=== PATIENT | male | born 1935 | race Caucasian/White ===

== ENCOUNTER → 2018-02-01 09:36 | Outpatient (CLI) | payer MEDICARE, OTHER, SELFPAY ==
--- NOTE | 2018-02-01 09:41 | AAVD_ITS ---
Reason For Study: AAA Repair Aorta Measurements Aorta Doppler Measurements Proximal aorta measures1.8 x 1.8cm. in cross- Peak systolic flow velocities within the proximal sectional axis. aorta measure 119 cm/sec. Proximal aorta measures1.8cm. in longitudinal Endograft velocites measure 236 cm/sec axis. proximally, 198 cm/sec medially, and 157 cm/sec Mid/Distal residual sac measures 4.5 x 4.7 cm. distally. Left Iliac Artery Left iliac artery measures 1.5 cm. in the longitudinal axis. Left iliac artery measures 1.3 x 1.5 cm. in the cross-sectional axis. Peak systolic velocity in the left iliac artery measures 46 cm/sec. Right Iliac Artery Right iliac artery measures 1.5 cm. in the longitudinal axis. Right iliac artery measures 1.5 x 1.7 cm. in the cross-sectional axis. Peak systolic velocity in the right iliac artery measures 55 cm/sec. Procedure Aorta IVC Iliac vasculature or bypass grafts [id number]. Exam performed in department. Interpretation Summary 1. Patent endograft with no stenosis. 2. Residual sac 4.5 x 4.7cm. Ordering Physician: Pablo Lau Referring Physician: Steve Corley Performed By: Brooklynn Contreras, THUAN, RVT
--- NOTE | 2018-02-01 11:34 | LEAS ---
Arterial Study - Arterial Study Arterial Study: Core record number: [id number] Date of scan 02/01/[address] Lau History: Patient with follow-up PAD and previous endograft repair. Interpretation: Right lower extremity normal pulsatile flow noted from the thigh down to the calf ankle out through the digits duplex shows triphasic flow at the ankle with an CARINA 1.1 for the posterior tibial 1.1 through the dorsalis pedis. With the digit brachial index 0.63. Next Left lower extremity also shows normal pulsatile flow from the thigh down to the calf ankle out through the digits duplex shows triphasic flow noted at the ankl with an CARINA 1.11 the posterior tibial and 1.03 the dorsalis pedis. Digital brachial index 0.77. Impression: 1. Bilateral lower extremities with no evidence of significant arterial occlusive disease at rest with an CARINA 1.14 in the right and 1.11 on the left.
== END ==
PROVIDERS: Family Provider Family Medicine; PCP Family Medicine; Visit Provider Surgery Vascular Surgery
DX: I73.9 Peripheral vascular disease, unspecified (principal); I71.4 Abdominal aortic aneurysm, without rupture
CPT/HCPCS: 93923; 93978

== ENCOUNTER → 2018-04-27 09:19 | Outpatient (CLI) | payer MEDICARE, OTHER, SELFPAY | PROVIDERS: Family Provider Family Medicine; PCP Family Medicine; Visit Provider Internal Medicine Interventional Cardiology | DX: I25.10 Atherosclerotic heart disease of native coronary artery without angina pectoris (principal); I71.4 Abdominal aortic aneurysm, without rupture; I35.8 Other nonrheumatic aortic valve disorders; E78.5 Hyperlipidemia, unspecified; R09.89 Other specified symptoms and signs involving the circulatory and respiratory systems | CPT/HCPCS: 93880 ==

== ENCOUNTER → 2019-02-05 | Outpatient (CLI) | payer MEDICARE, OTHER, SELFPAY ==
--- NOTE | 2019-02-05 08:37 | ART_ITS ---
Reason For Study: AAA Procedure A bilateral lower extremity continuous wave Doppler with analog waveform analysis and ankle brachial indexes. Left Segmental Pressures Left brachial= 157mmHg. Left posterior tibial artery = 161mmHg. Left dorsalis pedis artery = 158mmHg. The left dorsalis pedis waveforms are biphasic. The left posterior tibial artery waveforms are triphasic. Right Segmental Pressures Right brachial= 150mmHg. Right posterior tibial artery = 165mmHg. Right dorsalis pedis artery = 159mmHg. The right dorsalis pedis waveforms are triphasic. The right posterior tibial artery waveforms are triphasic. Indices The right ankle brachial index by the dorsalis pedis is 1.01. The right ankle brachial index by the posterior tibial artery is 1.05. The left ankle brachial index by the dorsalis pedis is 1.01. The left ankle brachial index by the posterior tibial artery is 1.03. Interpretation Summary 1. Bilateral no significant occlussive disease at rest with CARINA 1.05/1.03. Ordering Physician: Pablo Lau Referring Physician: Steve Corley Performed By: Jo Burroughs RVT
--- NOTE | 2019-02-05 08:38 | AAVD_ITS ---
Reason For Study: AAA Aorta Measurements Aorta Doppler Measurements Proximal aorta measures1.93 x 1.94cm. in cross- Peak systolic flow velocities within the proximal sectional axis. aorta measure 94.3 cm/sec. Proximal aorta measures1.94cm. in longitudinal Mid endograft velocites measure 214.1 cm/sec and axis. 183 cm/sec. Mid/Distal residual sac measures 4.18 x 4.68 cm. Distal endograft velocities measure 136.3 cm/sec and 138.9 cm/sec. Left Iliac Artery Left iliac artery measures 1.26 x 1.27 cm. in the cross-sectional axis. Left iliac artery measures 1.33 cm. in the longitudinal axis. Peak systolic velocity in the left iliac artery measures 58.5 cm/sec. Right Iliac Artery Right iliac artery measures 1.39 x 1.41 cm. in the cross-sectional axis. Right iliac artery measures 1.37 cm. in the longitudinal axis. Peak systolic velocity in the right iliac artery measures 138.9 cm/sec. Procedure Aorta IVC Iliac vasculature or bypass grafts [id number]. Exam performed in department. Interpretation Summary 1. Patent endograft and no obvious endoleak. Residual sac 4.68cm. Ordering Physician: Pablo Lau Referring Physician: Steve Corley Performed By: Jo Burroughs RVT
== END | disposition home or self-care (01) ==
LOC: CVS 08:32
PROVIDERS: Family Provider Family Medicine; PCP Family Medicine; Referring Provider Surgery Vascular Surgery; Visit Provider Surgery Vascular Surgery
DX: I70.213 Atherosclerosis of native arteries of extremities with intermittent claudication, bilateral legs (principal); I71.4 Abdominal aortic aneurysm, without rupture; I25.10 Atherosclerotic heart disease of native coronary artery without angina pectoris; I25.2 Old myocardial infarction; Z91.041 Radiographic dye allergy status
CPT/HCPCS: 93922; 93978

== ENCOUNTER → 2020-06-09 07:51 | Outpatient (CLI) | payer MEDICARE, OTHER, SELFPAY ==
--- NOTE | 2020-06-09 07:54 | AAVD_ITS ---
Reason For Study: AAA w/ endograft Aorta Measurements Aorta Doppler Measurements Proximal aorta measures1.94 x 1.90cm. in cross- Peak systolic flow velocities within the proximal sectional axis. aorta measure 112.5 cm/sec. Proximal aorta measures1.96cm. in longitudinal Mid Limb 1, 219.3 cm/sec. axis. Mid Limb 2, 133.7 cm/sec. Mid residual sac, 4.34 x 4.63 x 4.24 cm. Distal Limb 1, 144 cm/sec. Mid Limb 1, 0.79 x 0.79 x 0.77 cm. Distal Limb 2, 120.7 cm/sec. Mid Limb 2, 0.76 x 0.78 x 0.69 cm. Distal residual sac, 3.68 x 4.09 x 4.1 cm. Distal Limb 1, 1.21 x 1.21 x 1.24 cm. Distal Limb 2, 1.23 x 1.21 x 1.22 cm. Left Iliac Artery Left iliac artery measures 1.26 x 1.26 cm. in the cross-sectional axis. Left iliac artery measures 1.25 cm. in the longitudinal axis. Peak systolic velocity in the left iliac artery measures 46.8 cm/sec. Right Iliac Artery Right iliac artery measures 1.18 x 1.15 cm. in the cross-sectional axis. Right iliac artery measures 1.19 cm. in the longitudinal axis. Peak systolic velocity in the right iliac artery measures 106.7 cm/sec. Procedure Aorta IVC Iliac vasculature or bypass grafts [id number]. Exam performed in department. Interpretation Summary Patent EVAR and no endoleakk and sac 4.3 x 4.6cm. Ordering Physician: Pablo Lau Referring Physician: Tio Corley Performed By: Jo Burroughs RVT
--- NOTE | 2020-06-09 07:54 | ART_ITS ---
Reason For Study: AAA w/ endograft Procedure A bilateral lower extremity continuous wave Doppler with analog waveform analysis and ankle brachial indexes. Left Segmental Pressures Left brachial= 133mmHg. Left posterior tibial artery = 157mmHg. Left dorsalis pedis artery = 146mmHg. The left dorsalis pedis waveforms are biphasic. The left posterior tibial artery waveforms are triphasic. Right Segmental Pressures Right brachial= 139mmHg. Right posterior tibial artery = 161mmHg. Right dorsalis pedis artery = 152mmHg. The right dorsalis pedis waveforms are biphasic. The right posterior tibial artery waveforms are triphasic. Indices The right ankle brachial index by the dorsalis pedis is 1.09. The right ankle brachial index by the posterior tibial artery is 1.16. The left ankle brachial index by the dorsalis pedis is 1.05. The left ankle brachial index by the posterior tibial artery is 1.13. Interpretation Summary Bilateral triphasic flow and CARINA 1.16 and 1.13. Ordering Physician: Pablo Lau Referring Physician: Tio Corley Performed By: Jo Burroughs RVT and Student
== END ==
PROVIDERS: PCP Family Medicine; Referring Provider Surgery Vascular Surgery; Visit Provider Surgery Vascular Surgery
DX: I71.4 Abdominal aortic aneurysm, without rupture (principal); I73.9 Peripheral vascular disease, unspecified; Z95.828 Presence of other vascular implants and grafts
CPT/HCPCS: 93922; 93978

== ENCOUNTER → 2021-07-09 08:49 | Outpatient (CLI) | payer MEDICARE, OTHER, SELFPAY ==
--- NOTE | 2021-07-09 08:57 | ART_ITS ---
Reason For Study: PVD Procedure A bilateral lower extremity continuous wave Doppler with analog waveform analysis and ankle brachial indexes. Left Segmental Pressures Left brachial= 144mmHg. Left posterior tibial artery = 141mmHg. Left dorsalis pedis artery = 147mmHg. Left digit = 125 mmHg. The left dorsalis pedis waveforms are biphasic. The left posterior tibial artery waveforms are triphasic. Right Segmental Pressures Right brachial= 147mmHg. Right posterior tibial artery = 161mmHg. Right dorsalis pedis artery = 154mmHg. Right digit = 97 mmHg. The right dorsalis pedis waveforms are triphasic. The right posterior tibial artery waveforms are triphasic. Indices The right ankle brachial index by the dorsalis pedis is 1.05. The right ankle brachial index by the posterior tibial artery is 1.1. The right digital-brachial index is .66. The left ankle brachial index by the posterior tibial artery is .96. The left ankle brachial index by the dorsalis pedis is 1.0. The left digital-brachial index is .85. VL/Ankle Brachial Index Interpretation Summary Bilateral triphasic flow and CARINA 1.1 and 1.0. Normal DBI at 0.66 and 0.85. Ordering Physician: Pablo Lau Performed By: Alonso Stallworth RVT
--- NOTE | 2021-07-09 08:57 | AAVD_ITS ---
Reason For Study: AAA Aorta Measurements Aorta Doppler Measurements Proximal aorta measures1.76 x 1.66cm. in cross- Peak systolic flow velocities within the proximal sectional axis. aorta measure 104.1 cm/sec. Proximal aorta measures1.76cm. in longitudinal Mid limb 1 168.7 cm/s. axis. Mid limb 2 133.2 cm/s. Mid sac short 4.65 x 4.65 cm. Dist limb 1 139.6 cm/s. Mid sac long 4.54cm Dist limb 2 97.6 cm/s. Distal sac short 3.81 x 3.81 cm. Distal sac long 3.23 cm. Mid limb 1 1.28 x 1.18 x 1.16 cm. Mid limb 2 1.21 x 1.11 x 1.04 cm. Distal limb 1 1.04 x .99 x 1.01 cm. Distal limb 2 1.01 x 1.11 x 1.11 cm. Left Iliac Artery Left iliac artery measures 1.13 x 1.1 cm. in the cross-sectional axis. Left iliac artery measures 1.16 cm. in the longitudinal axis. Peak systolic velocity in the left iliac artery measures 55.6 cm/sec. Right Iliac Artery Right iliac artery measures 1.26 x 1.4 cm. in the cross-sectional axis. Right iliac artery measures 1.32 cm. in the longitudinal axis. Peak systolic velocity in the right iliac artery measures 104.1 cm/sec. Procedure Aorta IVC Iliac vasculature or bypass grafts [id number]. The exam was diagnostic. Exam performed in department. VL/Abd Aortic/IVC Duplex scan Interpretation Summary No endoleak seen. Residual sac 4.65cm. Ordering Physician: Pablo Lau Performed By: Alonso Stallworth, RVT
== END ==
PROVIDERS: PCP Family Medicine; Referring Provider Surgery Vascular Surgery; Visit Provider Surgery Vascular Surgery
DX: I73.9 Peripheral vascular disease, unspecified (principal); I71.4 Abdominal aortic aneurysm, without rupture; Z95.828 Presence of other vascular implants and grafts
CPT/HCPCS: 93922; 93978

== ENCOUNTER → 2022-11-15 | Outpatient (CLI) | payer MEDICARE, OTHER, SELFPAY ==
--- NOTE | 2022-11-15 08:42 | AAVD_ITS ---
Reason For Study: AAA w/repair Aorta Measurements Aorta Doppler Measurements Proximal aorta measures1.98 x 1.96cm. in cross- Peak systolic flow velocities within the proximal sectional axis. aorta measure 106.7 cm/sec. Proximal aorta measures1.913cm. in longitudinal Mid limb 1, 193.7 cm/s. axis. Mid limb 2, 90.5 cm/s. Mid sac short, 4.90 x 4.87 cm. Dist limb 1, 121.5 cm/s. Mid sac long, 4.85 cm Dist limb 2, 144.8 cm/s. Distal sac short, 3.63 x 3.72 cm. Distal sac long, 3.8 cm. Mid limb 1, 0.94 x 0.92 x 0.95 cm. Mid limb 2, 0.90 x 0.90 x 0.90 cm. Distal limb 1, 1.21 x 1.18 x 1.22 cm. Distal limb 2, 1.10 x 1.06 x 1.25 cm. Left Iliac Artery Left iliac artery measures 1.32 x 1.30 cm. in the cross-sectional axis. Left iliac artery measures 1.31 cm. in the longitudinal axis. Peak systolic velocity in the left iliac artery measures 67.1 cm/sec. Right Iliac Artery Right iliac artery measures 1.27 x 1.30 cm. in the cross-sectional axis. Right iliac artery measures 1.36 cm. in the longitudinal axis. Peak systolic velocity in the right iliac artery measures 103.4 cm/sec. VL/Abd Aortic/IVC Duplex scan Interpretation Summary No endoleak and sac 4.9cm. Ordering Physician: Pablo Lau Referring Physician: Katerin Lazo Performed By: Jo Burroughs RVT
--- NOTE | 2022-11-15 08:43 | ART_ITS ---
Reason For Study: PVD Procedure A bilateral lower extremity continuous wave Doppler with analog waveform analysis and ankle brachial indexes. Left Segmental Pressures Left brachial= 141mmHg. Left posterior tibial artery = 156mmHg. Left dorsalis pedis artery = 98mmHg. The left dorsalis pedis waveforms are biphasic. The left posterior tibial artery waveforms are triphasic. Right Segmental Pressures Right brachial= 135mmHg. Right posterior tibial artery = 156mmHg. Right dorsalis pedis artery = 142mmHg. The right dorsalis pedis waveforms are triphasic. The right posterior tibial artery waveforms are triphasic. Indices The right ankle brachial index by the dorsalis pedis is 1.01. The right ankle brachial index by the posterior tibial artery is 1.11. The left ankle brachial index by the dorsalis pedis is 0.70. The left ankle brachial index by the posterior tibial artery is 1.11. VL/Ankle Brachial Index Interpretation Summary Bialteral triphasic with no significant stenosis and CARINA 1.11 and 1.11. Ordering Physician: Pablo Lau Referring Physician: Katerin Lazo Performed By: Jo Burroughs RVT
== END | disposition home or self-care (01) ==
LOC: CVS 08:35
PROVIDERS: PCP Family Medicine; Referring Provider Surgery Vascular Surgery; Visit Provider Surgery Vascular Surgery
DX: Z95.828 Presence of other vascular implants and grafts (principal); I73.9 Peripheral vascular disease, unspecified
CPT/HCPCS: 93922; 93978

== ENCOUNTER → 2024-01-20 | Outpatient (CLI) | payer MEDICARE, OTHER, SELFPAY ==
--- NOTE | 2024-01-20 08:43 | AAVD_ITS ---
Reason For Study: PVD, AAA w/repair Aorta Measurements Aorta Doppler Measurements Proximal aorta measures2.12 x 2.02cm. in cross- Peak systolic flow velocities within the proximal sectional axis. aorta measure 88.6 cm/sec. Proximal aorta measures1.98cm. in longitudinal Mid limb 1, 178.6 cm/s. axis. Mid limb 2, 134.5 cm/s. Mid sac short, 4.80 x 4.55 cm. Dist limb 1, 106 cm/s. Mid sac long, 4.60 cm Dist limb 2, 137.1 cm/s. Distal sac short, 3.90 x 3.89 cm. Distal sac long, 3.86 cm. Mid limb 1, 0.73 x 0.70 x 0.76 cm. Mid limb 2, 0.88 x 0.85 x 0.80 cm. Distal limb 1, 1.19 x 1.24 x 1.16 cm. Distal limb 2, 1.25 x 1.28 x 1.22 cm. Left Iliac Artery Left iliac artery measures 1.53 x 1.53 cm. in the cross-sectional axis. Left iliac artery measures 1.38 cm. in the longitudinal axis. Peak systolic velocity in the left iliac artery measures 58.3 cm/sec. Right Iliac Artery Right iliac artery measures 1.38 x 1.44 cm. in the cross-sectional axis. Right iliac artery measures 1.38 cm. in the longitudinal axis. Peak systolic velocity in the right iliac artery measures 118.9 cm/sec. Procedure Aorta IVC Iliac vasculature or bypass grafts [id number]. Exam performed in department. VL/Abd Aortic/IVC Duplex scan Interpretation Summary No endoleak and patent EVAR. Sac 3.9cm. Ordering Physician: MD Pablo Lau Referring Physician: Katerin Lazo Performed By: Jo Burroughs RVT
--- NOTE | 2024-01-20 08:43 | ART_ITS ---
Reason For Study: PVD, AAA w/ repair Procedure A bilateral lower extremity continuous wave Doppler with analog waveform analysis and ankle brachial indexes. Left Segmental Pressures Left brachial= 128mmHg. Left posterior tibial artery = 130mmHg. Left dorsalis pedis artery = 103mmHg. The left dorsalis pedis waveforms are triphasic. The left posterior tibial artery waveforms are triphasic. Right Segmental Pressures Right brachial= 128mmHg. Right posterior tibial artery = 142mmHg. Right dorsalis pedis artery = 104mmHg. The right dorsalis pedis waveforms are biphasic. The right posterior tibial artery waveforms are triphasic. Indices The right ankle brachial index by the dorsalis pedis is 0.81. The right ankle brachial index by the posterior tibial artery is 1.11. The left ankle brachial index by the dorsalis pedis is 0.80. The left ankle brachial index by the posterior tibial artery is 1.02. VL/Ankle Brachial Index Interpretation Summary Bilateral leg normal at rest 1.11 and 1.02. Ordering Physician: Pablo Lau Referring Physician: Katerin Lazo Performed By: Jo Burroughs RVT
== END | disposition home or self-care (01) ==
LOC: CVS 08:39
PROVIDERS: PCP Family Medicine; Referring Provider Surgery Vascular Surgery; Visit Provider Surgery Vascular Surgery
DX: I73.9 Peripheral vascular disease, unspecified (principal); I71.43 Infrarenal abdominal aortic aneurysm, without rupture; Z95.828 Presence of other vascular implants and grafts
CPT/HCPCS: 93922; 93978

== ENCOUNTER → 2025-07-30 | Outpatient (CLI) | payer MEDICARE, OTHER, SELFPAY ==
--- OUTSIDE RECORDS SUMMARY | 2025-07-30 07:38 | XMS RPT_ITS | CCD ---
Author Organization [facility] Care Team Providers Care Test Deck Supervisor Name Role Phone JOSE AGUILAR, Renuka GARCIA Primary Care Physician RHETT AGUILAR, DR JAIMES Primary Care Physician Edwardo DELANEY MD Unavailable [phone] PHYSICAL THERAPY, CONSULT Unavailable Red aguilar BERLIN Unavailable Unavailable DAYSI, EYE Unavailable VASCULAR SURGEON, GENERAL Unavailable REGINA Ordonez MD Unavailable Claudia Valente RN Unavailable Unavailable ANYI AGUILAR, ROMEL Llamas Unavailable GELY AVILA RN Unavailable Unavailable Aliyah Diaz Unavailable Unavailable Renuka GARCIA MD Unavailable LANE GRANT Unavailable Unavailable Erinn Hunt Unavailable Unavailable [place] Unavailable Unavailable Tara Tomas Unavailable Unavailable Bridgett Landaverde Unavailable Unavailable SAIMA AGUILAR, PEPITO Gutierrez Unavailable Stanton RN, Freida Unavailable UnavailJOSIAH Arenas Unavailable Unavailable Beth CONSTANTINO, Kinjal Unavailable Unavailable Unavailable Unavailable Brigid Lau Referring Unavailable Brigid Lau Attending Unavailable Fiona Delaney Primary Care Unavailable BROOKE GARCIA Attending Unavailable RHETT AGUILAR, DR JAIMES Primary Care Unavailable DANIEL MATA MD Attending Unavailable RHETT AGUILAR, DR JAIMES Primary Care Unavailable SHERI CAZARES-LANE DELUCA Attending Unavail able RHETT AGUILAR, DR JAMIES Primary Care Unavailable DANIEL MATA MD Attending Unavailable RHETT AGUILAR, DR JAIMES Primary Care Unavailable RHETT AGUILAR, DR JAIMES Attending Unavailable RHETT AGUILAR, DR JAIMES Primary Care Unavailable DANIEL MATA MD Attending Unavailable RHETT AGUILAR, DR JAIMES Primary Care Unavailable ZUHAIR AGUILAR, DR AGUILAR Attending Red DELANEY MD, DR JAIMES Primary Care Unavailable Edwardo DELANEY Primary Care Unavailable Edwardo DELANEY Consulting Unavailable Edwardo DELANEY Attending Unavailable Edwardo DELANEY Admitting Unavailable PROVIDER, UNKNOWN Consulting Unavailable PROVIDER, UNKNOWN Consulting Unavailable PROVIDER, UNKNOWN Consulting Unavailable RHETT AGUILAR, DR JAIMES Primary Care Unavailable ESPERANZA AGUILAR, DANIEL Grayson Attending Unavailable BEBETO CONSTANTINO, LOVE Unavailable Unavaila ble Allergies Allergy Classification Reported Allergen(s) Allergy Type Date of Onset Reaction(s) Facility (20 sources) Aspirin; Translations: [aspirin] Drug Allergy 4 Difficulty breathing at rest [facility] (20 sources) clopidogrel; Translations: [clopidogrel] Drug Allergy 3 difficulty breathing, Rash [facility] Comment on above: per ambulatory order s signed by Dr. Mata. [facility] 08/19/14 (15 sources) Contrast media; Translations: [contrast media (iodine-based)] Drug allergy hives/ shortness of breath [facility] (15 sources) Niacin; Translations: [niacin] Drug Allergy flushing/itchi [facility] Comment on above: per ambulatory order s signed by Dr. Mata. [facility] 08/19/14 (15 sources) Pravastatin; Translations: [pravastatin] Drug Allergy muscle aches [facility] Comment on above: per ambulatory order s signed by Dr. Mata. [facility] 08/19/14 (15 sources) Sulfonamides (Antibiotic); Translations: [sulfa drugs] Drug allergy rash [facility] (20 sources) Sulfacetamide Drug Allergy Rash [facility], [facility].; [facility] - [facility], [facility]. (10 sources) statins (Renamed from Lipitor *ANTIHYPERLIPIDEM ICS*) [facility].; [facility] [employer] (1 source) [facility] [employer] [facility] [employer] (1 source) [facility] [employer] [facility] [employer] (1 source) Aspirin Drug Allergy [facility] (1 source) clopidogrel Drug Allergy [facility] (1 source) Contrast media; Translations: [RED DYE] Propensity to adverse reactions (disorder) [facility] (1 source) Sulfonamides (Antibiotic) Drug allergy (disorder) [facility] (1 source) CONTRAST MEDIA, IODINE RELATED Drug allergy (disorder) [facility] (1 source) [facility] [employer] [facility] [employer] (1 source) [facility] [employer] [facility] [employer] (1 source) [facility] [employer] [facility] [employer] (1 source) [facility] [employer] [facility] [employer] (1 source) [facility] [employer] [facility] [employer] (1 source) [facility] [employer] [facility] [employer] (1 source) [facility] [employer] [facility] [employer] (1 source) [facility] [employer] [facility] [employer] (1 source) [facility] [employer] [facility] [employer] (1 source) [facility] [employer] [facility] [employer] (1 source) [facility] [employer] [facility] [employer] (1 source) [facility] [employer] [facility] [employer] (1 source) [facility] [employer] [facility] [employer] (1 source) [facility] [employer] [facility] [employer] (1 source) [facility] [employer] [facility] [employer] (1 source) [facility] [employer] [facility] [employer] (1 source) [facility] [employer] [facility] [employer] (1 source) [facility] [employer] [facility] [employer] (1 source) [facility] [employer] [facility] [employer] (1 source) [facility] [employer] [facility] [employer] (1 source) [facility] [employer] [facility] [employer] (1 source) [facility] [employer] [facility] [employer] (1 source) [facility] [employer] [facility] [employer] (1 source) [facility] [employer] [facility] [employer] (1 source) [facility] [employer] [facility] [employer] Medications Current Medications Medication Drug Class(es) Dates Sig (Normalized) Sig (Original) acetaminophen 325 mg oral capsule (15 sources) Start: 01-29-2016 Tylenol 325 mg oral capsule Dose : 650 mg = 2 cap(s), Oral, q4h, PRN for pain, 0 Refill(s) Start Date: 01/29/16 Status: Ordered Repeat number: 1 ascorbic acid 500 mg oral tablet (20 sources) Vitamin C Start: 01-29-2016 Vitamin C 500 mg oral tablet Dose : 500 mg = 1 tab(s), Oral, qDay, # 30 tab(s), 0 Refill(s) Start Date: 01/29/16 Status: Ordered Comment on above: OTC carvedilol 3.125 mg oral tab let (20 sources) alpha-Adrenergic Kamaljit, beta-Adrenergic Kamaljit Start: 12-18-2024 Start: 11-10-2022 Start: 11-10-2022 carvedilol 3.1 25 mg oral tablet Dose : 3.125 mg = 1 tab(s), Oral, qDay, 0 Refill(s) Start Date: 11/10/22 Status: Ordered Start: 01-29-2016 carvedilol 3.1 25 mg oral tablet Dose : 3.125 mg = 1 tab(s), Oral, qHS, 0 Refill(s) Start Date: 01/29/16 Status: Ordered Start: 01-29-2016 carvedilol 3.1 25 mg oral tablet Dose : 3.125 mg = 1 tab(s), Oral, BID, # 180 tab(s), 0 Refill(s) Start Date: 01/29/16 Status: Ordered Comment on above: Wants a 90 day suppl y Centrum Silver Men's oral tablet (7 sources) Start: 01-29-2016 take 1 tablet by mouth once daily Centrum Silver Men's oral tablet Dose = 1 tab(s), Oral, qDay, 0 Refill(s) Start Date: 01/29/16 Status: Ordered Centrum Silver oral tablet (8 sources) Start: 09-08-2022 take 1 tablet by mouth once daily Centrum Silver oral tablet Dose = 1 tab(s), Oral, qDay, 0 Refill(s) Start Date: 09/08/22 Status: Ordered Repeat number: 1 Start: 09-08-2022 take 1 tablet by betzy th once daily Centrum Silver oral tablet Dose = 1 tab(s), Oral, qDay, 0 Refill(s) Start Date: 09/08/22 Status: Ordered cholecalciferol 0.125 mg ora l tablet (20 sources) Vitamin D take 1 tablet by mouth once herminio y Vitamin D3 125 mcg (5,000 unit) oral tablet ; 1 daily (125 mcg (5,000 uni) Comments: OTC Vitamin D ; herminio y Status: Inactive Comment on above: OTC colchicine 0.6 mg oral table t (20 sources) Start: 03-12-2024 Start: 10-14-2022 colchicine 0.6 mg oral tablet Dose : 0.6 mg = 1 tab(s), Oral, q1h, PRN as needed for gout pain, take as directed, # 10 tab(s), 0 Refill(s) Start Date: 10/14/22 Status: Ordered Quantity: 10.0 Unit: tab(s) Repeat number: 1 take 1 tablet by betzy th twice daily COLCHICINE, 0.6MG (Oral Tablet) ; 1 two times daily (0.6 MG) Status: Inactive Comment on above: repeat 1 pill 1 hour later Daily Multiple Vitamin (20 sources) Daily Multiple Vitamin oral tablet (10 sources) take 1 tablet by mouth once daily Daily Multiple Vitamin oral tablet ; 1 (one) daily Comments: OTC - Centrum Silver Comment on above: OTC - Centrum Silver diphenhydrAMINE hydrochloride 25 mg oral capsule (2 sources) Histamine-1 Receptor Antagonist Start: 2 Benadryl 25 mg oral capsule Dose : 50 mg = 2 cap(s), Oral, Once, PRN for allergy symptoms, 0 Refill(s) Start Date: 08/02/22 Status: Ordered enalapril maleate 10 mg oral tablet (20 sources) Angiotensin Converting Enzyme Inhibitor Start: 4 Start: 07-26-2023 take 1 tablet by betzy th at bedtime enalapril maleate 10 mg tablet ; 1 (one) Tablet at bedtime for 90 days Quantity: 90 {Tablet} Refills: 3 Ordered: 26-Jul-2023 MD Edwardo DELANEY Start: 26-Jul-2023 Comments: This prescription supersedes all prior prescriptions for this medication.Would like 90 day supply. Start: 07-26-2023 Start: 01-29-2016 enalapril 5 mg oral tablet Dose : 5 mg = 1 tab(s), Oral, qHS, 0 Refill(s) Start Date: 01/29/16 Status: Ordered Repeat number: 1 Comment on above: This prescription [place] pers[place] all prior prescriptions for this medication.Would like 90 day supply. meclizine hydrochloride 25 mg oral tablet (20 sources) Antiemetic Start: 01-10-20 Comment on above: Medication taken as needed. prasugrel 10 mg oral tablet (20 sources) P2Y12 Platelet Inhibitor Start: 09-23-19 Effient 10 mg oral tablet Dose : 10 mg = 1 tab(s), Oral, Daily, # 90 tab(s), 3 Refill(s), Pharmacy: [facility], 165.1, cm, 09/14/23 13:00:00 EST, Height, kg, 09/14/23 13:00:00 EST, Dosing Weight Start Date: 10/25/23 Status: Ordered Quantity: 90.0 Unit: tab(s) Repeat number: 4 Comment on above: Cardio predniSONE 50 mg oral tablet (2 sources) Start: 08-02-20 take 1 mg by mouth once predniSONE 50 mg oral tablet mg = tab(s), Oral, Once, 0 Refill(s) Start Date: 08/02/22 Status: Ordered rosuvastatin calcium 5 mg oral tablet (1 source) HMG-CoA Reductase Inhibitor Start: 09-28-19 Crestor 5 mg oral tablet Dose : 5 mg = 1 tab(s), Oral, Daily, # 30 tab(s), 0 Refill(s), Pharmacy: [facility], 167.6, cm, 09/28/21 11:25:00 EST, Height, kg, 09/28/21 11:25:00 EST, Dosing Weight Start Date: 09/28/21 Status: Ordered Vitamin B Complex oral tablet (7 sources) Start: 01-29-20 take 1 tablet by mouth once daily Vitamin B Complex oral tablet Dose = 1 tab(s), Oral, Daily, # 90 tab(s), 0 Refill(s) Start Date: 01/29/16 Status: Ordered vitamin b12 1 mg oral tablet (20 sources) Vitamin B12 Comment on above: OTC Vitamin B12 1000 mcg oral tablet (8 sources) Start: 09-08-19 Vitamin B12 1000 mcg oral tablet Dose : 1,000 mcg = 1 tab(s), Oral, qDay Start Date: 09/08/22 Status: Ordered Repeat number: 1 Start: 09-08-2022 Vitamin B12 10 00 mcg oral tablet Dose : 1,000 mcg = 1 tab(s), Oral, qDay Start Date: 09/08/22 Status: Ordered Vitamin C 500 mg oral tablet (14 sources) Start: 01-29-2016 Vitamin C 500 mg oral tablet Dose : 500 mg = 1 tab(s), Oral, qDay, 0 Refill(s) Start Date: 01/29/16 Status: Ordered Repeat number: 1 Start: 01-29-2016 Vitamin C 500 mg oral tablet Dose : 500 mg = 1 tab(s), Oral, qDay, 0 Refill(s) Start Date: 01/29/16 Status: Ordered Start: 01-29-2016 Vitamin C 500 mg oral tablet Dose : 500 mg = 1 tab(s), Oral, qDay, # 30 tab(s), 0 Refill(s) Start Date: 01/29/16 Status: Ordered Vitamin D3 5000 intl units o ral capsule (15 sources) Start: 01-29-2016 Vitamin D3 500 0 intl units oral capsule Dose : 5,000 unit(s) = 1 cap(s), Oral, qDay, 0 Refill(s) Start Date: 01/29/16 Status: Ordered Repeat number: 1 Start: 01-29-2016 Vitamin D3 500 0 intl units oral capsule Dose : 5,000 unit(s) = 1 cap(s), Oral, qDay, 0 Refill(s) Start Date: 01/29/16 Status: Ordered Completed/Discontinued Medications Medication Drug Class(es) Dates Sig (Normalized) Sig (Original) acyclovir 400 mg oral tablet (20 sources) Herpesvirus Nucleoside Analog DNA Polymerase Inhibitor, Herpes Simplex Virus Nucleoside Analog DNA Polymerase Inhibitor, Herpes Zoster Virus Nucleoside Analog DNA Polymerase Inhibitor Start: 09-11-2015 End: 02-28-2016 albuterol 0.83 mg/ml inhalation solution (20 sources) beta2-Adrenergic Agonist Start: 07-24-2010 End: 06-01-2011 Start: 07-24-2010 End: 06-01-2011 ALBUTEROL SULFATE, (2.5 MG/3 ML)0.083% (Inhalation Nebulization Solution) ; 1 (one) Ampule(s) every four hours, as needed for 0 days Quantity: 30 {ampule(s)} Refills: 0 Ordered: 01-Jun-2011 DOUGIE Campos Start: 24-Jul-2010 End: 01-Jun-2011 Status: Inactive Comments: Medication taken as needed. Ventolin HFA 108 (90 Base) MCG/ACT Inhalation Aerosol Solution ; 1 two times daily (108 (90 Base) MCG/ACT) Comment on above: Medication taken as needed. atorvastatin 40 mg oral tabl et (20 sources) HMG-CoA Reductase Inhibitor take 1 tablet by mouth at bedtim e Atorvastatin Calcium 40 MG Oral Tablet ; 1 at bedtime (40 MG) Status: Inactive Comments: Dr. Mata Comment on above: Dr. Mata azithromycin 250 mg oral tab let (20 sources) Macrolide Antimicrobial Start: 07-17-2020 End: 07-22-2020 Start: 08-16-2014 End: 04-08-2015 Comment on above: take two tablets day one and then one tablet daily for 4 days Centrum (20 sources) CENTRUM (Oral Tablet) (10 sources) CENTRUM (Oral Tablet) Status: Inactive clopidogrel 75 mg oral tablet (20 sources) P2Y12 Platelet Inhibitor cyclobenzaprine hydrochloride 5 mg oral tablet (20 sources) Muscle Relaxant Start: 03-26-2014 End: 08-16-2014 Start: 03-26-2014 End: 08-16-2014 CYCLOBENZAPRINE HCL, 5MG (Or al Tablet) ; 1 (one) Tablet before bed for 10 days Quantity: 15 {Tablet} Refills: 1 Ordered: 16-Aug-2014 DOUGIE Eid Start: 26-Mar-2014 End: 16-Aug-2014 Status: Inactive fluticasone propionate 0.05 mg/actuat metered dose nasal spray (20 sources) Corticosteroid Start: 03-13-2018 End: 10-25-2022 Start: 03-13-2018 End: 10-25-2022 fluticasone propionate 50 mc g/actuation intranasal spray, suspension ; 1 (one) each nostril squirt squirt two times daily for 0 days Quantity: 1 {Bottle} Refills: 5 Ordered: 25-Oct-2022 DOUGIE Valente Start: 13-Mar-2018 End: 25-Oct-2022 Status: Inactive 60 actuat fluticasone propionate 0.25 mg/actuat / salmeterol 0.05 mg/actuat dry powder inhaler (20 sources) Corticosteroid, beta2-Adrenergic Agonist Start: 12-14-2011 End: 03-26-2014 Start: 12-14-2011 End: 03-26-2014 ADVAIR DISKUS, 250-50MCG/DOS E (Inhalation Aerosol Powder Breath Activated) ; 1 inhalation Aero Pow Br Act two times daily for 0 days Quantity: 1 {Discus} Refills: 12 Ordered: 26-Mar-2014 Start: 14-Dec-2011 End: 26-Mar-2014 Status: Inactive homatropine methylbromide 0. 3 mg/ml / HYDROcodone bitartrate 1 mg/ml oral solution (20 sources) Opioid Agonist, Cholinergic Muscarinic Agonist Start: 09-20-2011 End: 01-25-2012 Start: 09-20-2011 End: 01-25-2012 HYDROCODONE-HOMATROPINE, 5-1 .5MG/5ML (Oral Syrup) ; 1 Teaspoon(s) every six hours, as needed for 0 days Quantity: 4 {ounce(s)} Refills: 2 Ordered: 25-Jan-2012 DOUGIE Campos Start: 20-Sep-2011 End: 25-Jan-2012 Status: Inactive Comments: Medication taken as needed. rx [facility] [place]. Comment on above: Medication taken as needed. rx to [facility] [place]. indomethacin 25 mg oral caps ule (20 sources) Nonsteroidal Anti-inflammatory Drug Start: 04-25-2012 End: 08-16-2014 Comment on above: to take as soon as h ave symptoms of gout and take until symptoms gone for 48 hours then taper over 2-3 days. levoFLOXacin 500 mg oral tab let (20 sources) Quinolone Antimicrobial Start: 12-14-2011 End: 12-21-2011 metoprolol tartrate 25 mg or al tablet (20 sources) beta-Adrenergic Kamaljit Start: 08-03-2011 End: 07-26-2014 LOPRESSOR, 50MG (Oral Tablet) ; (50 MG) Status: Inactive Comments: 1 am and 1/2 as needed Comment on above: 1 am and 1/2 as need ed Cardio nebulizer and compressor (20 sources) Start: 07-24-2010 End: 06-01-2011 NEBULIZER COMPRESSOR (Kit) (10 sources) Start: 07-24-2010 End: 06-01-2011 NEBULIZER COMPRESSOR (Kit) ; Kit for 0 days Quantity: 1 Kit Refills: 0 Ordered: 01-Jun-2011 DOUGIE Campos Start: 24-Jul-2010 End: 01-Jun-2011 Status: Inactive Nebulizer/Adult Mask (20 sources) Start: 07-24-2010 End: 06-01-2011 NEBULIZER/ADULT MASK (Kit) (10 sources) Start: 07-24-2010 End: 06-01-2011 NEBULIZER/ADULT MASK (Kit) ; Kit for 0 days Quantity: 1 Kit Refills: 0 Ordered: 01-Jun-2011 DOUGIE Campos Start: 24-Jul-2010 End: 01-Jun-2011 Status: Inactive NEBULIZER/TUBING/MOUTHPIEC E (Kit) (10 sources) Start: 07-24-2010 End: 06-01-2011 NEBULIZER/TUBING/MOUTH PIECE (Kit) ; Kit for 0 days Quantity: 1 Kit Refills: 0 Ordered: 01-Jun-2011 DOUGIE Campos Start: 24-Jul-2010 End: 01-Jun-2011 Status: Inactive nitroglycerin 0.4 mg sublingual tablet (20 sources) Nitrate Vasodilator NITROGLYCERIN, 0 .4MG (Sublingual Tablet Sublingual) ; prn (0.4 MG) Status: Inactive Potassium (20 sources) Potassium ; herminio y Status: Inactive Comments: Takes occasionally Comment on above: Takes occasionally Reusable Nebulizer Kit (20 sources) Start: 07-24-2010 End: 06-01-2011 sildenafil 20 mg oral tablet (20 sources) Phosphodiesterase 5 Inhibitor Start: 10-25-2022 End: 04-11-2024 Start: 03-22-2016 End: 12-23-2017 Start: 03-22-2016 End: 12-23-2017 Viagra 100 MG Oral Tablet ; 1/2 Tablet as needed for 0 days Quantity: 16 {Tablet} Refills: 3 Ordered: 23-Dec-2017 DOUGIE Eid Start: 22-Mar-2016 End: 23-Dec-2017 Status: Inactive Comments: Medication taken as needed. fax to [facility] Comment on above: Medication taken as needed. Medication taken as needed. fax to [facility] ticagrelor 90 mg oral tablet (20 sources) zolpidem tartrate 5 mg oral tablet (20 sources) gamma-Aminobutyric Acid-ergic Agonist Start: 07-26-2014 End: 08-16-2014 Start: 07-26-2014 End: 08-16-2014 AMBIEN, 5MG (Oral Tablet) ; 1-2 Tablet at bedtime, as needed for 30 days Quantity: 30 {Tablet} Refills: 2 Ordered: 16-Aug-2014 DOUGIE Eid Start: 26-Jul-2014 End: 16-Aug-2014 Status: Inactive Comments: Medication taken as needed. Comment on above: Medication taken as needed. Problems Active Problems Problem Classification Problem Date Documented Da te Episodic/Chronic Abdominal hernia (20 sources) Right inguinal hernia ; Translations: [Unilateral inguinal hernia, without obstruction or gangrene, not specified as recurrent] 08-20-2016 Episodic Abdominal pain (20 sources) Abdominal pain; Translations: [Unspecified abdominal pain] 04-11-2015 Episodic Acute myocardial infarction (20 sources) Acute ST segment elevation myocardial infarction; Translations: [ST elevation (STEMI) myocardial infarction of unspecified site] 07-26-2014 Chronic Administrative/social admission (20 sources) Advance directive discussed with patient; Translations: [Other specified counseling] Onset: 3 10-25-2022 Episodic Comment on above: 10/25/2022 Discussed Advance Directives with pt. Pt. has a Living Will and HCPOA. Aortic; peripheral; and visceral artery aneurysms (7 sources) Abdominal aortic aneurysm without rupture 01-23-2020 Chronic Comment on above: s/p repair February 2016 Asthma (20 sources) Asthma; Translations: [Unspecified asthma, uncomplicated] 04-17-2013 Chronic Blindness and vision defects (20 sources) Diplopia; Translations: [Diplopia] Onset: 3 07-01-2023 Episodic Comment on above: vertical; treating w ith prisms Dr. Catalan Cardiac dysrhythmias (15 sources) Premature beats 01-23-2020 Chronic Comment on above: Premature ventricula r contractions, benign in nature. Cardiac dysrhythmias (20 sources) Bradycardia; Translations: [Bradycardia, unspecified] 08-03-2019 Episodic Cataract (20 sources) Cataract; Translations: [Bilateral cataracts] 01-29-2016 Chronic Cataract (10 sources) Cataract 06-30-2018 Chronic kidney disease (20 sources) Chronic kidney disease stage 3B ; Translations: [Chronic kidney disease, Stage III (moderate)] 04-19-2023 Chronic Comment on above: GFR=44 (12/25). Chronic obstructive pulmonary disease and bronchiectasis (20 sources) Chronic obstructive lung disease; Translations: [Chronic obstructive pulmonary disease, unspecified] 01-01-2022 Chronic Chronic obstructive pulmonary disease and bronchiectasis (10 sources) Chronic obstructive pulmonary disease and bronchiectasis 01-01-2022 Conditions associated with dizziness or vertigo (20 sources) Dizziness and giddiness; Translations: [Dizziness and giddiness] Episodic Comment on above: new complaint Conditions associated with dizziness or vertigo (10 sources) Conditions associated with dizziness or vertigo 01-09-2021 Conduction disorders (20 sources) Complete atrioventricular block; Translations: [Atrioventricular block, complete] Onset: 3 Chronic Comment on above: Pacer 2023 Coronary atherosclerosis and other heart disease (20 sources) Coronary atherosclerosis; Translations: [Atherosclerotic heart disease of [place] coronary artery without angina pectoris] 01-23-2020 Chronic Comment on above: 08/21/2014: PCI with Xience Xpedition MEGHANN x2 mid LAD 07/09/2014: in the proximal ramus int ermedius using a 2.75 x 12mm Resolute Integrity RX stent12/19/2003---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 A 2.5 x 12mm Taxus Stent Drug Eluting. DNR. Coronary atherosclerosis and other heart disease (1 source) Patient post angioplasty; Translations: [Coronary angioplasty status] Episodic Coronary atherosclerosis and other heart disease (20 sources) Coronary atherosclerosis and other heart disease 01-09-2021 Deficiency and other anemia (20 sources) Anemia; Translations: [Anemia, unspecified] 04-25-2020 Episodic Diabetes mellitus without complication (20 sources) Increased glucose level; Translations: [Other abnormal glucose] 08-11-2023 Episodic Diseases of mouth; excluding dental (20 sources) Disorder of salivary gland; Translations: [Other diseases of salivary glands] 2023 Episodic Comment on above: Evaluated Dr. Herbert milligan 06/2023--observe; Bx not an option b/c not palpable Disorders of lipid metabolism (20 sources) Hyperlipidemia; Translations: [Hyperlipidemia, unspecified] Chronic Comment on above: good as of 06/30/18. Diverticulosis and diverticulitis (8 sources) Diverticulosis of colon 09-08-2022 Chronic Essential hypertension (20 sources) Hypertensive disorder; Translations: [Essential hypertension] 07-09-2014 Chronic Gout and other crystal arthropathies (20 sources) Chronic gout without tophus; Translations: [Chronic gout, unspecified, without tophus (tophi)] 12-14-2022 Chronic Heart valve disorders (20 sources) Aortic valve stenosis; Translations: [Aortic stenosis, non-rheumatic ] 01-24-2020 Chronic Heart valve disorders (15 sources) Irregular heart beat 08-21-2014 Episodic Immunizations and screening for infectious disease (20 sources) Encounter for immunization; Translations: [Other specified vaccinations against streptococcus pneumoniae [pneumococcus]] 08-20-2016 Episodic Malaise and fatigue (20 sources) Fatigue; Translations: [Other fatigue] 05-24-2017 Episodic Miscellaneous mental health disorders (20 sources) Transient disorder of initiating or maintaining sleep 08-16-2014 Episodic Osteoarthritis (15 sources) Arthritis 01-29-2016 Chronic Other aftercare (20 sources) Patient encounter status; Translations: [Encounter for therapeutic drug level monitoring] 08-09-2023 Episodic Other aftercare (20 sources) Post-discharge follow-up; Translations: [Encounter for follow-up examination after completed treatment for conditions other than malignant neoplasm] 10-25-2022 Episodic Other circulatory disease (15 sources) Easy bruising 01-29-2016 Episodic Other circulatory disease (8 sources) Difficult venous access 09-08-2022 Episodic Other circulatory disease (20 sources) Elevated blood pressure reading without diagnosis of hypertension 04-25-2012 Episodic Other connective tissue disease (20 sources) Disorder of Achilles tendon; Translations: [Other specified disorders of synovium and tendon, other site] 05-24-2017 Episodic Other ear and sense organ disorders (15 sources) Hearing loss 01-29-2016 Chronic Comment on above: 2 Other endocrine disorders (20 sources) Hypotestosteronism; Translations: [Endocrine disorder, unspecified] 08-01-2018 Episodic Comment on above: nml 08/20/16. 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, right eye] 04-19-2023 Episodic Other gastrointestinal disorders (20 sources) Chronic constipation; Translations: [Other constipation] 12-21-2022 Episodic Other hematologic conditions (20 sources) Hyperproteinemia; Translations: [Abnormality of plasma protein, unspecified] 03-24-2023 Episodic Other lower respiratory disease (20 sources) Nodule of lung; Translations: [Solitary pulmonary nodule] 09-30-2022 Episodic Other male genital disorders (20 sources) Male erectile dysfunction, unspecified; Translations: [Impotence of organic origin] 10-25-2022 Chronic Other nervous system disorders (20 sources) Abnormal gait; Translations: [Unsteadiness on feet] 01-09-2021 Episodic Other non-epithelial cancer of skin (7 sources) Malignant neoplasm of skin 08-21-2014 Episodic Other non-traumatic joint disorders (20 sources) Chronic pain of left upper limb; Translations: [Pain in left shoulder] 04-25-2020 Episodic Other nutritional; endocrine; and metabolic disorders (20 sources) Unintentional weight loss; Translations: [Abnormal weight loss] 04-11-2024 Episodic Other screening for suspected conditions (not mental disorders or infectious disease) (20 sources) Screening status; Translations: [Encounter for screening for cardiovascular disorders] 04-11-2015 Episodic Other upper respiratory disease (20 sources) Allergic rhinitis; Translations: [Allergic rhinitis, unspecified] 07-26-2023 Chronic Other upper respiratory disease (20 sources) Nasal congestion; Translations: [Nasal congestion] 08-01-2018 Episodic Other upper respiratory infections (20 sources) Acute upper respiratory infection; Translations: [Acute upper respiratory infection, unspecified] 08-16-2014 Episodic Peripheral and visceral atherosclerosis (1 source) Peripheral vascular disease, unspecified; Translations: [Peripheral vascular disease, unspecified] Onset: Chronic Pleurisy; pneumothorax; pulmonary collapse (20 sources) Pleurisy; Translations: [Pleurisy] 08-24-2011 Episodic Pneumonia (except that caused by tuberculosis or sexually transmitted disease) (20 sources) Community acquired pneumonia; Translations: [Pneumonia, unspecified organism] 07-17-2020 Episodic Residual codes; unclassified (20 sources) History of repair of aneurysm of abdominal aorta; Translations: [Other specified postprocedural states] 04-19-2023 Episodic Spondylosis; intervertebral disc disorders; other back problems (20 sources) Low back pain; Translations: [Lumbago] 03-16-2017 Episodic Unclassified (15 sources) Eye glasses, device (physical object) 08-21-2014 Unclassified (15 sources) Hearing aid, device (physical object) 01-29-2016 Comment on above: 2 Unclassified (10 sources) LAB DRAW - The labs drawn today include: BMP. The lab was drawn from the right antecubital vein. The lab was ordered by Dr. Delaney. 08-09-2023 Unclassified (10 sources) !Patient notification of lab results - Dr. Delaney (The MRA and MRI ordered by Dr. Brooke Garcia showed no clear explanation for your double vision. 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 At some point, it might be a consideration to have you see a neurosurgeon to advise you on the best management for this small aneurysm (usually they don't need attention unless they are 7 millimeters and yours is 3 millimeters). The MRI showed some age-related changes as the circulation in the small blood vessels diminishes over time. There was also a question of some mild sinus involvement and a 9 millimeter nodule noted in the left parotid gland (which lies over the cheek). The radiologist recommended that we consider an ultrasound of this area. However, I think a consultation with an ENT doctor might be the best next step to follow up these incidental findings. Since we don't have a clearcut explanation for your double vision, I would suggest that we have you see one of the ophthalmologists at the [facility]. They may advise you to see a neuro-warpman but I will leave that to their discretion.). You should call our office if you have any questions. 06-23-2023 Unclassified (10 sources) Follow up Tests results - Note for Follow up to discuss laboratory test results": Pt had MRI of his head done about 2 weeks ago at [place]. His eye doctor ordered the test. He would like to discuss the results. He is still off balance and has vision changes. 06-14-2023 Unclassified (1 source) Visual disturbance - Note for "Visual disturbance": Pt was seen a few weeks ago for vision changes. He had double vision. Testing was done. Vision is slowly getting better. 04-20-2023 Unclassified (1 source) [ADDITIONAL REASON] HYPERTENSION - There has been no associated chest pain or edema. 04-20-2023 Unclassified (10 sources) Coronary Artery Disease (CAD) - The last clinic visit was 2 month(s) ago. Note for "Coronary artery disease": going to 9 weeks of cardio rehab in [place]. [facility] 12-21-2022 Unclassified (10 sources) LAB DRAW - The labs drawn today include: other: uric acid. The lab was drawn from the left antecubital vein. The lab was ordered by Dr. Delaney. 12-14-2022 Unclassified (8 sources) Heart Block - This is a third degree heart block. Note for "Heart block": Was seen in [facility] ER 09/29/2022 and sent to [place]. Had Pacemaker put in 09/30/2022. 10-25-2022 Unclassified (10 sources) [ADDITIONAL REASON] Gout - The last clinic visit was 10 month(s) ago. Note for "Gout": Has rare gout flare ups and keeps Colcrys on hand to use when needed. 10-25-2022 Unclassified (8 sources) [ADDITIONAL REASON] Transition into care - The patient is transitioning into care from a hospital and a summary of care was reviewed. 10-25-2022 Unclassified (7 sources) Transition into care - The patient is transitioning into care from a hospital ([facility]) and a summary of care was reviewed. 01-01-2022 Unclassified (8 sources) [ADDITIONAL REASON] Gout - The last clinic visit was 6 month(s) ago. Note for "Gout": Gout symptoms come and go. Don't last long 01-09-2021 Unclassified (9 sources) HYPERTENSION - Note for "HYPERTENSION": No headaches, dizzy spells, swelling of ankles, chest pain or shortness of breath. No daily cough 04-25-2020 Unclassified (5 sources) Immunization - Immunizations discussed with patient/ parent: yes (had flu shot in [place]). 08-03-2019 Unclassified (8 sources) [ADDITIONAL REASON] Coronary Artery Disease (CAD) - The last clinic visit was 6 month(s) ago. Note for "Coronary artery disease": goes to [place] for the winter. 08-03-2019 Unclassified (10 sources) [ADDITIONAL REASON] HYPERTENSION - Note for "HYPERTENSION": c/o lightheadedness at times. 08-03-2019 Unclassified (8 sources) [ADDITIONAL REASON] HYPERTENSION - Note for "HYPERTENSION": c/o trouble with balance. 01-05-2019 Unclassified (7 sources) Gout - The last clinic visit was 6 month(s) ago. Note for "Gout": No flare-ups 06-30-2018 Unclassified (7 sources) [ADDITIONAL REASON] HYPERTENSION - Note for "HYPERTENSION": No headaches, dizzy spells, swelling of ankles, chest pain or shortness of breath. No cough 06-30-2018 Unclassified (10 sources) Routine Check - Patient is here to review the medical problem(s) of hypertension. Note for "Routine Check ": spent 3 mo in [place]. 12-23-2017 Unclassified (10 sources) LAB DRAW - The labs drawn today include: BMP and Lipid Panel. The lab was drawn from the left antecubital vein. The lab was ordered by Dr. Garcia. fax #: [phone]. Note for "LAB DRAW": also fax to Dr Mata 09-03-2017 Unclassified (4 sources) Coronary Artery Disease (CAD) - Symptoms do not include chest pain, chest pressure or shortness of breath. Note for "Coronary artery disease": Exercises at [employer] (treadmill) 2-3 times weekly. 05-24-2017 Unclassified (4 sources) [ADDITIONAL REASON] HYPERTENSION - There has been no associated chest pain or dyspnea. Note for "HYPERTENSION": Pt taking only 1/2 pill daily when remembers (unsure if enalapril or another medication for BP). Needs refill. 05-24-2017 Unclassified (10 sources) Unspecified Diagnosis 03-16-2017 Unclassified (10 sources) Leg pain - Note for "Leg pain": Rt leg, geovanny heel pain. Last 6 mo. Also lower back pain. 03-16-2017 Unclassified (10 sources) Post-Operative - Patient is 3 weeks postop procedure. Note for "Post-operative follow up": Had stints and aorta repair. 02-28-2016 Unclassified (10 sources) LAB DRAW - The labs drawn today include: Lipid Panel and PSA. The lab was drawn from the left antecubital vein. The lab was ordered by Dr. Dr. Garcia. 06-04-2011 Unclassified (9 sources) HYPERTENSION - There has been no associated chest pain or edema. 04-20-2023 Unclassified (9 sources) [ADDITIONAL REASON] Visual disturbance - Note for "Visual disturbance": Pt was seen a few weeks ago for vision changes. He had double vision. Testing was done. Vision is slowly getting better. 04-20-2023 Unclassified (2 sources) Transition into care - The patient is transitioning into care from a hospital and a summary of care was reviewed. 10-25-2022 Unclassified (2 sources) [ADDITIONAL REASON] Heart Block - This is a third degree heart block. Note for "Heart block": Was seen in [facility] ER 09/29/2022 and sent to [place]. Had Pacemaker put in 09/30/2022. 10-25-2022 Unclassified (2 sources) Gout - The last clinic visit was 6 month(s) ago. Note for "Gout": Gout symptoms come and go. Don't last long 01-09-2021 Unclassified (2 sources) Coronary Artery Disease (CAD) - The last clinic visit was 6 month(s) ago. Note for "Coronary artery disease": goes to [place] for the winter. 08-03-2019 Unclassified (5 sources) [ADDITIONAL REASON] Immunization - Immunizations discussed with patient/ parent: yes (had flu shot in [place]). 08-03-2019 Unclassified (6 sources) HYPERTENSION - There has been no associated chest pain or dyspnea. Note for "HYPERTENSION": Pt taking only 1/2 pill daily when remembers (unsure if enalapril or another medication for BP). Needs refill. 05-24-2017 Unclassified (6 sources) [ADDITIONAL REASON] Coronary Artery Disease (CAD) - Symptoms do not include chest pain, chest pressure or shortness of breath. Note for "Coronary artery disease": Exercises at [employer] (treadmill) 2-3 times weekly. 05-24-2017 Unclassified (3 sources) [ADDITIONAL REASON] Transition into care - The patient is transitioning into care from a hospital ([facility]) and a summary of care was reviewed. 01-01-2022 Unclassified (2 sources) HYPERTENSION - Note for "HYPERTENSION": c/o trouble with balance. 01-05-2019 Unclassified (3 sources) HYPERTENSION - Note for "HYPERTENSION": No headaches, dizzy spells, swelling of ankles, chest pain or shortness of breath. No cough 06-30-2018 Unclassified (3 sources) [ADDITIONAL REASON] Gout - The last clinic visit was 6 month(s) ago. Note for "Gout": No flare-ups 06-30-2018 Viral infection (20 sources) Herpes zoster without complication; Translations: [Zoster without complications] 09-11-2015 Episodic Past or Other Problems Problem Classification Problem Date Documented Date Episodic/Chronic Deficiency and other anemia (10 sources) Deficiency and other anemia 04-26-2020 Headache; including migraine (20 sources) Headache; including migraine 07-26-2023 Other aftercare (2 sources) Encounter for therapeutic drug level monitoring; Translations: [Encounter for therapeutic drug level monitoring] Onset: 08-09-2023 Episodic Unclassified (10 sources) HYPERTENSION - Note for "HYPERTENSION": Increased enalapril to 10 mg at last office visit. Pt denies lightheadedness/dizzi ness. 08-11-2023 Unclassified (10 sources) Visual disturbance - Note for "Visual disturbance": Pt offers hx of having difficulty focusing his eyes along with feeling sluggish and c/o "I sleep a lot". Onset 3 days ago. C/o double vision at times 03-23-2023 Unclassified (20 sources) Immunization - Immunizations discussed with patient/ parent: yes. Influenza immunization was given. An immunization information sheet was provided. 06-25-2021 Unclassified (11 sources) [ADDITIONAL REASON] HYPERTENSION - Note for "HYPERTENSION": No headaches, dizzy spells, swelling of ankles, chest pain or shortness of breath. No daily cough 01-09-2021 Unclassified (10 sources) Cough - The onset of the cough has been acute and has been occurring in a persistent pattern for 1 week. The cough is characterized as productive sputum. The symptoms have been associated with runny nose, while the symptoms have not been associated with fever. 07-17-2020 Unclassified (10 sources) [ADDITIONAL REASON] Gout - The last clinic visit was 9 month(s) ago. Note for "Gout": Occasional flare-ips. Keeps Colcrys on hand 04-25-2020 Unclassified (4 sources) [ADDITIONAL REASON] Injury - Note for "Injury": Tried to pull another Passenger's Suitcase from the escalator in November 2019 at [facility]. Suffered Fractures of Nose and Left Shoulder 04-25-2020 Unclassified (10 sources) !Patient notification of lab results - Dr. Garcia. Note for !Patient notification of lab results ": Daniel, all your labs looked excellent. Let us know if you have any questions. 08-04-2019 Unclassified (10 sources) Preoperative evaluation - Surgical procedures include: other (Cataract extraction w/ lens implant). Date of procedure: (08/10/2018) . [facility] "[facility] 08-01-2018 Unclassified (10 sources) !Patient notification of lab results - Jose. Note for !Patient notification of lab results ": Daniel, as expected, your kidney function, liver, cholesterol and sugar tests were normal. Keep doing what your doing! 07-01-2018 Unclassified (10 sources) !Patient notification of lab results - Garcia. Note for !Patient notification of lab results ": Daniel, your yearly check for kidney function and cholesterol look good. We will send copy to your metal mold dresser.Let us know if you have any questions. 09-06-2017 Unclassified (10 sources) Rash - The onset of the rash has been acute and has been occurring in a persistent pattern for days. The rash is characterized as red. The rash was first seen on the scalp and the face (left eye area). There has been associated itching and pain. Note for "Rash": pt had zostavax immunization 2007.. 09-11-2015 Unclassified (20 sources) Immunization - Influenza immunization was given. An immunization information sheet was provided. 07-04-2015 Unclassified (10 sources) !Patient notification of lab results 1 - Garcia. Note for !Patient notification of lab results 1": Daniel, as expected your kidney function test looks good. Keep doing what your doing! 04-09-2015 Unclassified (10 sources) cough - The onset of the cough has been acute. The symptoms have been associated with sore throat. Note for "cough": Scheduled for heart stent surgery at [place] 08-21-14. 08-16-2014 Unclassified (14 sources) HYPERTENSION - Note for "HYPERTENSION": No headaches, dizzy spells, or swelling of ankles 07-26-2014 Unclassified (10 sources) [ADDITIONAL REASON] Insomnia - Note for "Insomnia": Having trouble sleeping at night since home from [facility] 07-26-2014 Unclassified (10 sources) [ADDITIONAL REASON] Immunization - Influenza immunization was given. An immunization information sheet was provided. A Pneumovax was given. An immunization information sheet was provided. 07-26-2014 Unclassified (9 sources) [ADDITIONAL REASON] Gout - Note for "Gout": Having flare-ups of gout 07-26-2014 Unclassified (5 sources) [ADDITIONAL REASON] Transition into care - The patient is transitioning into care from a hospital ([place]) and a summary of care was reviewed . 07-26-2014 Unclassified (10 sources) !Patient notification of lab results 1 - Garcia. Note for !Patient notification of lab results 1": Daniel, your labs, including your kidney function, look fine. So you don't need to overdo the drinking, but just keep from getting dehydrated and I think you will do fine. 05-13-2014 Unclassified (10 sources) !Patient notification of lab results 1 - Jose. Note for !Patient notification of lab results 1": Daniel, nothing to worry about at this point, but for some reason your kidney function didn't look as good on our yearly routine check. Last year it looked fine. Just make sure you are well hydrated and we will recheck it when you come in next time. Sometimes just being a little dehydrated makes it look abnormal. 03-27-2014 Unclassified (3 sources) [ADDITIONAL REASON] Back Pain - Note for "Back pain": Lower back. Still using Cyclobenzaprine once or twice a week at bedtime. 03-26-2014 Unclassified (10 sources) !Patient notification of lab results 1 - Jose. Note for !Patient notification of lab results 1": Daniel, your labs look good. I will send them to your metal mold dresser. 04-18-2013 Unclassified (10 sources) Back Pain Lumbar, Acute - This condition occurred following a specific injury (fell). The injury involved the low back. This occurred day(s) ago. 04-17-2013 Unclassified (10 sources) !Patient notification of lab results 1 - Dr. Garcia. Note for !Patient notification of lab results 1": Daniel, your labs look good. Happy fishing! 08-23-2012 Unclassified (10 sources) HYPERTENSION - Note for "HYPERTENSION": no complaints. Had flu shot. Going to [place] Sep 2012. Fasting for lab. 08-22-2012 Unclassified (10 sources) !Patient notification of lab results 1 - Dr. Garcia. Note for !Patient notification of lab results 1": Daniel, all your labs look great. Enjoy your Spring! 01-26-2012 Unclassified (10 sources) cough - There has been no associated runny nose or sore throat. 12-14-2011 Unclassified (10 sources) cough - The cough has been occurring for 3 days. The cough is characterized as productive of purulent sputum. The symptoms are aggravated by supine posture (cannot sleep at night). The symptoms have been associated with chest pain (when takes deep breath). 08-24-2011 Unclassified (10 sources) Foot pain - The pain affects the right foot. Note for "Foot pain": pain in toe knuckles, has had gout flair ups in the past, worse at night 11-29-2011 Unclassified (10 sources) !Patient notification of lab results 1 - Dr. Garcia. Note for !Patient notification of lab results 1": Daniel, your cholesterol is higher than before. In someone with known heart disease, we generally push pretty hard to keep that cholesterol down (LDL under 70 or at least under 100). If you are willing to try a different type of medicine for your cholesterol, let me know. I would recommend that you do. 06-05-2011 Unclassified (10 sources) Routine Check - Note for "Routine Check ": . 06-01-2011 Unclassified (10 sources) Patient notification of lab results - Dr. Landaverde. The test(s) that you had done were/was CBC and CMP. The results of your testing were normal (bloodwork) for you and any medical condition(s) that you may have. For your age and medical condition your tests showed the following abnormalities: chest xray showed pneumonia . Please continue your current medication(s) and therapy, follow up as scheduled (tomorrow - 07-25-10) and know that probably we would want to xray your lungs again. 07-24-2010 Unclassified (10 sources) Cough - The onset of the cough has been acute and has been occurring for 1 week. The course has been constant. The cough is characterized as productive of blood-stained sputum. The cough occurs mainly at night. 07-24-2010 Unclassified (6 sources) Injury - Note for "Injury": Tried to pull another Passenger's Suitcase from [facility] escalator [facility] Suffered Fractures of Nose and Left Shoulder 04-25-2020 Unclassified (5 sources) Transition into care - The patient is transitioning into care from a hospital ([place]) and a summary of care was reviewed . 07-26-2014 Unclassified (6 sources) [ADDITIONAL REASON] HYPERTENSION - Note for "HYPERTENSION": No headaches, dizzy spells, or swelling of ankles 07-26-2014 Unclassified (7 sources) Back Pain - Note for "Back pain": Lower back. Still using Cyclobenzaprine once or twice a week at bedtime. 03-26-2014 Unclassified (1 source) Gout - Note for "Gout": Having flare-ups of gout 07-26-2014 Unclassified (3 sources) Cold Symptoms - Symptoms include runny nose, scratchy throat and productive cough (white phlegm infrequently), while symptoms do not include headache. Onset was gradual. Note for "Cold symptoms": Pt states attempted [facility] at [facility] 1-2 weeks ago - unable to complete d/t problems w/ esophagus. 04-11-2024 Unclassified (3 sources) [ADDITIONAL REASON] Weight loss - Note for "Weight loss": Pt concerned w/ weight loss and absent appetite for at least 1 month. 04-11-2024 Results Test Name Value Interpretation Reference Range Facility Laboratory - Chemistry and C hemistry - challengeon 03-29-2025 Cholesterol [Mass/Vol] 153 mg/dL Normal 100 - 199 mg/dL [facility]; [facility] Work Phone: Cholesterol in HDL [Mass/Vol] 31 mg/dL Abnormal [facility]; [facility] Work Phone: Cholesterol in LDL [Mass/Vol] 93 mg/dL Normal 0 - 99 mg/dL [facility]; [facility] [employer] [facility] Work Phone: Cholesterol in VLDL [Mass/Vol] 29 mg/dL Normal 5 - 40 mg/dL [facility]; [facility] [employer] [facility] Work Phone: Cholesterol.total/Cho lesterol in HDL [Mass ratio] 4.9 {ratio} Normal 0.0 - 5.0 {ratio} [facility]; [employer] [facility] [employer] [facility] Work Phone: Triglyceride [Mass/Vol] 165 mg/dL Abnormal 0 - 149 mg/dL [facility]; [employer] [facility] [employer] [facility] Work Phone: No Panel Informationon 04-25 [place] [facility] [employer] [facility]; [facility] Institute[facility]; [facility] Laboratory - Microbiology an d Antimicrobial susceptibilityon 04-11-2024 SARS-CoV-2 (COVID-19) RNA DAVID+probe Ql (Unsp spec) Positive Abnormal [facility] No Panel Informationon 04-11 [facility] Positive Abnormal [facility].; [facility] No Panel Informationon 03-12 [facility].; [facility] No Panel Informationon 02-13 [facility].; [facility] No Panel Informationon 01-26 [facility].; [facility] No Panel Informationon 01-23 [facility] Abd Aortic/IVC Duplex scanon 01-20-2024 Abd Aortic/IVC Duplex scan [facility] [address] [place] [address] Abd Aortic/IVC Duplex scan 01/20/24 0901 MR#: [id number] Acct: [id number] Name: DANIEL MASTERSON Rep #: [id number] : [id number] From: Brigid Lau MD Attending Dr: Dr. Brigid Lau MD Status: [facility] Ordering Dr: Brigid Lau MD Date: 01/20/24 Location: [facility] Sex: M C Admitted: Reason For Study: PVD, AAA w/repair Aorta Measurements Aorta Doppler Measurements Proximal aorta measures2.12 x 2.02cm. in cross- Peak systolic flow velocities within the proximal sectional axis. aorta measure 88.6 cm/sec. Proximal aorta measures1.98cm. in longitudinal Mid limb 1, 178.6 cm/s. axis. Mid limb 2, 134.5 cm/s. Mid sac short, 4.80 x 4.55 cm. Dist limb 1, 106 cm/s. Mid sac long, 4.60 cm Dist limb 2, 137.1 cm/s. Distal sac short, 3.90 x 3.89 cm. Distal sac long, 3.86 cm. Mid limb 1, 0.73 x 0.70 x 0.76 cm. Mid limb 2, 0.88 x 0.85 x 0.80 cm. Distal limb 1, 1.19 x 1.24 x 1.16 cm. Distal limb 2, 1.25 x 1.28 x 1.22 cm. Left Iliac Artery Left iliac artery measures 1.53 x 1.53 cm. in the cross-sectional axis. Left iliac artery measures 1.38 cm. in the longitudinal axis. Peak systolic velocity in the left iliac artery measures 58.3 cm/sec. Right Iliac Artery Right iliac artery measures 1.38 x 1.44 cm. in the cross-sectional axis. Right iliac artery measures 1.38 cm. in the longitudinal axis. Peak systolic velocity in the right iliac artery measures 118.9 cm/sec. Procedure Aorta IVC Iliac vasculature or bypass grafts 21270. Exam performed in department. VL/Abd Aortic/IVC Duplex scan Interpretation Summary No endoleak and patent EVAR. Sac 3.9cm. Ordering Physician: MD Brigid Lau Referring Physician: Fiona Delaney Performed By: Jo Burroughs RVT 01/24/24 1449 Date Brigid Lau MD CC: Dr. Brigid Lau MD; Dr. Fiona Delaney MD Date Dictated: 01/20/24 0901 Date Transcribed: 01/24/24 1449 Housekeeper Supervisor: Signed Normal [facility] Ankle Brachial Indexon 01-19 [facility] [address] [place] [id number] Ankle Brachial Index 01/20/24 0901 MR#: [id number] Acct: [id number] Name: DANIEL MASTERSON Rep #: [id number] : 1935 [id number] From: Brigid Lau MD Attending Dr: Dr. Brigid Lau MD Status: RE G CLI Ordering Dr: Brigid Lau MD Date: 01/20/24 Location: [facility] Sex: M C Admitted: Reason For Study: PVD, AAA w/ repair Procedure A bilateral lower extremity continuous wave Doppler with analog waveform analysis and ankle brachial indexes. Left Segmental Pressures Left brachial= 128mmHg. Left posterior tibial artery = 130mmHg. Left dorsalis pedis artery = 103mmHg. The left dorsalis pedis waveforms are triphasic. The left posterior tibial artery waveforms are triphasic. Right Segmental Pressures Right brachial= 128mmHg. Right posterior tibial artery = 142mmHg. Right dorsalis pedis artery = 104mmHg. The right dorsalis pedis waveforms are biphasic. The right posterior tibial artery waveforms are triphasic. Indices The right ankle brachial index by the dorsalis pedis is 0.81. The right ankle brachial index by the posterior tibial artery is 1.11. The left ankle brachial index by the dorsalis pedis is 0.80. The left ankle brachial index by the posterior tibial artery is 1.02. VL/Ankle Brachial Index Interpretation Summary Bilateral leg normal at rest 1.11 and 1.02. Ordering Physician: Brigid Lau Referring Physician: Fiona Delaney Performed By: Jo Burroughs RVT 01/24/24 1450 Date Brigid Lau MD CC: Dr. Brigid Lau MD; Dr. Fiona Delaney MD Date Dictated: 01/20/24 0901 Date Transcribed: 01/24/24 1450 Housekeeper Supervisor: Signed [facility] No Panel Informationon 12-19 [facility] [employer] [facility] [employer] [facility].; [facility] [employer] [facility]. No Panel Informationon 09-15 [facility].; [facility] [employer] [facility] .GFRon 08-09-2023 GFR >60 Normal [facility] ([place]) Comment on above: Result Comment: GFR Population mean for , Non- Americans Ages 20-29 = 116 mL/min/1.73 sq.m. Ages 30-39 = 107 mL/min/1.73 sq.m. Ages 40-49 = 99 mL/min/1.73 sq.m. Ages 50-59 = 93 mL/min/1.73 sq.m. Ages 60-69 = 85 mL/min/1.73 sq.m. Ages 70+ = 75 mL/min/1.73 sq.m. Chronic Kidney Disease: Less than 60 mL/min/1.73 square meters End Stage Renal Disease: Less than 15 mL/min/1.73 square meters Performed By: #### G , BMP #### [place] [address] GFR Non- 50 ml/min/1.73sqm Normal [facility] ([place]) Comment on above: Result Comment: GFR Population mean for , Non- Americans Ages 20-29 = 116 mL/min/1.73 sq.m. Ages 30-39 = 107 mL/min/1.73 sq.m. Ages 40-49 = 99 mL/min/1.73 sq.m. Ages 50-59 = 93 mL/min/1.73 sq.m. Ages 60-69 = 85 mL/min/1.73 sq.m. Ages 70+ = 75 mL/min/1.73 sq.m. Chronic Kidney Disease: Less than 60 mL/min/1.73 square meters End Stage Renal Disease: Less than 15 mL/min/1.73 square meters Performed By: #### G FR, BMP #### [address] [address] [facility] 08-09-2023 BUN/Creatinine Ratio 14.8 ratio Normal 10.0-22.0 [facility] ([place]) Comment on above: Performed By: #### G FR, BMP #### [address] [address] Calcium [Mass/Vol] 9.8 mg/dL Normal 8.7 - 10. 4 mg/dL [facility], [facility].; [facility] Comment on above: Performed By: #### Kameron FR, BMP #### [address] [address] Chloride [Moles/Vol] 106 mmol/L Normal 98 - 11 0 meq/L [facility], [facility].; [facility] Comment on above: Performed By: #### Kameron FR, BMP #### [address] [address] CO2 [Moles/Vol] 24 mmol/L Normal 22 - 32 meq/L [facility], [facility].; [facility] Comment on above: Performed By: #### G FR, BMP #### [address] [address] Creatinine [Mass/Vol] 1.35 mg/dL Normal 0.60 - 1.40 mg/dL [facility], [facility].; [facility] Comment on above: Performed By: #### G FR, BMP #### [address] [address] Electrolyte Balance 8.0 meq/L Normal 4.0 - 15 .0 meq/L [facility], [facility].; [facility] Comment on above: Performed By: #### G FR, BMP #### [address] [address] Glucose [Mass/Vol] 129 mg/dL Abnormal 82 - 115 mg/dL [facility].; [facility]. Comment on above: Performed By: #### G FR, BMP #### [address] [address] Potassium [Moles/Vol] 4.8 mmol/L Normal 3.5 - 5.0 meq/L [facility].; [facility]. Comment on above: Result Comment: Spec imen slightly hemolyzed. Performed By: #### G FR, BMP #### [address] [address] Sodium [Moles/Vol] 138 mmol/L Normal 136 - 145 meq/L [facility].; [facility]. Comment on above: Performed By: #### G FR, BMP #### [address] [address] Urea nitrogen [Mass/Vol] 20.0 mg/dL Normal 8.0 - 22.0 mg/dL [facility].; [facility]. Comment on above: Performed By: #### G FR, BMP #### [address] [address] Laboratory - Chemistry and C hemistry - challengeon 08-09-2023 GFR/1.73 sq M.predicted among blacks MDRD (S/P/Bld) [Vol rate/Area] mL/min/{1.73_m2} Normal [facility].; [facility]. Work Phone: GFR/1.73 sq M.predicted among non-blacks MDRD (S/P/Bld) [Vol rate/Area] 50 {ml/min/1.73sqm} Normal [facility].; [facility], [facility]. Work Phone: Urea nitrogen/Creatinine [Mass ratio] 14.8 {ratio} Normal 10.0 - 22.0 {ratio} [facility].; [facility]. MRI ORBIT W/ + W/O CONTRASTo n 06-07-2023 MRI ORBIT W/ + W/O CONTRAST ORIGINAL EXAMINATION: MR Brain and Orbits with contrast TECHNIQUE: Multiplanar multi-sequence MRI of the brain and orbits was performed without and with intravenous contrast per standard protocol COMPARISON: CT head 12/10/2019, MRA head 06/01/2023 HISTORY: ORDERING SYSTEM PROVIDED HISTORY: Reason for Exam: Fourth Nerve palsy FINDINGS: Orbits: Normal globe, extraocular muscles, optic nerve, and apparatus. No mass or hematoma. Post bilateral lens implant surgery. Cavernous sinuses: Normal. Extracranial soft tissues: Normal. Visualized skull base foramina: Normal. Brain parenchyma: No acute intracranial hemorrhage, midline shift, mass effect or acute/early subacute ischemic infarct. The strong-white matter junctions are preserved. Moderate generalized parenchymal volume loss is present. No space occupying intra-axial masses or extra-axial fluid collections are demonstrated. A few scattered FLAIR hyperintensities in the deep white matter and slight posterior pontine tegmentum likely reflects age appropriate leukoaraiosis. Ventricles: No hydrocephalus or ventricular effacement. The ventricles and sulci are proportionally prominent reflecting parenchymal volume loss. Paranasal sinuses: Atelectatic left maxillary sinus with mild opacification. Bilateral maxillary sinus retention cysts. Bilateral yasmine bullosa of the middle nasal turbinates. Rightward nasal septal deviation. Mastoids and middle ears: Small right and trace left mastoid effusions. Bones: Normal. Additional comments: 9 mm nodule within the left superficial parotid gland. IMPRESSION: 1. No findings to account for a 4th nerve palsy. 2. Moderate central parenchymal volume loss and mild chronic microvascular white matter ischemic disease. 3. Mild paranasal sinus disease at air-fluid levels. 4. 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 Consider ultrasound. Interpreted by: Brooke Turner MD Preliminary Report By: Brooke Turner MD Electronically signed By Brooke Turner MD Dictated Date: 06/07/2023 10:14:44 AM Prelim Date: 06/07/2023 10:33:38 AM Sign Date: 06/07/2023 10:33:38 AM Ordering Provider: BROOKE GARCIA [facility] ([place]) MRA HEAD W/O CONTRASTon 05-07 MRA HEAD W/O CONTRAST ORIGINAL EXAMINATION: MRA OF THE HEAD WITHOUT CONTRAST 06/01/2023 3:09 pm TECHNIQUE: MRA of the head was performed utilizing [id number] imaging with MIP images. No intravenous contrast was administered. COMPARISON: None HISTORY: ORDERING SYSTEM PROVIDED HISTORY: Reason for Exam: Fourth Nerve Palsy FINDINGS: There is preserved flow related signal in the larger intracranial arteries. No large vessel occlusion. There are bilateral posterior communicating arteries. The right P1 segment is hypoplastic. An anterior communicating artery is present. There is an outpouching in the region of the distal left YOSELIN measuring 3 mm which likely represents an aneurysm. This is incompletely included on the examination given distal location. IMPRESSION: 1. No large vessel occlusion. 2. 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 Interpreted by: Veronica Blackmon MD Preliminary Report By: Veronica Blackmon MD Electronically signed By Veronica Blackmon MD Dictated Date: 06/03/2023 4:24:10 PM Prelim Date: 06/03/2023 4:32:04 PM Sign Date: 06/03/2023 4:32:04 PM Ordering Provider: BROOKE [facility] ([place]) Laboratory - Chemistry and C hemistry - challengeon 03-25-2023 Albumin [Mass/Vol] 3.88 g/dL Normal 3.43 - 5. 41 g/dL [facility].; [facility]. Work Phone: Protein [Mass/Vol] 7.2 g/dL Normal 6.3 - 8.0 g/dL [facility].; [facility]. Work Phone: No Panel Informationon 03-25 Alpha 1 Globulin 0.31 g/dL Normal 0.18 - 0.43 g/dL [facility].; [facility] Work Phone: Alpha 2 Globulin 0.83 g/dL Normal 0.42 - 0.98 g/dL [facility].; [facility] Work Phone: Beta Globulin 0.97 g/dL Normal 0.61 - 1.17 g/dL [facility]; [facility] Work Phone: Gamma Globulin 1.22 g/dL Normal 0.53 - 1.51 g/dL [facility]; [facility] Work Phone: Interpretation No definitive M protein is identified on protein electrophoresis. Normal [facility]; [facility] Work Phone: M Protein Location See Below Normal [facility]; [facility] Work Phone: M-Protein Concentration 0.00 g/dL Normal [facility]; [facility] Work Phone: SPE Staff Review Reviewed by Dr. Carmen Aly MD Normal [facility]; [facility] Work Phone: 7.2 g/dL Normal 6.3 - 8.0 g/dL [facility]; [facility] Work Phone: 3.88 g/dL Normal 3.43 - 5.41 g/dL [facility]; [facility] Work Phone: 0.31 g/dL Normal 0.18 - 0.43 g/dL [facility]; [facility] Work Phone: 0.83 g/dL Normal 0.42 - 0.98 g/dL [facility]; [facility] Work Phone: 0.97 g/dL Normal 0.61 - 1.17 g/dL [facility].; [facility]. Work Phone: 1.22 g/dL Normal 0.53 - 1.51 g/dL [facility].; [facility], [facility]. Work Phone: No definitive M protein is identified on protein electrophoresis. Normal [facility].; [facility]. Work Phone: See Below Normal [facility].; [facility]. Work Phone: 0.00 g/dL Normal [facility].; [facility], [facility]. Work Phone: Reviewed by Dr. Carmen Aly MD [facility]; [facility] Work Phone: Laboratory - Chemistry and C hemistry - challengeon 03-23-2023 Albumin [Mass/Vol] 0.9 g/dL Normal 0.9 - 1.6 [facility]; [facility], [facility] Albumin [Mass/Vol] 3.7 g/dL Normal 3.4 - 5.0 g/dL [facility]; [facility]. ALT [Catalytic activity/Vol] 28 U/L Normal 16 - 63 U/L [facility].; [facility], [facility]. ALT No additional P-5'-P [Catalytic activity/Vol] 28 U/L Normal 16 - 63 U/L [facility]; [facility], [facility] Anion gap [Moles/Vol] 16 mmol/L Normal 10 - 2 0 mmol/L [facility].; [facility], [facility]. AST [Catalytic activity/Vol] 28 U/L Normal 15 - 37 U/L [facility]; [facility], [facility] Bilirubin [Mass/Vol] 0.6 mg/dL Normal 0.2 - 1 .0 mg/dL [facility]; [facility], [facility] Calcium [Mass/Vol] 9.0 mg/dL Normal 8.5 - 10. 1 mg/dL [facility].; [facility] Chloride [Moles/Vol] 102 mmol/L Normal 98 - 10 7 mmol/L [facility]; [facility], [facility] CO2 [Moles/Vol] 27.2 mmol/L Normal 21.0 - 32.0 mmol/L [facility]; [facility], [facility] Creatinine [Mass/Vol] 1.40 mg/dL Abnormal 0.70 - 1.30 mg/dL [facility]; [facility], [facility] GFR/1.73 sq M.predicted among blacks MDRD (S/P/Bld) [Vol rate/Area] 58 {ML/MINUTE} Abnormal 60 - 999 {ML/MINUTE} [facility].; [facility], [facility]. GFR/1.73 sq M.predicted MDRD (S/P/Bld) [Vol rate/Area] 48 {ML/MINUTE} Abnormal 60 - 999 {ML/MINUTE} [facility].; [facility], [facility] Globulin (S) [Mass/Vol] 4.2 g/dL Abnormal 1.5 - 3.8 g/dL [facility].; [facility], [facility]. Glucose [Mass/Vol] 78 mg/dL Normal 74 - 106 mg/dL [facility]; [facility], [facility]. Potassium [Moles/Vol] 4.7 mmol/L Normal 3.5 - 5.1 mmol/L [facility]; [facility], [facility] Protein [Mass/Vol] 7.9 g/dL Normal 6.4 - 8.2 g/dL [facility]; [facility], [facility] Sodium [Moles/Vol] 140 mmol/L Normal 136 - 145 mmol/L [facility]; [facility] Urea nitrogen [Mass/Vol] 19 mg/dL Abnormal 7 - 18 mg/dL [facility]; [facility], [facility] Urea nitrogen/Creatinine [Mass ratio] 14 {ratio} Normal 0 - 30 {ratio} [facility]; [facility] Laboratory - Hematology and Cell countson 03-23-2023 Basophils (Bld) [#/Vol] 0.10 {x10EE3/UL} Normal 0.00 - 0.10 {x10EE3/UL} [facility]; [facility], [facility] Basophils/100 WBC (Bld) 0.9 % Normal 0.0 - 2.0 % [facility]; [facility] Eosinophils (Bld) [#/Vol] 0.50 {x10EE3/UL} Normal 0.00 - 0.50 {x10EE3/UL} [facility]; [facility] Eosinophils/100 WBC (Bld) 5.2 % Normal 0.0 - 7.0 % [facility]; [facility] Erythrocyte distribution width (RBC) [Ratio] 14.6 % Normal 12.0 - 15.6 % [facility]; [facility], [facility] ESR (Bld) [Velocity] 4 mm/h Normal 0 - 20 mm/h Eas [facility]; [facility], [facility] Hematocrit (Bld) [Volume fraction] 52.4 % Abnormal 40.0 - 52.0 % [facility]; [facility], [facility] Hemoglobin (Bld) [Mass/Vol] 16.8 g/dL Normal 13.0 - 17.5 g/dL [facility]; [facility], [facility] Lymphocytes (Bld) [#/Vol] 3.70 {x10EE3/UL} Abnormal 0.80 - 2.80 {x10EE3/UL} [facility].; [facility], [facility]. Lymphocytes/100 WBC (Bld) 37.2 % Normal 20.0 - 45.0 % [facility], [facility].; [facility], [facility]. MCH (RBC) [Entitic mass] 30 pg Normal 27 - 33 pg [facility].; [facility], [facility]. MCHC (RBC) [Mass/Vol] 32 {X10_3} Normal 32 - 3 6 {X10_3} [facility], [facility].; [facility], [facility]. MCV (RBC) [Entitic vol] 92 fL Normal 81 - 98 fL [facility] [employer] [facility].; [facility], [facility]. Monocytes (Bld) [#/Vol] 1.10 {x10EE3/UL} Abnormal 0.20 - 1.00 {x10EE3/UL} [facility].; [facility], [facility]. Monocytes/100 WBC (Bld) 11.5 % Abnormal 0.0 - 10.0 % [facility].; [facility], [facility]. Morphology Dwayne (Bld) [Interp] N/A Normal [facility] [employer] [facility].; [facility] [employer] [facility], [facility]. Neutrophils (Bld) [#/Vol] 4.40 {x10EE3/UL} Normal 1.50 - 7.10 {x10EE3/UL} [facility] [employer] [facility].; [facility], [facility]. Neutrophils/100 WBC (Bld) 45.2 % Abnormal 46.0 - 76.0 % [facility] [employer] [facility].; [facility] [employer] [facility], [facility]. Platelet mean volume (Bld) [Entitic vol] 8.2 fL Normal 6.4 - 10.5 fL [facility] [employer] [facility].; [facility] [employer] [facility], [facility]. Platelets (Bld) [#/Vol] 160 {x10EE3/UL} Normal 150 - 450 {x10EE3/UL} [facility] [employer] [facility] RBC (Bld) [#/Vol] 5.71 {x_10EE6/UL} Normal 4.50 - 6.00 {x_10EE6/UL} [facility] WBC (Bld) [#/Vol] 9.8 {x_10EE3/UL} Normal 4.5 - 10.8 {x_10EE3/UL} [facility] [place] - [facility] [employer] [facility] No Panel Informationon 03-23 AGE 87 {years} Normal [facility].; [facility] ALK PHOS 72 U/L Normal 46 - 116 U/L [facility].; [facility] [employer] [facility]. CBC + DIFF Normal [facility].; [facility] CMP with eGFR Normal [facility] [employer] [facility].; [facility] [employer] [facility] MANUAL DIFF N/A Normal [facility] [employer] [facility] [employer] [facility] 72 U/L Normal 46 - 116 U/L [facility] [employer] [facility] 16 mmol/L Normal 10 - 20 mmol/L [facility] [employer] [facility] [employer] [facility] 87 {years} Normal [facility] N/A Normal [facility] [employer] [facility] [employer] [facility] Laboratory - Chemistry and C hemistry - challengeon 12-14-2022 Magnesium [Mass/Vol] 8.1 mg/dL Normal 3.7 - 9 .2 mg/dL [facility] [employer] [facility] [employer] [facility] No Panel Informationon 12-14 8.1 mg/dL Normal 3.7 - 9.2 mg/dL [facility] [employer] [facility] [employer] [facility] [employer] [facility] LABORATORYOrdered By: SYSTEM SYSTEM on 10-01-2022 Basophils (Bld) [#/Vol] 0.0 103/mcL Invalid Interpretation Code 0.0 - 0.3 10^3/mcL AH Workflow SS Basophils/100 WBC (Bld) 0.4 % Invalid Interpretation Code 0.0 - 2.5 % AH Workflow SS Calcium [Mass/Vol] 9.4 mg/dL Invalid Interpretation Code 8.7 - 10.4 mg/dL ADM SS Chloride [Moles/Vol] 107 mmol/L Invalid Interpretation Code 98 - 110 mEq/L ADM SS CO2 [Moles/Vol] 22 mmol/L Invalid Interpretation Code 22 - 32 mEq/L ADM SS Creatinine [Mass/Vol] 1.26 mg/dL Invalid Interpretation Code 0.60 - 1.40 mg/dL ADM SS Electrolyte Balance 4.0 mEq/L Invalid Interpretation Code 4.0 - 15.0 mEq/L ADM SS Eosinophils (Bld) [#/Vol] 0.3 103/mcL Invalid Interpretation Code 0.0 - 0.7 10^3/mcL AH Workflow SS Eosinophils/100 WBC (Bld) 2.6 % Invalid Interpretation Code 0.0 - 6.0 % AH Workflow SS Erythrocyte distribution width (RBC) [Ratio] 13.3 % Invalid Interpretation Code 11.5 - 15.5 % AH Workflow SS GFR/1.73 sq M.predicted among blacks MDRD (S/P/Bld) [Vol rate/Area] ml/min/1.73sqm Invalid Interpretation Code AH ADM SS GFR/1.73 sq M.predicted among non-blacks MDRD (S/P/Bld) [Vol rate/Area] 54 ml/min/1.73sqm Invalid Interpretation Code ADM SS Glucose [Mass/Vol] 95 mg/dL Invalid Interpretation Code 82 - 115 mg/dL ADM SS Hematocrit (Bld) [Volume fraction] 46.0 % Invalid Interpretation Code 40.0 - 52.0 % Workflow SS Hemoglobin (Bld) [Mass/Vol] 15.1 G/dL Invalid Interpretation Code 13.0 - 17.5 G/dL AH Workflow SS Lymphocytes (Bld) [#/Vol] 3.0 103/mcL Invalid Interpretation Code 0.9 - 4.3 10^3/mcL Workflow SS Lymphocytes/100 WBC (Bld) 26.4 % Invalid Interpretation Code 20.0 - 40.0 % AH Workflow SS Magnesium [Mass/Vol] 1.8 mg/dL Invalid Interpretation Code 1.6 - 2.4 mg/dL AH ADM SS MCH (RBC) [Entitic mass] 29.8 pg Invalid Interpretation Code 27.0 - 33.0 pg AH Workflow SS MCHC 32.8 G/dL Invalid Interpretation Code 32.0 - 36.0 G/dL AH Workflow SS MCV (RBC) [Entitic vol] 91.1 fL Invalid Interpretation Code 81.0 - 100.0 fL AH Workflow SS Monocytes (Bld) [#/Vol] 1.4 103/mcL Invalid Interpretation Code 0.1 - 1.4 10^3/mcL AH Workflow SS Monocytes/100 WBC (Bld) 12.0 % Invalid Interpretation Code 2.0 - 13.0 % AH Workflow SS Neutrophils (Bld) [#/Vol] 6.6 103/mcL Invalid Interpretation Code 2.3 - 8.1 10^3/mcL AH Workflow SS Neutrophils/100 WBC (Bld) 58.6 % Invalid Interpretation Code 50.0 - 75.0 % AH Workflow SS Platelet mean volume (Bld) [Entitic vol] 7.5 fL Invalid Interpretation Code 6.4 - 10.5 fL AH Workflow SS Platelets (Bld) [#/Vol] 174 103/mcL Invalid Interpretation Code 150 - 450 10^3/mcL AH Workflow SS Potassium [Moles/Vol] 4.4 mmol/L Invalid Interpretation Code 3.5 - 5.0 mEq/L ADM SS RBC (Bld) [#/Vol] 5.05 106/mcL Invalid Interpretation Code 4.50 - 6.00 10^6/mcL AH Workflow SS Sodium [Moles/Vol] 133 mmol/L Invalid Interpretation Code 136 - 145 mEq/L ADM SS Urea nitrogen [Mass/Vol] 17.0 mg/dL Invalid Interpretation Code 8.0 - 22.0 mg/dL AH ADM SS Urea nitrogen/Creatinine [Mass ratio] 13.5 ratio Invalid Interpretation Code 10.0 - 22.0 ratio AH ADM SS WBC (Bld) [#/Vol] 11.3 103/mcL Invalid Interpretation Code 4.5 - 10.8 10^3/mcL Workflow SS LABORATORYOrdered By: Saritha Szymanski on 09-30-2022 Appearance (U) Clear (09/30/22 8:39 AM) Invalid Interpretation Code Clear AH Auto Urine SS Bilirubin Ql (U) Negative (09/30/22 8:39 AM) Invalid Interpretation Code Neg-Trace AH Auto Urine SS Color (U) Yellow (09/30/22 8:39 AM) Invalid Interpretation Code AH Auto Urine SS Glucose Test strip (U) [Mass/Vol] Negative Invalid Interpretation Code Negativemg/dL AH Auto Urine SS Hemoglobin Auto test strip (U) [Mass/Vol] Negative (09/30/22 8:39 AM) Invalid Interpretation Code Neg-Trace AH Auto Urine SS Ketones Ql (U) Negative Invalid Interpretation Code Neg-Tracemg/d L AH Auto Urine SS UA Leuk Est Negative (09/30/22 8:39 AM) Invalid Interpretation Code Negative AH Auto Urine SS UA Nitrite Negative (09/30/22 8:39 AM) Invalid Interpretation Code Negative AH Auto Urine SS UA pH 7.0 (09/30/22 8:39 AM) Invalid Interpretation Code 5.0 - 8.0 AH Auto Urine SS UA Protein Negative Invalid Interpretation Code Negativemg/dL AH Auto Urine SS UA Spec Grav 1.015 (09/30/22 8:39 AM) Invalid Interpretation Code 1.006-1.029 AH Auto Urine SS UA Specimen Type Clean Catch (09/30/22 8:39 AM) Invalid Interpretation Code AH Auto Urine SS UA Urobilinogen 0.2 E.U./dL Invalid Interpretation Code 0.2-1.0E.U./d L AH Auto Urine SS LABORATORYOrdered By: SYSTEM SYSTEM on 09-30-2022 Albumin BCP dye [Mass/Vol] 3.3 G/dL Invalid Interpretation Code 3.2 - 4.8 G/dL AH ADM SS Albumin/Globulin [Mass ratio] 1.0 {ratio} Invalid Interpretation Code 0.9 - 1.6 ratio AH ADM SS ALP [Catalytic activity/Vol] 54 U/L Invalid Interpretation Code 38 - 126 U/L AH ADM SS ALT No additional P-5'-P [Catalytic activity/Vol] 18 U/L Invalid Interpretation Code 12 - 55 U/L AH ADM SS AST [Catalytic activity/Vol] 18 U/L Invalid Interpretation Code 8 - 34 U/L AH ADM SS Basophils (Bld) [#/Vol] 0.1 103/mcL Invalid Interpretation Code 0.0 - 0.3 10^3/mcL AH Workflow SS Basophils/100 WBC (Bld) 0.6 % Invalid Interpretation Code 0.0 - 2.5 % Workflow SS Bilirubin [Mass/Vol] 0.80 mg/dL Invalid Interpretation Code 0.20 - 1.20 mg/dL ADM SS Calcium [Mass/Vol] 9.2 mg/dL Invalid Interpretation Code 8.7 - 10.4 mg/dL ADM SS Chloride [Moles/Vol] 106 mmol/L Invalid Interpretation Code 98 - 110 mEq/L ADM SS CO2 [Moles/Vol] 25 mmol/L Invalid Interpretation Code 22 - 32 mEq/L ADM SS Creatinine [Mass/Vol] 1.27 mg/dL Invalid Interpretation Code 0.60 - 1.40 mg/dL ADM SS Electrolyte Balance 5.0 mEq/L Invalid Interpretation Code 4.0 - 15.0 mEq/L ADM SS Eosinophils (Bld) [#/Vol] 0.4 103/mcL Invalid Interpretation Code 0.0 - 0.7 10^3/mcL Workflow SS Eosinophils/100 WBC (Bld) 3.4 % Invalid Interpretation Code 0.0 - 6.0 % Workflow SS Erythrocyte distribution width (RBC) [Ratio] 13.3 % Invalid Interpretation Code 11.5 - 15.5 % Workflow SS GFR/1.73 sq M.predicted among blacks MDRD (S/P/Bld) [Vol rate/Area] ml/min/1.73sqm Invalid Interpretation Code ADM SS GFR/1.73 sq M.predicted among non-blacks MDRD (S/P/Bld) [Vol rate/Area] 54 ml/min/1.73sqm Invalid Interpretation Code ADM SS Globulin 3.2 G/dL Invalid Interpretation Code 1.5 - 3.8 G/dL ADM SS Glucose [Mass/Vol] 152 mg/dL Invalid Interpretation Code 82 - 115 mg/dL ADM SS Hematocrit (Bld) [Volume fraction] 44.6 % Invalid Interpretation Code 40.0 - 52.0 % Workflow SS Hemoglobin (Bld) [Mass/Vol] 14.9 G/dL Invalid Interpretation Code 13.0 - 17.5 G/dL Workflow SS Lymphocytes (Bld) [#/Vol] 3.1 103/mcL Invalid Interpretation Code 0.9 - 4.3 10^3/mcL Workflow SS Lymphocytes/100 WBC (Bld) 26.6 % Invalid Interpretation Code 20.0 - 40.0 % AH Workflow SS Magnesium [Mass/Vol] 1.8 mg/dL Invalid Interpretation Code 1.6 - 2.4 mg/dL AH ADM SS MCH (RBC) [Entitic mass] 30.1 pg Invalid Interpretation Code 27.0 - 33.0 pg AH Workflow SS MCHC 33.3 G/dL Invalid Interpretation Code 32.0 - 36.0 G/dL AH Workflow SS MCV (RBC) [Entitic vol] 90.3 fL Invalid Interpretation Code 81.0 - 100.0 fL AH Workflow SS Monocytes (Bld) [#/Vol] 1.3 103/mcL Invalid Interpretation Code 0.1 - 1.4 10^3/mcL AH Workflow SS Monocytes/100 WBC (Bld) 11.2 % Invalid Interpretation Code 2.0 - 13.0 % AH Workflow SS Neutrophils (Bld) [#/Vol] 6.7 103/mcL Invalid Interpretation Code 2.3 - 8.1 10^3/mcL AH Workflow SS Neutrophils/100 WBC (Bld) 58.2 % Invalid Interpretation Code 50.0 - 75.0 % AH Workflow SS Platelet mean volume (Bld) [Entitic vol] 7.7 fL Invalid Interpretation Code 6.4 - 10.5 fL AH Workflow SS Platelets (Bld) [#/Vol] 171 103/mcL Invalid Interpretation Code 150 - 450 10^3/mcL AH Workflow SS Potassium [Moles/Vol] 4.2 mmol/L Invalid Interpretation Code 3.5 - 5.0 mEq/L AH ADM SS Protein [Mass/Vol] 6.5 G/dL Invalid Interpretation Code 5.7 - 8.2 G/dL AH ADM SS RBC (Bld) [#/Vol] 4.94 106/mcL Invalid Interpretation Code 4.50 - 6.00 10^6/mcL AH Workflow SS Sodium [Moles/Vol] 136 mmol/L Invalid Interpretation Code 136 - 145 mEq/L ADM SS Troponin I.cardiac DL <= 0.01 ng/mL [Mass/Vol] 19.13 ng/L Invalid Interpretation Code 0.00 - 54.00 ng/L AH ADM SS TSH Qn 3.210 mIU/mL Invalid Interpretation Code 0.550 - 4.780 mIU/mL AH ADM SS Urea nitrogen [Mass/Vol] 19.0 mg/dL Invalid Interpretation Code 8.0 - 22.0 mg/dL ADM SS Urea nitrogen/Creatinine [Mass ratio] 15.0 ratio Invalid Interpretation Code 10.0 - 22.0 ratio ADM SS WBC (Bld) [#/Vol] 11.5 103/mcL Invalid Interpretation Code 4.5 - 10.8 10^3/mcL Workflow SS LABORATORYOrdered By: Vivien boyd on 09-30-2022 Lactate [Moles/Vol] 1.3 mmol/L Invalid Interpretation Code 0.2 - 2.0 mmol/L Auto Chem SS Natriuretic peptide.B prohormone N-Terminal [Mass/Vol] 879 pg/mL Invalid Interpretation Code 0 - 1800 pg/mL Auto Chem SS Laboratory - Chemistry and C hemistry - challengeon 09-29-2022 Anion gap [Moles/Vol] 10 mmol/L Normal 10 - 2 0 mmol/L [facility]; [facility] Work Phone: Calcium [Mass/Vol] 9.2 mg/dL Normal 8.5 - 10. 1 mg/dL [facility]; [facility] Work Phone: Chloride [Moles/Vol] 102 mmol/L Normal 98 - 10 7 mmol/L [facility]; [facility] Work Phone: CO2 [Moles/Vol] 29.5 mmol/L Normal 21.0 - 32.0 mmol/L [facility]; [facility] Work Phone: Creatinine [Mass/Vol] 1.51 mg/dL Abnormal 0.70 - 1.30 mg/dL [facility]; [facility] Work Phone: GFR/1.73 sq M.predicted among blacks MDRD (S/P/Bld) [Vol rate/Area] 53 {ML/MINUTE} Abnormal 60 - 999 {ML/MINUTE} [facility] Work Phone: GFR/1.73 sq M.predicted MDRD (S/P/Bld) [Vol rate/Area] 44 {ML/MINUTE} Abnormal 60 - 999 {ML/MINUTE} [facility]; [facility] Work Phone: Glucose [Mass/Vol] 94 mg/dL Normal 74 - 106 mg/dL [facility]; [facility] Work Phone: Potassium [Moles/Vol] 4.2 mmol/L Normal 3.5 - 5.1 mmol/L [facility]; [facility] Work Phone: Sodium [Moles/Vol] 137 mmol/L Normal 136 - 145 mmol/L [facility]; [facility] Work Phone: Urea nitrogen (U) [Mass/Vol] 29.1 pg/mL Normal 0.0 - 76.2 pg/mL [facility]; [facility] Work Phone: Urea nitrogen [Mass/Vol] 21 mg/dL Abnormal 7 - 18 mg/dL [facility]; [facility] Work Phone: Laboratory - Hematology and Cell countson 09-29-2022 Basophils (Bld) [#/Vol] 0.10 {x10EE3/UL} Normal 0.00 - 0.10 {x10EE3/UL} [facility]; [facility] Work Phone: Basophils/100 WBC (Bld) 0.6 % Normal 0.0 - 2.0 % [facility]; [facility] Work Phone: Eosinophils (Bld) [#/Vol] 0.50 {x10EE3/UL} Normal 0.00 - 0.50 {x10EE3/UL} [facility]; [facility] Work Phone: Eosinophils/100 WBC (Bld) 4.0 % Normal 0.0 - 7.0 % [facility]; [facility] Work Phone: Erythrocyte distribution width (RBC) [Ratio] 13.9 % Normal 12.0 - 15.6 % [facility]; [facility] Work Phone: Hematocrit (Bld) [Volume fraction] 48.7 % Normal 40.0 - 52.0 % [facility]; [facility] Work Phone: Hemoglobin (Bld) [Mass/Vol] 15.8 g/dL Normal 13.0 - 17.5 g/dL [facility]; [facility] Work Phone: Lymphocytes (Bld) [#/Vol] 3.50 {x10EE3/UL} Abnormal 0.80 - 2.80 {x10EE3/UL} [facility]; [facility] Work Phone: Lymphocytes/100 WBC (Bld) 29.9 % Normal 20.0 - 45.0 % [facility]; [facility] Work Phone: MCH (RBC) [Entitic mass] 30 pg Normal 27 - 33 pg [facility]; [facility] Work Phone: MCHC (RBC) [Mass/Vol] 32 {X10_3} Normal 32 - 3 6 {X10_3} [facility] Work Phone: MCV (RBC) [Entitic vol] 91 fL Normal 81 - 98 fL [facility]; [facility] Work Phone: Monocytes (Bld) [#/Vol] 1.50 {x10EE3/UL} Abnormal 0.20 - 1.00 {x10EE3/UL} [facility]. Work Phone: Monocytes/100 WBC (Bld) 13.0 % Abnormal 0.0 - 10.0 % [facility]; [facility]. Work Phone: Morphology Dwayne (Bld) [Interp] N/A Normal [facility]; [facility]. Work Phone: Neutrophils (Bld) [#/Vol] 6.10 {x10EE3/UL} Normal 1.50 - 7.10 {x10EE3/UL} [facility]. Work Phone: Neutrophils/100 WBC (Bld) 52.5 % Normal 46.0 - 76.0 % [facility]; [facility] Work Phone: Platelet mean volume (Bld) [Entitic vol] 7.8 fL Normal 6.4 - 10.5 fL [facility]; [facility] Work Phone: Platelets (Bld) [#/Vol] 189 {x10EE3/UL} Normal 150 - 450 {x10EE3/UL} [facility]; [facility]. Work Phone: RBC (Bld) [#/Vol] 5.33 {x_10EE6/UL} Normal 4.50 - 6.00 {x_10EE6/UL} [facility].; [facility]. Work Phone: WBC (Bld) [#/Vol] 11.7 {x_10EE3/UL} Abnormal 4.5 - 10.8 {x_10EE3/UL} [facility].; [facility]. Work Phone: No Panel Informationon 09-29 AGE 87 {years} Normal [facility].; [facility]. Work Phone: BMP with eGFR Normal [facility].; [facility]. Work Phone: CBC + DIFF Normal [facility].; [facility]. Work Phone: MANUAL DIFF N/A Normal [facility].; [facility]. Work Phone: N/A Normal [facility]. Work Phone: 10 mmol/L Normal 10 - 20 mmol/L [facility].; [facility]. Work Phone: 87 {years} Normal [facility].; [facility]. Work Phone: LABORATORYOrdered By: Sparkle Riggins on 09-08-2022 ABO and Rh group Nom (Bld) Blood group O Rh(D) positive Invalid Interpretation Code AH BB Auto SS Blood group antibody screen Ql Negative ABSC (09/08/22 2:47 PM) Invalid Interpretation Code BB Auto SS LABORATORYOrdered By: SYSTEM SYSTEM on 09-08-2022 Albumin BCP dye [Mass/Vol] 3.6 G/dL Invalid Interpretation Code 3.2 - 4.8 G/dL ADM SS Albumin/Globulin [Mass ratio] 1.1 {ratio} Invalid Interpretation Code 0.9 - 1.6 ratio ADM SS ALP [Catalytic activity/Vol] 58 U/L Invalid Interpretation Code 38 - 126 U/L ADM SS ALT No additional P-5'-P [Catalytic activity/Vol] 24 U/L Invalid Interpretation Code 12 - 55 U/L ADM SS AST [Catalytic activity/Vol] 20 U/L Invalid Interpretation Code 8 - 34 U/L ADM SS Basophils (Bld) [#/Vol] 0.0 103/mcL Invalid Interpretation Code 0.0 - 0.3 10^3/mcL Workflow SS Basophils/100 WBC (Bld) 0.5 % Invalid Interpretation Code 0.0 - 2.5 % Workflow SS Bilirubin [Mass/Vol] 0.50 mg/dL Invalid Interpretation Code 0.20 - 1.20 mg/dL ADM SS Calcium [Mass/Vol] 9.9 mg/dL Invalid Interpretation Code 8.7 - 10.4 mg/dL ADM SS Chloride [Moles/Vol] 105 mmol/L Invalid Interpretation Code 98 - 110 mEq/L ADM SS CO2 [Moles/Vol] 30 mmol/L Invalid Interpretation Code 22 - 32 mEq/L ADM SS Creatinine [Mass/Vol] 1.41 mg/dL Invalid Interpretation Code 0.60 - 1.40 mg/dL ADM SS Electrolyte Balance 6.0 mEq/L Invalid Interpretation Code 4.0 - 15.0 mEq/L ADM SS Eosinophils (Bld) [#/Vol] 0.3 103/mcL Invalid Interpretation Code 0.0 - 0.7 10^3/mcL Workflow SS Eosinophils/100 WBC (Bld) 4.1 % Invalid Interpretation Code 0.0 - 6.0 % Workflow SS Erythrocyte distribution width (RBC) [Ratio] 14.2 % Invalid Interpretation Code 11.5 - 15.5 % Workflow SS GFR/1.73 sq M.predicted among blacks MDRD (S/P/Bld) [Vol rate/Area] 58 ml/min/1.73sqm Invalid Interpretation Code Chemistry S GFR/1.73 sq M.predicted among non-blacks MDRD (S/P/Bld) [Vol rate/Area] 48 ml/min/1.73sqm Invalid Interpretation Code Chemistry S Globulin 3.4 G/dL Invalid Interpretation Code 1.5 - 3.8 G/dL ADM SS Glucose [Mass/Vol] 82 mg/dL Invalid Interpretation Code 82 - 115 mg/dL ADM SS Hematocrit (Bld) [Volume fraction] 47.0 % Invalid Interpretation Code 40.0 - 52.0 % AH Workflow SS Hemoglobin (Bld) [Mass/Vol] 15.9 G/dL Invalid Interpretation Code 13.0 - 17.5 G/dL AH Workflow SS Lymphocytes (Bld) [#/Vol] 3.1 103/mcL Invalid Interpretation Code 0.9 - 4.3 10^3/mcL AH Workflow SS Lymphocytes/100 WBC (Bld) 40.3 % Invalid Interpretation Code 20.0 - 40.0 % AH Workflow SS MCH (RBC) [Entitic mass] 30.7 pg Invalid Interpretation Code 27.0 - 33.0 pg AH Workflow SS MCHC 33.7 G/dL Invalid Interpretation Code 32.0 - 36.0 G/dL AH Workflow SS MCV (RBC) [Entitic vol] 91.0 fL Invalid Interpretation Code 81.0 - 100.0 fL AH Workflow SS Monocytes (Bld) [#/Vol] 0.9 103/mcL Invalid Interpretation Code 0.1 - 1.4 10^3/mcL AH Workflow SS Monocytes/100 WBC (Bld) 11.6 % Invalid Interpretation Code 2.0 - 13.0 % AH Workflow SS Neutrophils (Bld) [#/Vol] 3.3 103/mcL Invalid Interpretation Code 2.3 - 8.1 10^3/mcL AH Workflow SS Neutrophils/100 WBC (Bld) 43.5 % Invalid Interpretation Code 50.0 - 75.0 % AH Workflow SS Platelet mean volume (Bld) [Entitic vol] 8.0 fL Invalid Interpretation Code 6.4 - 10.5 fL AH Workflow SS Platelets (Bld) [#/Vol] 182 103/mcL Invalid Interpretation Code 150 - 450 10^3/mcL AH Workflow SS Potassium [Moles/Vol] 5.6 mmol/L Invalid Interpretation Code 3.5 - 5.0 mEq/L ADM SS Protein [Mass/Vol] 7.0 G/dL Invalid Interpretation Code 5.7 - 8.2 G/dL AH ADM SS RBC (Bld) [#/Vol] 5.17 106/mcL Invalid Interpretation Code 4.50 - 6.00 10^6/mcL AH Workflow SS Sodium [Moles/Vol] 141 mmol/L Invalid Interpretation Code 136 - 145 mEq/L AH ADM SS Urea nitrogen [Mass/Vol] 20.0 mg/dL Invalid Interpretation Code 8.0 - 22.0 mg/dL AH ADM SS Urea nitrogen/Creatinine [Mass ratio] 14.2 ratio Invalid Interpretation Code 10.0 - 22.0 ratio AH ADM SS WBC (Bld) [#/Vol] 7.7 103/mcL Invalid Interpretation Code 4.5 - 10.8 10^3/mcL AH Workflow SS LABORATORYOrdered By: Jesus Mcmillan on 09-08-2022 Appearance (U) Clear (09/08/22 2:47 PM) Invalid Interpretation Code Clear AH Auto Urine SS Bilirubin Ql (U) Negative (09/08/22 2:47 PM) Invalid Interpretation Code Neg-Trace AH Auto Urine SS Color (U) Yellow (09/08/22 2:47 PM) Invalid Interpretation Code AH Auto Urine SS Glucose Test strip (U) [Mass/Vol] Negative Invalid Interpretation Code Negativemg/dL AH Auto Urine SS Hemoglobin Auto test strip (U) [Mass/Vol] Negative (09/08/22 2:47 PM) Invalid Interpretation Code Neg-Trace AH Auto Urine SS Ketones Ql (U) Negative Invalid Interpretation Code Neg-Tracemg/d L AH Auto Urine SS UA Leuk Est Trace *NA* (09/08/22 2:47 PM) Invalid Interpretation Code Negative AH Auto Urine SS UA Nitrite Negative (09/08/22 2:47 PM) Invalid Interpretation Code Negative AH Auto Urine SS UA pH 6.0 (09/08/22 2:47 PM) Invalid Interpretation Code 5.0 - 8.0 AH Auto Urine SS UA Protein Negative Invalid Interpretation Code Negativemg/dL AH Auto Urine SS UA Spec Grav 1.015 (09/08/22 2:47 PM) Invalid Interpretation Code 1.006-1.029 AH Auto Urine SS UA Specimen Type Clean Catch (09/08/22 2:47 PM) Invalid Interpretation Code AH Auto Urine SS UA Urobilinogen 0.2 E.U./dL Invalid Interpretation Code 0.2-1.0E.U./d L AH Auto Urine SS LABORATORYOrdered By: Elvia Garcia on 09-08-2022 aPTT Coag (PPP) [Time] 33.1 s Invalid Interpretation Code 25.0 - 35.0 seconds AH Auto Coag SS Fibrinogen Coag (PPP) [Mass/Vol] 477 mg/dL Invalid Interpretation Code 250 - 560 mg/dL AH Auto Coag SS Heparin dose (APTT) None Invalid Interpretation Code AH Auto Coag SS INR Coag (PPP) [Relative time] 0.9 {INR} Invalid Interpretation Code AH Auto Coag SS PT Coag (PPP) [Time] 11.2 s Invalid Interpretation Code 9.0 - 14.9 seconds AH Auto Coag SS LABORATORYOrdered By: Vandana Anderson on 09-08-2022 Natriuretic peptide.B prohormone N-Terminal [Mass/Vol] 288 pg/mL Invalid Interpretation Code 0 - 1800 pg/mL Auto Chem SS LABORATORYOrdered By: SYSTEM SYSTEM on 08-19-2022 Basophils (Bld) [#/Vol] 0.0 103/mcL Invalid Interpretation Code 0.0 - 0.3 10^3/mcL AH Workflow SS Basophils/100 WBC (Bld) 0.2 % Invalid Interpretation Code 0.0 - 2.5 % AH Workflow SS Calcium [Mass/Vol] 9.7 mg/dL Invalid Interpretation Code 8.7 - 10.4 mg/dL ADM SS Chloride [Moles/Vol] 104 mmol/L Invalid Interpretation Code 98 - 110 mEq/L ADM SS CO2 [Moles/Vol] 23 mmol/L Invalid Interpretation Code 22 - 32 mEq/L ADM SS Creatinine [Mass/Vol] 1.25 mg/dL Invalid Interpretation Code 0.60 - 1.40 mg/dL AH ADM SS Electrolyte Balance 10.0 mEq/L Invalid Interpretation Code 4.0 - 15.0 mEq/L AH ADM SS Eosinophils (Bld) [#/Vol] 0.0 103/mcL Invalid Interpretation Code 0.0 - 0.7 10^3/mcL AH Workflow SS Eosinophils/100 WBC (Bld) 0.0 % Invalid Interpretation Code 0.0 - 6.0 % AH Workflow SS Erythrocyte distribution width (RBC) [Ratio] 14.0 % Invalid Interpretation Code 11.5 - 15.5 % AH Workflow SS GFR/1.73 sq M.predicted among blacks MDRD (S/P/Bld) [Vol rate/Area] ml/min/1.73sqm Invalid Interpretation Code Chemistry S GFR/1.73 sq M.predicted among non-blacks MDRD (S/P/Bld) [Vol rate/Area] 55 ml/min/1.73sqm Invalid Interpretation Code Chemistry S Glucose [Mass/Vol] 137 mg/dL Invalid Interpretation Code 82 - 115 mg/dL AH ADM SS Hematocrit (Bld) [Volume fraction] 47.5 % Invalid Interpretation Code 40.0 - 52.0 % AH Workflow SS Hemoglobin (Bld) [Mass/Vol] 15.7 G/dL Invalid Interpretation Code 13.0 - 17.5 G/dL AH Workflow SS Lymphocytes (Bld) [#/Vol] 2.3 103/mcL Invalid Interpretation Code 0.9 - 4.3 10^3/mcL AH Workflow SS Lymphocytes/100 WBC (Bld) 13.5 % Invalid Interpretation Code 20.0 - 40.0 % AH Workflow SS MCH (RBC) [Entitic mass] 29.9 pg Invalid Interpretation Code 27.0 - 33.0 pg AH Workflow SS MCHC 33.1 G/dL Invalid Interpretation Code 32.0 - 36.0 G/dL AH Workflow SS MCV (RBC) [Entitic vol] 90.3 fL Invalid Interpretation Code 81.0 - 100.0 fL AH Workflow SS Monocytes (Bld) [#/Vol] 1.3 103/mcL Invalid Interpretation Code 0.1 - 1.4 10^3/mcL AH Workflow SS Monocytes/100 WBC (Bld) 7.8 % Invalid Interpretation Code 2.0 - 13.0 % AH Workflow SS Neutrophils (Bld) [#/Vol] 13.5 103/mcL Invalid Interpretation Code 2.3 - 8.1 10^3/mcL AH Workflow SS Neutrophils/100 WBC (Bld) 78.5 % Invalid Interpretation Code 50.0 - 75.0 % Workflow SS Platelet mean volume (Bld) [Entitic vol] 8.1 fL Invalid Interpretation Code 6.4 - 10.5 fL AH Workflow SS Platelets (Bld) [#/Vol] 179 103/mcL Invalid Interpretation Code 150 - 450 10^3/mcL AH Workflow SS Potassium [Moles/Vol] 5.2 mmol/L Invalid Interpretation Code 3.5 - 5.0 mEq/L AH ADM SS Comment on above: Result Comment: Spec imen slightly hemolyzed. RBC (Bld) [#/Vol] 5.25 106/mcL Invalid Interpretation Code 4.50 - 6.00 10^6/mcL AH Workflow SS Sodium [Moles/Vol] 137 mmol/L Invalid Interpretation Code 136 - 145 mEq/L ADM SS Urea nitrogen [Mass/Vol] 24.0 mg/dL Invalid Interpretation Code 8.0 - 22.0 mg/dL AH ADM SS Urea nitrogen/Creatinine [Mass ratio] 19.2 ratio Invalid Interpretation Code 10.0 - 22.0 ratio AH ADM SS WBC (Bld) [#/Vol] 17.2 103/mcL Invalid Interpretation Code 4.5 - 10.8 10^3/mcL Workflow SS LABORATORYOrdered By: SYSTEM SYSTEM on 08-18-2022 Basophils (Bld) [#/Vol] 0.0 103/mcL Invalid Interpretation Code 0.0 - 0.3 10^3/mcL Workflow SS Basophils/100 WBC (Bld) 0.5 % Invalid Interpretation Code 0.0 - 2.5 % Workflow SS Calcium [Mass/Vol] 9.7 mg/dL Invalid Interpretation Code 8.7 - 10.4 mg/dL ADM SS Chloride [Moles/Vol] 104 mmol/L Invalid Interpretation Code 98 - 110 mEq/L ADM SS CO2 [Moles/Vol] 28 mmol/L Invalid Interpretation Code 22 - 32 mEq/L ADM SS Creatinine [Mass/Vol] 1.45 mg/dL Invalid Interpretation Code 0.60 - 1.40 mg/dL ADM SS Electrolyte Balance 6.0 mEq/L Invalid Interpretation Code 4.0 - 15.0 mEq/L ADM SS Eosinophils (Bld) [#/Vol] 0.3 103/mcL Invalid Interpretation Code 0.0 - 0.7 10^3/mcL Workflow SS Eosinophils/100 WBC (Bld) 3.7 % Invalid Interpretation Code 0.0 - 6.0 % Workflow SS Erythrocyte distribution width (RBC) [Ratio] 14.4 % Invalid Interpretation Code 11.5 - 15.5 % Workflow SS GFR/1.73 sq M.predicted among blacks MDRD (S/P/Bld) [Vol rate/Area] 56 ml/min/1.73sqm Invalid Interpretation Code Chemistry S GFR/1.73 sq M.predicted among non-blacks MDRD (S/P/Bld) [Vol rate/Area] 46 ml/min/1.73sqm Invalid Interpretation Code Chemistry S Glucose [Mass/Vol] 88 mg/dL Invalid Interpretation Code 82 - 115 mg/dL ADM SS Hematocrit (Bld) [Volume fraction] 48.1 % Invalid Interpretation Code 40.0 - 52.0 % AH Workflow SS Hemoglobin (Bld) [Mass/Vol] 16.3 G/dL Invalid Interpretation Code 13.0 - 17.5 G/dL AH Workflow SS Lymphocytes (Bld) [#/Vol] 2.9 103/mcL Invalid Interpretation Code 0.9 - 4.3 10^3/mcL AH Workflow SS Lymphocytes/100 WBC (Bld) 37.9 % Invalid Interpretation Code 20.0 - 40.0 % AH Workflow SS MCH (RBC) [Entitic mass] 30.6 pg Invalid Interpretation Code 27.0 - 33.0 pg AH Workflow SS MCHC 33.9 G/dL Invalid Interpretation Code 32.0 - 36.0 G/dL AH Workflow SS MCV (RBC) [Entitic vol] 90.3 fL Invalid Interpretation Code 81.0 - 100.0 fL AH Workflow SS Monocytes (Bld) [#/Vol] 0.9 103/mcL Invalid Interpretation Code 0.1 - 1.4 10^3/mcL AH Workflow SS Monocytes/100 WBC (Bld) 11.7 % Invalid Interpretation Code 2.0 - 13.0 % AH Workflow SS Neutrophils (Bld) [#/Vol] 3.6 103/mcL Invalid Interpretation Code 2.3 - 8.1 10^3/mcL AH Workflow SS Neutrophils/100 WBC (Bld) 46.2 % Invalid Interpretation Code 50.0 - 75.0 % AH Workflow SS Platelet mean volume (Bld) [Entitic vol] 8.1 fL Invalid Interpretation Code 6.4 - 10.5 fL AH Workflow SS Platelets (Bld) [#/Vol] 172 103/mcL Invalid Interpretation Code 150 - 450 10^3/mcL AH Workflow SS Potassium [Moles/Vol] 5.2 mmol/L Invalid Interpretation Code 3.5 - 5.0 mEq/L ADM SS RBC (Bld) [#/Vol] 5.33 106/mcL Invalid Interpretation Code 4.50 - 6.00 10^6/mcL Workflow SS Sodium [Moles/Vol] 138 mmol/L Invalid Interpretation Code 136 - 145 mEq/L ADM SS Urea nitrogen [Mass/Vol] 20.0 mg/dL Invalid Interpretation Code 8.0 - 22.0 mg/dL ADM SS Urea nitrogen/Creatinine [Mass ratio] 13.8 ratio Invalid Interpretation Code 10.0 - 22.0 ratio ADM SS WBC (Bld) [#/Vol] 7.8 103/mcL Invalid Interpretation Code 4.5 - 10.8 10^3/mcL Workflow SS LABORATORYOrdered By: Rakan Webber on 08-18-2022 INR Coag (PPP) [Relative time] 1.0 {INR} Invalid Interpretation Code Auto Coag SS PT Coag (PPP) [Time] 11.8 s Invalid Interpretation Code 9.0 - 14.9 seconds Auto Coag SS LABORATORYOrdered By: SYSTEM SYSTEM on 07-09-2022 Calcium [Mass/Vol] 9.5 mg/dL Invalid Interpretation Code 8.7 - 10.4 mg/dL ADM SS Chloride [Moles/Vol] 102 mmol/L Invalid Interpretation Code 98 - 110 mEq/L ADM SS CO2 [Moles/Vol] 30 mmol/L Invalid Interpretation Code 22 - 32 mEq/L ADM SS Creatinine [Mass/Vol] 1.37 mg/dL Invalid Interpretation Code 0.60 - 1.40 mg/dL ADM SS Electrolyte Balance 4.0 mEq/L Invalid Interpretation Code 4.0 - 15.0 mEq/L ADM SS GFR/1.73 sq M.predicted among blacks MDRD (S/P/Bld) [Vol rate/Area] 60 ml/min/1.73sqm Invalid Interpretation Code Chemistry S GFR/1.73 sq M.predicted among non-blacks MDRD (S/P/Bld) [Vol rate/Area] 49 ml/min/1.73sqm Invalid Interpretation Code Chemistry S Glucose [Mass/Vol] 83 mg/dL Invalid Interpretation Code 82 - 115 mg/dL ADM SS Potassium [Moles/Vol] 4.6 mmol/L Invalid Interpretation Code 3.5 - 5.0 mEq/L ADM SS Comment on above: Result Comment: Spec imen slightly hemolyzed. Sodium [Moles/Vol] 136 mmol/L Invalid Interpretation Code 136 - 145 mEq/L ADM SS Urea nitrogen [Mass/Vol] 20.0 mg/dL Invalid Interpretation Code 8.0 - 22.0 mg/dL ADM SS Urea nitrogen/Creatinine [Mass ratio] 14.6 ratio Invalid Interpretation Code 10.0 - 22.0 ratio AH ADM SS LABORATORYOrdered By: SYSTEM SYSTEM on 04-07-2022 Calcium [Mass/Vol] 9.4 mg/dL Invalid Interpretation Code 8.7 - 10.4 mg/dL ADM SS Chloride [Moles/Vol] 106 mmol/L Invalid Interpretation Code 98 - 110 mEq/L ADM SS CO2 [Moles/Vol] 26 mmol/L Invalid Interpretation Code 22 - 32 mEq/L ADM SS Creatinine [Mass/Vol] 1.16 mg/dL Invalid Interpretation Code 0.60 - 1.40 mg/dL ADM SS Electrolyte Balance 4.0 mEq/L Invalid Interpretation Code 4.0 - 15.0 mEq/L ADM SS Free T4 [Mass/Vol] 1.13 ng/dL Invalid Interpretation Code 0.89 - 1.76 ng/dL ADM SS GFR/1.73 sq M.predicted among blacks MDRD (S/P/Bld) [Vol rate/Area] ml/min/1.73sqm Invalid Interpretation Code Chemistry S GFR/1.73 sq M.predicted among non-blacks MDRD (S/P/Bld) [Vol rate/Area] 60 ml/min/1.73sqm Invalid Interpretation Code Chemistry S Glucose [Mass/Vol] 106 mg/dL Invalid Interpretation Code 82 - 115 mg/dL ADM SS Potassium [Moles/Vol] 5.5 mmol/L Invalid Interpretation Code 3.5 - 5.0 mEq/L ADM SS Comment on above: Result Comment: Spec imen slightly hemolyzed. Sodium [Moles/Vol] 136 mmol/L Invalid Interpretation Code 136 - 145 mEq/L ADM SS TSH Qn 2.527 mIU/mL Invalid Interpretation Code 0.550 - 4.780 mIU/mL ADM SS Urea nitrogen [Mass/Vol] 22.0 mg/dL Invalid Interpretation Code 8.0 - 22.0 mg/dL ADM SS Urea nitrogen/Creatinine [Mass ratio] 19.0 ratio Invalid Interpretation Code 10.0 - 22.0 ratio ADM SS Laboratory - Chemistry and C hemistry - challengeon 03-31-2022 Anion gap [Moles/Vol] 13 mmol/L Normal 10 - 2 0 mmol/L [facility]; [facility] Work Phone: Calcium [Mass/Vol] 9.2 mg/dL Normal 8.5 - 10. 1 mg/dL [facility]; [facility] Work Phone: Chloride [Moles/Vol] 105 mmol/L Normal 98 - 10 7 mmol/L [facility]; [facility] Work Phone: CO2 [Moles/Vol] 27.6 mmol/L Normal 21.0 - 32.0 mmol/L [facility]; [facility] Work Phone: Creatinine [Mass/Vol] 1.46 mg/dL Abnormal 0.70 - 1.30 mg/dL [facility]; [facility] Work Phone: GFR/1.73 sq M.predicted among blacks MDRD (S/P/Bld) [Vol rate/Area] 56 {ML/MINUTE} Abnormal 60 - 999 {ML/MINUTE} [facility]; [facility] Work Phone: GFR/1.73 sq M.predicted MDRD (S/P/Bld) [Vol rate/Area] 46 {ML/MINUTE} Abnormal 60 - 999 {ML/MINUTE} [facility]; [facility] Work Phone: Glucose [Mass/Vol] 94 mg/dL Normal 74 - 106 mg/dL [facility]; [facility] Work Phone: Potassium [Moles/Vol] 5.3 mmol/L Abnormal 3.5 - 5.1 mmol/L [facility]; [facility] Work Phone: Sodium [Moles/Vol] 140 mmol/L Normal 136 - 145 mmol/L [facility]; [facility] Work Phone: Urea nitrogen [Mass/Vol] 26 mg/dL Abnormal 7 - 18 mg/dL [facility]; [facility] Work Phone: Laboratory - Coagulationon 0 03-31-2022 INR Coag (PPP) [Relative time] 0.9 {INR} Normal 0.8 - 1.2 [facility]; [facility] Work Phone: PT Coag (Bld) [Time] 11.2 s Normal 9.3 - 1 4.1 {sec} [facility]; [facility]. Work Phone: Laboratory - Hematology and Cell countson 03-31-2022 Basophils (Bld) [#/Vol] 0.00 {x10EE3/UL} Normal 0.00 - 0.10 {x10EE3/UL} [facility]; [facility]. Work Phone: Basophils/100 WBC (Bld) 0.4 % Normal 0.0 - 2.0 % [facility]; [facility] Work Phone: Eosinophils (Bld) [#/Vol] 0.50 {x10EE3/UL} Normal 0.00 - 0.50 {x10EE3/UL} [facility]; [facility] Work Phone: Eosinophils/100 WBC (Bld) 5.0 % Normal 0.0 - 7.0 % [facility]; [facility] Work Phone: Erythrocyte distribution width (RBC) [Ratio] 14.0 % Normal 12.0 - 15.6 % [facility]; [facility] Work Phone: Hematocrit (Bld) [Volume fraction] 48.8 % Normal 40.0 - 52.0 % [facility]; [facility] Work Phone: Hemoglobin (Bld) [Mass/Vol] 16.5 g/dL Normal 13.0 - 17.5 g/dL [facility]; [facility] Work Phone: Lymphocytes (Bld) [#/Vol] 3.20 {x10EE3/UL} Abnormal 0.80 - 2.80 {x10EE3/UL} [facility]; [facility] Work Phone: Lymphocytes/100 WBC (Bld) 33.3 % Normal 20.0 - 45.0 % [facility]; [facility] Work Phone: MCH (RBC) [Entitic mass] 30 pg Normal 27 - 33 pg [facility]; [facility] Work Phone: MCHC (RBC) [Mass/Vol] 34 {X10_3} Normal 32 - 3 6 {X10_3} [facility]; [facility] Work Phone: MCV (RBC) [Entitic vol] 90 fL Normal 81 - 98 fL [facility]; [facility] Work Phone: Monocytes (Bld) [#/Vol] 1.20 {x10EE3/UL} Abnormal 0.20 - 1.00 {x10EE3/UL} [facility]; [facility] Work Phone: Monocytes/100 WBC (Bld) 12.2 % Abnormal 0.0 - 10.0 % [facility]; [facility] Work Phone: Morphology Dwayne (Bld) [Interp] N/A Normal [facility]; [facility] Work Phone: Neutrophils (Bld) [#/Vol] 4.80 {x10EE3/UL} Normal 1.50 - 7.10 {x10EE3/UL} [facility]; [facility] Work Phone: Neutrophils/100 WBC (Bld) 49.1 % Normal 46.0 - 76.0 % [facility]; [facility] Work Phone: Platelet mean volume (Bld) [Entitic vol] 8.2 fL Normal 6.4 - 10.5 fL [facility]; [facility] Work Phone: Platelets (Bld) [#/Vol] 205 {x10EE3/UL} Normal 150 - 450 {x10EE3/UL} [facility]; [facility] Work Phone: RBC (Bld) [#/Vol] 5.41 {x_10EE6/UL} Normal 4.50 - 6.00 {x_10EE6/UL} [facility]; [facility] Work Phone: WBC (Bld) [#/Vol] 9.7 {x_10EE3/UL} Normal 4.5 - 10.8 {x_10EE3/UL} [facility], [facility]. Work Phone: No Panel Informationon 03-31 AGE 86 {years} Normal [facility].; [facility]. Work Phone: BMP with eGFR Normal [facility].; [facility]. Work Phone: CBC + DIFF Normal [facility].; [facility]. Work Phone: MANUAL DIFF N/A Normal [facility].; [facility]. Work Phone: PROTHROMBIN TIME AND INR Normal [facility].; [facility]. Work Phone: N/A Normal [facility].; [facility]. Work Phone: 13 mmol/L Normal 10 - 20 mmol/L [facility].; [facility]. Work Phone: 86 {years} Normal [facility].; [facility]. Work Phone: Laboratory - Chemistry and C hemistry - challengeon 04-25-2020 Albumin BCP dye [Mass/Vol] 3.8 g/dL Normal 3.2 - 4.8 g/dL [facility].; [facility], [facility]. Albumin/Globulin [Mass ratio] 1.2 {ratio} Normal 0.9 - 1.6 {ratio} [facility].; [facility]. ALP [Catalytic activity/Vol] 64 U/L Normal 38 - 126 U/L [facility]; [facility] ALT No additional P-5'-P [Catalytic activity/Vol] 21 U/L Normal 12 - 55 U/L [facility]; [facility]. ALT With P-5'-P [Catalytic activity/Vol] 21 U/L Normal 12 - 55 U/L [facility].; [facility] AST [Catalytic activity/Vol] 19 U/L Normal 8 - 34 U/L [facility]; [facility]. AST With P-5'-P [Catalytic activity/Vol] 19 U/L Normal 8 - 34 U/L [facility]; [facility] Bilirubin [Mass/Vol] 0.50 mg/dL Normal 0.20 - 1.20 mg/dL [facility]; [facility] Calcium [Mass/Vol] 9.9 mg/dL Normal 8.7 - 10. 4 mg/dL [facility]; [facility] Chloride [Moles/Vol] 103 mmol/L Normal 98 - 11 0 meq/L [facility]; [facility], [facility] CO2 [Moles/Vol] 29 mmol/L Normal 22 - 32 meq/L [facility]; [facility] Creatinine [Mass/Vol] 1.16 mg/dL Normal 0.60 - 1.40 mg/dL [facility].; [facility], [facility] GFR/1.73 sq M.predicted among blacks MDRD (S/P/Bld) [Vol rate/Area] mL/min/{1.73_m2} Normal [facility]; [facility] Work Phone: GFR/1.73 sq M.predicted among non-blacks MDRD (S/P/Bld) [Vol rate/Area] 60 {ml/min/1.73sqm} Normal [facility]; [facility] Work Phone: Globulin (S) [Mass/Vol] 3.3 g/dL Normal 1.5 - 3.8 g/dL [facility]; [facility] Glucose [Mass/Vol] 99 mg/dL Normal 82 - 115 mg/dL [facility]; [facility] Potassium [Moles/Vol] 4.6 mmol/L Normal 3.5 - 5.0 meq/L [facility]; [facility] Protein [Mass/Vol] 7.1 g/dL Normal 5.7 - 8.2 g/dL [facility]; [facility] Sodium [Moles/Vol] 139 mmol/L Normal 136 - 145 meq/L [facility]; [facility] Urea nitrogen [Mass/Vol] 20.0 mg/dL Normal 8.0 - 22.0 mg/dL [facility].; [facility], [facility] Urea nitrogen/Creatinine [Mass ratio] 17.2 {ratio} Normal 10.0 - 22.0 {ratio} [facility].; [facility] InstituteMoney[facility] Laboratory - Hematology and Cell countson 04-25-2020 Basophils (Bld) [#/Vol] 0.10 {10^3/mcL} Normal 0.00 - 0.27 {10^3/mcL} [facility].; [facility], [facility] Work Phone: Basophils/100 WBC (Bld) 0.7 % Normal 0.0 - 2.5 % [facility]; [facility] Work Phone: Eosinophils (Bld) [#/Vol] 0.50 {10^3/mcL} Normal 0.00 - 0.65 {10^3/mcL} [facility] Hospital[facility].; [facility], [facility] Work Phone: Eosinophils/100 WBC (Bld) 7.0 % Abnormal 0.0 - 6.0 % [facility].; [facility] Work Phone: Erythrocyte distribution width (RBC) [Ratio] 14.9 % Normal 11.5 - 15.5 % [facility] HospitalMoney[facility].; [facility], [facility] Hematocrit (Bld) [Volume fraction] 45.2 % Normal 40.0 - 52.0 % [facility] HospitalMoney[facility].; [facility], [facility] Hemoglobin (Bld) [Mass/Vol] 15.3 g/dL Normal 13.0 - 17.5 g/dL [facility] HospitalMoney[facility].; [facility], [facility] Lymphocytes (Bld) [#/Vol] 3.10 {10^3/mcL} Normal 0.90 - 4.32 {10^3/mcL} [facility] HospitalMoney[facility].; [facility], [facility]. Work Phone: Lymphocytes/100 WBC (Bld) 42.1 % Abnormal 20.0 - 40.0 % [facility] HospitalMoney[facility].; [facility] Work Phone: MCH (RBC) [Entitic mass] 30.0 pg Normal 27.0 - 33.0 pg [facility] HospitalMoney[facility].; [facility], [facility]. MCHC (RBC) [Mass/Vol] 33.8 g/dL Normal 32.0 - 36.0 g/dL [facility] HospitalMoney[facility].; [facility], [facility]. MCV (RBC) [Entitic vol] 88.5 fL Normal 81.0 - 100.0 fL [facility] HospitalMoney[facility].; [facility], [facility] Monocytes (Bld) [#/Vol] 0.80 {10^3/mcL} Normal 0.09 - 1.40 {10^3/mcL} [facility]ArthaY[facility] CenterLive [employer]amer.; [employer] [facility] [employer] [facility], [employer]. Work Phone: Monocytes/100 WBC (Bld) 11.1 % Normal 2.0 - 13.0 % [facility] PennsylvaniaArthaYant[facility] CenterLive [employer]amer.; [facility] [employer] [facility], [employer]. Work Phone: Neutrophils (Bld) [#/Vol] 2.80 {10^3/mcL} Normal 2.25 - 8.10 {10^3/mcL} [facility]ArthaY[facility] CenterLive [employer].; [facility] [employer] [facility], [employer]. Work Phone: Neutrophils/100 WBC (Bld) 39.1 % Abnormal 50.0 - 75.0 % [facility]ArthaY[facility] CenterLive [employer]amer.; [facility] [employer] [facility], [employer]. Work Phone: Platelet mean volume (Bld) [Entitic vol] 8.1 fL Normal 6.4 - 10.5 fL [facility] PennsylvaniaHey[facility].; [facility] [employer] [facility], [employer]. Platelets (Bld) [#/Vol] 197 {10^3/mcL} Normal 150 - 450 {10^3/mcL} [facility].; [facility] [employer] [facility], [employer] RBC (Bld) [#/Vol] 5.11 {10^6/mcL} Normal 4.50 - 6.00 {10^6/mcL} [facility] [employer] [facility] [facility], [employer] WBC (Bld) [#/Vol] 7.30 {10^3/mcL} Normal 4.50 - 10.80 {10^3/mcL} [facility] [employer] [facility] [employer], [employer]. No Panel Informationon 04-25 Basophil, Absolute 0.10 {10^3/mcL} Normal 0.00 - 0.27 {10^3/mcL} [facility]ArthaY[facility] CenterLive [employer].; [facility] [employer] [facility], [employer]. Work Phone: Electrolyte Balance 7.0 meq/L Normal 4.0 - 15 .0 meq/L [facility].; [facility], [facility]. Eosinophil, Absolute 0.50 {10^3/mcL} Normal 0.00 - 0.65 {10^3/mcL} [facility], [facility].; [facility], [facility]. Work Phone: Lymphocyte, Absolute 3.10 {10^3/mcL} Normal 0.90 - 4.32 {10^3/mcL} [facility].; [facility], [facility]. Work Phone: Monocyte, Absolute 0.80 {10^3/mcL} Normal 0.09 - 1.40 {10^3/mcL} [facility].; [facility], [facility]. Work Phone: Neutrophil, Absolute 2.80 {10^3/mcL} Normal 2.25 - 8.10 {10^3/mcL} [facility].; [facility], [facility]. Work Phone: 3.3 g/dL Normal 1.5 - 3.8 g/dL [facility].; [facility], [facility]. 39.1 % Abnormal 50.0 - 75.0 % [facility], [facility].; [facility], [facility]. Work Phone: 42.1 % Abnormal 20.0 - 40.0 % [facility], [facility].; [facility], [employer] Work Phone: 11.1 % Normal 2.0 - 13.0 % [facility], [facility].; [facility], [employer] Work Phone: 7.0 % Abnormal 0.0 - 6.0 % [facility], [facility].; [facility] [facility] Work Phone: 0.7 % Normal 0.0 - 2.5 % [facility]; [facility] Work Phone: Laboratory - Hematology and Cell countson 12-04-2019 Basophils (Bld) [#/Vol] 0.10 {x10EE3/UL} Normal 0.00 - 0.10 {x10EE3/UL} [facility]; [facility] Work Phone: Basophils/100 WBC (Bld) 0.5 % Normal 0.0 - 2.0 % [facility]; [facility] Work Phone: Eosinophils (Bld) [#/Vol] 0.30 {x10EE3/UL} Normal 0.00 - 0.50 {x10EE3/UL} [facility]; [facility] Work Phone: Eosinophils/100 WBC (Bld) 2.8 % Normal 0.0 - 7.0 % [facility]; [facility] Work Phone: Erythrocyte distribution width (RBC) [Ratio] 13.7 % Normal 12.0 - 15.6 % [facility]; [facility] Work Phone: Hematocrit (Bld) [Volume fraction] 31.3 % Abnormal 40.0 - 52.0 % [facility]; [facility] Work Phone: Hemoglobin (Bld) [Mass/Vol] 10.6 g/dL Abnormal 13.0 - 17.5 g/dL [facility]; [facility] Work Phone: Lymphocytes (Bld) [#/Vol] 2.70 {x10EE3/UL} Normal 0.80 - 2.80 {x10EE3/UL} [facility]. Work Phone: Lymphocytes/100 WBC (Bld) 24.2 % Normal 20.0 - 45.0 % [facility]; [facility]. Work Phone: MCH (RBC) [Entitic mass] 31 pg Normal 27 - 33 pg [facility]; [facility]. Work Phone: MCHC (RBC) [Mass/Vol] 34 {X10_3} Normal 32 - 3 6 {X10_3} [facility]. Work Phone: MCV (RBC) [Entitic vol] 91 fL Normal 81 - 98 fL [facility]; [facility]. Work Phone: Monocytes (Bld) [#/Vol] 0.90 {x10EE3/UL} Normal 0.20 - 1.00 {x10EE3/UL} [facility]. Work Phone: Monocytes/100 WBC (Bld) 8.1 % Normal 0.0 - 10.0 % [facility]; [facility]. Work Phone: Morphology Dwayne (Bld) [Interp] N/A Normal [facility]; [facility] Work Phone: Neutrophils (Bld) [#/Vol] 7.20 {x10EE3/UL} Abnormal 1.50 - 7.10 {x10EE3/UL} [facility]; [facility] Work Phone: Neutrophils/100 WBC (Bld) 64.4 % Normal 46.0 - 76.0 % [facility]; [facility] Work Phone: Platelet mean volume (Bld) [Entitic vol] 7.4 fL Normal 6.4 - 10.5 fL [facility]; [facility] Work Phone: Platelets (Bld) [#/Vol] 471 {x10EE3/UL} Abnormal 150 - 450 {x10EE3/UL} [facility]; [facility] Work Phone: RBC (Bld) [#/Vol] 3.45 {x_10EE6/UL} Abnormal 4.50 - 6.00 {x_10EE6/UL} [facility]; [facility] Work Phone: WBC (Bld) [#/Vol] 11.2 {x_10EE3/UL} Abnormal 4.5 - 10.8 {x_10EE3/UL} [facility] Work Phone: No Panel Informationon 12-03 CBC + DIFF Normal [facility]; [facility] Work Phone: MANUAL DIFF N/A Normal [facility]; [facility] Work Phone: N/A Normal [facility]; [facility] Work Phone: Laboratory - Chemistry and C hemistry - challengeon 08-03-2019 Calcium [Mass/Vol] 9.3 mg/dL Normal 8.4 - 10. 1 mg/dL [facility].; [facility] Chloride [Moles/Vol] 105 mmol/L Normal 98 - 11 0 meq/L [facility].; [facility] Cholesterol [Mass/Vol] 146 mg/dL Normal 50 - 199 mg/dL [facility].; [facility] Cholesterol in HDL [Mass/Vol] 28 mg/dL Abnormal 40 - 59 mg/dL [facility].; [facility] Cholesterol in LDL [Mass/Vol] 82 mg/dL Normal 0 - 129 mg/dL [facility]; [facility] CO2 [Moles/Vol] 30 mmol/L Normal 22 - 32 meq/L [facility].; [facility], [facility] Creatinine [Mass/Vol] 1.20 mg/dL Normal 0.60 - 1.40 mg/dL [facility].; [facility], [facility]. GFR/1.73 sq M.predicted among blacks MDRD (S/P/Bld) [Vol rate/Area] mL/min/{1.73_m2} Normal [facility].; [facility] Work Phone: GFR/1.73 sq M.predicted among non-blacks MDRD (S/P/Bld) [Vol rate/Area] 58 {ml/min/1.73sqm} Normal [facility].; [facility] Work Phone: Glucose [Mass/Vol] 70 mg/dL Abnormal 82 - 115 mg/dL [facility].; [facility], [facility]. Potassium [Moles/Vol] 4.9 mmol/L Normal 3.5 - 5.0 meq/L [facility].; [facility], [facility] Sodium [Moles/Vol] 139 mmol/L Normal 136 - 145 meq/L [facility]; [facility], [facility]. Triglyceride [Mass/Vol] 179 mg/dL Abnormal 3 - 149 mg/dL [facility].; [facility], [facility]. Urea nitrogen [Mass/Vol] 20.0 mg/dL Normal 8.0 - 22.0 mg/dL [facility], [facility].; [facility], [facility]. Urea nitrogen/Creatinine [Mass ratio] 16.7 {ratio} Normal 10.0 - 22.0 {ratio} [facility], [facility].; [facility], [facility]. No Panel Informationon 08-03 Electrolyte Balance 4.0 meq/L Normal 4.0 - 15 .0 meq/L [facility].; [facility], [facility]. 146 mg/dL Normal 50 - 199 mg/dL [facility].; [facility], [facility]. 28 mg/dL Abnormal 40 - 59 mg/dL [facility].; [facility], [facility]. Laboratory - Chemistry and C hemistry - challengeon 06-30-2018 Albumin BCP dye [Mass/Vol] 4.0 g/dL Normal 3.2 - 4.8 g/dL [facility].; [facility], [facility]. Albumin/Globulin [Mass ratio] 1.0 {ratio} Normal 0.9 - 1.6 {ratio} [facility], [facility].; [facility], [facility]. ALP [Catalytic activity/Vol] 65 U/L Normal 38 - 126 U/L [facility].; [facility], [facility]. ALT No additional P-5'-P [Catalytic activity/Vol] 34 U/L Normal 12 - 55 U/L [facility].; [facility], [facility]. ALT With P-5'-P [Catalytic activity/Vol] 34 U/L Normal 12 - 55 U/L [facility], [facility].; [facility] AST [Catalytic activity/Vol] 20 U/L Normal 8 - 34 U/L [facility], [facility].; [facility] AST With P-5'-P [Catalytic activity/Vol] 20 U/L Normal 8 - 34 U/L [facility]; [facility] Bilirubin [Mass/Vol] 0.7 mg/dL Normal 0.2 - 1 .2 mg/dL [facility]; [facility] Calcium [Mass/Vol] 9.1 mg/dL Normal 8.4 - 10. 1 mg/dL [facility]; [facility] Chloride [Moles/Vol] 104 mmol/L Normal 98 - 11 0 meq/L [facility]; [facility] Cholesterol [Mass/Vol] 151 mg/dL Normal 50 - 199 mg/dL [facility]; [facility] Cholesterol in HDL [Mass/Vol] 36 mg/dL Abnormal 40 - 59 mg/dL [facility]; [facility] Cholesterol in LDL [Mass/Vol] 85 mg/dL Normal 0 - 129 mg/dL [facility]; [facility] CO2 [Moles/Vol] 28 mmol/L Normal 22 - 32 meq/L [facility]; [facility] Creatinine [Mass/Vol] 1.25 mg/dL Normal 0.60 - 1.40 mg/dL [facility].; [facility] GFR/1.73 sq M.predicted among blacks MDRD (S/P/Bld) [Vol rate/Area] mL/min/{1.73_m2} Normal [facility]; [facility] Work Phone: GFR/1.73 sq M.predicted among non-blacks MDRD (S/P/Bld) [Vol rate/Area] 55 {ml/min/1.73sqm} Normal [facility]; [facility] Work Phone: Globulin (S) [Mass/Vol] 3.9 g/dL Abnormal 1.5 - 3.8 g/dL [facility]; [facility], [facility] Glucose [Mass/Vol] 87 mg/dL Normal 82 - 115 mg/dL [facility].; [facility], [facility] Potassium [Moles/Vol] 4.8 mmol/L Normal 3.5 - 5.0 meq/L [facility].; [facility], [facility] Protein [Mass/Vol] 7.9 g/dL Normal 6.0 - 8.5 g/dL [facility].; [facility], [facility] Sodium [Moles/Vol] 139 mmol/L Normal 136 - 145 meq/L [facility].; [facility], [facility] Triglyceride [Mass/Vol] 150 mg/dL Abnormal 3 - 149 mg/dL [facility].; [facility], [facility]. Urea nitrogen [Mass/Vol] 19.0 mg/dL Normal 8.0 - 22.0 mg/dL [facility].; [facility], [facility]. Urea nitrogen/Creatinine [Mass ratio] 15.2 {ratio} Normal 10.0 - 22.0 {ratio} [facility].; [facility], [facility] No Panel Informationon 06-30 Electrolyte Balance 7.0 meq/L Normal 4.0 - 15 .0 meq/L [facility].; [facility], [facility] 3.9 g/dL Abnormal 1.5 - 3.8 g/dL [facility].; [facility], [facility]. 151 mg/dL Normal 50 - 199 mg/dL [facility].; [facility], [facility]. 36 mg/dL Abnormal 40 - 59 mg/dL [facility].; [facility], [facility] Laboratory - Chemistry and C hemistry - challengeon 09-03-2017 Calcium [Mass/Vol] 9.5 mg/dL Normal 8.4 - 10. 1 mg/dL [facility]; [facility], [facility] Chloride [Moles/Vol] 103 mmol/L Normal 98 - 11 0 meq/L [facility].; [facility], [facility] Cholesterol [Mass/Vol] 161 mg/dL Normal 50 - 199 mg/dL [facility].; [facility], [facility]. Cholesterol in HDL [Mass/Vol] 35 mg/dL Abnormal 40 - 59 mg/dL [facility].; [facility], [facility]. Cholesterol in LDL [Mass/Vol] 98 mg/dL Normal 0 - 129 mg/dL [facility].; [facility], [facility]. CO2 [Moles/Vol] 27 mmol/L Normal 22 - 32 meq/L [facility]; [facility], [facility] Creatinine [Mass/Vol] 1.37 mg/dL Normal 0.60 - 1.40 mg/dL [facility].; [facility], [facility]. GFR/1.73 sq M.predicted among blacks MDRD (S/P/Bld) [Vol rate/Area] 60 {ml/min/1.73sqm} Normal [facility].; [facility], [facility]. Work Phone: GFR/1.73 sq M.predicted among non-blacks MDRD (S/P/Bld) [Vol rate/Area] 50 {ml/min/1.73sqm} Normal [facility].; [facility], [facility]. Work Phone: Glucose [Mass/Vol] 94 mg/dL Normal 82 - 115 mg/dL [facility].; [facility], [facility]. Potassium [Moles/Vol] 4.7 mmol/L Normal 3.5 - 5.0 meq/L [facility].; [facility] Sodium [Moles/Vol] 139 mmol/L Normal 136 - 145 meq/L [facility].; [facility] Triglyceride [Mass/Vol] 139 mg/dL Normal 3 - 149 mg/dL [facility].; [facility] Urea nitrogen [Mass/Vol] 21.0 mg/dL Normal 8.0 - 22.0 mg/dL [facility].; [facility] Urea nitrogen/Creatinine [Mass ratio] 15.3 {ratio} Normal 10.0 - 22.0 {ratio} [facility].; [facility] No Panel Informationon 09-03 Electrolyte Balance 9.0 meq/L Normal 4.0 - 15 .0 meq/L [facility]; [facility] 161 mg/dL Normal 50 - 199 mg/dL [facility].; [facility] 35 mg/dL Abnormal 40 - 59 mg/dL [facility].; [facility] Laboratory - Chemistry and C hemistry - challengeon 08-20-2016 Testosterone [Mass/Vol] 527 ng/dL Normal 300 - 1200 ng/dL [facility]; [facility] Testosterone Free/Testosterone.tot al [Mass fraction] 44.8 ng/dL Abnormal 9.0 - 30.0 ng/dL [facility]; [facility] TSH Qn 1.93 mU/mL Normal 0.7 - 5.3 mU/mL [facility].; [facility], [facility] Laboratory - Chemistry and C hemistry - challengeon 12-31-2015 Anion gap [Moles/Vol] 6 mmol/L Abnormal 10 - 2 0 mmol/L [facility]; [facility] Work Phone: Calcium [Mass/Vol] 9.5 mg/dL Normal 8.6 - 10. 2 mg/dL [facility]; [facility]. Work Phone: Chloride [Moles/Vol] 103 mmol/L Normal 98 - 10 7 mmol/L [facility]; [facility]. Work Phone: CO2 [Moles/Vol] 31.0 mmol/L Abnormal 13.0 - 29.0 mmol/L [facility]; [facility] Work Phone: Creatinine [Mass/Vol] 1.3 mg/dL Normal 0.7 - 1.3 mg/dL [facility]; [facility] Work Phone: GFR/1.73 sq M.predicted among blacks MDRD (S/P/Bld) [Vol rate/Area] mL/min/{1.73_m2} Normal 60 - 999 {ML/MINUTE} [facility].; [facility]. Work Phone: GFR/1.73 sq M.predicted MDRD (S/P/Bld) [Vol rate/Area] 53 {ML/MINUTE} Abnormal 60 - 999 {ML/MINUTE} [facility].; [facility]. Work Phone: Glucose [Mass/Vol] 84 mg/dL Normal 74 - 106 mg/dL [facility]; [facility]. Work Phone: Potassium [Moles/Vol] 4.3 mmol/L Normal 3.5 - 5.1 mmol/L [facility]; [facility] Work Phone: Sodium [Moles/Vol] 136 mmol/L Normal 136 - 145 mmol/L [facility]; [facility] Work Phone: Urea nitrogen [Mass/Vol] 18 mg/dL Normal 6 - 20 mg/dL [facility]; [facility] Work Phone: Laboratory - Coagulationon 0 12-31-2015 INR Coag (PPP) [Relative time] 1.1 {INR} Normal 0.8 - 1.2 [facility]; [facility] Work Phone: PT Coag (Bld) [Time] 12.2 s Normal [facility]; [facility] Work Phone: Laboratory - Hematology and Cell countson 12-31-2015 Basophils (Bld) [#/Vol] 0.10 {x10EE3/UL} Normal 0.00 - 0.10 {x10EE3/UL} [facility]; [facility] Work Phone: Basophils/100 WBC (Bld) 0.8 % Normal 0.0 - 2.0 % [facility]; [facility] Work Phone: CBC panel Auto (Bld) Normal [facility]; [facility] Work Phone: Eosinophils (Bld) [#/Vol] 0.40 {x10EE3/UL} Normal 0.00 - 0.50 {x10EE3/UL} [facility]; [facility] Work Phone: Eosinophils/100 WBC (Bld) 5.4 % Normal 0.0 - 7.0 % [facility]; [facility] Work Phone: Erythrocyte distribution width (RBC) [Ratio] 13.7 % Normal 12.0 - 15.6 % [facility]; [facility] Work Phone: Hematocrit (Bld) [Volume fraction] 47.2 % Normal 40.0 - 52.0 % [facility]; [facility] Work Phone: Hemoglobin (Bld) [Mass/Vol] 15.8 g/dL Normal 13.0 - 17.5 g/dL [facility]; [facility] Work Phone: Lymphocytes (Bld) [#/Vol] 2.60 {x10EE3/UL} Normal 0.80 - 2.80 {x10EE3/UL} [facility]; [facility] Work Phone: Lymphocytes/100 WBC (Bld) 33.3 % Normal 20.0 - 45.0 % [facility]; [facility] Work Phone: MCH (RBC) [Entitic mass] 30 pg Normal 27 - 33 pg [facility]; [facility] Work Phone: MCHC (RBC) [Mass/Vol] 33 {X10_3} Normal 32 - 3 6 {X10_3} [facility]; [facility] Work Phone: MCV (RBC) [Entitic vol] 89 fL Normal 81 - 98 fL [facility]; [facility] Work Phone: Monocytes (Bld) [#/Vol] 0.90 {x10EE3/UL} Normal 0.20 - 1.00 {x10EE3/UL} [facility]; [facility] Work Phone: Monocytes/100 WBC (Bld) 11.5 % Abnormal 0.0 - 10.0 % [facility]; [facility] Work Phone: Morphology Dwayne (Bld) [Interp] N/A Normal [facility]; [facility] Work Phone: Neutrophils (Bld) [#/Vol] 3.80 {x10EE3/UL} Normal 1.50 - 7.10 {x10EE3/UL} [facility]; [facility] Work Phone: Neutrophils/100 WBC (Bld) 49.0 % Normal 46.0 - 76.0 % [facility]; [facility] Work Phone: Platelet mean volume (Bld) [Entitic vol] 8.1 fL Normal 6.4 - 10.5 fL [facility]; [facility] Work Phone: Platelets (Bld) [#/Vol] 201 {x10EE3/UL} Normal 150 - 450 {x10EE3/UL} [facility]; [facility] Work Phone: RBC (Bld) [#/Vol] 5.31 {x_10EE6/UL} Normal 4.50 - 6.00 {x_10EE6/UL} [facility]; [facility] Work Phone: WBC (Bld) [#/Vol] 7.8 {x_10EE3/UL} Normal 4.5 - 10.8 {x_10EE3/UL} [facility]. Work Phone: No Panel Informationon 12-30 AGE 80 {years} Normal [facility].; [facility]. Work Phone: BMP with eGFR Normal [facility].; [facility]. Work Phone: MANUAL DIFF N/A Normal [facility].; [facility]. Work Phone: PROTHROMBIN TIME AND INR Normal [facility] Hospital[facility].; [facility]. Work Phone: N/A Normal [facility].; [facility] Work Phone: 6 mmol/L Abnormal 10 - 20 mmol/L [facility].; [facility]. Work Phone: 80 {years} Normal [facility].; [facility]. Work Phone: Laboratory - Chemistry and C hemistry - challengeon 04-08-2015 Calcium [Mass/Vol] 9.3 mg/dL Normal 8.4 - 10. 1 mg/dL [facility].; [facility], [facility]. Chloride [Moles/Vol] 103 mmol/L Normal 98 - 11 0 meq/L [facility].; [facility], [facility]. CO2 [Moles/Vol] 29 mmol/L Normal 22 - 32 meq/L [facility].; [facility], [facility]. Creatinine [Mass/Vol] 1.20 mg/dL Normal 0.60 - 1.40 mg/dL [facility].; [facility], [facility]. GFR/1.73 sq M.predicted among blacks MDRD (S/P/Bld) [Vol rate/Area] mL/min/{1.73_m2} Normal [facility].; [facility]. Work Phone: GFR/1.73 sq M.predicted among non-blacks MDRD (S/P/Bld) [Vol rate/Area] 58 {mL/min/1.73m_2} Normal [facility].; [facility]. Work Phone: Glucose [Mass/Vol] 84 mg/dL Normal 82 - 115 mg/dL [facility].; [facility], [facility] Potassium [Moles/Vol] 4.6 mmol/L Normal 3.5 - 5.0 meq/L [facility].; [facility], [facility] Sodium [Moles/Vol] 137 mmol/L Normal 136 - 145 meq/L [facility].; [facility], [facility]. Urea nitrogen [Mass/Vol] 20.0 mg/dL Normal 8.0 - 22.0 mg/dL [facility].; [facility], [facility]. Urea nitrogen/Creatinine [Mass ratio] 16.7 mg/mg Normal 10.0 - 22.0 [facility].; [facility], [facility]. No Panel Informationon 04-08 Electrolyte Balance 5.0 meq/L Normal 4.0 - 15 .0 meq/L [facility].; [facility], [facility]. Laboratory - Chemistry and C hemistry - challengeon 05-10-2014 Calcium [Mass/Vol] 9.2 mg/dL Normal 8.4 - 10. 1 mg/dL [facility].; [facility], [facility]. Chloride [Moles/Vol] 102 mmol/L Normal 98 - 11 0 meq/L [facility], [facility].; [facility], [facility] CO2 [Moles/Vol] 29 mmol/L Normal 22 - 32 meq/L [facility].; [facility] Creatinine [Mass/Vol] 1.32 mg/dL Normal 0.60 - 1.40 mg/dL [facility].; [facility], [facility]. GFR/1.73 sq M.predicted among blacks MDRD (S/P/Bld) [Vol rate/Area] mL/min/{1.73_m2} Normal [facility].; [facility] Work Phone: GFR/1.73 sq M.predicted among non-blacks MDRD (S/P/Bld) [Vol rate/Area] 52 {mL/min/1.73m_2} Normal [facility].; [facility] Work Phone: Glucose [Mass/Vol] 96 mg/dL Normal 82 - 115 mg/dL [facility].; [facility], [facility] Potassium [Moles/Vol] 4.5 mmol/L Normal 3.5 - 5.0 meq/L [facility].; [facility], [facility] Sodium [Moles/Vol] 136 mmol/L Normal 136 - 145 meq/L [facility].; [facility], [facility] Urea nitrogen [Mass/Vol] 19.0 mg/dL Normal 8.0 - 22.0 mg/dL [facility].; [facility], [facility]. Urea nitrogen/Creatinine [Mass ratio] 14.4 mg/mg Normal 10.0 - 22.0 [facility].; [facility], [facility]. No Panel Informationon 05-10 Electrolyte Balance 5.0 meq/L Normal 4.0 - 15 .0 meq/L [facility]; [facility], [facility]. Laboratory - Chemistry and C hemistry - challengeon 03-26-2014 Calcium [Mass/Vol] 9.1 mg/dL Normal 8.4 - 10. 1 mg/dL [facility]; [facility], [facility] Chloride [Moles/Vol] 102 mmol/L Normal 98 - 11 0 meq/L [facility]; [facility] CO2 [Moles/Vol] 33 mmol/L Abnormal 22 - 32 meq/L [facility].; [facility], [facility] Creatinine [Mass/Vol] 1.44 mg/dL Abnormal 0.60 - 1.40 mg/dL [facility]; [facility]. GFR/1.73 sq M.predicted among blacks MDRD (S/P/Bld) [Vol rate/Area] 57 {mL/min/1.73m_2} Normal [facility]; [facility] Work Phone: GFR/1.73 sq M.predicted among non-blacks MDRD (S/P/Bld) [Vol rate/Area] 47 {mL/min/1.73m_2} Normal [facility].; [facility] Work Phone: Glucose [Mass/Vol] 87 mg/dL Normal 82 - 115 mg/dL [facility].; [facility], [facility]. Potassium [Moles/Vol] 4.5 mmol/L Normal 3.5 - 5.0 meq/L [facility]; [facility], [facility] Sodium [Moles/Vol] 139 mmol/L Normal 136 - 145 meq/L [facility]; [facility], [facility] Urea nitrogen [Mass/Vol] 18.0 mg/dL Normal 8.0 - 22.0 mg/dL [facility]; [facility], [facility] Urea nitrogen/Creatinine [Mass ratio] 12.5 mg/mg Normal 10.0 - 22.0 [facility]; [facility] No Panel Informationon 03-26 Electrolyte Balance 4.0 meq/L Normal 4.0 - 15 .0 meq/L [facility]; [facility] Laboratory - Chemistry and C hemistry - challengeon 04-17-2013 Albumin BCP dye [Mass/Vol] 3.8 g/dL Normal 3.2 - 4.8 g/dL [facility]; [facility], [facility] Albumin/Globulin [Mass ratio] 1.1 {ratio} Normal 0.9 - 1.6 [facility]; [facility] ALP [Catalytic activity/Vol] 72 U/L Normal 38 - 126 U/L [facility]; [facility]. ALT No additional P-5'-P [Catalytic activity/Vol] 38 U/L Normal 12 - 55 U/L [facility]; [facility], [facility]. ALT With P-5'-P [Catalytic activity/Vol] 38 U/L Normal 12 - 55 U/L [facility].; [facility]. AST [Catalytic activity/Vol] 21 U/L Normal 8 - 34 U/L [facility]; [facility]. AST With P-5'-P [Catalytic activity/Vol] 21 U/L Normal 8 - 34 U/L [facility].; [facility], [facility]. Bilirubin [Mass/Vol] 0.5 mg/dL Normal 0.2 - 1 .2 mg/dL [facility]; [facility], [facility]. Calcium [Mass/Vol] 9.4 mg/dL Normal 8.4 - 10. 1 mg/dL [facility]; [facility], [facility]. Chloride [Moles/Vol] 104 mmol/L Normal 98 - 11 0 meq/L [facility]; [facility], [facility] Cholesterol [Mass/Vol] 144 mg/dL Normal 50 - 199 mg/dL [facility]; [facility], [facility] Cholesterol in HDL [Mass/Vol] 26 mg/dL Abnormal 40 - 59 mg/dL [facility].; [facility] Cholesterol in LDL [Mass/Vol] 75 mg/dL Normal 0 - 129 mg/dL [facility]; [facility] Cholesterol in VLDL [Mass/Vol] 43 mg/dL Normal [facility]; [facility] CO2 [Moles/Vol] 29 mmol/L Normal 22 - 32 meq/L [facility]; [facility] Creatinine [Mass/Vol] 1.09 mg/dL Normal 0.60 - 1.40 mg/dL [facility]; [facility] GFR/1.73 sq M.predicted among blacks MDRD (S/P/Bld) [Vol rate/Area] mL/min/{1.73_m2} Normal [facility]; [facility] Work Phone: GFR/1.73 sq M.predicted among non-blacks MDRD (S/P/Bld) [Vol rate/Area] mL/min/{1.73_m2} Normal [facility]; [facility] Work Phone: Globulin (S) [Mass/Vol] 3.6 g/dL Normal 1.5 - 3.8 g/dL [facility]; [facility] Glucose [Mass/Vol] 99 mg/dL Normal 82 - 115 mg/dL [facility].; [facility], [facility] Potassium [Moles/Vol] 4.4 mmol/L Normal 3.5 - 5.0 meq/L [facility]; [facility], [facility] Protein [Mass/Vol] 7.4 g/dL Normal 6.0 - 8.5 g/dL [facility]; [facility] Sodium [Moles/Vol] 141 mmol/L Normal 136 - 145 meq/L [facility].; [facility], [facility] Triglyceride [Mass/Vol] 214 mg/dL Abnormal 3 - 149 mg/dL [facility].; [facility] Urea nitrogen [Mass/Vol] 15.0 mg/dL Normal 8.0 - 22.0 mg/dL [facility].; [facility], [facility] Urea nitrogen/Creatinine [Mass ratio] 13.8 mg/mg Normal 10.0 - 22.0 [facility].; [facility], [facility] No Panel Informationon 04-17 Electrolyte Balance 8.0 meq/L Normal 4.0 - 15 .0 meq/L [facility]; [facility], [facility] 3.6 g/dL Normal 1.5 - 3.8 g/dL [facility]; [facility], [facility] 144 mg/dL Normal 50 - 199 mg/dL [facility].; [facility] 26 mg/dL Abnormal 40 - 59 mg/dL [facility].; [facility], [facility] Laboratory - Chemistry and C hemistry - challengeon 08-22-2012 Albumin BCP dye [Mass/Vol] 4.1 g/dL Normal 3.2 - 4.8 g/dL [facility]; [facility], [facility] Albumin/Globulin [Mass ratio] 1.1 {ratio} Normal 0.9 - 1.6 [facility]; [facility], [facility] ALP [Catalytic activity/Vol] 58 U/L Normal 38 - 126 U/L [facility].; [facility], [facility]. ALT No additional P-5'-P [Catalytic activity/Vol] 43 U/L Normal 12 - 55 U/L [facility].; [facility], [facility]. ALT With P-5'-P [Catalytic activity/Vol] 43 U/L Normal 12 - 55 U/L [facility]; [facility] AST [Catalytic activity/Vol] 23 U/L Normal 8 - 34 U/L [facility]; [facility] AST With P-5'-P [Catalytic activity/Vol] 23 U/L Normal 8 - 34 U/L [facility]; [facility] Bilirubin [Mass/Vol] 0.6 mg/dL Normal 0.2 - 1 .2 mg/dL [facility]; [facility] Calcium [Mass/Vol] 9.1 mg/dL Normal 8.4 - 10. 1 mg/dL [facility]; [facility] Chloride [Moles/Vol] 102 mmol/L Normal 98 - 11 0 meq/L [facility]; [facility] Cholesterol [Mass/Vol] 150 mg/dL Normal 50 - 199 mg/dL [facility]; [facility]. Cholesterol in HDL [Mass/Vol] 28 mg/dL Abnormal 40 - 59 mg/dL [facility]; [facility]. Cholesterol in LDL [Mass/Vol] 87 mg/dL Normal 0 - 129 mg/dL [facility]; [facility] Cholesterol in VLDL [Mass/Vol] 35 mg/dL Normal [facility]; [facility] CO2 [Moles/Vol] 28 mmol/L Normal 22 - 32 meq/L [facility]; [facility] Creatinine [Mass/Vol] 1.10 mg/dL Normal 0.60 - 1.40 mg/dL [facility]; [facility], [facility] GFR/1.73 sq M.predicted among blacks MDRD (S/P/Bld) [Vol rate/Area] mL/min/{1.73_m2} Normal [facility]; [facility] Work Phone: GFR/1.73 sq M.predicted among non-blacks MDRD (S/P/Bld) [Vol rate/Area] mL/min/{1.73_m2} Normal [facility]; [facility] Work Phone: Globulin (S) [Mass/Vol] 3.9 g/dL Abnormal 1.5 - 3.8 g/dL [facility]; [facility] Glucose [Mass/Vol] 90 mg/dL Normal 82 - 115 mg/dL [facility]; [facility] Potassium [Moles/Vol] 4.5 mmol/L Normal 3.5 - 5.0 meq/L [facility]; [facility] Protein [Mass/Vol] 8.0 g/dL Normal 6.0 - 8.5 g/dL [facility].; [facility] Sodium [Moles/Vol] 139 mmol/L Normal 136 - 145 meq/L [facility].; [facility] Triglyceride [Mass/Vol] 177 mg/dL Abnormal 3 - 149 mg/dL [facility].; [facility] TSH Qn 3.37 m[IU]/L Normal 0.36 - 3.74 {mcIU/mL} [facility]; [facility] Urea nitrogen [Mass/Vol] 16.0 mg/dL Normal 8.0 - 22.0 mg/dL [facility].; [facility] Urea nitrogen/Creatinine [Mass ratio] 14.5 mg/mg Normal 10.0 - 22.0 [facility].; [facility] Laboratory - Hematology and Cell countson 08-22-2012 Basophils/100 WBC (Bld) 0.4 % Normal 0.0 - 2.5 % [facility].; [facility] Eosinophils/100 WBC (Bld) 4.2 % Normal 0.0 - 6.0 % [facility]; [facility] Erythrocyte distribution width (RBC) [Ratio] 13.7 % Normal 11.5 - 15.5 % [facility].; [facility], [facility] Hematocrit (Bld) [Volume fraction] 50.3 % Normal 40.0 - 52.0 % [facility]; [facility] Hemoglobin (Bld) [Mass/Vol] 16.8 g/dL Normal 13.0 - 17.5 g/dL [facility]; [facility] Lymphocytes/100 WBC (Bld) 39.4 % Normal 20.0 - 40.0 % [facility]; [facility], [facility] MCH (RBC) [Entitic mass] 30.4 pg Normal 27.0 - 33.0 pg [facility]; [facility] MCHC (RBC) [Mass/Vol] 33.4 g/dL Normal 32.0 - 36.0 g/dL [facility]; [facility], [facility] MCV (RBC) [Entitic vol] 90.9 fL Normal 81.0 - 98.0 fL [facility]; [facility], [facility] Monocytes/100 WBC (Bld) 9.1 % Normal 2.0 - 13.0 % [facility].; [facility], [facility] Neutrophils (Bld) [#/Vol] 4.01 {10_3/mcL} Normal 2.00 - 8.00 {10_3/mcL} [facility].; [facility], [facility] Neutrophils/100 WBC (Bld) 46.9 % Abnormal 50.0 - 75.0 % [facility].; [facility], [facility] Platelet mean volume (Bld) [Entitic vol] 8.7 fL Normal 6.4 - 10.5 fL [facility], [facility].; [facility], [facility] Platelets (Bld) [#/Vol] 163 {10_3/mcL} Normal 150 - 450 {10_3/mcL} [facility], [facility].; [facility], [facility]. RBC (Bld) [#/Vol] 5.54 {10_6/mcL} Normal 4.50 - 6.00 {10_6/mcL} [facility], [facility].; [facility], [facility]. WBC (Bld) [#/Vol] 8.56 {10_3/mcL} Normal 4.50 - 10.80 {10_3/mcL} [facility], [facility].; [facility], [facility]. No Panel Informationon 08-22 Electrolyte Balance 9.0 meq/L Normal 4.0 - 15 .0 meq/L [facility] Hospital[facility].; [facility], [facility]. 3.9 g/dL Abnormal 1.5 - 3.8 g/dL [facility], [facility].; [facility], [facility]. 150 mg/dL Normal 50 - 199 mg/dL [facility] Hospital[facility].; [facility], [facility]. 28 mg/dL Abnormal 40 - 59 mg/dL [facility], [facility].; [facility], [facility]. Laboratory - Chemistry and C hemistry - challengeon 01-25-2012 Calcium [Mass/Vol] 9.1 mg/dL Normal 8.4 - 10. 1 mg/dL [facility].; [facility], [facility]. Chloride [Moles/Vol] 100 mmol/L Normal 98 - 11 0 meq/L [facility] Hospital[facility].; [facility], [facility]. Cholesterol [Mass/Vol] 148 mg/dL Normal 50 - 199 mg/dL [facility], [facility].; [facility], [facility]. Cholesterol in HDL [Mass/Vol] 28 mg/dL Abnormal 40 - 59 mg/dL [facility] Hospital[facility].; [facility], [facility]. Cholesterol in LDL [Mass/Vol] 94 mg/dL Normal 0 - 129 mg/dL [facility].; [facility] Cholesterol in VLDL [Mass/Vol] 26 mg/dL Normal [facility].; [facility], [facility]. CO2 [Moles/Vol] 30 mmol/L Normal 22 - 32 meq/L [facility].; [facility] Creatinine [Mass/Vol] 1.11 mg/dL Normal 0.60 - 1.40 mg/dL [facility].; [facility], [facility]. GFR/1.73 sq M.predicted among blacks MDRD (S/P/Bld) [Vol rate/Area] mL/min/{1.73_m2} Normal [facility].; [facility]. Work Phone: GFR/1.73 sq M.predicted among non-blacks MDRD (S/P/Bld) [Vol rate/Area] mL/min/{1.73_m2} Normal [facility].; [facility], [facility]. Work Phone: Glucose [Mass/Vol] 81 mg/dL Abnormal 82 - 115 mg/dL [facility].; [facility], [facility]. Potassium [Moles/Vol] 4.6 mmol/L Normal 3.5 - 5.0 meq/L [facility].; [facility], [facility]. Sodium [Moles/Vol] 135 mmol/L Abnormal 136 - 145 meq/L [facility].; [facility], [facility]. Triglyceride [Mass/Vol] 129 mg/dL Normal 3 - 149 mg/dL [facility].; [facility], [facility]. Urea nitrogen [Mass/Vol] 15.0 mg/dL Normal 8.0 - 22.0 mg/dL [facility].; [facility], [facility] Urea nitrogen/Creatinine [Mass ratio] 13.5 mg/mg Normal 10.0 - 22.0 [facility].; [facility], [facility] No Panel Informationon 01-24 Electrolyte Balance 5.0 meq/L Normal 4.0 - 15 .0 meq/L [facility]; [facility], [facility] 148 mg/dL Normal 50 - 199 mg/dL [facility].; [facility], [facility] 28 mg/dL Abnormal 40 - 59 mg/dL [facility].; [facility], [facility] Vital Signs Date Time Vital Sign Value Performing Clinician Faci lity 03-05-2025 08:57-0400 Body height 165.1 cm Kinjal Campos RN [facility], [facility].; [facility], [facility]. 03-05-2025 08:57-0400 Body mass index (BMI) [Ratio] 28.79 kg/m2 Kinjal Campos RN [facility], [facility].; [facility], [facility]. 03-05-2025 08:57-0400 Body surface area Derived from formula 1.86 m2 Kinjal Campos RN [facility], [facility].; [facility], [facility]. 03-05-2025 08:57-0400 Body weight 78.47 kg Kinjal Campos RN [facility], [facility].; [facility], [facility]. 03-05-2025 08:57-0400 Diastolic blood pressure 61 mm[Hg] Kinjal Campos RN [facility], [facility].; [facility], [facility]. 03-05-2025 08:57-0400 Heart rate 65 /min Kinjal Campos RN [facility], [facility].; [facility], [facility]. 03-05-2025 08:57-0400 Systolic blood pressure 123 mm[Hg] Kinjal Campos RN [facility], [facility].; [facility], [facility]. 09-04-2024 13:11-0500 Diastolic blood pressure 74 mm[Hg] Kinjal Campos RN [facility], [employer] [facility], [facility]. 09-04-2024 13:11-0500 Heart rate 66 /min Kinjal Campos RN [facility], [facility].; [facility], [facility]. 09-04-2024 13:11-0500 Systolic blood pressure 139 mm[Hg] Kinjal Campos RN [facility], [facility].; [facility] 04-11-2024 14:57-0400 Body height 165.1 cm GELY AVILA RN [facility], [facility].; [facility], [facility]. 04-11-2024 14:57-0400 Body mass index (BMI) [Ratio] 28.66 kg/m2 GELY AVILA RN [facility].; [facility], [employer]. 04-11-2024 14:57-0400 Body surface area Derived from formula 1.86 m2 GELY AVILA RN [facility], [facility].; [facility] 04-11-2024 14:57-0400 Body temperature 98.8 [degF] GELY AVILA RN [facility] Hospital[facility].; [employer] [facility] [facility]. Comment on above: Method: Oral 04-11-2024 14:57-0400 Body weight 78.13 kg GELY AVILA RN [facility].; [facility]. 04-11-2024 14:57-0400 Diastolic blood pressure 76 mm[Hg] GELY AVILA RN [facility], [employer].; [facility] [employer] [facility]. Comment on above: Patient Position: Sitting; Cuff Location : Left Arm; Cuff Size: Standard 04-11-2024 14:57-0400 Heart rate 89 /min GELY AVILA RN [facility], [facility].; [facility] [employer] [facility]. Comment on above: Pattern: Regular 04-11-2024 14:57-0400 Inhaled oxygen concentration 21 % GELY AVILA RN [facility], [facility].; [employer] [facility] [facility]. Comment on above: Room air 04-11-2024 14:57-0400 SaO2% (BldA) [Mass fraction] 95 % GELY AVILA RN [facility] Hospital[facility].; [facility], [facility]. 04-11-2024 14:57-0400 Systolic blood pressure 131 mm[Hg] GELY AVILA RN [facility].; [facility], [employer]. Comment on above: Patient Position: Sitting; Cuff Location : Left Arm; Cuff Size: Standard 12-20-2023 17:14-0400 Diastolic blood pressure 60 mm[Hg] Edwardo DELANEY MD Work Phone: [facility] Hospital[facility].; [facility]. Comment on above: Patient Position: Sitting; Cuff Location : Left Arm; Cuff Size: Standard 12-20-2023 17:14-0400 Systolic blood pressure 120 mm[Hg] Edwardo DELANEY MD Work Phone: [facility].; [facility] [facility]ITALOct[facility] HospitalLive Gamer. Comment on above: Patient Position: Sitting; Cuff Location : Left Arm; Cuff Size: Standard 12-20-2023 13:05-0400 Body height 165.1 cm Freida Eid RN [facility], [facility].; [facility], [facility]. 12-20-2023 13:05-0400 Body mass index (BMI) [Ratio] 29.95 kg/m2 Freida Eid RN [facility], [facility].; [facility], [facility]. 12-20-2023 13:05-0400 Body surface area Derived from formula 1.89 m2 Freida Eid RN [facility], [facility].; [facility], [facility]. 12-20-2023 13:05-0400 Body weight 81.65 kg Freida Eid RN [facility], [employer] [facility], [facility]. 12-20-2023 13:05-0400 Diastolic blood pressure 72 mm[Hg] Freida Eid RN [facility], [employer] [facility], [employer]. Comment on above: Patient Position: Sitting; Cuff Location : Left Arm; Cuff Size: Large 12-20-2023 13:05-0400 Heart rate 65 /min Freida Eid RN [facility], [employer] [facility], [employer]. Comment on above: Pattern: Regular 12-20-2023 13:05-0400 Systolic blood pressure 146 mm[Hg] Freida Eid RN [facility], Inc.; [facility], Inc[facility] Comment on above: Patient Position: Sitting; Cuff Location : Left Arm; Cuff Size: Large 08-11-2023 14:44-0500 Body height 165.1 cm GELY AVILA [facility], Inc.; [facility], Inc[facility] 08-11-2023 14:44-0500 Body mass index (BMI) [Ratio] 31.45 kg/m2 GELY AVILA [facility], [facility].; [facility], Inc[facility] 08-11-2023 14:44-0500 Body surface area Derived from formula 1.93 m2 GELY AVILA RN [facility], [facility].; [facility], Inc[facility] 08-11-2023 14:44-0500 Body weight 85.73 kg GELY GRATE DOUGIE [facility], [facility].; [facility], [facility] 08-11-2023 14:44-0500 Diastolic blood pressure 66 mm[Hg] GELY GRATE [facility], [facility].; [facility], [employer]. Comment on above: Patient Position: Sitting; Cuff Location : Left Arm; Cuff Size: Large 08-11-2023 14:44-0500 Heart rate 60 /min GELY GRATE DOUGIE [facility], Inc.; [facility], [employer]. Comment on above: Pattern: Regular 08-11-2023 14:44-0500 Systolic blood pressure 123 mm[Hg] GELY GRATE DOUGIE [facility], Inc.; [facility] [employer] [facility], [employer]. Comment on above: Patient Position: Sitting; Cuff Location : Left Arm; Cuff Size: Large 07-26-2023 13:54-0500 Body height 165.1 cm Kinjal Campos RN [facility], Inc.; [facility], Inc[facility] 07-26-2023 13:54-0500 Body mass index (BMI) [Ratio] 31.35 kg/m2 Kinjal Campos RN [facility], Inc.; [facility], Inc[facility] 07-26-2023 13:54-0500 Body surface area Derived from formula 1.93 m2 Kinjal Campos RN [facility], Inc.; [facility], Inc[facility] 07-26-2023 13:54-0500 Body weight 85.45 kg Kinjal Campos RN [facility], Inc.; [facility], Inc[facility] 07-26-2023 13:54-0500 Diastolic blood pressure 74 mm[Hg] Kinjal Campos RN [facility], Inc.; [employer] [facility] [facility], Inc. Comment on above: Patient Position: Sitting; Cuff Location : Left Arm; Cuff Size: Large 07-26-2023 13:54-0500 Heart rate 60 /min Kinjal Campos RN [facility], Inc.; [facility] [employer] [facility], Inc[facility] Comment on above: Pattern: Regular 07-26-2023 13:54-0500 Systolic blood pressure 152 mm[Hg] Kinjal Campos RN [facility], Inc.; [facility], Inc[facility] Comment on above: Patient Position: Sitting; Cuff Location : Left Arm; Cuff Size: Large 06-14-2023 15:20-0400 Body height 165.1 cm Kinjal Campos RN [facility], Inc.; [facility], Inc[facility] 06-14-2023 15:20-0400 Body mass index (BMI) [Ratio] 31.35 kg/m2 Kinjal Campos RN [facility], Inc.; [facility], Inc[facility] 06-14-2023 15:20-0400 Body surface area Derived from formula 1.93 m2 Kinjal Campos RN [facility], Inc.; [facility], Inc[facility] 06-14-2023 15:20-0400 Body weight 85.45 kg Kinjal Campos RN [facility] [employer] [facility] [employer] [facility], Inc[facility] 06-14-2023 15:20-0400 Diastolic blood pressure 79 mm[Hg] Kinjal Campos RN [facility].; [employer] [facility] [employer] [facility], [employer]. Comment on above: Patient Position: Sitting; Cuff Location : Left Arm; Cuff Size: Large 06-14-2023 15:20-0400 Heart rate 66 /min Kinjal Campos RN [facility], [employer] [facility] [employer] [facility], Inc[facility] Comment on above: Pattern: Regular 06-14-2023 15:20-0400 Systolic blood pressure 145 mm[Hg] Kinjal Campos RN [facility] [employer] [facility] Center[facility].; [employer] [facility] [employer] [facility], [employer]. Comment on above: Patient Position: Sitting; Cuff Location : Left Arm; Cuff Size: Large 04-19-2023 08:51-0400 Body height 165.1 cm Kinjal Campos RN [facility], Inc.; [employer] [facility] [employer] [facility], Inc[facility] 04-19-2023 08:51-0400 Body mass index (BMI) [Ratio] 31.18 kg/m2 Kinjal Campos RN [facility], Inc.; [facility], Inc[facility] 04-19-2023 08:51-0400 Body surface area Derived from formula 1.92 m2 Kinjal Campos RN [facility], Inc.; [employer] [facility] [employer] [facility], Inc. 04-19-2023 08:51-0400 Body weight 85 kg Kinjal Campos RN [facility] [employer] [facility], Inc.; [employer] [facility] [employer] [facility], Inc[facility] 04-19-2023 08:51-0400 Diastolic blood pressure 65 mm[Hg] Kinjal Campos RN [facility] [employer] [facility].; [employer] [facility] [employer] [facility], [employer]. Comment on above: Patient Position: Sitting; Cuff Location : Left Arm; Cuff Size: Large 04-19-2023 08:51-0400 Heart rate 62 /min Kinjal Campos RN [facility] [employer] [facility], Inc.; [employer] [facility] [employer] [facility], [employer]. Comment on above: Pattern: Regular 04-19-2023 08:51-0400 Systolic blood pressure 131 mm[Hg] Kinjal Campos RN [facility], [employer] [facility], Inc[facility] Comment on above: Patient Position: Sitting; Cuff Location : Left Arm; Cuff Size: Large 03-23-2023 13:36-0400 Body height 165.1 cm Tabatha Lake [facility], Inc.; [employer] [facility], Inc[facility] 03-23-2023 13:36-0400 Body mass index (BMI) [Ratio] 30.81 kg/m2 Tabatha F [facility], Inc.; [facility], Inc[facility] 03-23-2023 13:36-0400 Body surface area Derived from formula 1.91 m2 Tabatha Abiel [facility], [facility].; [facility], Inc[facility] 03-23-2023 13:36-0400 Body weight 83.97 kg Tabatha F [facility], [employer].; [facility], Inc[facility] 03-23-2023 13:36-0400 Diastolic blood pressure 75 mm[Hg] Tabatha Beebe [facility] [employer] [facility] [employer] [facility], Inc[facility] Comment on above: Patient Position: Sitting; Cuff Location : Left Arm; Cuff Size: Standard 03-23-2023 13:36-0400 Heart rate 62 /min Tabatha Lake [facility] [employer] [facility], [employer] [facility] [employer] [facility], Inc[employer] Comment on above: Pattern: Regular 03-23-2023 13:36-0400 Systolic blood pressure 152 mm[Hg] [facility]atha [facility] [employer] [facility], [employer] [facility] [employer] [facility], Inc[employer] Comment on above: Patient Position: Sitting; Cuff Location : Left Arm; Cuff Size: Standard 12-21-2022 14:04-0400 Body height 165.1 cm Freida Eid RN [facility] [employer] [facility], [employer] [facility] [employer] [facility], Inc[facility] 12-21-2022 14:04-0400 Body mass index (BMI) [Ratio] 32.12 kg/m2 Freida Eid RN [facility] [employer] [facility] CenterMoneyMail [employer].; [employer] [facility], Inc[facility] 12-21-2022 14:040400 Body surface area Derived from formula 1.95 m2 Freida Eid RN [facility], Inc.; [facility], Inc[facility] 12-21-2022 14:040400 Body weight 87.54 kg Freida Eid RN [facility], Inc.; [facility], Inc[facility] 12-21-2022 14:04-0400 Diastolic blood pressure 70 mm[Hg] Freida Eid RN [facility], [facility].; [facility] [employer] [facility], Inc[employer] Comment on above: Patient Position: Sitting; Cuff Location : Left Arm; Cuff Size: Large 12-21-2022 14:04-0400 Heart rate 65 /min Freida Eid RN [facility], [facility].; [facility] [employer] [facility], Inc[facility] Comment on above: Pattern: Regular 12-21-2022 14:04-0400 Systolic blood pressure 127 mm[Hg] Freida Eid RN [facility], [facility].; [employer] [facility] [employer] [facility], Inc[facility] Comment on above: Patient Position: Sitting; Cuff Location : Left Arm; Cuff Size: Large 10-25-2022 10:53-0500 Body height 165.1 cm Claudia Valente RN [facility], Inc.; [facility], Inc[facility] 10-25-2022 10:53-0500 Body mass index (BMI) [Ratio] 30.79 kg/m2 Claudia Valente RN [facility], Inc.; [facility], Inc[facility] 10-25-2022 10:53-0500 Body surface area Derived from formula 1.91 m2 Claudia Valente RN [facility], Inc.; [facility], Inc[facility] 10-25-2022 10:53-0500 Body temperature 98 [degF] Claudia Vaelnte RN [facility], Inc.; [facility] [employer] [facility], Inc[facility] Comment on above: Method: Oral 10-25-2022 10:53-0500 Body weight 83.92 kg Claudia Valente RN [facility] [employer] [facility], Inc.; [employer] [facility], Inc[facility] 10-25-2022 10:53-0500 Diastolic blood pressure 72 mm[Hg] Claudia Valente RN [facility]. Comment on above: Patient Position: Sitting; Cuff Location : Left Arm; Cuff Size: Standard 10-25-2022 10:53-0500 Heart rate 70 /min Claudia Valente RN [facility], [employer] [facility] Institute[facility]. Comment on above: Pattern: Regular 10-25-2022 10:53-0500 Inhaled oxygen concentration 21 % Claudia Valente RN [facility], Inc.; [facility] Institute[facility]. Comment on above: Room air 10-25-2022 10:53-0500 SaO2% (BldA) [Mass fraction] 97 % Claudia Valente RN [facility], [employer] [facility] Institute[facility]. 10-25-2022 10:53-0500 Systolic blood pressure 116 mm[Hg] Claudia Valente RN [facility], [employer] [facility] Institute[facility]. Comment on above: Patient Position: Sitting; Cuff Location : Left Arm; Cuff Size: Standard 10-01-2022 13:02-0500 Heart rate 96 /min DR GRACIELA PARADA MD [facility] 10-01-2022 13:02-0500 Respiratory rate 16 /min DR GRACIELA PARADA MD [facility] 10-01-2022 12:19-0500 Heart rate 89 /min DR GRACIELA PARADA MD [facility] 10-01-2022 12:19-0500 Respiratory rate 16 /min DR GRACIELA PARADA MD [facility] 10-01-2022 11:45-0500 Body temperature 97.7 [degF] DR GRACIELA PARADA MD [facility] 10-01-2022 11:45-0500 Diastolic Blood Pressure Non-Invasive [address] GRACIELA PARADA MD [facility] 10-01-2022 11:45-0500 Heart rate 78 /min DR GRACIELA PARADA MD [address] [place] [address] 10-01-2022 11:45-0500 Reason For Taking VItal Signs DR GRACIELA PARADA MD [address] [place] [address] 10-01-2022 11:45-0500 Respiratory rate 16 /min DR GRACIELA PARADA MD [address] [place] [address] 10-01-2022 11:45-0500 Systolic Blood Pressure Non-Invasive [address] GRACIELA PARADA MD [address] [place] [address] 10-01-2022 07:35-0500 Body temperature 97.88 [degF] DR GRACIELA PARADA MD [address] [place] [address] 10-01-2022 07:35-0500 Diastolic Blood Pressure Non-Invasive [address] GRACIELA PARADA MD [address] [place] [address] 10-01-2022 07:35-0500 Mean blood pressure 85 mm[Hg] DR GRACIELA PARADA MD [address] [place] [address] 10-01-2022 07:35-0500 Systolic Blood Pressure Non-Invasive [address] GRACIELA PARADA MD [address] [place] [address] 10-01-2022 04:00-0500 Body temperature 98.06 [degF] DR GRACIELA PARADA MD [address] [place] [address] 10-01-2022 04:00-0500 Diastolic Blood Pressure Non-Invasive [address] GRACIELA PARADA MD [address] [place] [address] 10-01-2022 04:00-0500 Mean blood pressure 86 mm[Hg] DR GRACIELA PARADA MD [address] [place] [address] 10-01-2022 04:00-0500 Systolic Blood Pressure Non-Invasive [address] GRACIELA PARADA MD [address] 09-30-2022 23:00-0500 Reason For Taking VItal Signs DR GRACIELA PARADA MD [address] 09-30-2022 19:20-0500 Mean blood pressure 93 mm[Hg] DR GRACIELA PARADA MD [address] [place] [address] 09-29-2022 23:54-0500 Body height 167.[address] GRACIELA PARADA MD [address] [place] [address] 09-29-2022 23:54-0500 Body weight 83.[address] GRACIELA PARADA MD [address] [place] [address] 09-29-2022 23:54-0500 Body weight 29.73 kg/m2 DR GRACIELA PARADA MD [address] [place] [address] 09-29-2022 23:53-0500 Blood Pressure Cuff Size DR GRACIELA PARADA MD [address] [place] [address] 09-29-2022 23:53-[address] GRACIELA PARADA MD [address] [place] [address] 09-29-2022 23:53-[address] GRACILEA Senior [address] [place] [address] 09-08-2022 14:21-0500 Blood Pressure Cuff Size HORTENSIA NASH MD [address] [place] [address] 09-08-2022 14:21-0500 Blood Pressure Location HORTENSIA NASH MD [address] [place] [address] 09-08-2022 14:21-0500 Blood Pressure Method HORTENSIA NASH MD [address] [place] [address] 09-08-2022 14:21-0500 Body height 167.6 cm HORTENSIA NASH MD [address] [place] [address] 09-08-2022 14:21-0500 Body temperature 98.96 [degF] HORTENSIA NASH MD [address] [place] [address] 09-08-2022 14:21-0500 Body weight 87.3 kg HORTENSIA NASH MD [address] [place] [address] 09-08-2022 14:21-0500 Body weight 31.08 kg/m2 HORTENSIA NASH MD [address] [place] [address] 09-08-2022 14:21-0500 Diastolic Blood Pressure Non-Invasive 70 1 HORTENSIA NASH MD [address] [place] [address] 09-08-2022 14:21-0500 Heart rate 64 /min HORTENSIA NASH MD [address] [place] [address] 09-08-2022 14:21-0500 Systolic Blood Pressure Non-Invasive 132 1 HORTENSIA NASH MD [address] [place] [address] 08-19-2022 04:29-0500 Body temperature 97.7 [degF] DANIEL MATA MD [address] [place] [address] 08-19-2022 04:29-0500 Diastolic Blood Pressure Non-Invasive 66 1 DANIEL MATA MD [address] [place] [address] 08-19-2022 04:29-0500 Heart rate 74 /min DANIEL MATA MD [address] [place] [address] 08-19-2022 04:29-0500 Respiratory rate 16 /min DANIEL MATA MD [address] [place] [address] 08-19-2022 04:29-0500 Systolic Blood Pressure Non-Invasive 119 1 DANIEL MATA MD [address] [place] [address] 08-19-2022 01:32-0500 Heart rate 90 /min DANIEL MATA MD [address] [place] [address] 08-19-2022 01:32-0500 Respiratory rate 14 /min DANIEL MATA MD [address] [place] [address] 08-18-2022 23:18-0500 Heart rate 95 /min DANIEL MATA MD [address] [place] [address] 08-18-2022 23:18-0500 Respiratory rate 14 /min DANIEL MATA MD [address] [place] [address] 08-18-2022 19:21-0500 Blood Pressure Cuff Size DANIEL MATA MD [address] 08-18-2022 19:21-0500 Blood Pressure Location DANIEL MATA MD [address] [place] [address] 08-18-2022 19:21-0500 Blood Pressure Method DANIEL MATA MD [address] [place] [address] 08-18-2022 19:21-0500 Body temperature 97.52 [degF] DANIEL MATA MD [address] [place] [address] 08-18-2022 19:21-0500 Diastolic Blood Pressure Non-Invasive 62 1 DANIEL MATA MD [address] [place] [address] 08-18-2022 19:21-0500 Systolic Blood Pressure Non-Invasive 140 1 DANIEL MATA MD [address] [place] [address] 08-18-2022 16:10-0500 Diastolic Blood Pressure Non-Invasive 68 1 DANIEL MATA MD [address] [place] [address] 08-18-2022 16:10-0500 Heart rate 94 /min DANIEL MATA MD [address] [place] [address] 08-18-2022 16:10-0500 Systolic Blood Pressure Non-Invasive 136 1 DANIEL MATA MD [address] [place] [address] 08-18-2022 09:24-0500 Blood Pressure Cuff Size DANIEL MATA MD [address] 08-18-2022 09:24-0500 Blood Pressure Location DANIEL MATA MD [address] 08-18-2022 09:24-0500 Blood Pressure Method DANIEL MATA MD [address] [place] [address] 08-18-2022 09:24-0500 Body height 167.6 cm DANIEL MATA MD [address] [place] [address] 08-18-2022 09:24-0500 Body temperature 97.52 [degF] DANIEL MATA MD [address] [place] [address] 08-18-2022 09:24-0500 Body weight 86.5 kg DANIEL MATA MD [address] [place] [address] 08-18-2022 09:24-0500 Body weight 30.83 kg/m2 DANIEL MATA MD [address] [place] [address] 08-18-2022 09:24-0500 Heart rate 59 /min DANIEL MATA MD [address] [place] [address] 08-02-2022 11:50-0500 Diastolic Blood Pressure Non-Invasive 77 1 HORTENSIA NASH MD [address] [place] [address] 08-02-2022 11:50-0500 Heart rate 99 /min HORTENSIA NASH MD [address] [place] [address] 08-02-2022 11:50-0500 Respiratory rate 18 /min HORTENSIA NASH MD [address] [place] [address] 08-02-2022 11:50-0500 Systolic Blood Pressure Non-Invasive 142 1 HORTENSIA NASH MD [address] [place] [address] 08-02-2022 10:44-0500 Body temperature 96.98 [degF] HORTENSIA NASH MD [address] [place] [address] 08-02-2022 10:44-0500 Diastolic Blood Pressure Non-Invasive 66 1 HORTENSIA NASH MD [address] [place] [address] 08-02-2022 10:44-0500 Heart rate 105 /min HORTENSIA NASH MD [address] [place] [address] 08-02-2022 10:44-0500 Reason For Taking VItal Signs HORTENSIA NASH MD [address] [place] [address] 08-02-2022 10:44-0500 Respiratory rate 18 /min HORTENSIA NASH MD [address] [place] [address] 08-02-2022 10:44-0500 Systolic Blood Pressure Non-Invasive 128 1 HORTENSIA NASH MD [address] [place] [address] 04-07-2022 11:28-0400 diastolic 62 mm[Hg] DANIEL MATA MD [address] [place] [address] 04-07-2022 11:28-0400 Heart rate 72 /min DANIEL MATA MD [address] [place] [address] 04-07-2022 11:28-0400 systolic 122 mm[Hg] DANIEL MATA MD [address] [place] [address] 04-07-2022 11:11-0400 diastolic 62 mm[Hg] DANIEL MATA MD [address] [place] [address] 04-07-2022 11:11-0400 Heart rate 70 /min DANIEL MATA MD [address] [place] [address] 04-07-2022 11:11-0400 Respiratory rate 16 /min DANIEL MATA MD [address] [place] [address] 04-07-2022 11:11-0400 systolic 126 mm[Hg] DANIEL MATA MD [address] [place] [address] 04-07-2022 10:55-0400 diastolic 78 mm[Hg] DANIEL MATA MD [address] [place] [address] 04-07-2022 10:55-0400 Heart rate 78 /min DANIEL AMTA MD [address] [place] [address] 04-07-2022 10:55-0400 Respiratory rate 16 /min DANIEL MATA MD [address] [place] [address] 04-07-2022 10:55-0400 systolic 140 mm[Hg] DANIEL MATA MD [address] [place] [address] 04-07-2022 10:41-0400 Reason For Taking VItal Signs DANIEL MATA MD [address] [place] [address] 04-07-2022 10:41-0400 Respiratory rate 16 /min DANIEL MATA MD [address] [place] [address] 04-07-2022 07:00-0400 Body height 167.6 cm DANIEL MATA MD [facility] 04-07-2022 07:00-0400 Body temperature 97.88 [degF] DANIEL MATA MD [facility] 04-07-2022 07:00-0400 Body weight 84.2 kg DANIEL MATA MD [facility] 04-07-2022 07:00-0400 Body weight 29.98 kg/m2 DANIEL MATA MD [facility] 01-01-2022 13:22-0400 Body height 165.1 cm Claudia Valente RN [facility], Inc.; [facility], [facility] 01-01-2022 13:22-0400 Body mass index (BMI) [Ratio] 31.45 kg/m2 Claudia Valente RN [facility], Inc.; [facility], [facility] 01-01-2022 13:22-0400 Body surface area Derived from formula 1.93 m2 Claudia Valente RN [facility], Inc.; [facility], [facility] 01-01-2022 13:22-0400 Body temperature 97.8 [degF] Claudia Valente RN [facility], Inc.; [facility] [employer] [facility] Comment on above: Method: Oral 01-01-2022 13:22-0400 Body weight 85.73 kg Claudia Valente RN [facility], [facility].; [facility], [facility] 01-01-2022 13:22-0400 Diastolic blood pressure 71 mm[Hg] Claudia Valente RN [facility], [facility].; [facility] [employer] [facility] Comment on above: Patient Position: Sitting; Cuff Location : Left Arm; Cuff Size: Standard 01-01-2022 13:22-0400 Heart rate 61 /min Claudia Valente RN [facility] [employer] [facility], Inc[facility] [employer] [facility], [employer] Comment on above: Pattern: Regular 01-01-2022 13:22-0400 Inhaled oxygen concentration 21 % Claudia Valente RN [facility] [employer] [facility], Inc.; [facility] [employer] [facility] Comment on above: Room air 01-01-2022 13:22-0400 SaO2% (BldA) [Mass fraction] 94 % Claudia Valente RN [facility], [facility].; [employer] [facility], [facility] 01-01-2022 13:22-0400 Systolic blood pressure 123 mm[Hg] Caludia Valente RN [facility], [facility].; [facility] [employer] [facility] Comment on above: Patient Position: Sitting; Cuff Location : Left Arm; Cuff Size: Standard 01-09-2021 09:52-0400 Body height 165.1 cm Claudia Valente RN [facility], [facility].; [facility], [facility] 01-09-2021 09:52-0400 Body mass index (BMI) [Ratio] 32.42 kg/m2 Claudia Valente RN [facility], [facility].; [facility], [facility] 01-09-2021 09:52-0400 Body surface area Derived from formula 1.96 m2 Claudia Valente RN [facility], [facility].; [facility] [employer] [facility], [facility]. 01-09-2021 09:52-0400 Body weight 88.36 kg Claudia Valente RN [facility], [facility].; [facility] [employer] [facility], Inc. 01-09-2021 09:52-0400 Diastolic blood pressure 64 mm[Hg] Claudia Valente RN [facility], [facility].; [facility] [employer] [facility], Inc. Comment on above: Patient Position: Sitting; Cuff Location : Left Arm; Cuff Size: Standard 01-09-2021 09:52-0400 Heart rate 73 /min Claudia Valente RN [facility] [employer] [facility], Inc.; [employer] [facility] [employer] [facility], [employer]. Comment on above: Pattern: Regular 01-09-2021 09:52-0400 Inhaled oxygen concentration 21 % Claudia Valente RN [facility], [facility].; [employer] [facility] [employer] [facility], Inc. Comment on above: Room air 01-09-2021 09:52-0400 SaO2% (BldA) [Mass fraction] 98 % Claudia Valente RN [facility], [facility].; [facility] 01-09-2021 09:52-0400 Systolic blood pressure 131 mm[Hg] Claudia Valente RN [facility], [facility].; [facility] [employer] [facility], Inc. Comment on above: Patient Position: Sitting; Cuff Location : Left Arm; Cuff Size: Standard 07-17-2020 13:27-0500 Body height 165.1 cm Freida Eid RN [facility], [facility].; [facility], [facility] 07-17-2020 13:27-0500 Body mass index (BMI) [Ratio] 31.12 kg/m2 Freida Eid RN [facility], [facility].; [facility], [facility] 07-17-2020 13:27-0500 Body surface area Derived from formula 1.92 m2 Freida Eid RN [facility], [facility].; [facility], [facility] 07-17-2020 13:27-0500 Body temperature 98.6 [degF] Freida Eid RN [facility], [facility].; [employer] [facility] [employer] [facility], Inc. Comment on above: Method: Oral 07-17-2020 13:27-0500 Body weight 84.82 kg Freida Eid RN [facility], [facility].; [facility], [facility] 04-25-2020 10:22-0400 Body height 165.1 cm Claudia Valente RN [facility], [facility].; [facility], [facility] 04-25-2020 10:22-0400 Body mass index (BMI) [Ratio] 31.12 kg/m2 Claudia Valente RN [facility], [facility].; [facility], [facility] 04-25-2020 10:22-0400 Body surface area Derived from formula 1.92 m2 Claudia Valente RN [facility], [facility].; [facility] [employer] [facility], Inc. 04-25-2020 10:22-0400 Body temperature 98 [degF] Claudia Valente RN [facility], [facility].; [facility] [employer] [facility], Inc. Comment on above: Method: Oral 04-25-2020 10:22-0400 Body weight 84.82 kg Claudia Valente RN [facility] [employer] [facility], [facility].; [employer], [employer] 04-25-2020 10:22-0400 Diastolic blood pressure 65 mm[Hg] Claudia Valente RN [facility] [employer] [facility], [facility].; [employer], [employer] Comment on above: Patient Position: Sitting; Cuff Location : Left Arm; Cuff Size: Standard 04-25-2020 10:22-0400 Heart rate 49 /min Claudia [facility]ente RN [facility], [facility].; [employer], [employer] Comment on above: Pattern: Regular 04-25-2020 10:22-0400 Systolic blood pressure 123 mm[Hg] Claudia Valente RN [facility], Inc.; [employer] [facility] [employer], [employer] Comment on above: Patient Position: Sitting; Cuff Location : Left Arm; Cuff Size: Standard 08-03-2019 09:53-0500 Body height 165.1 cm Freida Eid RN [facility], Inc.; [employer] [facility] [employer], [employer] 08-03-2019 09:53-0500 Body mass index (BMI) [Ratio] 31.78 kg/m2 Freida Eid RN [facility] [employer] [facility], Inc.; [employer] [facility] [employer] [facility], Inc[facility] 08-03-2019 09:53-0500 Body surface area Derived from formula 1.94 m2 Freida Eid RN [facility] [employer] [facility], Inc.; [employer] [facility] [employer], [employer] 08-03-2019 09:53-0500 Body weight 86.64 kg Freida Eid RN [facility] [employer] [facility], Inc.; [employer], [employer] 08-03-2019 09:53-0500 Diastolic blood pressure 72 mm[Hg] Freida Eid RN [facility] [employer] [facility], Inc.; [employer], [employer] Comment on above: Patient Position: Sitting; Cuff Location : Left Arm; Cuff Size: Large 08-03-2019 09:53-0500 Heart rate 53 /min Freida Eid RN [facility], Inc.; [employer], [employer]. Comment on above: Pattern: Regular 08-03-2019 09:53-0500 Systolic blood pressure 148 mm[Hg] Freida Eid RN [facility] [employer] [facility], [employer] [facility] [employer] Comment on above: Patient Position: Sitting; Cuff Location : Left Arm; Cuff Size: Large 01-05-2019 10:57-0400 Body height 165.1 cm Freida Eid RN [facility] [employer] [facility], Inc.; [employer] [facility] [employer] [facility], Inc. 01-05-2019 10:57-0400 Body mass index (BMI) [Ratio] 32.84 kg/m2 Freida Eid RN [facility] [employer] [facility], [employer] [facility] [employer] [facility], [employer]. 01-05-2019 10:57-0400 Body surface area Derived from formula 1.97 m2 Freida Eid RN [facility] [employer] [facility], Inc.; [facility] [employer] [facility], Inc. 01-05-2019 10:57-0400 Body weight 89.53 kg Freida Eid RN [facility] [employer] [facility], [employer] [facility] [place] [employer] [facility], Inc. 01-05-2019 10:57-0400 Diastolic blood pressure 71 mm[Hg] Freida Eid RN [facility] [employer] [facility], [employer] [facility] [place] [employer] [facility], Inc. Comment on above: Patient Position: Sitting; Cuff Location : Left Arm; Cuff Size: Large 01-05-2019 10:57-0400 Heart rate 49 /min Freida Eid RN [facility], [employer] [facility] [employer], [employer] Comment on above: Pattern: Regular 01-05-2019 10:57-0400 Systolic blood pressure 133 mm[Hg] Freida Eid RN [facility], [employer].; [employer] [facility] [employer], [employer] Comment on above: Patient Position: Sitting; Cuff Location : Left Arm; Cuff Size: Large 08-01-2018 10:38-0500 Body height 165.1 cm GELY AVILA RN [facility], Inc.; [facility] [employer] [facility], Inc[facility] 08-01-2018 10:38-0500 Body mass index (BMI) [Ratio] 32.32 kg/m2 GELYCOLT AVILA RN [facility], [facility].; [facility], [employer]. 08-01-2018 10:38-0500 Body surface area Derived from formula 1.95 m2 GELY AVILA RN [facility], [employer] [facility], Inc[facility] 08-01-2018 10:38-0500 Body temperature 98.4 [degF] GELY AVILA RN [facility], [employer].; [facility], [employer]. Comment on above: Method: Oral 08-01-2018 10:38-0500 Body weight 88.09 kg GELYCOLT AVILA RN [facility], [employer].; [facility], [employer]. 08-01-2018 10:38-0500 Diastolic blood pressure 69 mm[Hg] GELYCOLT AVILA RN [facility], [employer].; [facility] Center[facility] Gamer. Comment on above: Patient Position: Sitting; Cuff Location : Left Arm; Cuff Size: Large 08-01-2018 10:38-0500 Heart rate 56 /min GELYCOLT AVILA RN [facility], [employer].; [facility] Center[facility]. Comment on above: Pattern: Regular 08-01-2018 10:38-0500 Systolic blood pressure 133 mm[Hg] GELYCOLT AVILA RN [facility], [employer].; [facility] Center[facility]. Comment on above: Patient Position: Sitting; Cuff Location : Left Arm; Cuff Size: Large 06-30-2018 09:40-0400 Body height 165.1 cm Renuka GARCIA MD Work Phone: [facility] [employer] [facility] Center[facility].; [facility] [employer] [facility]. 06-30-2018 09:40-0400 Body mass index (BMI) [Ratio] 32.12 kg/m2 Renuka GARCIA MD Work Phone: [facility].; [employer] [facility] [employer] [facility]. 06-30-2018 09:40-0400 Body surface area Derived from formula 1.95 m2 Renuka GARCIA MD Work Phone: [facility] HospitalMoneyMail Inc.; [employer] [facility] [employer] [facility] Center[facility]. 06-30-2018 09:40-0400 Body temperature 98.7 [degF] Renuka GARCIA MD Work Phone: [facility] [employer] [facility] [employer]. Comment on above: Method: Oral 06-30-2018 09:40-0400 Body weight 87.54 kg Renuka GARCIA MD Work Phone: [employer] [facility] [employer]. 06-30-2018 09:40-0400 Diastolic blood pressure 81 mm[Hg] Renuka GARCIA MD Work Phone: [employer].; [employer] [facility] [employer] [employer]. Comment on above: Patient Position: Sitting; Cuff Location : Left Arm; Cuff Size: Standard 06-30-2018 09:40-0400 Heart rate 75 /min Renuka GARCIA MD Work Phone: [facility].; [employer] [facility] [employer]. Comment on above: Pattern: Regular 06-30-2018 09:40-0400 Systolic blood pressure 145 mm[Hg] Renuka GARCIA MD Work Phone: [facility] [place].; [employer] [facility] [employer]. Comment on above: Patient Position: Sitting; Cuff Location : Left Arm; Cuff Size: Standard 12-23-2017 09:52-0400 Body height 165.1 cm Renuka GARCIA MD Work Phone: [facility] [place].; [employer] [facility] [employer]. 12-23-2017 09:52-0400 Body mass index (BMI) [Ratio] 31.78 kg/m2 Renuka GARCIA MD Work Phone: [facility] [place].; [employer] [facility] [employer]. 12-23-2017 09:52-0400 Body surface area Derived from formula 1.94 m2 Renuka GARCIA MD Work Phone: [facility] [place]; [facility] Institute[facility]. 12-23-2017 09:52-0400 Body weight 86.64 kg Renuka GARCIA MD Work Phone: [facility].; [facility] InstituteLive [facility]. 12-23-2017 09:52-0400 Diastolic blood pressure 77 mm[Hg] Renuka GARCIA MD Work Phone: [facility].; [facility] InstituteLive [facility]. Comment on above: Patient Position: Sitting; Cuff Location : Left Arm; Cuff Size: Standard 12-23-2017 09:52-0400 Heart rate 51 /min Renuka GARCIA MD Work Phone: [facility].; [facility] [employer] [facility]. Comment on above: Pattern: Regular 12-23-2017 09:52-0400 Systolic blood pressure 144 mm[Hg] Renuka GARCIA MD Work Phone: [facility].; [facility] InstituteLive [facility]. Comment on above: Patient Position: Sitting; Cuff Location : Left Arm; Cuff Size: Standard 09-03-2017 10:18-0500 Diastolic blood pressure 72 mm[Hg] Freida Eid RN [facility] [employer] [facility] Center[facility].; [facility] [employer] [facility] CenterLive [facility]. Comment on above: Patient Position: Sitting; Cuff Location : Left Arm; Cuff Size: Large 09-03-2017 10:18-0500 Heart rate 72 /min Freida Eid RN [facility] [employer] [facility] Center[facility].; [facility] [employer] [facility] CenterLive [facility]. Comment on above: Pattern: Regular 09-03-2017 10:18-0500 Systolic blood pressure 151 mm[Hg] Freida Eid RN [facility] [employer] [facility] CenterLive [facility].; [facility] [employer] [facility] CenterLive [facility]. Comment on above: Patient Position: Sitting; Cuff Location : Left Arm; Cuff Size: Large 05-24-2017 13:42-0400 Body height 165.1 cm GELY AVILA RN [facility] [employer] [facility] CenterLive [facility].; [facility] CenterMoneyMail [facility]. 05-24-2017 13:42-0400 Body mass index (BMI) [Ratio] 31.78 kg/m2 GELY GRATE DOUGIE [facility] [employer] [facility], Inc.; [facility] [employer] [facility], Inc. 05-24-2017 13:42-0400 Body surface area Derived from formula 1.94 m2 GELY GRATE DOUGIE [facility], [facility].; [facility] [employer] [facility], Inc. 05-24-2017 13:42-0400 Body weight 86.64 kg GELY GRATE RN [facility], [facility].; [facility] [employer] [facility], Inc[facility] 05-24-2017 13:42-0400 Diastolic blood pressure 77 mm[Hg] GELY GRATE DOUGIE [facility] [employer] [facility], [employer] [facility] [employer] [facility], [employer]. Comment on above: Patient Position: Sitting; Cuff Location : Left Arm; Cuff Size: Standard 05-24-2017 13:42-0400 Heart rate 62 /min GELY GRATE DOUGIE [facility], [employer].; [facility] [employer] [facility], [employer]. Comment on above: Pattern: Regular 05-24-2017 13:42-0400 Systolic blood pressure 157 mm[Hg] GELY GRATE DOUGIE [facility] [employer] [facility] CenterLive [facility].; [facility] [employer] [facility], [employer]. Comment on above: Patient Position: Sitting; Cuff Location : Left Arm; Cuff Size: Standard 03-16-2017 13:04-0400 Body height 165.1 cm [facility] [employer] [facility], [employer].; [employer] [facility] [employer] [facility], Inc. 03-16-2017 13:04-0400 Body mass index (BMI) [Ratio] 31.28 kg/m2 [facility] [employer] [facility], Inc.; [facility] [employer] [facility], Inc[employer] 03-16-2017 13:04-0400 Body surface area Derived from formula 1.93 m2 [facility] [employer] [facility] CenterLive [facility].; [employer] [facility] [employer] 03-16-2017 13:04-0400 Body weight 85.28 kg [facility], [employer].; [employer] [facility] [employer], [employer]. 03-16-2017 13:04-0400 Diastolic blood pressure 78 mm[Hg] [facility] [employer] [facility], Inc.; [employer] [facility] [employer] [facility], Inc. Comment on above: Patient Position: Sitting; Cuff Location : Left Arm; Cuff Size: Standard 03-16-2017 13:040400 Heart rate 76 /min Tara [employer] [facility] [employer] [facility], Inc.; [employer] [facility] [employer] [facility], Inc[employer] Comment on above: Pattern: Regular 03-16-2017 13:04-0400 Systolic blood pressure 154 mm[Hg] [facility] [employer] [facility], Inc.; [facility] [employer] [facility], Inc. Comment on above: Patient Position: Sitting; Cuff Location : Left Arm; Cuff Size: Standard 08-20-2016 13:190500 Body height 165.1 cm Freida Eid RN [facility] [employer] [facility], Inc.; [employer] [facility] [place] [employer] [facility], Inc[employer] 08-20-2016 13:19-0500 Body mass index (BMI) [Ratio] 31.52 kg/m2 Freida Eid RN [facility] [employer] [facility], Inc.; [employer] [facility] [place] [employer] [facility], Inc. 08-20-2016 13:19-0500 Body surface area Derived from formula 1.93 m2 Freida Eid RN [facility] [employer] [facility], Inc.; [employer] [facility] [place] [employer] [facility], Inc. 08-20-2016 13:19-0500 Body weight 85.91 kg Freida Eid RN [facility] [employer] [facility], Inc.; [employer] [facility] [employer] [facility], Inc[facility] 08-20-2016 13:19-0500 Diastolic blood pressure 73 mm[Hg] Freida Eid RN [facility] [employer] [facility], Inc.; [employer] [facility] [employer] [facility], Inc. Comment on above: Patient Position: Sitting; Cuff Location : Left Arm; Cuff Size: Large 08-20-2016 13:19-0500 Heart rate 56 /min Freida Eid RN [facility], Inc.; [employer] [facility] [employer], [employer] Comment on above: Pattern: Regular 08-20-2016 13:19-0500 Systolic blood pressure 134 mm[Hg] Freida Eid RN [facility] [employer] [facility], Inc.; [facility] [employer] [facility], Inc. Comment on above: Patient Position: Sitting; Cuff Location : Left Arm; Cuff Size: Large 02-28-2016 09:05-0400 Body height 165.1 cm [facility], [employer] [facility], Inc[facility] 02-28-2016 09:05-0400 Body mass index (BMI) [Ratio] 31.18 kg/m2 [facility], Inc.; [facility], Inc[facility] 02-28-2016 09:05-0400 Body surface area Derived from formula 1.92 m2 [facility]Live [facility].; [facility], Inc[facility] 02-28-2016 09:05-0400 Body weight 84.99 kg [facility] DallasLive [facility].; [facility], Inc[facility] 02-28-2016 09:05-0400 Diastolic blood pressure 63 mm[Hg] [facility].; [employer] [facility] [employer] [facility], Inc. Comment on above: Patient Position: Sitting; Cuff Location : Left Arm; Cuff Size: Standard 02-28-2016 09:05-0400 Heart rate 52 /min [facility].; [employer] [facility] [employer] [facility], Inc. Comment on above: Pattern: Regular 02-28-2016 09:05-0400 Systolic blood pressure 133 mm[Hg] [facility] [employer] [facility]Live [employer].; [facility] [employer] [facility], Inc. Comment on above: Patient Position: Sitting; Cuff Location : Left Arm; Cuff Size: Standard 09-11-2015 08:56-0500 Body height 167.64 cm Freida Eid RN [facility] [employer] [facility] [employer].; [employer] [facility] [employer] [facility], Inc[facility] 09-11-2015 08:56-0500 Body mass index (BMI) [Ratio] 29.7 kg/m2 Freida Eid RN [facility] [employer] [facility], Inc.; [facility] [employer] [facility], Inc. 09-11-2015 08:56-0500 Body surface area Derived from formula 1.93 m2 Freida Eid RN [facility] [employer] [facility], Inc.; [facility] [employer] [facility], Inc. 09-11-2015 08:56-0500 Body temperature 97.4 [degF] Freida Eid RN [facility] [employer] [facility] CenterLive [employer].; [facility] [employer] [facility], Inc. Comment on above: Method: Oral 09-11-2015 08:56-0500 Body weight 83.46 kg Freida Eid RN [facility], Inc.; [employer] [facility] [employer] [facility], Inc. 09-11-2015 08:56-0500 Diastolic blood pressure 84 mm[Hg] Freida Eid RN [facility] [employer] [facility] CenterMoneyMail Inc.; [facility] [employer] [facility], Inc. Comment on above: Patient Position: Sitting; Cuff Location : Left Arm; Cuff Size: Large 09-11-2015 08:56-0500 Heart rate 83 /min Freida Eid RN [facility] [employer] [facility] CenterLive [employer].; [employer] [facility] [employer] [facility], [employer]. Comment on above: Pattern: Regular 09-11-2015 08:56-0500 Systolic blood pressure 158 mm[Hg] Freida Eid RN [facility] [employer] [facility] CenterMoneyMail Inc.; [employer] [facility] [employer] [facility], Inc. Comment on above: Patient Position: Sitting; Cuff Location : Left Arm; Cuff Size: Large 04-08-2015 13:07-0400 Body height 167.64 cm JOSIAH Located within [facility] [employer] [facility], [employer].; [employer] [facility] [employer] [facility], Inc[employer] 04-08-2015 13:07-0400 Body mass index (BMI) [Ratio] 29.7 kg/m2 JOSIAH [facility] [employer] [facility]Live [employer].; [facility] [employer] [facility], Inc[facility] 04-08-2015 13:07-0400 Body surface area Derived from formula 1.[address] [address] [facility]ArthaY[facility] CenterLive [facility]amer.; [facility] [employer] [facility], Inc. 04-08-2015 13:07-0400 Body weight 83.46 kg [facility] [employer] [facility], [employer].; [facility] [employer] [facility], Inc[employer] 04-08-2015 13:07-0400 Diastolic blood pressure 66 mm[Hg] JOSIAH [facility] HospitalArtha[facility] CenterLive [facility]amer.; [employer] [facility] [employer] [facility], [employer]. Comment on above: Patient Position: Sitting; Cuff Location : Left Arm; Cuff Size: Standard 04-08-2015 13:07-0400 Heart rate 57 /min JOSIAH [facility] Medical CenterLive Gamer.; [employer] [facility] [employer] [facility], Inc[employer] Comment on above: Pattern: Regular 04-08-2015 13:07-0400 Systolic blood pressure 127 mm[Hg] [facility], [place] [employer] [facility] CenterMoneyMail Inc.; [employer] [facility] [employer] [facility], Inc. Comment on above: Patient Position: Sitting; Cuff Location : Left Arm; Cuff Size: Standard 08-16-2014 15:39-0500 Body height 167.64 cm Freida Eid RN [facility] [employer] [facility] CenterLive Gamer.; [employer] [facility] [employer] [facility], Inc. 08-16-2014 15:39-0500 Body mass index (BMI) [Ratio] 30.34 kg/m2 Freida Eid RN [facility] [employer] [facility], [employer].; [employer] [facility], Inc. 08-16-2014 15:39-0500 Body surface area Derived from formula 1.95 m2 Freida Eid RN [facility] [employer] [facility] CenterLive Gamer.; [employer] [facility] [employer] [facility], Inc. 08-16-2014 15:39-0500 Body temperature 97.9 [degF] rFeida Eid RN [facility] [employer] [facility] CenterLive Gamer.; [employer] [facility] [place] [employer] [facility], Inc. Comment on above: Method: Oral 08-16-2014 15:39-0500 Body weight 85.28 kg Freida Eid RN [facility] [employer] [facility], Inc.; [employer] [facility] [employer] [facility], Inc. 08-16-2014 15:39-0500 Diastolic blood pressure 77 mm[Hg] Freida Eid RN [facility] [place] [employer] [facility] CenterLive Gamer.; [employer] [facility] [place] [employer] [facility], Inc. Comment on above: Patient Position: Sitting; Cuff Location : Left Arm; Cuff Size: Large 08-16-2014 15:39-0500 Heart rate 64 /min Freida Eid RN [facility] [employer] [facility] CenterLive Gamer.; [employer] [facility] [employer] [facility], Inc. Comment on above: Pattern: Regular 08-16-2014 15:39-0500 Systolic blood pressure 146 mm[Hg] Freida Eid RN [facility] [employer] [facility], Inc.; [employer] [facility] [employer] [facility], Inc. Comment on above: Patient Position: Sitting; Cuff Location : Left Arm; Cuff Size: Large 07-26-2014 13:31-0500 Body height 167.64 cm Claudia Valente RN [facility], Inc.; [employer] [facility] [employer] [facility], Inc. 07-26-2014 13:31-0500 Body mass index (BMI) [Ratio] 31.15 kg/m2 Claudia Valente RN [facility], Inc.; [employer] [facility] [employer] [facility], Inc. 07-26-2014 13:31-0500 Body surface area Derived from formula 1.97 m2 Claudia Valente RN [facility], Inc.; [employer] [facility] [employer] [facility], Inc. 07-26-2014 13:31-0500 Body temperature 97.5 [degF] Claudia Valente RN [facility] [employer] [facility], Inc.; [employer] [facility] [employer] [facility], Inc. Comment on above: Method: Oral 07-26-2014 13:31-0500 Body weight 87.54 kg Claudia Vaelnte RN [facility] [employer] [facility], Inc.; [employer] [facility] [employer] [facility], Inc. 07-26-2014 13:31-0500 Diastolic blood pressure 62 mm[Hg] Claudia Valente RN [facility], Inc.; [employer] [facility] [employer] [facility], Inc. Comment on above: Patient Position: Sitting; Cuff Location : Left Arm; Cuff Size: Standard 07-26-2014 13:31-0500 Heart rate 57 /min Claudia Valente RN [facility], Inc.; [employer] [facility] [place] [employer] [facility], Inc. Comment on above: Pattern: Regular 07-26-2014 13:31-0500 Systolic blood pressure 122 mm[Hg] Claudia Valente RN [facility] [employer] [facility], Inc.; [employer] [facility] [employer] [facility], Inc. Comment on above: Patient Position: Sitting; Cuff Location : Left Arm; Cuff Size: Standard 05-10-2014 09:09-0400 Body height 167.64 cm Claudia Valente RN [facility], Inc.; [employer] [facility] [employer] [facility], Inc. 05-10-2014 09:09-0400 Body mass index (BMI) [Ratio] 31.31 kg/m2 Claudia Valente RN [facility], Inc.; [facility], Inc. 05-10-2014 09:09-0400 Body surface area Derived from formula 1.97 m2 Claudia Valente RN [facility], Inc.; [facility], Inc. 05-10-2014 09:09-0400 Body temperature 97.9 [degF] Claudia Valente RN [facility], Inc.; [facility] [employer] [facility], Inc. Comment on above: Method: Oral 05-10-2014 09:090400 Body weight 88 kg Claudia Valente RN [facility], Inc.; [facility], Inc. 05-10-2014 09:09-0400 Diastolic blood pressure 66 mm[Hg] Claudia Valente RN [facility], Inc.; [facility] [employer] [facility], Inc. Comment on above: Patient Position: Sitting; Cuff Location : Left Arm; Cuff Size: Standard 05-10-2014 09:090400 Heart rate 56 /min Claudia Valente RN [facility], Inc.; [facility] [employer] [facility], Inc. Comment on above: Pattern: Regular 05-10-2014 09:09-0400 Systolic blood pressure 145 mm[Hg] Claudia Valente RN [facility], Inc.; [employer] [facility] [employer] [facility], Inc. Comment on above: Patient Position: Sitting; Cuff Location : Left Arm; Cuff Size: Standard 03-26-2014 13:17-0400 Body height 167.64 cm Edwardo DELANEY MD Work Phone: [facility] [employer] [facility] CenterMoneyMail Inc.; [employer] [facility] [employer] [facility], Inc. 03-26-2014 13:17-0400 Body mass index (BMI) [Ratio] 32.6 kg/m2 Edwardo DELANEY MD Work Phone: [facility] [employer] [facility], [employer].; [employer] [facility] [employer] [facility], Inc. 03-26-2014 13:170400 Body surface area Derived from formula 2.01 m2 Edwardo DELANEY MD Work Phone: [employer] [facility] CenterLive Gamer.; [employer] [facility] [employer] [facility] CenterLive Gamer. 03-26-2014 13:17-0400 Body weight 91.63 kg Edwardo DELANEY MD Work Phone: [facility]ArthaY[facility] CenterLive Gamer.; [employer] [facility] [employer] [facility], Inc. 03-26-2014 13:17-0400 Diastolic blood pressure 83 mm[Hg] Edwardo DELANEY MD Work Phone: [facility] PennsylvaniaHeyLets.; [employer] [facility] [employer] [facility] CenterLive Gamer. Comment on above: Patient Position: Sitting; Cuff Location : Left Arm; Cuff Size: Standard 03-26-2014 13:17-0400 Heart rate 60 /min Edwardo DELANEY MD Work Phone: [facility]ArthaYant[facility] CenterLive Gamer.; [employer] [facility] [place]HeyLets. Comment on above: Pattern: Regular 03-26-2014 13:17-0400 Systolic blood pressure 174 mm[Hg] Edwardo DELANEY MD Work Phone: [facility]ArthaYant[facility] CenterLive Gamer.; [employer] [facility] [employer] [facility] CenterLive Gamer. Comment on above: Patient Position: Sitting; Cuff Location : Left Arm; Cuff Size: Standard 04-17-2013 09:20-0400 Body height 167.64 cm Kinjal Campos RN [facility] [employer] [facility], [employer].; [employer] [facility] [employer] [facility] CenterLive Gamer. 04-17-2013 09:20-0400 Body mass index (BMI) [Ratio] 30.83 kg/m2 Kinjal Campos RN [facility]ArthaYant[facility] CenterLive Gamer.; [facility] [employer] [facility], [employer]. 04-17-2013 09:20-0400 Body surface area Derived from formula 1.96 m2 Kinjal Campos RN [facility] CenterLive Gamer.; [employer] [facility] [employer] [facility] CenterLive Gamer. 04-17-2013 09:20-0400 Body weight 86.64 kg Kinjal Campos RN [facility] [employer] [facility], [employer].; [employer] [facility] [employer] [facility], [employer]. 04-17-2013 09:20-0400 Diastolic blood pressure 80 mm[Hg] Kinjal Campos RN [facility] [employer] [facility] CenterLive Gamer.; [facility] [employer] [facility], [employer]. Comment on above: Patient Position: Sitting; Cuff Location : Left Arm; Cuff Size: Large 04-17-2013 09:20-0400 Heart rate 54 /min Kinjal Campos RN [facility], [employer].; [employer] [facility] [employer] [facility], Inc. Comment on above: Pattern: Regular 04-17-2013 09:20-0400 Systolic blood pressure 164 mm[Hg] Kinjal Campos RN [facility] HospitalLive [facility].; [facility] [employer] [facility], Inc. Comment on above: Patient Position: Sitting; Cuff Location : Left Arm; Cuff Size: Large 08-22-2012 09:21-0500 Body height 167.64 cm Freida Eid RN [facility], [employer].; [facility], Inc. 08-22-2012 09:21-0500 Body mass index (BMI) [Ratio] 31.96 kg/m2 Freida Eid RN [facility], Inc.; [facility], Inc. 08-22-2012 09:21-0500 Body surface area Derived from formula 1.99 m2 Freida Eid RN [facility], Inc.; [facility], Inc. 08-22-2012 09:21-0500 Body weight 89.81 kg Freida Eid RN [facility], [facility].; [facility], Inc. 08-22-2012 09:21-0500 Diastolic blood pressure 71 mm[Hg] Freida Eid RN [facility] HospitalLive [facility].; [employer] [facility] [employer] [facility], Inc. Comment on above: Patient Position: Sitting; Cuff Location : Left Arm; Cuff Size: Large 08-22-2012 09:21-0500 Heart rate 53 /min Freida Eid RN [facility] HospitalLive [facility].; [employer] [facility] [employer] [facility], Inc. Comment on above: Pattern: Regular 08-22-2012 09:21-0500 Systolic blood pressure 156 mm[Hg] Freida Eid RN [facility], [employer].; [employer] [facility] [employer] [facility], Inc. Comment on above: Patient Position: Sitting; Cuff Location : Left Arm; Cuff Size: Large 04-25-2012 09:50-0400 Body height 167.64 cm Kinjal Campos RN [facility], Inc.; [facility], Inc. 04-25-2012 09:50-0400 Body mass index (BMI) [Ratio] 30.99 kg/m2 Kinjal Campos RN [facility], Inc.; [facility], Inc. 04-25-2012 09:50-0400 Body surface area Derived from formula 1.97 m2 Kinjal Campos RN [facility], Inc.; [facility], Inc. 04-25-2012 09:50-0400 Body weight 87.09 kg Kinjal Campos RN [facility], [employer].; [facility], Inc. 04-25-2012 09:50-0400 Diastolic blood pressure 84 mm[Hg] Kinjal Campos RN [facility], Inc.; [facility] [employer] [facility], Inc. Comment on above: Patient Position: Sitting; Cuff Location : Left Arm; Cuff Size: Large 04-25-2012 09:50-0400 Heart rate 49 /min Kinjal Campos RN [facility] [employer] [facility], Inc.; [employer] [facility] [employer] [facility], Inc. Comment on above: Pattern: Regular 04-25-2012 09:50-0400 Systolic blood pressure 162 mm[Hg] Kinjal Campos RN [facility], Inc.; [facility] [employer] [facility], Inc. Comment on above: Patient Position: Sitting; Cuff Location : Left Arm; Cuff Size: Large 01-25-2012 10:24-0400 Diastolic blood pressure 76 mm[Hg] Kinjal Campos RN [facility] [employer] [facility], Inc.; [employer] [facility] [employer] [facility], Inc. Comment on above: Patient Position: Sitting; Cuff Location : Left Arm; Cuff Size: Large 01-25-2012 10:24-0400 Systolic blood pressure 146 mm[Hg] Kinjal Campos RN [facility], Inc.; [employer] [facility] [employer] [facility], Inc. Comment on above: Patient Position: Sitting; Cuff Location : Left Arm; Cuff Size: Large 01-25-2012 09:22-0400 Body height 167.64 cm Kinjal Campos RN [facility], Inc.; [facility], Inc. 01-25-2012 09:22-0400 Body mass index (BMI) [Ratio] 30.51 kg/m2 Kinjal Campos RN [facility], Inc.; [facility], Inc. 01-25-2012 09:22-0400 Body surface area Derived from formula 1.95 m2 Kinjal Campos RN [facility], Inc.; [facility] [employer] [facility], Inc. 01-25-2012 09:22-0400 Body weight 85.73 kg Kinjal Campos RN [facility], [facility].; [facility] [employer] [facility], Inc. 01-25-2012 09:22-0400 Diastolic blood pressure 77 mm[Hg] Kinjal Campos RN [facility] [employer] [facility] CenterLive Gamer.; [employer] [facility] [place] [employer] [facility], [employer]. Comment on above: Patient Position: Sitting; Cuff Location : Left Arm; Cuff Size: Large 01-25-2012 09:22-0400 Heart rate 45 /min Kinjal Campos RN [facility] [employer] [facility] CenterLive Gamer.; [employer] [facility] [place] [employer] [facility] CenterLive Gamer. Comment on above: Pattern: Regular 01-25-2012 09:22-0400 Systolic blood pressure 147 mm[Hg] Kinjal Campos RN [facility] [employer] [facility] CenterLive Gamer.; [employer] [facility] [employer] [facility], [employer]. Comment on above: Patient Position: Sitting; Cuff Location : Left Arm; Cuff Size: Large 12-14-2011 08:43-0400 Body height 167.64 cm Kinjal Campos RN [facility], [facility].; [facility] [employer] [facility], Inc[employer] 12-14-2011 08:43-0400 Body mass index (BMI) [Ratio] 30.83 kg/m2 Kinjal Campos RN [facility] [employer] [facility], Inc.; [facility] [employer] [facility], Inc. 12-14-2011 08:43-0400 Body surface area Derived from formula 1.96 m2 Kinjal Campos RN [facility] [employer] [facility], [facility].; [facility] [employer] [facility], Inc. 12-14-2011 08:43-0400 Body temperature 97.8 [degF] Kinjal Campos RN [facility] [employer] [facility] CenterLive Gamer.; [employer] [facility] [employer]. Comment on above: Method: Oral 12-14-2011 08:43-0400 Body weight 86.64 kg Kinjal Campos RN [employer] [facility] CenterLive Gamer.; [employer] [facility] [employer] [facility] CenterLive Gamer. 12-14-2011 08:43-0400 Diastolic blood pressure 79 mm[Hg] Kinjal Campos RN [facility] CenterLive Gamer.; [employer] [facility] [employer] [facility], [employer]. Comment on above: Patient Position: Sitting; Cuff Location : Left Arm; Cuff Size: Large 12-14-2011 08:43-0400 Heart rate 59 /min Kinjal Campos RN [facility]Ar[facility] CenterLive Gamer.; [employer] [facility] [employer] [facility] CenterLive Gamer. Comment on above: Pattern: Regular 12-14-2011 08:43-0400 Systolic blood pressure 165 mm[Hg] Kinjal Campos RN [facility] [employer] [facility] CenterLive Gamer.; [employer] [facility] [employer] [facility] CenterLive Gamer. Comment on above: Patient Position: Sitting; Cuff Location : Left Arm; Cuff Size: Large 08-24-2011 13:28-0500 Body height 167.64 cm Edwardo DELANEY MD Work Phone: [facility] [employer] [facility] CenterLive Gamer.; [employer] [facility] [employer]. 08-24-2011 13:28-0500 Body mass index (BMI) [Ratio] 31.63 kg/m2 Edwardo DELANEY MD Work Phone: [facility] [place]Hey[facility].; [employer] [facility] [employer] [facility] CenterLive Gamer. 08-24-2011 13:28-0500 Body surface area Derived from formula 1.98 m2 Edwardo DELANEY MD Work Phone: [employer]; [employer] [facility] [employer]. 08-24-2011 13:28-0500 Body temperature 98.2 [degF] Edwardo DELANEY MD Work Phone: [employer]; [employer] [facility] [employer]. Comment on above: Method: Oral 08-24-2011 13:28-0500 Body weight 88.91 kg Edwardo DELANEY MD Work Phone: [facility] [employer].; [employer]. 08-24-2011 13:28-0500 Diastolic blood pressure 78 mm[Hg] Edwardo DELANEY MD Work Phone: [employer] ManleyArthaYantra [facility] CenterLive Gamer.; [employer] [facility] [place] [employer]. Comment on above: Patient Position: Sitting; Cuff Location : Left Arm; Cuff Size: Standard 08-24-2011 13:28-0500 Heart rate 78 /min Edwardo DELANEY MD Work Phone: [employer]; [employer] [facility] [employer]. Comment on above: Pattern: Regular 08-24-2011 13:28-0500 Systolic blood pressure 136 mm[Hg] Edwardo DELANEY MD Work Phone: [employer]; [employer]. Comment on above: Patient Position: Sitting; Cuff Location : Left Arm; Cuff Size: Standard 08-03-2011 14:27-0500 Body height 167.64 cm Edwardo DELANEY MD Work Phone: [employer]; [employer] [facility] [employer]. 08-03-2011 14:27-0500 Body mass index (BMI) [Ratio] 31.8 kg/m2 Edwardo DELANEY MD Work Phone: [employer]; [employer] [facility] [employer]. 08-03-2011 14:27-0500 Body surface area Derived from formula 1.99 m2 Edwardo DELANEY MD Work Phone: [employer]; [employer] [facility] [employer]. 08-03-2011 14:27-0500 Body weight 89.36 kg Edwardo DELANEY MD Work Phone: [employer]; [employer] [facility] [place] [employer]. 08-03-2011 14:27-0500 Diastolic blood pressure 87 mm[Hg] Edwardo DELANEY MD Work Phone: [employer]; [employer] [facility] [employer] [facility] CenterLive Gamer. Comment on above: Patient Position: Sitting; Cuff Location : Left Arm; Cuff Size: Standard 08-03-2011 14:27-0500 Heart rate 56 /min Edwardo DELANEY MD Work Phone: [facility] [employer] [facility] CenterLive Gamer.; [employer] [facility] [place] [employer] [facility] CenterLive Gamer. Comment on above: Pattern: Regular 08-03-2011 14:27-0500 Systolic blood pressure 152 mm[Hg] Edwardo DELANEY MD Work Phone: [facility] [employer] [facility] CenterLive Gamer.; [employer] [facility] [place] [employer] [facility] CenterLive Gamer. Comment on above: Patient Position: Sitting; Cuff Location : Left Arm; Cuff Size: Standard 06-01-2011 09:44-0400 Body height 167.64 cm Kinjal Campos RN [facility], [employer].; [employer] [facility] [employer] [facility], Inc. 06-01-2011 09:44-0400 Body mass index (BMI) [Ratio] 31.31 kg/m2 Kinjal Campos RN [facility], [employer].; [facility] [employer] [facility], Inc. 06-01-2011 09:44-0400 Body surface area Derived from formula 1.97 m2 Kinjal Campos RN [facility], [employer].; [facility], Inc. 06-01-2011 09:44-0400 Body weight 88 kg Kinjal Campos RN [facility], Inc.; [employer] [facility] [employer] [facility], Inc. 06-01-2011 09:44-0400 Diastolic blood pressure 70 mm[Hg] Kinjal Campos RN [facility] [employer] [facility], [employer].; [employer] [facility] [employer] [facility], [employer]. Comment on above: Patient Position: Sitting; Cuff Location : Left Arm; Cuff Size: Large 06-01-2011 09:44-0400 Heart rate 56 /min Kinjal Campos RN [facility] [employer] [facility], [employer].; [employer] [facility] [place] [employer] [facility], Inc. Comment on above: Pattern: Regular 06-01-2011 09:44-0400 Systolic blood pressure 131 mm[Hg] Kinjal Campos RN [facility] [employer] [facility], [employer].; [employer] [facility] [employer] [facility], Inc. Comment on above: Patient Position: Sitting; Cuff Location : Left Arm; Cuff Size: Large 07-25-2010 10:47-0500 Diastolic blood pressure 81 mm[Hg] Kinjal Campos RN [facility] [employer] [facility] CenterLive Gamer.; [employer] [facility] [employer] [facility] CenterLive Gamer. Comment on above: Patient Position: Sitting; Cuff Location : Left Arm; Cuff Size: Large 07-25-2010 10:47-0500 Heart rate 65 /min Kinjal Campos RN [facility] [employer] [facility] CenterLive Gamer.; [employer]. Comment on above: Pattern: Regular 07-25-2010 10:47-0500 Systolic blood pressure 143 mm[Hg] Kinjal Campos RN [facility] [employer] [facility] CenterLive Gamer.; [employer] [facility] [employer] [facility], [employer]. Comment on above: Patient Position: Sitting; Cuff Location : Left Arm; Cuff Size: Large 07-24-2010 10:07-0500 Body temperature 98 [degF] Freida Eid RN [facility] [employer] [facility] CenterLive Gamer.; [employer] [facility] [employer], [employer]. Comment on above: Method: Oral 07-24-2010 10:07-0500 Body weight 87.54 kg Freida Eid RN [facility] [employer] [facility] CenterLive Gamer.; [employer] [facility] [employer] 07-24-2010 10:07-0500 Diastolic blood pressure 70 mm[Hg] Freida Eid RN [facility] [employer] [facility] CenterLive Gamer.; [employer] [facility] [employer] [facility], [employer]. Comment on above: Patient Position: Sitting; Cuff Location : Left Arm; Cuff Size: Large 07-24-2010 10:07-0500 Heart rate 60 /min Freida Eid RN [facility] [employer] [facility] CenterLive Gamer.; [employer] [facility] [employer]. Comment on above: Pattern: Regular 07-24-2010 10:07-0500 Systolic blood pressure 138 mm[Hg] Freida Eid RN [facility] [employer] [facility] [employer], [employer]. Comment on above: Patient Position: Sitting; Cuff Location : Left Arm; Cuff Size: Large Encounters Encounter Date Encounter Type Care Provider Facility Start: 06-18-2025 End: 06-18-2025 Edwardo DELANEY MD Work Phone: [facility] [employer] Start: 03-30-2025 End: 03-30-2025 Edwardo [facility] MD [facility] Start: 03-29-2025 End: 03-29-2025 Edwardo DELANEY MD Work Phone: [facility] [employer]. Start: 03-25-2025 End: 03-25-2025 Edwardo DELANEY MD Work Phone: [facility] [place] Start: 03-05-2025 End: 03-05-2025 Office outpatient visit 15 minutes Edwardo DELANEY MD Work Phone: [employer] [facility] Start: 09-04-2024 End: 09-04-2024 Office outpatient visit 15 minutes Edwardo DELANEY MD Work Phone: [employer] [facility]. Start: 09-03-2024 End: 09-03-[address] FIONA DELANEY MD Facility:A Start: 09-03-2024 End: 09-03-2024 Patient encounter procedure DANIEL MATA MD [facility] Start: 05-28-2024 ambulatory Edwardo DELANEY [facility] Start: 04-11-2024 End: 04-12-2024 Office outpatient visit 15 minutes Edwardo DELANEY MD Work Phone: [facility] [employer]. Start: 04-11-2024 Review Edwardo DELANEY MD Work Phone: [facility] Start: 04-11-2024 Edwardo DELANEY MD Work Phone: [facility] [employer] [facility]Live Gamer Start: 04-03-2024 ambulatory DANIEL MATA MD Fac ility:A Start: 03-14-[address] LAUREN MORTENSEN MD Facility:A Start: 03-07-2024 End: 03-07-2024 ambulatory DANIEL MATA MD Facility:A Start: 03-07-2024 End: 03-07-2024 Patient encounter procedure DANIEL MATA MD [facility] Start: 01-20-2024 End: 01-20-2024 ambulatory Brigid Lau Facility:[facility] Start: 12-26-2023 End: 12-26-2023 ambulatory DANIEL MATA MD Facility:A Start: 12-26-2023 End: 12-26-2023 Patient encounter procedure DANIEL MATA MD [facility] Start: 12-20-2023 End: 12-20-2023 Historical Summary Edwardo DELANEY MD Work Phone: [employer] Start: 12-20-2023 End: 12-20-2023 Office outpatient visit 15 minutes Edwardo DELANEY MD Work Phone: [employer] Start: 12-20-2023 End: 12-20-2023 Edwardo DELANEY MD Work Phone: [employer] Start: 09-12-2023 End: 09-12-[address] FUENTES Facility:A Start: 09-12-2023 End: 09-12-[address] FUENTES [facility] Start: 08-11-2023 End: 08-11-2023 Office outpatient visit 15 minutes Edwardo DELANEY MD Work Phone: [employer] Start: 08-09-2023 End: 08-13-[address] FIONA DELANEY MD Facility:A Start: 08-09-2023 End: 08-09-2023 Lab Only Edwardo DELANEY MD Work Phone: [facility]. Start: 08-09-2023 End: 08-09-2023 Edwardo DELANEY MD Work Phone: [facility] [employer] [facility] CenterLive Gamer. Start: 07-26-2023 End: 07-26-2023 Office outpatient visit 15 minutes Edwardo DELANEY MD Work Phone: [facility] [employer] [facility] CenterLive Gamer. Start: 2023 End: 2023 Historical Summary Edwardo DELANEY MD Work Phone: [facility] HospitalLive [facility]. Start: 2023 End: 2023 Edwardo DELANEY MD Work Phone: [facility] [employer] [facility] CenterLive Gamer. Start: 07-01-2023 End: 07-01-2023 Historical Summary Edwardo DELANEY MD Work Phone: [facility] [employer] [facility] CenterLive Gamer. Start: 07-01-2023 End: 07-01-2023 Edwardo DELANEY MD Work Phone: [facility] [employer] [facility] CenterLive Gamer. Start: 07-01-2023 End: 07-01-2023 Historical Summary Edwardo DELANEY MD Work Phone: [facility] [employer] [facility] CenterLive Gamer. Start: 07-01-2023 End: 07-01-2023 Edwardo DELANEY MD Work Phone: [facility]ITALOct[facility] ConnertonArthaYantra [facility] CenterLive Gamer. Start: 06-23-2023 End: 06-23-2023 Transition of Care Edwardo DELANEY MD Work Phone: [employer] [place] [employer] [facility] CenterLive Gamer. Start: 06-23-2023 End: 06-23-2023 Results Review Edwardo DELANEY MD Work Phone: [employer] Start: 06-23-2023 End: 06-23-2023 Edwardo DELANEY MD Work Phone: [employer] Start: 06-14-2023 End: 06-14-2023 Office outpatient visit 15 minutes Edwardo DELANEY MD Work Phone: [employer] Start: 06-01-2023 End: 06-01-2023 ambulatory [facility] Facility:A Start: 06-01-2023 End: 06-01-2023 Patient encounter procedure [facility] Start: 04-19-2023 End: 04-20-2023 Office outpatient visit 25 minutes Edwardo DELANEY MD Work Phone: [employer] Start: 03-24-2023 End: 03-24-2023 Lab Only Edwardo DELANEY MD Work Phone: [employer] Start: 03-24-2023 End: 03-24-2023 Edwardo DELANEY MD Work Phone: [employer] [facility]'ODHAMZoomabet Start: 03-23-2023 End: 03-23-2023 Office outpatient visit 15 minutes Edwardo DELANEY MD Work Phone: [employer] Start: 01-26-2023 End: 01-26-2023 Medication Refill/Order Edwardo DELANEY MD Work Phone: [employer] Start: 01-26-2023 End: 01-26-2023 Edwardo DELANEY MD Work Phone: [employer] Start: 12-21-2022 End: 12-21-2022 Office outpatient visit 15 minutes Edwardo DELANEY MD Work Phone: [facility] Institute[facility]. Start: 12-14-2022 End: 12-14-2022 Lab Only Edwardo DELANEY MD Work Phone: [facility] InstituteLive [facility]. Start: 12-14-2022 End: 12-14-2022 Edwardo DELANEY MD Work Phone: [facility] InstituteLive [facility]. Start: 11-15-2022 End: 11-15-2022 ambulatory [facility] Work Phone: Start: 11-15-2022 End: 11-15-2022 Patient encounter procedure [facility] Start: 11-05-2022 End: 11-05-[address] VEGAFLASH KOWALSKIN-SUPERVISOR ENGINE REPAIR [facility] Start: 10-25-2022 End: 10-25-2022 Office outpatient visit 15 minutes Edwardo DELANEY MD Work Phone: [facility] Institute[facility] Start: 09-30-2022 End: 09-30-2022 Historical Summary Edwardo DELANEY MD [facility] Start: 09-30-2022 End: 09-30-2022 Edwardo DELANEY MD Work Phone: [facility]. Start: 09-29-2022 End: 10-01-2022 Evaluation and management of inpatient DR GRACIELA PARADA MD [facility] Start: 09-08-2022 End: 09-08-2022 Admission to establishment HORTENSIA NASH MD [facility] Start: 08-18-2022 End: 08-19-2022 Observation DANIEL MATA MD [facility] Start: 08-02-2022 End: 08-02-2022 SAME DAY STAY HORTENSIA NASH MD [facility] Start: 07-09-2022 End: 07-09-2022 Patient encounter procedure HORTENSIA NASH MD [facility] Start: 06-30-2022 End: 06-30-2022 Patient encounter procedure OHRTENSIA NASH MD [facility] Start: 04-07-2022 End: 04-07-2022 SAME DAY STAY DANIEL MATA MD [facility] Start: 02-26-2022 End: 02-26-2022 Patient encounter procedure ROMEL PENA MD [facility] Start: 01-01-2022 End: 01-01-2022 Transitional care manage srvc 14 day discharge Edwardo DELANEY MD Work Phone: [facility] Institute[facility] Start: 12-23-2021 End: 12-23-2021 Historical Summary Edwardo DELANEY MD Work Phone: [facility] InstituteMail'Inside Start: 12-23-2021 End: 12-23-2021 Edwardo DELANEY MD Work Phone: [facility] InstituteMail[facility] Start: 09-24-2021 End: 09-24-2021 Patient encounter procedure MANDY GUAJARDO DO [facility] Start: 06-25-2021 End: 06-25-2021 Injection/immunization only Edwardo DELANEY MD Work Phone: [employer] Start: 06-25-2021 End: 06-25-2021 Edwardo DELANEY MD Work Phone: [employer]. Start: 01-09-2021 End: 01-09-2021 Office outpatient visit 25 minutes Edwardo DELANEY MD Work Phone: [employer]. Start: 01-01-2021 End: 01-01-2021 Medication Refill/Order Edwardo DELANEY MD Work Phone: [employer]. Start: 01-01-2021 End: 01-01-2021 Edwardo DELANEY MD Work Phone: [employer] Start: 07-17-2020 End: 07-17-2020 Office outpatient visit 15 minutes Edwardo DELANEY MD Work Phone: [employer] Start: 04-26-2020 End: 04-26-2020 Results Review Edwardo DELANEY MD Work Phone: [employer]. Start: 04-26-2020 End: 04-26-2020 Edwardo DELANEY MD Work Phone: [employer] Start: 04-25-2020 End: 04-25-2020 Office outpatient visit 25 minutes Edwardo DELANEY MD Work Phone: [employer] Start: 08-04-2019 End: 08-04-2019 Results Review Edwardo DELANEY MD Work Phone: [employer]. Start: 08-04-2019 End: 08-04-2019 Edwardo DELANEY MD Work Phone: [employer] Start: 08-03-2019 End: 08-03-2019 Office outpatient visit 25 minutes Edwardo DELANEY MD Work Phone: [employer] Start: 03-10-2019 End: 03-10-2019 Medication Refill/Order Edwardo DELANEY MD Work Phone: [employer] Start: 03-10-2019 End: 03-10-2019 Edwardo DELANEY MD Work Phone: [employer]. Start: 01-05-2019 End: 01-05-2019 Office outpatient visit 25 minutes Edwardo DELANEY MD Work Phone: [employer] Start: 01-05-2019 End: 01-05-2019 Patient encounter status Edwardo DELANEY MD Work Phone: [employer]. Start: 01-05-2019 End: 01-05-2019 Physical examination Edwardo DELANEY MD Work Phone: [employer]; [employer] Start: 08-01-2018 End: 08-01-2018 Office outpatient visit 25 minutes Edwardo DELANEY MD Work Phone: [employer] [facility] [employer] Start: 08-01-2018 End: 08-01-2018 Preoperative state Edwardo DELANEY MD Work Phone: [employer]. Start: 07-01-2018 End: 07-01-2018 Results Review Edwardo DELANEY MD Work Phone: [employer]. Start: 07-01-2018 End: 07-01-2018 Edwardo DELANEY MD Work Phone: [employer] Start: 06-30-2018 End: 06-30-2018 Office outpatient visit 25 minutes Edwardo DELANEY MD Work Phone: [employer] Start: 06-21-2018 End: 06-21-2018 Injection/immunization only Edwardo DELANEY MD Work Phone: [employer]. Start: 06-21-2018 End: 06-21-2018 Edwardo DELANEY MD Work Phone: [employer]. Start: 05-01-2018 End: 05-01-2018 Historical Summary Edwardo DELANEY MD Work Phone: [employer] [facility] [employer]. Start: 05-01-2018 End: 05-01-2018 Edwardo DELANEY MD Work Phone: [employer] [facility] [employer]. Start: 12-23-2017 End: 12-23-2017 Office outpatient visit 25 minutes Edwardo DELANEY MD Work Phone: [employer] Start: 12-23-2017 End: 12-23-2017 Patient encounter status Edwardo DELANEY MD Work Phone: [employer]; [employer]. Start: 12-23-2017 End: 12-23-2017 Physical examination Edwardo DELANEY MD Work Phone: [employer]; [employer] Start: 09-06-2017 End: 09-06-2017 Results Review Edwardo DELANEY MD Work Phone: [employer] Start: 09-06-2017 End: 09-06-2017 Edwardo DELANEY MD Work Phone: [employer] Start: 09-03-2017 End: 09-03-2017 Lab Only Edwardo DELANEY MD Work Phone: [employer] Start: 09-03-2017 End: 09-03-2017 Edwardo DELANEY MD Work Phone: [employer] Start: 05-24-2017 End: 05-24-2017 Historical Summary Edwardo DELANEY MD Work Phone: [facility] [employer]. Start: 05-24-2017 End: 05-24-2017 Edwardo DELANEY MD Work Phone: [facility] [employer]. Start: 05-24-2017 End: 05-24-2017 Office outpatient visit 25 minutes Edwardo DELANEY MD Work Phone: [facility] [employer] Start: 03-16-2017 End: 03-16-2017 Office outpatient visit 25 minutes Edwardo DELANEY MD Work Phone: [employer] [facility] [place] Start: 10-18-2016 End: 10-18-2016 Medication Refill/Order Edwardo DELANEY MD Work Phone: [facility] Start: 10-18-2016 End: 10-18-2016 Edwardo DELANEY MD Work Phone: [facility] [place] Start: 09-10-2016 End: 09-10-2016 Historical Summary Edwardo DELANEY MD Work Phone: [employer] [facility] [place] Start: 09-10-2016 End: 09-10-2016 Edwardo DELANEY MD Work Phone: [facility] [place] Start: 08-20-2016 End: 08-20-2016 Injection/immunization only Edwardo DELANEY MD Work Phone: [employer] [facility] [employer]. Start: 08-20-2016 End: 08-20-2016 Edwardo DELANEY MD Work Phone: [employer] [facility] [place] Start: 08-20-2016 End: 08-20-2016 Office outpatient visit 25 minutes Edwardo DELANEY MD Work Phone: [facility] [place] Start: 02-28-2016 End: 02-28-2016 Office outpatient visit 15 minutes Edwardo DELANEY MD Work Phone: [facility] [employer]. Start: 01-12-2016 End: 01-12-2016 Historical Summary Edwardo DELANEY MD Work Phone: [facility] [employer] [facility]Live Gamer. Start: 01-12-2016 End: 01-12-2016 Edwardo DELANEY MD Work Phone: [facility] [employer]. Start: 09-11-2015 End: 09-11-2015 Office outpatient visit 15 minutes Edwardo DELANEY MD Work Phone: [facility] [employer]. Start: 07-04-2015 End: 07-04-2015 Injection/immunization only Edwardo DELANEY MD Work Phone: [facility] [employer]. Start: 07-04-2015 End: 07-04-2015 Edwardo DELANEY MD Work Phone: [facility]. Start: 04-22-2015 End: 04-22-2015 Historical Summary Edwardo DELANEY MD Work Phone: [facility] [employer]. Start: 04-22-2015 End: 04-22-2015 Edwardo DELANEY MD Work Phone: [facility] [employer] [facility]Live Gamer. Start: 04-11-2015 End: 04-11-2015 Transition of Care Edwardo DELANEY MD Work Phone: [facility] CenterArthaYant[facility] CenterLive Gamer. Start: 04-11-2015 End: 04-11-2015 Edwardo DELANEY MD Work Phone: [facility]. Start: 04-11-2015 End: 04-11-2015 Historical Summary Edwardo DELANEY MD Work Phone: [facility] [employer]. Start: 04-11-2015 End: 04-11-2015 Edwardo DELANEY MD Work Phone: [employer] Start: 04-09-2015 End: 04-09-2015 Results Review Edwardo DELANEY MD Work Phone: [employer] [facility] [employer]. Start: 04-09-2015 End: 04-09-2015 Edwardo DELANEY MD Work Phone: [employer] [facility] [employer]. Start: 04-08-2015 End: 04-08-2015 Office outpatient visit 25 minutes Edwardo DELANEY MD Work Phone: [employer] [facility]. Start: 08-16-2014 End: 08-16-2014 Office outpatient visit 15 minutes Edwardo DELANEY MD Work Phone: [employer] [facility] [employer]. Start: 07-26-2014 End: 07-26-2014 Office outpatient visit 25 minutes Edwardo DELANEY MD Work Phone: [employer] [facility] [employer]. Start: 07-12-2014 End: 07-12-2014 Historical Summary Edwardo DELANEY MD Work Phone: [facility] [employer] [facility] [employer]. Start: 07-12-2014 End: 07-12-2014 Edwardo DELANEY MD Work Phone: [employer] [facility] [employer]. Start: 07-09-2014 End: 07-09-2014 Results Review Edwardo DELANEY MD Work Phone: [employer] [facility] [employer]. Start: 07-09-2014 End: 07-09-2014 Edwardo DELANEY MD Work Phone: [employer] [facility] [employer]. Start: 06-03-2014 End: 06-03-2014 Medication Refill/Order Edwardo DELANEY MD Work Phone: [employer] [facility] [employer]. Start: 06-03-2014 End: 06-03-2014 Edwardo DELANEY MD Work Phone: [employer] [facility] [employer]. Start: 05-13-2014 End: 05-13-2014 Results Review Edwardo DELANEY MD Work Phone: [facility]. Start: 05-13-2014 End: 05-13-2014 Edwardo DELANEY MD Work Phone: [facility] [employer]. Start: 05-10-2014 End: 05-10-2014 Patient encounter procedure Edwardo DELANEY MD Work Phone: [facility] Start: 05-10-2014 End: 05-10-2014 Edwardo DELANEY MD Work Phone: [facility] [employer]. Start: 03-27-2014 End: 03-27-2014 Results Review Edwardo DELANEY MD Work Phone: [facility]. Start: 03-27-2014 End: 03-27-2014 Edwardo DELANEY MD Work Phone: [facility]. Start: 03-26-2014 End: 03-26-2014 Patient encounter procedure Edwardo DELANEY MD Work Phone: [employer] [facility] [employer]. Start: 03-26-2014 End: 03-26-2014 Edwardo DELANEY MD Work Phone: [facility] [employer]. Start: 04-18-2013 End: 04-18-2013 Results Review Edwardo DELANEY MD Work Phone: [facility] [employer]. Start: 04-18-2013 End: 04-18-2013 Edwardo DELANEY MD Work Phone: [employer] [facility] [employer]. Start: 04-17-2013 End: 04-17-2013 Patient encounter procedure Edwardo DELANEY MD Work Phone: [employer] Start: 04-17-2013 End: 04-17-2013 Edwardo DELANEY MD Work Phone: [employer]. Start: 08-23-2012 End: 08-23-2012 Results Review Edwardo DELANEY MD Work Phone: [employer]. Start: 08-23-2012 End: 08-23-2012 Edwardo DELANEY MD Work Phone: [employer] [facility] [employer]. Start: 08-22-2012 End: 08-22-2012 Patient encounter procedure Edwardo DELANEY MD Work Phone: [employer] [facility] [place] Start: 08-22-2012 End: 08-22-2012 Edwardo DELANEY MD Work Phone: [employer] [facility] [employer]. Start: 08-16-2012 End: 08-16-2012 Injection/immunization only Edwardo DELANEY MD Work Phone: [employer] [facility] [employer]. Start: 08-16-2012 End: 08-16-2012 Edwardo DELANEY MD Work Phone: [employer] [facility] [place] Start: 04-25-2012 End: 04-25-2012 Patient encounter procedure Edwardo DELANEY MD Work Phone: [employer] [facility] [employer]. Start: 04-25-2012 End: 04-25-2012 Edwardo DELANEY MD Work Phone: [employer] [facility] [employer]. Start: 01-26-2012 End: 01-26-2012 Results Review Edwardo DELANEY MD Work Phone: [facility] [place] Start: 01-26-2012 End: 01-26-2012 Edwardo DELANEY MD Work Phone: [facility] [place] [employer] [place] Start: 01-25-2012 End: 01-25-2012 Nursing evaluation of patient and report Edwardo DELANEY MD Work Phone: [facility]. Start: 01-25-2012 End: 01-25-2012 Edwardo DELANEY MD Work Phone: [facility] [employer] [facility]. Start: 01-25-2012 End: 01-25-2012 Patient encounter procedure Edwardo DELANEY MD Work Phone: [facility] [employer] [facility]. Start: 01-25-2012 End: 01-25-2012 Edwardo DELANEY MD Work Phone: [facility] Institute[facility]. Start: 12-14-2011 End: 12-14-2011 Results Review Edwardo DELANEY MD Work Phone: [facility] [employer] [facility] CenterLive [facility]. Start: 12-14-2011 End: 12-14-2011 Edwardo DELANEY MD Work Phone: [facility] [employer] [facility] CenterLive [facility]. Start: 12-14-2011 End: 12-14-2011 Patient encounter procedure Edwardo DELANEY MD Work Phone: [facility] [employer] [facility]. Start: 12-14-2011 End: 12-14-2011 Edwardo DELANEY MD Work Phone: [facility] [employer] [facility] Center[facility]. Start: 09-20-2011 End: 09-20-2011 Medication Refill/Order Edwardo DELANEY MD Work Phone: [facility] [employer] [facility]. Start: 09-20-2011 End: 09-20-2011 Edwardo DELANEY MD Work Phone: [facility] [employer] [facility]. Start: 08-24-2011 End: 08-24-2011 Patient encounter procedure Edwardo DELANEY MD Work Phone: [facility] [employer] [facility] CenterLive [facility]. Start: 08-24-2011 End: 08-24-2011 Edwardo DELANEY MD Work Phone: [employer] [facility] [employer]. Start: 08-03-2011 End: 08-03-2011 Patient encounter procedure Edwardo DELANEY MD Work Phone: [facility] [employer]. Start: 08-03-2011 End: 08-03-2011 Edwardo DELANEY MD Work Phone: [employer] [facility] [employer]. Start: 06-28-2011 End: 06-28-2011 Medication Refill/Order Edwardo DELANEY MD Work Phone: [employer] [facility] [employer]. Start: 06-28-2011 End: 06-28-2011 Edwardo DELANEY MD Work Phone: [employer] [facility] [employer]. Start: 06-05-2011 End: 06-05-2011 Results Review Edwardo DELANEY MD Work Phone: [facility] [employer]. Start: 06-05-2011 End: 06-05-2011 Edwardo DELANEY MD Work Phone: [facility] [employer]. Start: 06-04-2011 End: 06-04-2011 Lab Only Edwardo DELANEY MD Work Phone: [employer] [facility] [employer]. Start: 06-04-2011 End: 06-04-2011 Edwardo DELANEY MD Work Phone: [employer] [facility] [employer]. Start: 06-01-2011 End: 06-01-2011 Patient encounter procedure Edwardo DELANEY MD Work Phone: [employer] [facility] [employer]. Start: 06-01-2011 End: 06-01-2011 Edwardo DELANEY MD Work Phone: [employer] [facility] [employer]. Start: 07-25-2010 End: 07-25-2010 Results Review Edwardo DELANEY MD Work Phone: [facility] [place] Start: 07-25-2010 End: 07-25-2010 Edwardo DELANEY MD Work Phone: [facility] [employer]. Start: 07-25-2010 End: 07-25-2010 Patient encounter procedure Edwardo DELANEY MD Work Phone: [employer] [facility] [employer]. Start: 07-25-2010 End: 07-25-2010 Edwardo DELANEY MD Work Phone: [employer] [facility] [employer]. Start: 07-24-2010 End: 07-24-2010 Follow-up encounter Edwardo DELANEY MD Work Phone: [facility] [place] Start: 07-24-2010 End: 07-24-2010 Edwardo DELANEY MD Work Phone: [facility] [employer]. Start: 07-24-2010 End: 07-24-2010 Patient encounter procedure Edwardo DELANEY MD Work Phone: [employer] [facility] [employer]. Start: 07-24-2010 End: 07-24-2010 Edwardo DELANEY MD Work Phone: [employer] [facility] [place] Start: 07-10-2010 End: 07-10-2010 Historical Summary Edwardo DELANEY MD Work Phone: [facility] [employer]. Start: 07-10-2010 End: 07-10-2010 Edwardo DELANEY MD Work Phone: [employer] [facility] [employer]. Start: 07-09-2010 End: 07-09-2010 Injection/immunization only Edwardo DELANEY MD Work Phone: [employer] [facility] [employer]. Start: 07-09-2010 End: 07-09-2010 Edwardo DELANEY MD Work Phone: [employer]. Start: 04-14-2010 End: 04-14-2010 Historical Summary Edwardo DELANEY MD Work Phone: [facility] Start: 04-14-2010 End: 04-14-2010 Edwardo DELANEY MD Work Phone: [facility] Patient encounter status Renuka GARCIA MD Work Phone: [facility] Physical examination Renuka ESPINO MD Work Phone: [facility] Hospital[facility]; [facility] InstituteMoneyMail [facility]. Procedures Date Procedure Procedure Detail Performing Clinician Start: 03-05-2025 End: 03-05-2025 Dischrg meds reconciled w/current med list Edwardo DELANEY MD Work Phone: Start: 09-04-2024 End: 09-04-2024 Dischrg meds reconciled w/current med list Edwardo DELANEY MD Work Phone: Start: 08-11-2023 End: 08-11-2023 Dischrg meds reconciled w/current med list Edwardo DELANEY MD Work Phone: Start: 07-26-2023 End: 07-26-2023 Dischrg meds reconciled w/current med list Edwardo DELANEY MD Work Phone: Start: 06-14-2023 End: 06-14-2023 Aiiv4 vacc inactivated prsrv fr 0.5ml dos im use Edwardo DELANEY MD Work Phone: Start: 06-14-2023 End: 06-14-2023 Dischrg meds reconciled w/current med list Edwardo DELANEY MD Work Phone: Start: 04-19-2023 End: 04-19-2023 Dischrg meds reconciled w/current med list Edwardo DELANEY MD Work Phone: Start: 03-23-2023 End: 03-23-2023 Dischrg meds reconciled w/current med list Edwardo DELANEY MD Work Phone: Start: 10-25-2022 End: 10-25-2022 Dischrg meds reconciled w/current med list Edwardo DELANEY MD Work Phone: Start: 09-30-2022 End: 09-30-2022 Dual chamber pacemaker [place] Comment on above: Complete heart block ; 09/30/2022 (MRI Conditional--may be able to have some MRIs if call number on card) Start: 09-30-2022 End: 09-30-2022 GELY AVILA RN Start: 09-30-2022 Cardiac pacemaker, d evice (physical object) DR GRACIELA PARADA MD Comment on above: 09-30-2022- Dr. Rooeny. Med. PPM Linda- [id number], SN: [id number]. RA- [id number], SN: [id number]. RV 3830, SN: [id number]. Start: 09-22-2022 End: 09-22-2022 TAVR [place] Comment on above: aortic valve replace ment at [place] (bovine; Dr. Nash) Start: 09-22-2022 End: 09-22-2022 GELY AVILA RN Start: 09-11-2022 End: 09-11-2022 Vascular Stent [place] Comment on above: 1 stent 09/11/2022; 6 prior stents Start: 08-18-2022 Percutaneous translu andre coronary angioplasty HORTENSIA NASH MD Start: 06-30-2022 Transesophageal echocardiography HORTENSIA NASH MD Comment on above: Summary: 1. Left ventricle: There is no evidence of a thrombus. 2. Ventricular septum: There is no evidence of a ventricular septal defect. 3. Aortic valve: There is moderate to severe stenosis. RC cusp unrestricted mobility. 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 Calcium in LC and NC cusps limit image quality. SARA by planimetry ranged from 1.1 to 1.3 cm2. V max 3 m/s. MG 21 mm Hg. There is trivial regurgitation. The LVOT to aortic valve VTI ratio is 0.27. The valve area by VTI is 1.1 cm . 4. Right atrium: There is no evidence of a thrombus in the atrial cavity or appendage. 5. 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 Left ventricle: Systolic function is mildly reduced. The estimated ejection fraction is 40-45%. 2. Aortic valve: There is moderate to severe stenosis. 3. LAD: Mid-vessel lesion: There is a 70% stenosis. 4. Left circumflex: Mid-vessel lesion: There is a 50% stenosis. IMPRESSIONS: 1. The study demonstrates moderate coronary artery disease. 2. Moderate aortic stenosis. 3. no true culprit lesion and moderate to severe aortic stenosis with SARA of 1.2. to reveiw data not sure of etiology for exreme fatique and sob. to check TSH consider op stress test and discuss case with structural heart. no complicatons. Start: 01-01-2022 End: 01-01-2022 Dischrg meds reconciled w/current med list Renuka GARCIA MD Work Phone: Start: 01-09-2021 End: 01-09-2021 Dischrg meds reconciled w/current med list Renuka GARCIA MD Work Phone: Start: 01-09-2021 End: 01-09-2021 Urinary Incontinence Claudia Valente RN Comment on above: Negative. 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 <50% stenosis bilateral. Daysi. Start: 12-23-2017 End: 12-23-2017 Falls risk assessment documented Renuka GARCIA MD Work Phone: Start: 10-06-2017 End: 10-06-2017 Td Claudia Valente RN Comment on above: in [place]. Start: 10-06-2017 End: 10-06-2017 Claudia Valente RN Start: 03-16-2017 End: 03-16-2017 Falls risk assessment documented Renuka GARCIA MD Work Phone: Start: 08-20-2016 End: 08-20-2016 GELY AVILA RN Start: 02-05-2016 Abdominal aortic ane urysm (disorder) MANDY GUAJARDO Comment on above: PROCEDURES: 1. Ultrasound-guided access bilateral common femoral arteries. 2. Aortogram with bilateral iliac imaging. 3. Endovascular aneurysm repair with a TriVascular Ovation with a 26 mm main body with a right 16 x 100 and left 16 x 120 limb. Start: 02-04-2016 End: 02-04-2016 AAA stent [place] Start: 02-04-2016 End: 02-04-2016 GELY AVILA RN Start: 01-04-2016 End: 01-04-2016 Percutaneous transluminal coronary angioplasty [place] Start: 01-02-2016 Cardiac catheterization MANDY GUAJARDO DO Start: 12-29-2015 End: 12-29-2015 Cardiovascular Stress Test - Lexiscan Renuka GARCIA MD Work Phone: Comment on above: Abnormal. ? ischemia . Start: 09-05-2015 Percutaneous translu andre coronary angioplasty MANDY GUAJARDO DO Comment on above: 01/02/16 -- PROCEDURE S PERFORMED: ? Right coronary angiography. ? Left heart catheterization with ventriculography. ? Left coronary angiography. ? Percutaneous intervention on the 95% restenosis in the mid LAD. Balloon angioplasty. Stent placement. Stent placement. SUMMARY: 1. Left ventricle: Systolic function is normal. The estimated ejection fraction is 55-60%. 01/02/16 -- PROCEDURE S PERFORMED: Right coronary angiography. Left heart catheterization with ventriculography. Left coronary angiography. Percutaneous intervention on the 95% restenosis in the mid LAD. Balloon angioplasty. Stent placement. Stent placement. SUMMARY: 1. Left ventricle: Systolic function is normal. The estimated ejection fraction is 55-60%. 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 Start: 09-05-2013 Percutaneous translu andre coronary angioplasty MANDY GUAJARDO DO Comment on above: 08/21/2014: PCI with Xience Xpedition MEGHANN x2 mid LAD 07/09/2014: in the proximal ramus intermedius using a 2.75 x 12mm Resolute Integrity RX stent Start: 12-14-2011 End: 12-14-2011 Chest x-ray Renuka GARCIA MD Work Phone: Start: 07-25-2010 End: 07-25-2010 Ceftriaxone sodium injection Renuka GARCIA MD Work Phone: Start: 07-24-2010 End: 07-24-2010 Ceftriaxone sodium injection PEPITO LANDAVERDE MD Work Phone: Start: 07-24-2010 End: 07-24-2010 Radiographic imaging procedure Renuka GARCIA MD Work Phone: Comment on above: Abnormal. retrocardi ac pneumonia Start: 07-24-2010 End: 07-24-2010 Therapeutic prophylactic/dx injection subq/im PEPITO LANDAVERDE MD Work Phone: Start: 07-24-2010 End: 07-24-2010 Pressurized/nonpressurized inhalation treatment PEPITO LANDAVERDE MD Work Phone: Start: 09-05-2007 End: 09-05-2007 Zostravax Claudia Valente RN Comment on above: and had disease. Start: 09-05-2004 End: 09-05-2004 Screening colonoscopy Claudia Valente RN Comment on above: Within Normal Limits . 1 polyp, patient not to have any more colonoscopies. 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 A 2.5 x 12mm Taxus Stent Drug Eluting. back surgery [place] Comment on above: in distant past back surgery GELY AVILA RN Comment on above: in distant past Cataract extraction and insertion of intraocular lens Edwardo DELANEY MD Work Phone: Comment on above: bilateral [facility] Cataract extraction and insertion of intraocular lens GELY AVILA RN Comment on above: bilateral around [facility] Colonoscopy DANIEL MATA MD Endoscopy DANIEL MATA MD History of placement of stent for coronary artery disease History of heart artery stent Edwardo DELANEY MD Work Phone: Comment on above: x6 History of placement of stent for coronary artery disease Edwardo DELANEY MD Work Phone: prostate exam Claudia Valente RN RSV vaccine (Abrysvo/Arexvy) Freida Eid RN Comment on above: given at Pharm 08-16 RSV vaccine (Abrysvo/Arexvy) GELY AVILA RN Comment on above: given at Pharm 08-16 GELY Valente RN Plan of Treatment Date Care Activity Detail Author Start: 09-10-2025 [employer]. Start: 06-18-2025 [employer]. Start: 03-29-2025 Lipid panel [employer]; [employer]. Start: 03-05-2025 Im adm prq id subq/i m njxs ea vaccine [employer]; [employer]. Start: 03-05-2025 [employer]. Start: 03-05-2025 [employer]. Start: 09-04-2024 [employer]. Start: 04-25-2024 Patient encounter procedure Me dical; BLOOD PRESSURE CHECK - [employer]. Start: 25-Apr-2024 10:00-04:00 MD Edwardo DELANEY Appointment Request [employer]. Start: 04-25-2024 [employer]. Start: 01-05-2024 Gluc bld gluc mntr d ev cleared fda spec home use [employer]; [employer]. Start: 12-20-2023 Patient encounter procedure Me dical; BLOOD PRESSURE CHECK - [employer]. Start: 20-Dec-2023 13:00 MD Edwardo DELANEY Appointment Request [employer]. Start: 03-24-2023 Immunoelectrophoresis serum [employer]; [employer]. Start: 03-23-2023 Ct head/brain w/o co ntrast material [facility] [employer] [facility].; [employer] [facility]. Comment on above: Please call report t o [place] [phone] before pt. leaves (or my cell [phone] if after hours). Start: 10-25-2022 Adv care pln tlkd & alt dcsn maker docd [facility] [employer] [facility]; [employer] [facility]. Start: 08-20-2016 Im adm prq id subq/i m njxs ea vaccine [facility] [employer] [facility]; [employer] [facility]. Start: 09-11-2015 Patient Education [facility] [employer] [facility].; [facility]. Start: 04-11-2015 Us abdominal real ti me w/image limited [facility] [employer] [facility].; [facility] Start: 04-11-2015 Us retroperitoneal r eal time w/image limited [facility] [employer] [facility]; [facility] Start: 04-08-2015 Us abdominal real ti me w/image documentation [facility] [employer] [facility].; [facility]. Start: 03-26-2014 Patient Education [facility].; [facility] [employer] [facility]. Start: 07-24-2010 [facility] [employer] [facility]. Start: 07-24-2010 End: 07-24-2010 Noninvasive ear/pulse oximetry single deter [facility] [employer] [facility].; [employer] [facility] [employer] [facility]. Immunizations Immunization Date Immunization Notes Care Provider Fa cility 06-18-2025 influenza virus vacc ine, unspecified formulation Edwardo DELANEY MD Work Phone: [facility] [employer]; [employer] [facility]. 06-18-2025 Seasonal trivalent influenza vaccine, adjuvanted, preservative free Edwardo DELANEY MD Work Phone: [place] [employer]; [facility]. 03-05-2025 Edwardo DELANEY MD Work Phone: [facility]; [facility]. 12-27-2023 tetanus toxoid, redu victor manuel diphtheria toxoid, and acellular pertussis vaccine, adsorbed Edwardo DELANEY MD Work Phone: [facility]; [facility]. 12-27-2023 Edwardo DELANEY MD Work Phone: [facility]; [facility]. 08-16-2023 respiratory syncytia l virus monoclonal antibody (palivizumab), intramuscular Edwardo DELANEY MD Work Phone: [facility]; [employer] [facility] [employer] [facility]. Comment on above: RSV vaccine given at Pharm 08-16-2023 Edwardo DELANEY MD Work Phone: [facility]; [employer] [facility]. 06-14-2023 Influenza, quad (aII V4), adjv, 0.5 IM Edwardo DELANEY MD Work Phone: [facility]; [employer] [facility] [employer] [facility]. Comment on above: Site: Left DeltoidVI S Given: * Influenza (Flu) Vaccine (Inactivated or Recombinant) (04/10/21) 06-14-2023 COVID-Pfizer (30 MCG /0.3 ML) Edwardo DELANEY MD Work Phone: [facility] [employer] [facility]; [employer] [facility] [employer] [facility]. Comment on above: at pharm 06-14-2023 influenza virus vacc ine, unspecified formulation Edwardo DELANEY MD Work Phone: [facility] [employer] [facility]; [employer] [facility] [employer] [facility]. Comment on above: Had immunization. 06-22-2022 SARS-CoV-2 (CV19)mRNA-1273 bivalent vac BROOKE GARCIA [facility] 06-22-2022 SARSCoV2 (CV19)mRNA-1273(6y+ bival abhay HORTENSIA NASH MD [facility] 06-11-2022 COVID-Pfizer (30 MCG /0.3 ML) Edwardo DELANEY MD Work Phone: [facility].; [facility]. Comment on above: at pharm 06-11-2022 influenza virus vacc ine, unspecified formulation HORTENSIA NASH MD [facility] 06-25-2021 influenza virus vacc ine, unspecified formulation HORTENSIA NASH MD [facility] 06-25-2021 influenza, injectabl e, quadrivalent, contains preservative Edwardo DELANEY MD Work Phone: [facility]; [facility]. Comment on above: Site: Left ArmVIS Gi jitendra: * Influenza - Inactivated (04/19/2019) 10-30-2020 SARS-CoV-2 (COVID-19 ) mRNA-1273 vaccine HORTENSIA NASH MD [facility] 10-02-2020 SARS-CoV-2 (COVID-19 ) mRNA-1273 vaccine HORTENSIA NASH MD [facility] 06-21-2018 influenza virus vacc ine, unspecified formulation Edwardo DELANEY MD Work Phone: [facility].; [facility]. 06-21-2018 influenza, injectabl e, quadrivalent, contains preservative Edwardo DELANEY MD Work Phone: [facility].; [facility]. Comment on above: Site: Left DeltoidVI S Given: * Influenza - Inactivated (04/11/15) 05-24-2017 influenza, injectabl e, quadrivalent, contains preservative Edwardo DELANEY MD Work Phone: [facility]; [facility] Comment on above: Site: Deltoid (Left) VIS Given: * Influenza - Inactivated (04/11/15) 05-24-2017 influenza virus vacc ine, unspecified formulation Edwardo DELANEY MD Work Phone: [facility]; [facility] 08-20-2016 pneumococcal conjuga te vaccine, 13 valent Edwardo DELANEY MD Work Phone: [facility]; [facility] [employer] [facility]. Comment on above: Site: Deltoid (Left) VIS Given: * Multiple Vaccines (DTaP, Hib, Hepatitis B, Polio, and PCV13) (07/10/15) 08-20-2016 influenza, injectabl e, quadrivalent, contains preservative Edwardo DELANEY MD Work Phone: [facility]; [facility]. Comment on above: Site: Deltoid (Right )VIS Given: * Influenza - Inactivated (04/11/15) 08-20-2016 influenza virus vacc ine, unspecified formulation Edwardo DELANEY MD Work Phone: [facility] [employer] [facility]; [facility] 08-20-2016 pneumococcal vaccine , unspecified formulation Edwardo DELANEY MD Work Phone: [facility] [employer] [facility]; [facility]. 08-20-2016 *IMMUNIZATION ADMIN ([id number]) Edwardo DELANEY MD Work Phone: [facility] [employer] [facility]; [facility]. 08-20-2016 Edwardo DELANEY MD Work Phone: [facility] [employer] [facility]; [facility]. 07-04-2015 influenza virus vacc ine, unspecified formulation Edwardo DELANEY MD Work Phone: [facility]; [facility]. 07-04-2015 influenza, injectabl e, quadrivalent, contains preservative Edwardo DELANEY MD Work Phone: [facility]; [employer] [facility] [employer] [facility]. Comment on above: Site: Deltoid (Left) 07-26-2014 pneumococcal Conjuga te, unspecified formulation Edwardo DELANEY MD Work Phone: [facility]; [facility]. 07-26-2014 ADMINISTRATION OF INFLUENZA VIRUS VACCINE (G0008) Edwardo DELANEY MD Work Phone: [facility] [employer] [facility]; [facility]. 07-26-2014 Edwardo DELANEY MD Work Phone: [facility]; [facility]. 07-26-2014 influenza, seasonal, injectable Edwardo DELANEY MD Work Phone: [facility]; [facility] [employer] [facility]. Comment on above: Site: Deltoid (Left) VIS Given: * Inactivated Influenza Vaccine (04/14/2010) 08-16-2012 influenza virus vacc ine, unspecified formulation HORTENSIA NASH MD [facility] 08-16-2012 influenza, seasonal, injectable Edwardo DELANEY MD Work Phone: [facility].; [facility]. Comment on above: Site: Deltoid (Left) VIS Given: * Inactivated Influenza Vaccine (04/14/2010)[facility] [id number] 08-16-2012 ADMINISTRATION OF INFLUENZA VIRUS VACCINE (G0008) Edwardo DELANEY MD Work Phone: [facility]; [employer] [facility]. 08-16-2012 Edwardo DELANEY MD Work Phone: [facility] [facility] Institute[facility] 06-01-2011 influenza, seasonal, injectable Edwardo DELANEY MD Work Phone: [facility]; [facility] Comment on above: Site: Deltoid (Left) VIS Given: * Inactivated Influenza Vaccine (04/14/2010) 06-01-2011 ADMINISTRATION OF INFLUENZA VIRUS VACCINE (G0008) Edwardo DELANEY MD Work Phone: [facility]; [facility] 06-01-2011 Edwardo DELANEY MD Work Phone: [facility] HospitalMoney[facility]; [facility] 07-09-2010 influenza, seasonal, injectable Edwardo DELANEY MD Work Phone: [facility] HospitalMoney[facility]; [facility]. Comment on above: Site: Deltoid (Left) VIS Given: * Inactivated Influenza Vaccine (04/14/2010) 07-09-2010 ADMINISTRATION OF INFLUENZA VIRUS VACCINE (G0008) Edwardo DELANEY MD Work Phone: [facility] Hospital[facility]; [facility] 07-09-2010 Edwardo DELANEY MD Work Phone: [facility]; [facility] 06-17-2009 pneumococcal polysaccharide vaccine, 23 valent Edwardo DELANEY MD Work Phone: [facility] HospitalMoney[facility]; [facility] 04-09-2008 tetanus and diphther ia toxoids, adsorbed, preservative free, for adult use (2 Lf of tetanus toxoid and 2 Lf of diphtheria toxoid) Edwardo DELANEY MD Work Phone: [facility]; [facility] 09-05-2007 zoster vaccine, live Edwardo PACHECO MD Work Phone: [phone] [place] [address].; [facility] Payers Date Payer Category Payer Self-pay [id number] 2023 Medicare [id number] 2023 Private Health Insurance [facility] [id number] 2022 Unknown [id number] 2001 Medicare [id number] 1936 Unknown [id number] 2.16.8 [id number] 1936 Unknown [id number] 2.16.8 [id number] 1936 Unknown [id number] 2.16.8 [id number] 1936 Unknown [id number] 2.16.8 [id number] 1936 Unknown [id number] 2.16.8 [id number] 1936 Unknown [id number] 2.16.8 [id number] 1936 Unknown [id number] 2.16.8 [id number] 1936 Unknown [id number] 2.16.8 [id number] 1936 Unknown [id number] 2.16.8 [id number] Unknown Unknown [id number] 2.16.8 [id number] Unknown [id number] Social History Date Type Detail Facility Start: 11-21-2019 Never smoked t obacco (finding) [facility] Start: 1935 Sex Assigned At Male A [facility] Tobacco Nicotine Use: ch ew tobacco 1-2x a week. Type: Oral (Snuff, Chew). [facility] Start: 12-29-2022 End: 04-03-2024 Tobacco smoking status Ex-smoker (finding) [facility] Alcohol Use: Alcohol Use: ; N o Alcohol Use. [facility]; [facility] [employer] [facility] Current Work/Study Status: Current Work/Study Status: ; Retired. [facility]; [employer] [facility] [employer] [facility] Exercise History: Exercise Histo ry: ; Moderate. daily. 15 - 20 minutes. walking. [facility] [employer] [facility]; [employer] [facility] [employer] [facility] CenterLive Gamer Tobacco use: Tobacco use: ; U ses chewing tobacco. [facility]; [employer] [facility] [employer] [facility] daily [facility] [employer]; [facility] [employer] [facility] Work Phone: Retired [facility] [employer]; [employer] [facility] [employer] [facility] Work Phone: Uses chewing tobacco [facility] [employer] [facility]; [employer] [facility] [employer] [facility]Mail[facility]Inside Work Phone: Highest Education Le lucinda Attained Highest Education Level Attained [facility] [employer] [facility]; [employer] [facility] [place] [employer] [facility] CenterLive Gamer Sexual Orientation [facility] Start: 07-31-2019 Sex Male (finding) [facility] Functional Status Date Assessment Result Facility 10-01-2022 Functional Status None [facility] 10-01-2022 Functional Status Room check performed [facility] 10-01-2022 Functional Status [facility] 10-01-2022 Functional Status Shampoo/Body w chloe (no rinse), CHG bath [facility] 09-30-2022 Functional Status Maintained [facility] 09-30-2022 Functional Status [facility] 09-30-2022 Functional Status [facility] 09-29-2022 Functional Status [facility] 09-08-2022 Functional Status Sensory Defici ts Hearing deficit, left ear, Hearing deficit, right ear [facility] 08-19-2022 Functional Status Safety level maintained [facility] 08-19-2022 Functional Status Up to chair [facility] 08-19-2022 Functional Status Room check performed [facility] 08-19-2022 Functional Status [facility] 08-19-2022 Functional Status [facility] 08-18-2022 Functional Status Hospital bed [facility] 08-18-2022 Functional Status Identification band, Verbal [facility] 08-18-2022 Functional Status Maintained [facility] 08-02-2022 Functional Status Ambulating in goyal, Ambulating in room [facility] 08-02-2022 Functional Status [facility] 04-07-2022 Functional Status Fall ID band o n, Non-Slip footwear [facility] Mental Status Date Assessment Result Facility 10-01-2022 Mental Status Orientation Oriented x 4 [facility] 10-01-2022 Mental Status [facility] 09-29-2022 Mental Status Orientation Assessment Orie nted x 4 [facility] 08-19-2022 Mental Status Oriented x 4 [facility] 08-19-2022 Mental Status [facility] 08-02-2022 Mental Status Oriented x 4 [facility] 08-02-2022 Mental Status [facility] 04-07-2022 Mental Status Orientation Orie nted x 4, Follows simple commands [facility] 04-07-2022 Mental Status [facility] 04-07-2022 Mental Status [facility] Clinical Notes 04-07-2022 to 09-03-2024 Note Date & Type Note Facility 09-03-2024 Note Exam Date Time Procedure Performing Provider Status 09/03/24 11:54 AM Echocardiogram, Adult - CV VIRGEN YUN MD; [facility]Verified[id number] Note* Exam Date Time Procedure Performing Provider Status 03/07/24 3:41 PM Unsuccessful PRECIOUS Auth (Jeimy ified) [facility] 07-03-2024 Evaluation + Plan noteExtracted from: Title:History and Physical Author:CHEIKH CRAIG MD Date:03/07/24 #Pre transesophageal echocar diogram evaluation - Latest EKG reviewed - Latest imaging reviewed - Latest echocardiogram reviewed - Latest ischemic work-up reviewed Plan: - Proceed with PRECIOUS order as planned Patient seen and discussed with Dr. Zuhair Craig II, MD PGY- Cardiovascular Disease Fellow Pager: [phone] Future Appointments Appointment Date:04/02/2024 02:00:00 PM Scheduled Provider:JING SCHWARZ Location:[facility] Appointment Type:CV OV Appointment Date:05/16/2024 08:15:00 AM Scheduled Provider: Location:[facility] Appointment Type:CV Remote Procedure HM Appointment Date:01/14/2025 09:45:00 AM Scheduled Provider: Location:[facility] Appointment Type:CV OV Future Scheduled Tests Laboratory* Basic Metabolic Panel 09/12/23 * Complete Blood Count 09/12/23 Radiology* XR Esophogram W/Barium Tablet 03/07/24 [facility] 07-03-2024 History and physical note Date of Service 03/07/24 Chief Complaint Pre PRECIOUS evaluation History of Present Illness 88-year-old male with past medical history of hypertension, hyperlipidemia, severe aortic stenosis status post Ortiz S3 29 mm TAVR in 2021, CAD status post multiple stents most recently LAD stent in 2021, preserved LVEF, complete heart block status post pacemaker implantation in 2022 and obesity presented for outpatient transesophageal echocardiogram to evaluate bioprosthetic aortic valve. Patient has no complaints currently. Review of Systems Per HPI, Complete ROS otherwise negative Physical Exam Vitals and Measurements No qualifying data available. General: AAOX3, NAD HEENT: Anicteric sclera, MMM Neck: Trachea midline, no JVD appreciated CVS: RRR, normal S1/S2, systolic murmur, PPM scar on left chest Lung: CTAB, no wheezes/rhonchi/rales Abd: Soft, NT/ND Extrem: WWP, no LE edema Skin: Warm, Intact Neuro: AAOX3, spontaneous movement of all extremities Psych: Appropriate mood & affect Lab Results No 36 Hour Lab Data Assessment/Plan #Pre transesophageal echocardiogram evaluation - Latest EKG reviewed - Latest imaging reviewed - Latest echocardiogram reviewed - Latest ischemic work-up reviewed Plan: - Proceed with PRECIOUS order as planned Patient seen and discussed with Dr. 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 Heart attack Multiple trauma Pneumonia Skin cancer Vertigo Procedure/Surgical History Cardiac pacemaker: 09/30/22 PTCA - Percutaneous transluminal coronary angioplasty: 08/18/22 PRECIOUS procedure: 06/30/22 Cardiac catheterization: 04/07/22 PTCA - Percutaneous transluminal coronary angioplasty: 2015 Cardiac catheterization: 01/02/16 PTCA - Percutaneous transluminal coronary angioplasty: 2013 PTCA - Percutaneous transluminal coronary angioplasty: 2003 Colonoscopy Endoscopy Medications Home Medications (9) Active carvedilol 3.125 mg oral tablet 3.125 mg = 1 tab(s), Oral, qDay Centrum Silver oral tablet 1 tab(s), Oral, qDay colchicine 0.6 mg oral tablet 0.6 mg = 1 tab(s), PRN, Oral, q1h Effient 10 mg oral tablet 10 mg = 1 tab(s), Oral, Daily enalapril 5 mg oral tablet 5 mg = 1 tab(s), Oral, qHS Tylenol 325 mg oral capsule 650 mg = 2 cap(s), PRN, Oral, q4h Vitamin B12 1000 mcg oral tablet 1,000 mcg = 1 tab(s), Oral, qDay Vitamin C 500 mg oral tablet 500 mg = 1 tab(s), Oral, qDay Vitamin D3 5000 intl units oral capsule 5,000 unit(s) = 1 cap(s), Oral, qDay Allergies aspirin(Severe) Difficulty breathing at rest Plavix difficulty breathing contrast media (iodine-based) hives/ shortness of breath niacin flushing/itching pravastatin muscle aches sulfa drug rash Social History Smoking Status - 02/05/2016 Never smoker Alcohol - No Risk, 09/08/2022 Use: Past., 11/21/2019 Employment/School Status: Retired., 12/29/2022 Home/Environment Domestic Concerns: None. Living situation: Home/Independent. Current Home Treatments None. Professional Skilled Services or Special Community Resources None. Marital Status: ., 09/08/2022 Nutrition/Health Type of diet: Regular. Appetite Fair. Eating Difficulties Swallowing. Caffeine intake amount: 1-2 cups per day., 12/29/2022 Substance Abuse - Denies Substance Abuse, 09/08/2022 Use: Never., 09/23/2020 Tobacco - High Risk, 09/08/2022 Nicotine Use: Former smoker, quit more than 30 days ago, chew tobacco 1-2x a week. Type: Oral (Snuff, Chew). Smokeless Tobacco Use: quit a couple of weeks ago., 01/26/2024 Family History Abdominal aortic aneurysm: Father. Aortic valve disorder: Sister. Cancer: Sister and Brother. Cardiac pacemaker: Sister. Heart attack: Father and Brother. Liver failure: Father. Malignant neoplasm: Sister. Multiple myeloma: Brother. Health Status Family Member(s) Immunizations SARS-CoV-2 (COVID-19) mRNA-1273 vaccine: 0.5 unknown unit (10/30/20) SARS-CoV-2 (COVID-19) mRNA-1273 vaccine: 0.5 unknown unit (10/02/20) Code Status No qualifying data available. Digitally Signed by ELIAN CRAIG MD on 03/07/2024 01:03 PM Digitally Signed by ELIAN CRAIG MD on 03/07/2024 01:08 PM Digitally Signed by LAUREN MOFFETT MD [id number] Note* Exam Date Time Procedure Performing Provider Status 12/26/23 12:35 PM Echocardiogram, Adult - CV Auth (Verified) [facility] 01-08-2024 Note* Exam Date Time Procedure Performing Provider Status 09/12/23 12:01 PM Echocardiogram, Adult - CV Auth (Verified) [facility] 01-27-2023 Discharge summary Date of Service 10/01/2022 Discharge Diagnosis Complete heart block TAVR Hospital Course This 87-year-old male with prior history of severe aortic stenosis status post recent TAVR, right bundle branch block and first-degree AV block hypertension, hyperlipidemia presented to the hospital due to palpitations and heart skipping a beat. He also been feeling lightheaded and dizzy. In the ERhe was found to be in complete heart block. Patient recently had been discharged from the hospital after TAVR on 09/22/2022. Patient underwent dual-chamber pacemaker for complete heart block. Tolerated the procedure well and will be discharged home today. Will be followed up outpatient in the clinic. Allergies aspirin (Difficulty breathing at rest) Plavix (difficulty breathing) contrast media (iodine-based) (hives/ shortness of breath) niacin (flushing/itching) pravastatin (muscle aches) sulfa drug (rash) Consults No qualifying data available. Objective Vitals and Measurements T: 36.5 C (Oral) TMIN: 36.5 C (Oral) TMAX: 36.7 C (Oral) HR: 78(Monitored) RR: 16 BP: 122/68 SpO2: 97% Weight Dosing Weight: 83.5 kg (09/29/22) General Appearance: in no acute distress. Alert. EENT: No thyroid disease. ocular movements intact Cardiac: RRR. S1 and S2. no murmurs or rubs. Lungs: Clear breath sounds. No wheeze or crackles noted. Abdomen: soft. non tender. bowel sounds audible Neurological: alert and oriented. Skin: warm. dry 12 point ROS reviewed and negative unless stated above. Code Status Code Status - Ordered -- 09/30/22 0:33:00 EST, Full Code, Constant Order Admission Date 09/29/2022 Discharge Date 10/01/2022 Medications Unchanged acetaminophen (Tylenol 325 mg oral capsule)2 cap by mouth every 4 hours as needed for pain. ascorbic acid (Vitamin C 500 mg oral tablet)1 tab(s) by mouth once a day. carvedilol (carvedilol 3.125 mg oral tablet)1 tab(s) by mouth daily at bedtime. cholecalciferol (Vitamin D3 5000 intl units oral capsule)1 cap by mouth once a day. cyanocobalamin (Vitamin B12 1000 mcg oral tablet)1 tab(s) by mouth once a day. enalapril (enalapril 5 mg oral tablet)1 tab(s) by mouth daily at bedtime. multivitamin with minerals (Centrum Silver oral tablet)1 tab(s) by mouth once a day. prasugrel (Effient 10 mg oral tablet)1 tab(s) by mouth every day. Refills: 3. Follow Up Appointments No qualifying data available. Follow Up Labs/Studies Discharge Labs No Follow-up Labs Discharge Studies No Follow-up Studies Discharge Diet Discharge Diet - Ordered -- No changes were made to your diet during your hospital stay. Please resume your pre hospitalization diet on discharge., 10/01/22 11:55:00 EST Discharge Activity Discharge Activity - Ordered -- Other, no strenuous lifting/pushing/pulling with the left arm for 4 weeks, 10/01/22 11:59:00 EST Condition on Discharge stable Readmission Risk/Palliative Score LACE Score: 7 (09/30/22 10:25:00) Palliative Total Score: 1 (09/30/22 10:25:00) Discharge Disposition home Information Provided To patient Digitally Signed by BRANNON MG MD on 10/01/2022 12:00 PM [id number] Discharge instructions Patient Education 10/01/2022 13:20:10 Third-Degree Atrioventricular Block Third-Degree Atrioventricular Block Third-degree AV block (complete block) is a condition that causes the signals that travel from the heart s upper chambers (atria) to its lower chambers (ventricles) to be completely blocked. It is the most serious type of heart block. As a result, certain cells in the heart cause the ventricles to contract and pump blood (escape beats). These cells act as a sort of backup system. However, this backup system works at a much slower rate than normal, and it is not enough to keep your heart workingwell. What are the causes? This condition may be caused by: Any condition that damages the electrical pathway that controls the heart s rate and rhythm, such as a heart attack. Some medicines that slow down the heart rate, such as beta blockers or calcium channel blockers. Surgery that damages the heart. Overstimulation of the nerve that slows down heart rate (vagus nerve). This cause is common among well-conditioned athletes. Some people are born with this condition (congenital heart block), but most people develop it over time. What increases the risk? The risk for this condition increases with age. You are also more likely to develop this condition if you have: A history of heart attack. Heart failure. Coronary heart disease. Inflammation of heart muscle (myocarditis). Disease of heart muscle (cardiomyopathy). Infection of the heart valves (endocarditis). Infections or diseases that affect the heart. These include: ?Lyme disease. ?Sarcoidosis. ?Hemochromatosis. ?Rheumatic fever. ?Certain muscle disorders. Babies are more likely to be born with heart block if: The child's mother has an autoimmune disease, such as lupus. The baby is born with a heart defect that affects the heart s structure. A parent was born with a heart defect. What are the signs or symptoms? Symptoms of this condition include: Tiredness. Shortness of breath. Dizziness. Light-headedness. Fainting. Chest pain. How is this diagnosed? This condition may be diagnosed based on: A physical exam. Your medical history. A measurement of your pulse or heartbeat. Tests, which may include: ?An electrocardiogram (ECG). This checks for problems with electrical activity in your heart. ?Ambulatory cardiac monitoring. This is a portable ECG that you wear. It checks your heart's rhythm. ?An electrophysiology (EP) study. Long, thin tubes (catheters) are placed in your heart. The catheters give information about your heart's electrical signals. How is this treated? This condition must be treated right away at a hospital. Treatment may involve: Treating an underlying condition, such as heart disease. Changing or stopping any heart medicines that may have caused heart block. Having a permanent pacemaker placed in your chest. A pacemaker uses electrical pulses to help the heart beat normally. It is usually placed under the skin on your chest or abdomen. Follow these instructions at home: Alcohol use Do not drink alcohol if: ?Your health care provider tells you not to drink. ?You are , may be , or are planning to become . If you drink alcohol, limit how much you have: ?0 1 drink a day for women. ?0 2 drinks a day for men. ?Be aware of how much alcohol is in your drink. In the [place] one drink equals one typical bottle ofbeer (12 oz), one-half glass of wine (5 oz), or one shot of hard liquor (1 oz). General instructions Take [id number]-uqehzrv and prescription medicines only as told by your health care provider. Follow your health care provider's recommendations to help reduce your risk for heart disease. Thismay include: ?Exercising at least 30 minutes on 5 or more days each week (150 minutes). Ask your health care provider what type of exercise is safe for you. ?Eating a heart-healthy diet with fruits and vegetables, whole grains, low-fat dairy products, and lean proteins like poultry and eggs. Your health care provider or dietitian can help you make healthy choices. ?Maintaining a healthy weight. Do not use any products that contain nicotine or tobacco, such as cigarettes and e-cigarettes. If you need help quitting, ask your health care provider. Keep all follow-up visits as told by your health care provider. This is important. Contact a health care provider if you: Feel like your heart is skipping beats. Feel more tired than normal. Have swelling in your lower legs or your feet. Get help right away if you: Have symptoms that change or get worse. Develop new symptoms. Have chest pain, especially if the pain: ?Feels like crushing or pressure. ?Spreads to your arms, back, neck, or jaw. Feel short of breath. Feel light-headed or weak. Faint. These symptoms may represent a serious problem that is an emergency. Do not wait to see if the symptoms will go away. Get medical help right away. Call your local emergency services (911 in the [place] Do not drive yourself to the hospital. Summary Third-degree AV block, also called complete block, is the most serious type of heart block. In thiscondition, the signals that control heart rate are completely blocked. Third-degree heart block is a medical emergency that should be treated right away at a hospital. Treatment may include the placement of a temporary or permanent pacemaker, which uses electrical pulses to help the heart beat normally. It is usually placed under the skin on your chest or abdomen. This information is not intended to replace advice given to you by your health care provider. Make sure you discuss any questions you have with your health care provider. Document Released: 08/04/2009 Document Revised: 10/04/2018 Document Reviewed: 10/04/2018 VSS Monitoring Patient Education 2020 [employer]. 10/01/2022 13:19:44 Pacemaker Implantation Pacemaker Implantation A pacemaker (pacer) is a small device that acts as a backup or takes over for the natural pacemakerof the heart. The heart has its own electrical system to regulate the beating of the heart muscles.The heart pumps best when it beats in a regular, coordinated rhythm. A pacer consists of a small device (generator) which produces electrical signals that tell your heart to beat. The generator contains a lithium battery and a tiny computer. Wires (leads) connect the generator to the heart. The pacer is placed under the skin through a small cut. It senses every heartbeat and only fires when the heart rate falls outside certain levels. When the pacer triggers a heart beat, it is called "capture." PROBLEMS THAT MAY BE HELPED BY A PACER: Your heart rate is sometimes too slow or irregular. Fainting, dizziness, weakness or confusion as a result of low blood flow. Shortness of breath. Chest pain or angina if the heart needs more blood and oxygen. Disturbed sleep as a result of abnormal heart rhythm. Palpitations or the feeling that the heart is beating too fast, too hard or in an irregular way. Weak heart muscle pumping ability. PROCEDURE The pacer may be placed under the skin near the collarbone, while you are under sedation. An abdominal wall location may be another option. The leads are inserted into a vein that lies just under the collarbone, then guided into place under x-ray. The tips of the wires touch the inside of the heart. The near end of the pacer wires are connected to the generator under the skin. In thinner chest walled individuals, it is possible to feel the device under the skin, and a slightbump may be seen. HOME CARE INSTRUCTIONS Keep the incision dry for a week after the procedure. For about 8 weeks, avoid sudden or jerky movements that pull your arm away from your body. This could change the position of the leads. Take medicine exactly as directed. Learn how to check your pulse. Follow directions about when to call or be concerned. Be physically active every day. Ask your caregiver how and when to increase activity. Household appliances do not interfere with pacemakers. Travel by car, train or airplane should not be a problem. Carry a pacemaker ID card in case the device sets off a metal detector. PACEMAKER CARE: Avoid putting pressure over the area where the pacer was put in. Digital cell phones should be kept 12 inches away from the pacemaker. Hold them at the ear on the side opposite of the pacer. Never leave a cell phone in a pocket over the pacemaker. Avoid strong electro-magnetic marquez. You will not be able to have an MRI scan because of the strong magnets. Pacer batteries last about 5 years and give off warning signals when they are running low on power.Pacers may be checked every 3 months. This allows plenty of time to change the generator when it isrunning low on power. Changing the battery means removing the old generator through the same cut and plugging the existing wires into the new generator. An EKG or heart monitor is used to see if your pacer is working properly. Sometimes signals may be sent over a land line phone to your clinic. Tell emergency responders that you have a pacemaker. SEEK MEDICAL HELP IF: You begin to gain weight and your feet and ankles swell. You have dizzy spells or feel weak. Your pulse rate drops below the limit or is too fast. SEEK MEDICAL HELP IMMEDIATELY IF YOU: Faint or pass out. Have chest pain or shortness of breath. Are injured and think your pacemaker may have been damaged. Are suddenly very tired or have pain in your back. Are worried that your heart is not beating right or cannot feel your pulse. Document Released: 08/12/2003 Document Re-Released: 05/31/2009 ExitCare Patient Information 2010 [employer]. Follow Up Care 09/29/2022 23:45:33 With:Renuka GARCIA MD Address: [address] [place] [address]- When:1-2 days With:JOSE GARCIA Address:Unknown When:1-2 days With:AMBROSIO MOJICA Address:Unknown When:1-2 days With:PATRICIO HINOJOSA Address:Unknown When:1-2 days [facility] 01-27-2023 Note Discharge Instructions Thank you for allowing [facility] to assist you with your healthcare needs. The following is importantdischarge information regarding your hospital visit. Your Care Team Renuka GARCIA MD Your Diagnosis CHB (complete heart block) What to do next Scheduled Follow-Up Appointments Appointment Type When Where Contact InformationCV OV Incision Check 10/14/2022 01:45 PM EST [facility] 10/14/2022 02:00 PM EST [facility] CV Procedure - Echo (Adult) 11/05/2022 01:00 PM EST Heart Lab CV OV Structural Heart 11/10/2022 02:30 PM EST [facility] CV Office Procedure PPM 12/29/2022 10:45 AM EDT [facility] CV OV 12/29/2022 11:15 AM EDT [facility] CV Remote Procedure HM 03/31/2023 10:00 AM EDT [facility]ments Follow Up with Renuka GARCIA MD When Within 1-2 days Where: [address] [place] [address]- Follow Up with JOSE GARCIA When Within 1-2 days Follow Up with AMBROSIO MOJICA When Within 1-2 days Follow Up with PATRICIO HINOJOSA When Within 1-2 days The Following Activity and Diet Have Been Ordered for You Discharge Activity - Discontinued -- Resume your pre-hospitalization activity, 10/01/22 11:55:00 EST Discharge Activity - Ordered -- Other, no strenuous lifting/pushing/pulling with the left arm for 4 weeks, 10/01/22 11:59:00 EST Discharge Diet - Ordered -- No changes were made to your diet during your hospital stay. Please resume your pre hospitalization diet on discharge., 10/01/22 11:55:00 EST The Following Equipment Has Been Ordered for You Home Equipment - None No qualifying data available. The Following Treatments Have Been Ordered for You Discharge Labs No qualifying data available. Discharge Radiology No qualifying data available. Other Therapies No qualifying data available. Post Acute Orders No qualifying data available. Someone Will Contact You Regarding These Home Health Referrals No home referrals have been ordered for you. No one will call you. Allergies aspirin (Difficulty breathing at rest) Plavix (difficulty breathing) contrast media (iodine-based) (hives/ shortness of breath) niacin (flushing/itching) pravastatin (muscle aches) sulfa drug (rash) Medications Please ask your primary doctor or pharmacist before taking any other medication not listed, including over the counter drugs, herbal medications, vitamins and or supplements as they may interact withyour home medications. What How Much When Instructions Last Dose Unchanged acetaminophen (Tylenol 325 mg oral capsule) 2 cap by mouth Every 4 hours as needed for for pain Unchanged ascorbic acid (Vitamin C 500 mg oral tablet) 1 tab(s) by mouth Once a day Unchanged carvedilol (carvedilol 3.125 mg oral tablet) 1 tab(s) by mouth Daily at bedtime Unchanged cholecalciferol (Vitamin D3 5000 intl units oral capsule) 1 cap by mouth Once a day Unchanged cyanocobalamin (Vitamin B12 1000 mcg oral tablet) 1 tab(s) by mouth Once a day Unchanged enalapril (enalapril 5 mg oral tablet) 1 tab(s) by mouth Daily at bedtime Unchanged multivitamin with minerals (Centrum Silver oral tablet) 1 tab(s) by mouth Once a day Unchanged prasugrel (Effient 10 mg oral tablet) 1 tab(s) by mouth Every day Please take this list to your next doctor s visit. Bring all medications you take, including over the counter medications, herbals and other supplements with you to your doctor s visit. Patients and families are reminded to discard old lists and to update any records with all medication providers or retail pharmacies. Medication Leaflets prasugrel (PRA ravinder grel) Effient What is the most important information I should know about prasugrel? Prasugrel increases your risk of bleeding, which can be severe or life- threatening. Call your doctor or seek emergency medical attention if you have bleeding that will not stop, if you have black or bloody stools, or if you cough up blood or vomit that looks like coffee grounds. You may need to stop using the medicine for a short time before any surgery or dental treatment. Donot stop taking prasugrel unless your doctor tells you to. What is prasugrel? Prasugrel is used in people who've had a balloon angioplasty to open blocked arteries after having a heart attack or severe chest pain. Prasugrel may help lower your risk of having another heart attack or stroke. Prasugrel may also be used for other purposes not listed in this medication guide. What should I discuss with my healthcare provider before taking prasugrel? You should not use prasugrel if you are allergic to it, or if you have: active bleeding such as a stomach ulcer or bleeding in the brain (such as from a head injury); a history of stroke, including TIA ('mini-stroke'); or if you are scheduled to have surgery, especially heart bypass surgery (coronary artery bypass graft, or CABG). Tell your doctor if you have ever had: a stomach ulcer, colon polyps, or diverticulosis; bleeding problems; surgery, an injury, or a medical emergency; liver or kidney disease; if you are allergic to clopidogrel or ticlopidine; if you weigh less than 132 pounds (60 kilograms); or if you also use other medicines to treat or prevent blood clots. Tell your doctor if you are or . How should I take prasugrel? Follow all directions on your prescription label and read all medication guides or instruction sheets. Use the medicine exactly as directed. If you also take aspirin, follow your doctor's instructions about how much to take and for how long. Prasugrel can be taken with or without food. Swallow the tablet whole and do not crush, chew, or break it. Because prasugrel keeps your blood from clotting, this medicine can also make it easier for you to bleed, even from a minor injury. Seek emergency medical attention if you have any bleeding that willnot stop. Tell your doctor if you have a planned surgery or dental work. Do not stop using prasugrel without your doctor's advice, even if you feel fine. Stopping this medicine too soon may increase your risk of a blood clot, heart attack, or . Store at room temperature away from moisture and heat. Keep the tablets in their original container, along with the packet or canister of moisture-absorbing preservative. What happens if I miss a dose? Take the medicine as soon as you can, but skip the missed dose if it is almost time for your next dose. Do not take two doses at one time. What happens if I overdose? Seek emergency medical attention or call the Poison Help line at . What should I avoid while taking prasugrel? Avoid activities that may increase your risk of bleeding or injury. Use extra care while shaving orbrushing your teeth. Ask your doctor before taking a nonsteroidal anti-inflammatory drug (NSAID) such as aspirin, ibuprofen, naproxen, Advil, Aleve, Motrin, and others. Using an NSAID with prasugrel may cause you to bruise or bleed easily. What are the possible side effects of prasugrel? Get emergency medical help if you have signs of an allergic reaction: hives; dizziness, chest pain,difficulty breathing; swelling of your face, lips, tongue, or throat. Prasugrel increases your risk of bleeding, which can be severe or life-threatening. Call your doctor at once if you have: a light-headed feeling, like you might pass out; any bleeding that will not stop; pink or brown urine; signs of a serious blood-clotting problem--pale skin, purple spots under your skin or on your mouth, fever, fast heart rate, weakness, stomach pain, trouble breathing, jaundice (yellowing of the skinor eyes); signs of stomach bleeding--bloody or tarry stools, coughing up blood or vomit that looks like coffee grounds; or signs of a stroke--sudden numbness or weakness (especially on one side of the body), sudden severe headache, slurred speech, problems with vision or balance. The risk of bleeding is higher in older adults. Common side effects may include: nosebleeds; or easy bruising or bleeding. This is not a complete list of side effects and others may occur. Call your doctor for medical advice about side effects. You may report side effects to FDA at 8-512-UYB-0060. What other drugs will affect prasugrel? Tell your doctor about all your other medicines, especially: opioid medication; or any other medicines to treat or prevent blood clots, including heparin or warfarin (Coumadin, Jantoven). This list is not complete. Other drugs may affect prasugrel, including prescription and mhpo-sdz-sdjfovc medicines, vitamins, and herbal products. Not all possible drug interactions are listed here. Where can I get more information? Your pharmacist can provide more information about prasugrel. Remember, keep this and all other medicines out of the reach of children, never share your medicines with others, and use this medication only for the indication prescribed. Every effort has been made to ensure that the information provided by [employer]. ('[employer]') is accurate, up-to-date, and complete, but no guarantee is made to that effect. Drug information contained herein may be time sensitive. [employer] information has been compiled for use by healthcare practitioners and consumers in the [place] and therefore [employer] does not warrant that uses outside of the [place] are appropriate, unless specifically indicated otherwise. [employer] drug information does not endorse drugs, diagnose patients or recommend therapy. [employer] drug information isan informational resource designed to assist licensed healthcare practitioners in caring for their p atients and/or to serve consumers viewing this service as a supplement to, and not a substitute for, the expertise, skill, knowledge and judgment of healthcare practitioners. The absence of a warningfor a given drug or drug combination in no way should be construed to indicate that the drug or drug combination is safe, effective or appropriate for any given patient. [employer] does not assume any responsibility for any aspect of healthcare administered with the aid of information [employer] provides. The information contained herein is not intended to cover all possible uses, directions, precautions, warnings, drug interactions, allergic reactions, or adverse effects. If you have questions about the drugs you are taking, check with your doctor, nurse or pharmacist. Copyright 4567-9125 [employer]. Version: 7.01. Revision Date: 02/11/2021. Education Materials Third-Degree Atrioventricular Block Third-degree AV block (complete block) is a condition that causes the signals that travel from the heart s upper chambers (atria) to its lower chambers (ventricles) to be completely blocked. It is the most serious type of heart block. As a result, certain cells in the heart cause the ventricles to contract and pump blood (escape beats). These cells act as a sort of backup system. However, this backup system works at a much slower rate than normal, and it is not enough to keep your heart workingwell. What are the causes? This condition may be caused by: Any condition that damages the electrical pathway that controls the heart s rate and rhythm, such as a heart attack. Some medicines that slow down the heart rate, such as beta blockers or calcium channel blockers. Surgery that damages the heart. Overstimulation of the nerve that slows down heart rate (vagus nerve). This cause is common among well-conditioned athletes. Some people are born with this condition (congenital heart block), but most people develop it over time. What increases the risk? The risk for this condition increases with age. You are also more likely to develop this condition if you have: A history of heart attack. Heart failure. Coronary heart disease. Inflammation of heart muscle (myocarditis). Disease of heart muscle (cardiomyopathy). Infection of the heart valves (endocarditis). Infections or diseases that affect the heart. These include: ? Lyme disease. ? Sarcoidosis. ? Hemochromatosis. ? Rheumatic fever. ? Certain muscle disorders. Babies are more likely to be born with heart block if: The child's mother has an autoimmune disease, such as lupus. The baby is born with a heart defect that affects the heart s structure. A parent was born with a heart defect. What are the signs or symptoms? Symptoms of this condition include: Tiredness. Shortness of breath. Dizziness. Light-headedness. Fainting. Chest pain. How is this diagnosed? This condition may be diagnosed based on: A physical exam. Your medical history. A measurement of your pulse or heartbeat. Tests, which may include: ? An electrocardiogram (ECG). This checks for problems with electrical activity in your heart. ? Ambulatory cardiac monitoring. This is a portable ECG that you wear. It checks your heart's rhythm. ? An electrophysiology (EP) study. Long, thin tubes (catheters) are placed in your heart. The catheters give information about your heart's electrical signals. How is this treated? This condition must be treated right away at a hospital. Treatment may involve: Treating an underlying condition, such as heart disease. Changing or stopping any heart medicines that may have caused heart block. Having a permanent pacemaker placed in your chest. A pacemaker uses electrical pulses to help the heart beat normally. It is usually placed under the skin on your chest or abdomen. Follow these instructions at home: Alcohol use Do not drink alcohol if: ? Your health care provider tells you not to drink. ? You are , may be , or are planning to become . If you drink alcohol, limit how much you have: ? 0 1 drink a day for women. ? 0 2 drinks a day for men. ? Be aware of how much alcohol is in your drink. In the [place] one drink equals one typical bottle of beer (12 oz), one-half glass of wine (5 oz), or one shot of hard liquor (1 oz). General instructions Take fxsw-vyq-lfpjcwh and prescription medicines only as told by your health care provider. Follow your health care provider's recommendations to help reduce your risk for heart disease. Thismay include: ? Exercising at least 30 minutes on 5 or more days each week (150 minutes). Ask your health care provider what type of exercise is safe for you. ? Eating a heart-healthy diet with fruits and vegetables, whole grains, low-fat dairy products, and lean proteins like poultry and eggs. Your health care provider or dietitian can help you make healthychoices. ? Maintaining a healthy weight. Do not use any products that contain nicotine or tobacco, such as cigarettes and e-cigarettes. If you need help quitting, ask your health care provider. Keep all follow-up visits as told by your health care provider. This is important. Contact a health care provider if you: Feel like your heart is skipping beats. Feel more tired than normal. Have swelling in your lower legs or your feet. Get help right away if you: Have symptoms that change or get worse. Develop new symptoms. Have chest pain, especially if the pain: ? Feels like crushing or pressure. ? Spreads to your arms, back, neck, or jaw. Feel short of breath. Feel light-headed or weak. Faint. These symptoms may represent a serious problem that is an emergency. Do not wait to see if the symptoms will go away. Get medical help right away. Call your local emergency services (911 in the [place] Do not drive yourself to the hospital. Summary Third-degree AV block, also called complete block, is the most serious type of heart block. In thiscondition, the signals that control heart rate are completely blocked. Third-degree heart block is a medical emergency that should be treated right away at a hospital. Treatment may include the placement of a temporary or permanent pacemaker, which uses electrical pulses to help the heart beat normally. It is usually placed under the skin on your chest or abdomen. This information is not intended to replace advice given to you by your health care provider. Make sure you discuss any questions you have with your health care provider. Document Released: 08/04/2009 Document Revised: 10/04/2018 Document Reviewed: 10/04/2018 [employer] Patient Education 2020 [employer] Pacemaker Implantation A pacemaker (pacer) is a small device that acts as a backup or takes over for the natural pacemakerof the heart. The heart has its own electrical system to regulate the beating of the heart muscles.The heart pumps best when it beats in a regular, coordinated rhythm. A pacer consists of a small device (generator) which produces electrical signals that tell your heart to beat. The generator contains a lithium battery and a tiny computer. Wires (leads) connect the generator to the heart. The pacer is placed under the skin through a small cut. It senses every heartbeat and only fires when the heart rate falls outside certain levels. When the pacer triggers a heart beat, it is called "capture." PROBLEMS THAT MAY BE HELPED BY A PACER: Your heart rate is sometimes too slow or irregular. Fainting, dizziness, weakness or confusion as a result of low blood flow. Shortness of breath. Chest pain or angina if the heart needs more blood and oxygen. Disturbed sleep as a result of abnormal heart rhythm. Palpitations or the feeling that the heart is beating too fast, too hard or in an irregular way. Weak heart muscle pumping ability. PROCEDURE The pacer may be placed under the skin near the collarbone, while you are under sedation. An abdominal wall location may be another option. The leads are inserted into a vein that lies just under the collarbone, then guided into place under x-ray. The tips of the wires touch the inside of the heart. The near end of the pacer wires are connected to the generator under the skin. In thinner chest walled individuals, it is possible to feel the device under the skin, and a slightbump may be seen. HOME CARE INSTRUCTIONS Keep the incision dry for a week after the procedure. For about 8 weeks, avoid sudden or jerky movements that pull your arm away from your body. This could change the position of the leads. Take medicine exactly as directed. Learn how to check your pulse. Follow directions about when to call or be concerned. Be physically active every day. Ask your caregiver how and when to increase activity. Household appliances do not interfere with pacemakers. Travel by car, train or airplane should not be a problem. Carry a pacemaker ID card in case the device sets off a metal detector. PACEMAKER CARE: Avoid putting pressure over the area where the pacer was put in. Digital cell phones should be kept 12 inches away from the pacemaker. Hold them at the ear on the side opposite of the pacer. Never leave a cell phone in a pocket over the pacemaker. Avoid strong electro-magnetic marquez. You will not be able to have an MRI scan because of the strong magnets. Pacer batteries last about 5 years and give off warning signals when they are running low on power.Pacers may be checked every 3 months. This allows plenty of time to change the generator when it isrunning low on power. Changing the battery means removing the old generator through the same cut and plugging the existing wires into the new generator. An EKG or heart monitor is used to see if your pacer is working properly. Sometimes signals may be sent over a land line phone to your clinic. Tell emergency responders that you have a pacemaker. SEEK MEDICAL HELP IF: You begin to gain weight and your feet and ankles swell. You have dizzy spells or feel weak. Your pulse rate drops below the limit or is too fast. SEEK MEDICAL HELP IMMEDIATELY IF YOU: Faint or pass out. Have chest pain or shortness of breath. Are injured and think your pacemaker may have been damaged. Are suddenly very tired or have pain in your back. Are worried that your heart is not beating right or cannot feel your pulse. Document Released: 08/12/2003 Document Re-Released: 05/31/2009 ExitCare Patient Information 2011 [employer] [facility]. Additional Information VACCINATE! IT SAVES LIVES! Members of the community who have not yet received the COVID-19 vaccine and would like to receive it can visit one of [facility] vaccine clinics. There are many vaccine clinic locations within the [facility]. For locations and available times, please visit [email or web address] It is important to note that some COVID mobile vaccine clinics are held outdoors and may be canceled in rainy or stormy conditions. To learn more about pediatric vaccinations (ages 5-11), we invite you to visit the [facility] webpage. [email or web address] learn more about the COVID-19 vaccine, we invite you to visit the [place] website for a list of frequently asked questions. [email or web address] [facility] Patient Portal Access Instructions: Stay connected with your healthcare team and access your personal medical information anytime with the [place] [employer] Patient Portal.If you would like a full copy of your medical records, please contact the [facility] Medical Records Department, Tuesday through Tuesday between 8a.m. and 4:30p.m. Please follow the directions below to access the portal: 1.Access the email account you provided upon registration to the [facility].2.Look for an invitation email from [facility].3.Open the email and access the invitation link: Accept Invitation to [place] [facility] [facility].Fill in the required marquez to create your account. Sign into [email or web address] with your username and password that you created in the above steps to stay up to date. You can then view a summary of results, a summary of your visits, and the ability to download your summaries to your computer or send the information securely to a physician. Remember that your healthcare information is confidential, so carefully consider who you will allow to register on the [place] [employer] Patient Portal for access to your information. You can also access the [place] [facility] Portal on the [employer] matthew. Simply click on "Health Records" under "HealthData" and then click on the [facility] logo. HOW TO SAFELY DISPOSE OF PRESCRIPTION MEDICATIONS Please use one of the following methods to safely dispose of your unused medications. 1.Use a drug disposal kit: the drug disposal pouch allows you to safely discard your old and unuseddrugs. Ask your nurse to give you one when you are discharged.2.Visit a local take-back location: Many local pharmacies and police departments have programs that collect old and unwanted prescriptiondrugs. Call your local pharmacy or go to http://Spotlime.Zhongjia MRO/7B1Qf7s to find one close to you.3.Make use of household items: Use cat litter or old coffee grounds to dispose medications if other options arenot available. Mix your drugs with these household products, seal them in an airtight container andthrow it into the garbage. Call [facility]: [phone] to be sure your drugs can be disposed of in this way. Some medicines may require a different approach.4.Never flush your medications down the toilet. IF YOU HAVE BEEN PRESCRIBED AN OPIOID FOR PAIN If you have been prescribed an opioid (such as hydrocodone, oxycodone or morphine), it is critical to understand the possible side effects and risks of opioid pain medications. Even when taken as directed, opioids can have several side effects including: Tolerance, meaning you might need to take more of a medication for the same pain relief. Nausea, vomiting and/or constipation. Sleepiness, dizziness, dry mouth, confusion, depression or itching. Physical dependence, meaning you have withdrawal symptoms when a medication is stopped, can develop within a few days. KNOW YOUR RESPONSIBILITIES It is important to know exactly how much and how often to take the opioid pain medications you are prescribed. Never take opioids in higher amounts or more often than prescribed. Do not combine opioids with alcohol or other drugs that cause drowsiness, such as benzodiazepines, also known as benzos, including diazepam and alprazolam, muscle relaxants or sleep aids. Never sell or share prescription opioids. This is illegal. Store opioids in a secure place and out of reach of others (including children, family, friends and visitors). The last page of this document has been signed and retained as a CHART COPY. Signatures Patient Education Materials Third-Degree Atrioventricular Block Pacemaker Implantation Medication Leaflets prasugrel My discharge plan and instructions have been reviewed and explained to me and IZELALEM JOHN M understand my current condition and have read and understand these discharge instructions. I have received a written copy of the plan/instructions. If I have questions, I am aware that I should contact my doctor. Patient/Operations Technician Signature: Date/Time: Relationship to Patient: Witness Name/Signature: [id number] Note Subjective Patient doing well today with normal device function no evidence of complication. Objective Vitals and Measurements T: 36.5 C (Oral) TMIN: 36.5 C (Oral) TMAX: 36.7 C (Oral) HR: 96(Monitored) RR: 16 BP: 122/68 SpO2: 97% Intake and Output 7AM Yesterday to 7AM Today Intake and Output (Last 24 hours) Intake Oral Intake 530.00 Output Urine Voided 650.00 Stool Count 0.00 Urine Count 1.00 Total Summary Total Intake 530.00 Total Output 650.00 Fluid Balance -120.00 Physical Exam General: Alert and oriented, no apparent distress CV: Regular rate and rhythm Pulm: No rales or wheezing Abd: Soft, nontender Ext: No clubbing, cyanosis, or edema Weight Dosing Weight: 83.5 kg (09/29/22) Medications Medications (10) Active Scheduled: (5) cholecalciferol 125 mcg capsule (Vit D3 5000 unit(s)) 125 mcg 1 cap(s), Oral, qDay enalapril 5 mg tablet 5 mg 1 tab(s), Oral, qHS heparin 5,000 units/mL (1 mL) vial 5,000 unit(s) 1 mL, Subcutaneous, q8h No metformin for 48 hrs post contrast 1 EA, Miscellaneous, Unscheduled prasugrel 10 mg tablet 10 mg 1 tab(s), Oral, Daily Continuous: (0) PRN: (5) acetaminophen 325 mg Tablet 650 mg 2 tab(s), Oral, q4h magnesium sulfate 4 gram(s)/100mL PMX 4 g 100 mL, IV Piggyback, AsDirected magnesium sulfate 50% (500mg/mL) 6 g 12 mL, IV Piggyback, AsDirected magnesium sulfate PMX 2 g 50 mL, IV Piggyback, AsDirected nitroglycerin 0.4 mg Tablet (25/btl) 0.4 mg 1 tab(s), Sublingual, q5min Lab Results 10/01 05:04 WBC: 11.3 H Hgb: 15.1 Hct: 46.0 Platelet: 174 Neutrophil %: 58.6 Glucose Level: 95 Sodium Level: 133 L Potassium Level: 4.4 BUN: 17.0 Creatinine Lvl (s): 1.09/30 02:53 WBC: 11.5 H Hgb: 14.9 Hct: 44.6 Platelet: 171 Neutrophil %: 58.2 Glucose Level: 152 H Sodium Level: 136 Potassium Level: 4.2 BUN: 19.0 Creatinine Lvl (s): 1.27 EKG Electrocardiogram - InProcess -- 10/01/22 6:00:00 EST Assessment/Plan 1. CHB (complete heart block) Status post left bundle pacer with normal device function. He is doing well and will follow-up routinely in device clinic. Okay for discharge from our perspective. Orders: .PharmacyCommunication, Start: 09/30/22 16:00:00 EST, Unscheduled, 48 hour(s), Stop: 10/02/22 15:59:00 EST, 09/30/22 15:55:00 EST nitroGLYcerin, Start: 09/30/22 15:55:00 EST, Dose = 0.4 mg, = 1 tab(s), Sublingual, q5min, PRN, Chest pain, 09/30/22 15:55:00 EST Ambulate Ambulate Bedrest Communication Order (continuous) Communication Order (continuous) Communication Order (continuous) Communication Order (scheduled) Distal Pulses Electrocardiogram Encourage fluids IV Catheter Insertion/Care Pain Assessment Adult Procedure Site Check Pt Education - Procedure Sips & Chips Digitally Signed by EDUARDO ROONEY MD on 10/01/2022 01:10 PM [id number] Discharge summary Date of Service 10/01/2022 Discharge Diagnosis Complete heart block TAVR Hospital Course This 87-year-old male with prior history of severe aortic stenosis status post recent TAVR, right bundle branch block and first-degree AV block hypertension, hyperlipidemia presented to the hospital due to palpitations and heart skipping a beat. He also been feeling lightheaded and dizzy. In the ERhe was found to be in complete heart block. Patient recently had been discharged from the hospital after TAVR on 09/22/2022. Patient underwent dual-chamber pacemaker for complete heart block. Tolerated the procedure well and will be discharged home today. Will be followed up outpatient in the clinic. Allergies aspirin (Difficulty breathing at rest) Plavix (difficulty breathing) contrast media (iodine-based) (hives/ shortness of breath) niacin (flushing/itching) pravastatin (muscle aches) sulfa drug (rash) Consults No qualifying data available. Objective Vitals and Measurements T: 36.5 C (Oral) TMIN: 36.5 C (Oral) TMAX: 36.7 C (Oral) HR: 78(Monitored) RR: 16 BP: 122/68 SpO2: 97% Weight Dosing Weight: 83.5 kg (09/29/22) General Appearance: in no acute distress. Alert. EENT: No thyroid disease. ocular movements intact Cardiac: RRR. S1 and S2. no murmurs or rubs. Lungs: Clear breath sounds. No wheeze or crackles noted. Abdomen: soft. non tender. bowel sounds audible Neurological: alert and oriented. Skin: warm. dry 12 point ROS reviewed and negative unless stated above. Code Status Code Status - Ordered -- 09/30/22 0:33:00 EST, Full Code, Constant Order Admission Date 09/29/2022 Discharge Date 10/01/2022 Medications Unchanged acetaminophen (Tylenol 325 mg oral capsule)2 cap by mouth every 4 hours as needed for pain. ascorbic acid (Vitamin C 500 mg oral tablet)1 tab(s) by mouth once a day. carvedilol (carvedilol 3.125 mg oral tablet)1 tab(s) by mouth daily at bedtime. cholecalciferol (Vitamin D3 5000 intl units oral capsule)1 cap by mouth once a day. cyanocobalamin (Vitamin B12 1000 mcg oral tablet)1 tab(s) by mouth once a day. enalapril (enalapril 5 mg oral tablet)1 tab(s) by mouth daily at bedtime. multivitamin with minerals (Centrum Silver oral tablet)1 tab(s) by mouth once a day. prasugrel (Effient 10 mg oral tablet)1 tab(s) by mouth every day. Refills: 3. Follow Up Appointments No qualifying data available. Follow Up Labs/Studies Discharge Labs No Follow-up Labs Discharge Studies No Follow-up Studies Discharge Diet Discharge Diet - Ordered -- No changes were made to your diet during your hospital stay. Please resume your pre hospitalization diet on discharge., 10/01/22 11:55:00 EST Discharge Activity Discharge Activity - Ordered -- Other, no strenuous lifting/pushing/pulling with the left arm for 4 weeks, 10/01/22 11:59:00 EST Condition on Discharge stable Readmission Risk/Palliative Score LACE Score: 7 (09/30/22 10:25:00) Palliative Total Score: 1 (09/30/22 10:25:00) Discharge Disposition home Information Provided To patient Digitally Signed by BRANNON MG MD on 10/01/2022 12:00 PM [id number] Note ORIGINAL EXAMINATION: TWO XRAY VIEWS OF THE CHEST 10/01/2022 7:13 am COMPARISON: Chest radiograph 09/30/2022 HISTORY: ORDERING SYSTEM PROVIDED HISTORY: Reason for Exam: Evaluate for pneumothorax/lead position post pacer/ICD insertion FINDINGS: Shallow inspiration. Left chest dual lead pacemaker. Lateral view is obscured due to patient's arm. TAVR. Stable cardiac silhouette. Small bilateral pleural effusions. No appreciable pneumothorax. IMPRESSION: Hypoventilatory changes. Small bilateral pleural effusions. No appreciable pneumothorax. I have personally reviewed the images of this examination and agree with the resident's findings and interpretation. Interpreted by: Jovanni Montoya MD Preliminary Report By: Bella Daley Electronically signed By Jovanni Monotya MD Dictated Date: 10/01/2022 7:28:49 AM Prelim Date: 10/01/2022 7:30:31 AM Sign Date: 10/01/2022 8:09:47 AM Ordering Provider: EDUARDO ROONEY [id number] Note ORIGINAL EXAMINATION: TWO XRAY VIEWS OF THE CHEST 10/01/2022 7:13 am COMPARISON: Chest radiograph 09/30/2022 HISTORY: ORDERING SYSTEM PROVIDED HISTORY: Reason for Exam: Evaluate for pneumothorax/lead position post pacer/ICD insertion FINDINGS: Shallow inspiration. Left chest dual lead pacemaker. Lateral view is obscured due to patient's arm. TAVR. Stable cardiac silhouette. Small bilateral pleural effusions. No appreciable pneumothorax. IMPRESSION: Hypoventilatory changes. Small bilateral pleural effusions. No appreciable pneumothorax. I have personally reviewed the images of this examination and agree with the resident's findings and interpretation. Interpreted by: Jovanni Montoya MD Preliminary Report By: Bella Daley Electronically signed By Jovanni Montoya MD Dictated Date: 10/01/2022 7:28:49 AM Prelim Date: 10/01/2022 7:30:31 AM Sign Date: 10/01/2022 8:09:47 AM Ordering Provider: [facility]01-26-[facility]23 History and physical note Date of Service 09/30/2022 Chief Complaint Palpitations and skipping beats for last 1 week History of Present Illness 87-year-old with past medical history of severe aortic stenosis s/p TAVR 09/21/2022, coronary artery disease (04/07/2022- LCX 50%, LAD 70%-stented), hypertension, hyperlipidemia, RBBB and 1st degree AVblock presented today due to complaints of palpitations and skipping beats for last 1 week. Patientreported that he has been noting that suddenly his heart starts to race and sometimes it is followed by missed beat. He also felt dizzy and lightheaded on 2-3 occasions. He had a similar episode last night when he was moving and suddenly felt his heart was racing followed by thumping sensation andhe felt dizzy. Once he sat down he felt better. He feels better while laying in the bed or sitting w hen these episodes happen but while he is moving he feels worse. He denied any chest pain or shortness of breath. He denied any nausea, vomiting, fever, constipation or diarrhea. He denied any recent travel or sick contacts. Patient underwent TAVR about 10 days ago. Social history-patient lives with the , denied smoking, denies alcohol intake, denied illicit drug use, able to take care of himself 08/18/2022 [facility] Procedures performed: Percutaneous intervention on the 90% stenosis in the mid LAD. Balloon angioplasty. Stent placement. SUMMARY: 1. 1st lesion: Stent placement was performed. A 2.5 mm (D) x 23 mm (L), Xience Skypoint stent was used. The stent was advanced across the lesion and deployed with two inflations and a maximum pressure of 12 flo. 2. LAD: Mid-vessel lesion: The diagnostic study demonstrated a tubular, 20 mm (L), 90% stenosis. The distal vessel supplies a large vascular territory. The lesion is a likely culprit for the patient's anginal symptoms and clinical presentation. The lesion presents an ACC/AHA type B2 "moderate risk" lesion for intervention, with 2 or more adverse characteristics. Stent placement was performed, with balloon angioplasty, resulting in an excellentangiographic appearance (see 1st lesion). Following intervention, there is a residual 0% stenosis with ANDRES grade 3 flow (brisk flow). IMPRESSIONS: 1. Acute coronary syndrome. Reperfusion was successfully achieved. 2. successful ptca/re meghann of midlad with xience stent w/o complication effiient sheath out later today. no complications. ECHO 09/22/2022 Summary: 1. Left ventricle: The cavity size is normal. Wall thickness is mildly increased. Systolic functionis at the lower limits of normal. The estimated ejection fraction is 50-55%. Unable to assess diastolic function. 2. Aortic valve: A transcatheter valve is present. 3. Left atrium: The atrium is dilated. Review of Systems Reviewed and negative except mentioned in the HPI Physical Exam Vitals and Measurements T: 37.3 C (Oral) HR: 80(Monitored) RR: 20 BP: 157/75 SpO2: 94% HT: 167.6 cm WT: 83.5 kg BMI: 29.73 Weight Dosing Weight: 83.5 kg (09/29/22) General Appearance: Comfortable, not in acute distress HEENT:Bilateral normal eye movements, normal oral cavity Neck: No JVD noted Cardiac: S1, S2, murmur appreciated at aortic area, Lungs: No wheezes, normal chest expansion. Abdomen: No tenderness, no distention, normal bowel sounds. Musculoskeletal: No signs of acute synovitis. Neurological: Alert and oriented x3, no focal neurological deficits grossly. Extremities: no lower extremity edema Psychiatric: Appropriate, normal mood. Lab Results No 36 Hour Lab Data EKG EKG done showed second-degree Mobitz type I block with PVCs The EKG from [facility] showed more like a complete heart block Assessment/Plan 87-year-old with past medical history of severe aortic stenosis s/p TAVR 09/21/2022, coronary artery disease (04/07/2022- LCX 50%, LAD 70%-stented), hypertension, hyperlipidemia, RBBB and 1st degree AVblock presented today due to complaints of palpitations and skipping beats for last 1 week. ASSESSMENT # Complete Heart block high degree # Dizziness # Sinus pause on telemetry (Duration 2 seconds to 4 seconds) # History of right bundle branch block and first-degree AV block # History of aortic stenosis s/p TAVR 09/21/2022 # History of coronary artery disease s/p PCI # Hypertension # Dyslipidemia Plan Admit the patient observe overnight - We will keep the patient n.p.o. after midnight for possible pacemaker placement - We will consult EP - Will hold on beta-kamaljit at this time - Resume home dose of Effient - Will resume home medications - Optimize blood pressure - Follow-up with the BMP, CBC, lactic acid - DVT prophylaxis Plan discussed with the patient Problem List/Past Medical History Ongoing Aortic stenosis Arthritis Bruises easily CAD IN [place] Cataract Difficult intravenous access Diverticulosis of colon First degree AV block Glasses Hard of hearing Hearing aid HTN (hypertension) Irregular heart beat PVC RBBB S/P TAVR (transcatheter aortic valve replacement) 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 Heart attack Multiple trauma Pneumonia Skin cancer Vertigo Procedure/Surgical History PTCA - Percutaneous transluminal coronary angioplasty: 08/18/22 PRECIOUS procedure: 06/30/22 Cardiac catheterization: 04/07/22 PTCA - Percutaneous transluminal coronary angioplasty: 2015 Cardiac catheterization: 01/02/16 PTCA - Percutaneous transluminal coronary angioplasty: 2013 PTCA - Percutaneous transluminal coronary angioplasty: 2003 Colonoscopy Endoscopy Medications Home Medications (8) Active carvedilol 3.125 mg oral tablet 3.125 mg = 1 tab(s), Oral, qHS Centrum Silver oral tablet 1 tab(s), Oral, qDay Effient 10 mg oral tablet 10 mg = 1 tab(s), Oral, Daily enalapril 5 mg oral tablet 5 mg = 1 tab(s), Oral, qHS Tylenol 325 mg oral capsule 650 mg = 2 cap(s), PRN, Oral, q4h Vitamin B12 1000 mcg oral tablet 1,000 mcg = 1 tab(s), Oral, qDay Vitamin C 500 mg oral tablet 500 mg = 1 tab(s), Oral, qDay Vitamin D3 5000 intl units oral capsule 5,000 unit(s) = 1 cap(s), Oral, qDay Allergies aspirin (Difficulty breathing at rest) Plavix (difficulty breathing) contrast media (iodine-based) (hives/ shortness of breath) niacin (flushing/itching) pravastatin (muscle aches) sulfa drug (rash) Social History Smoking Status - 02/05/2016 Never smoker Alcohol - No Risk, 09/08/2022 Use: Past., 11/21/2019 Home/Environment Domestic Concerns: None. Living situation: Home/Independent. Current Home Treatments None. Professional Skilled Services or Special Community Resources None. Marital Status: ., 09/08/2022 Nutrition/Health Type of diet: Regular. Appetite Fair. Eating Difficulties Swallowing., 04/07/2022 Substance Abuse - Denies Substance Abuse, 09/08/2022 Use: Never., 09/23/2020 Tobacco - High Risk, 09/08/2022 Nicotine Use: chew tobacco 1-2x a week. Type: Oral (Snuff, Chew). Smokeless Tobacco Use: quit a couple of weeks ago., 09/21/2022 Family History Abdominal aortic aneurysm: Father. Aortic valve disorder: Sister. Cancer: Sister and Brother. Cardiac pacemaker: Sister. Heart attack: Father and Brother. Liver failure: Father. Malignant neoplasm: Sister. Multiple myeloma: Brother. Immunizations SARS-CoV-2 (COVID-19) mRNA-1273 vaccine: 0.5 unknown unit (10/30/20) SARS-CoV-2 (COVID-19) mRNA-1273 vaccine: 0.5 unknown unit (10/02/20) Code Status No qualifying data available. Digitally Signed by AUTUMN ARELLANO MD on 09/30/2022 09:14 AM [id number] Note ORIGINAL EXAMINATION: ONE XRAY VIEW OF THE CHEST 09/30/2022 4:18 pm COMPARISON: Chest x-ray same day HISTORY: ORDERING SYSTEM PROVIDED HISTORY: Reason for Exam: Evaluate for pneumothorax/lead position post pacer/ICD insertion FINDINGS: Interval placement of a left AICD with leads projecting over the right atrium and right ventricle. The patient is status post TAVR. Stable cardiomediastinal contours. Hypoventilated lungs. No vascular congestion, pleural effusion, or pneumothorax. Degenerative changes within the shoulders and spine. IMPRESSION: Left-sided cardiac conduction device placement. No pneumothorax. Low lung volumes. Interpreted by: Frank Viera Preliminary Report By: Chelsey Cruz Electronically signed By Frank Viera Dictated Date: 09/30/2022 4:28:28 PM Prelim Date: 09/30/2022 4:29:28 PM Sign Date: 09/30/2022 4:57:27 PM Ordering Provider: EDUARDO [facility]01-26-2023 Note ORIGINAL EXAMINATION: ONE XRAY VIEW OF THE CHEST 09/30/2022 4:18 pm COMPARISON: Chest x-ray same day HISTORY: ORDERING SYSTEM PROVIDED HISTORY: Reason for Exam: Evaluate for pneumothorax/lead position post pacer/ICD insertion FINDINGS: Interval placement of a left AICD with leads projecting over the right atrium and right ventricle. The patient is status post TAVR. Stable cardiomediastinal contours. Hypoventilated lungs. No vascular congestion, pleural effusion, or pneumothorax. Degenerative changes within the shoulders and spine. IMPRESSION: Left-sided cardiac conduction device placement. No pneumothorax. Low lung volumes. Interpreted by: rFank Viera Preliminary Report By: Chelsey Cruz Electronically signed By Frank Viera Dictated Date: 09/30/2022 4:28:28 PM Prelim Date: 09/30/2022 4:29:28 PM Sign Date: 09/30/2022 4:57:27 PM Ordering Provider: [facility]01-26-2023 Cardiology Consult note Date of Service 09/30/2022 Reason for Consultation Bradycardia Referring Physician Dr Arellano History of Present Illness 87-year-old man with CAD s/p multiple stents, severe s/p TAVR 09/21/2021, hypertension, who presents to hospital with 2 days of palpitations, irregular heart beat felt, lightheadedness and dizziness. No syncope, no injuries, no falls. Review of Systems Apart from mentioned in HPI, pertinent review of systems is otherwise negative. Physical Exam Vitals and Measurements T: 36.7 C (Oral) TMIN: 36.7 C (Oral) TMAX: 37.3 C (Oral) HR: 76(Monitored) RR: 16 BP: 112/58 SpO2: 96% HT: 167.6 cm WT: 83.5 kg BMI: 29.73 Weight Dosing Weight: 83.5 kg (09/29/22) General Appearance: Comfortable, not in acute distress Cardiac: S1, S2, JOSE R, slow regular rhythm, normal rate, no lower extremity edema, no crackles, no JVP distention, warm extremities. Lungs: No wheezes, normal chest expansion. Abdomen: No tenderness, no distention, normal bowel sounds. Musculoskeletal: No signs of acute synovitis. Neurological: Alert and oriented x3, no focal neurological deficits grossly. Psychiatric: Appropriate, normal mood. Lab Results 09/30 02:53 WBC: 11.5 H Hgb: 14.9 Hct: 44.6 Platelet: 171 Neutrophil %: 58.2 Glucose Level: 152 H Sodium Level: 136 Potassium Level: 4.2 BUN: 19.0 Creatinine Lvl (s): 1.27 Assessment/Plan High degree AV block s/p TAVR 09/21/2022 RBBB, LPFB LVEF 50-55% 09/22/2022 CAD s/p multiple stents Patient with disease conducting system to start with, currently clearly in high degree AV block with multiple nonconducted P waves, however with good junctional escape rate. He remains hemodynamically stable most of the time, however has long pauses as long as 4 seconds with symptoms. 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 Heart attack Multiple trauma Pneumonia Skin cancer Vertigo Procedure/Surgical History PTCA - Percutaneous transluminal coronary angioplasty: 08/18/22 PRECIOUS procedure: 06/30/22 Cardiac catheterization: 04/07/22 PTCA - Percutaneous transluminal coronary angioplasty: 2015 Cardiac catheterization: 01/02/16 PTCA - Percutaneous transluminal coronary angioplasty: 2013 PTCA - Percutaneous transluminal coronary angioplasty: 2003 Colonoscopy Endoscopy Medications Inpatient Effient, 10 mg= 1 tab(s), Oral, Daily enalapril, 5 mg= 1 tab(s), Oral, qHS heparin 5000 units/mL injection, 5000 unit(s)= 1 mL, Subcutaneous, q8h magnesium sulfate for IV bolus, 2 gram(s)= 50 mL, IV Piggyback, AsDirected, PRN magnesium sulfate for IV bolus, 4 gram(s)= 100 mL, IV Piggyback, AsDirected, PRN magnesium sulfate for IV bolus Tylenol, 650 mg= 2 tab(s), Oral, q4h, PRN Vitamin D3 125 mcg (5000 intl units) oral capsule, 125 mcg= 1 cap(s), Oral, qDay Home carvedilol 3.125 mg oral tablet, 3.125 mg= 1 tab(s), Oral, qHS Centrum Silver oral tablet, 1 tab(s), Oral, qDay Effient 10 mg oral tablet, 10 mg= 1 tab(s), Oral, Daily, 3 refills enalapril 5 mg oral tablet, 5 mg= 1 tab(s), Oral, qHS Tylenol 325 mg oral capsule, 650 mg= 2 cap(s), Oral, q4h, PRN Vitamin B12 1000 mcg oral tablet, 1000 mcg= 1 tab(s), Oral, qDay Vitamin C 500 mg oral tablet, 500 mg= 1 tab(s), Oral, qDay Vitamin D3 5000 intl units oral capsule, 5000 unit(s)= 1 cap(s), Oral, qDay Allergies aspirin (Difficulty breathing at rest) Plavix (difficulty breathing) contrast media (iodine-based) (hives/ shortness of breath) niacin (flushing/itching) pravastatin (muscle aches) sulfa drug (rash) Social History Smoking Status - 02/05/2016 Never smoker Alcohol - No Risk, 09/08/2022 Use: Past., 11/21/2019 Home/Environment Domestic Concerns: None. Living situation: Home/Independent. Current Home Treatments None. Professional Skilled Services or Special Community Resources None. Marital Status: ., 09/08/2022 Nutrition/Health Type of diet: Regular. Appetite Fair. Eating Difficulties Swallowing., 04/07/2022 Substance Abuse - Denies Substance Abuse, 09/08/2022 Use: Never., 09/23/2020 Tobacco - High Risk, 09/08/2022 Nicotine Use: chew tobacco 1-2x a week. Type: Oral (Snuff, Chew). Smokeless Tobacco Use: quit a couple of weeks ago., 09/21/2022 Family History Abdominal aortic aneurysm: Father. Aortic valve disorder: Sister. Cancer: Sister and Brother. Cardiac pacemaker: Sister. Heart attack: Father and Brother. Liver failure: Father. Malignant neoplasm: Sister. Multiple myeloma: Brother. Immunizations SARS-CoV-2 (COVID-19) mRNA-1273 vaccine: 0.5 unknown unit (10/30/20) SARS-CoV-2 (COVID-19) mRNA-1273 vaccine: 0.5 unknown unit (10/02/20) Digitally Signed by SYED LILLY MD on 09/30/2022 11:36 AM [id number] Evaluation + Plan noteExtracted from: Title:History and Physical Author:CHAD ARELLANO MD Date:09/30/22 87-year-old with past medica l history of severe aortic stenosis s/p TAVR 09/21/2022, coronary artery disease (04/07/2022- LCX 50%, LAD 70%-stented), hypertension, hyperlipidemia, RBBB and 1st degree AV block presented today due to complaints of palpitations and skipping beats for last 1 week. ASSESSMENT # Complete Heart block high degree # Dizziness # Sinus pause on telemetry (Duration 2 seconds to 4 seconds) # History of right bundle branch block and first-degree AV block # History of aortic stenosis s/p TAVR 09/21/2022 # History of coronary artery disease s/p PCI # Hypertension # Dyslipidemia Plan Admit the patient observe overnight - We will keep the patient n.p.o. after midnight for possible pacemaker placement - We will consult EP - Will hold on beta-kamaljit at this time - Resume home dose of Effient - Will resume home medications - Optimize blood pressure - Follow-up with the BMP, CBC, lactic acid - DVT prophylaxis Plan discussed with the patient Addendum by DANIEL ROMO MD on September 30, 2022 19:41:23 EST I have personally seen, examined, and evaluated the patient on the encounter date. I have reviewed the fellow s documentation and agree with the fellow s findings and plan as documented, unless otherwise stated. Patient with symptomatic CHB of 4 seconds. Future Appointments Appointment Date:10/14/2022 01:45:00 PM Scheduled Provider: Location:[facility] Appointment Type:CV OV Incision Check Appointment Date:10/14/2022 02:00:00 PM Scheduled Provider: Location:[facility] Appointment Type:CV OV Appointment Date:11/05/2022 01:00:00 PM Scheduled Provider: Location:[facility] Appointment Type:CV Procedure - Echo (Adult) Appointment Date:11/10/2022 02:30:00 PM Scheduled Provider: Location:[facility] Appointment Type:CV OV Structural Heart Appointment Date:12/29/2022 10:45:00 AM Scheduled Provider: Location:[facility] Appointment Type:CV Office Procedure PPM Appointment Date:12/29/2022 11:15:00 AM Scheduled Provider: Location:[facility] Appointment Type:CV OV Appointment Date:03/31/2023 10:00:00 AM Scheduled Provider: Location:[facility] Appointment Type:CV Remote Procedure HM Future Scheduled Tests Laboratory* Basic Metabolic Panel 03/30/22 * Basic Metabolic Panel 09/21/22 * Basic Metabolic Panel 09/09/22 * Complete Blood Count 03/30/22 * Complete Blood Count 09/21/22 * Lipid Profile 10/29/21 * Prothrombin Time - Panel 03/30/22 Radiology* CT Angiography TAVR Planning 08/02/22 [facility] 01-26-2023 Cardiology Consult note Date of Service 09/30/2022 Reason for Consultation Bradycardia Referring Physician Dr Arellano History of Present Illness 87-year-old man with CAD s/p multiple stents, severe s/p TAVR 09/21/2021, hypertension, who presents to hospital with 2 days of palpitations, irregular heart beat felt, lightheadedness and dizziness. No syncope, no injuries, no falls. Review of Systems Apart from mentioned in HPI, pertinent review of systems is otherwise negative. Physical Exam Vitals and Measurements T: 36.7 C (Oral) TMIN: 36.7 C (Oral) TMAX: 37.3 C (Oral) HR: 76(Monitored) RR: 16 BP: 112/58 SpO2: 96% HT: 167.6 cm WT: 83.5 kg BMI: 29.73 Weight Dosing Weight: 83.5 kg (09/29/22) General Appearance: Comfortable, not in acute distress Cardiac: S1, S2, JOSE R, slow regular rhythm, normal rate, no lower extremity edema, no crackles, no JVP distention, warm extremities. Lungs: No wheezes, normal chest expansion. Abdomen: No tenderness, no distention, normal bowel sounds. Musculoskeletal: No signs of acute synovitis. Neurological: Alert and oriented x3, no focal neurological deficits grossly. Psychiatric: Appropriate, normal mood. Lab Results 09/30 02:53 WBC: 11.5 H Hgb: 14.9 Hct: 44.6 Platelet: 171 Neutrophil %: 58.2 Glucose Level: 152 H Sodium Level: 136 Potassium Level: 4.2 BUN: 19.0 Creatinine Lvl (s): 1.27 Assessment/Plan High degree AV block s/p TAVR 09/21/2022 RBBB, LPFB LVEF 50-55% 09/22/2022 CAD s/p multiple stents Patient with disease conducting system to start with, currently clearly in high degree AV block with multiple nonconducted P waves, however with good junctional escape rate. He remains hemodynamically stable most of the time, however has long pauses as long as 4 seconds with symptoms. 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 Heart attack Multiple trauma Pneumonia Skin cancer Vertigo Procedure/Surgical History PTCA - Percutaneous transluminal coronary angioplasty: 08/18/22 PRECIOUS procedure: 06/30/22 Cardiac catheterization: 04/07/22 PTCA - Percutaneous transluminal coronary angioplasty: 2015 Cardiac catheterization: 01/02/16 PTCA - Percutaneous transluminal coronary angioplasty: 2013 PTCA - Percutaneous transluminal coronary angioplasty: 2003 Colonoscopy Endoscopy Medications Inpatient Effient, 10 mg= 1 tab(s), Oral, Daily enalapril, 5 mg= 1 tab(s), Oral, qHS heparin 5000 units/mL injection, 5000 unit(s)= 1 mL, Subcutaneous, q8h magnesium sulfate for IV bolus, 2 gram(s)= 50 mL, IV Piggyback, AsDirected, PRN magnesium sulfate for IV bolus, 4 gram(s)= 100 mL, IV Piggyback, AsDirected, PRN magnesium sulfate for IV bolus Tylenol, 650 mg= 2 tab(s), Oral, q4h, PRN Vitamin D3 125 mcg (5000 intl units) oral capsule, 125 mcg= 1 cap(s), Oral, qDay Home carvedilol 3.125 mg oral tablet, 3.125 mg= 1 tab(s), Oral, qHS Centrum Silver oral tablet, 1 tab(s), Oral, qDay Effient 10 mg oral tablet, 10 mg= 1 tab(s), Oral, Daily, 3 refills enalapril 5 mg oral tablet, 5 mg= 1 tab(s), Oral, qHS Tylenol 325 mg oral capsule, 650 mg= 2 cap(s), Oral, q4h, PRN Vitamin B12 1000 mcg oral tablet, 1000 mcg= 1 tab(s), Oral, qDay Vitamin C 500 mg oral tablet, 500 mg= 1 tab(s), Oral, qDay Vitamin D3 5000 intl units oral capsule, 5000 unit(s)= 1 cap(s), Oral, qDay Allergies aspirin (Difficulty breathing at rest) Plavix (difficulty breathing) contrast media (iodine-based) (hives/ shortness of breath) niacin (flushing/itching) pravastatin (muscle aches) sulfa drug (rash) Social History Smoking Status - 02/05/2016 Never smoker Alcohol - No Risk, 09/08/2022 Use: Past., 11/21/2019 Home/Environment Domestic Concerns: None. Living situation: Home/Independent. Current Home Treatments None. Professional Skilled Services or Special Community Resources None. Marital Status: ., 09/08/2022 Nutrition/Health Type of diet: Regular. Appetite Fair. Eating Difficulties Swallowing., 04/07/2022 Substance Abuse - Denies Substance Abuse, 09/08/2022 Use: Never., 09/23/2020 Tobacco - High Risk, 09/08/2022 Nicotine Use: chew tobacco 1-2x a week. Type: Oral (Snuff, Chew). Smokeless Tobacco Use: quit a couple of weeks ago., 09/21/2022 Family History Abdominal aortic aneurysm: Father. Aortic valve disorder: Sister. Cancer: Sister and Brother. Cardiac pacemaker: Sister. Heart attack: Father and Brother. Liver failure: Father. Malignant neoplasm: Sister. Multiple myeloma: Brother. Immunizations SARS-CoV-2 (COVID-19) mRNA-1273 vaccine: 0.5 unknown unit (10/30/20) SARS-CoV-2 (COVID-19) mRNA-1090 vaccine: 0.5 unknown unit (10/02/20) Digitally Signed by SYED LILLY MD on 09/30/2022 11:36 AM [id number] Note ORIGINAL EXAMINATION: ONE XRAY VIEW OF THE CHEST 09/30/2022 5:23 am COMPARISON: CTA TAVR 08/02/2022, chest radiograph 11/23/2019 HISTORY: ORDERING SYSTEM PROVIDED HISTORY: Reason for Exam: Chest Pain FINDINGS: Shallow inspiration and elevation of the right hemidiaphragm. Unchanged cardiac silhouette. TAVR. No vascular congestion or pneumothorax. No significant pleural fluid. IMPRESSION: Hypoventilatory changes. Preliminary Report was Dictated by a Resident Interpreted by: Jovanni Montoya MD Preliminary Report By: Bella Daley Electronically signed By Jovanni Montoya MD Dictated Date: 09/30/2022 5:28:32 AM Prelim Date: 09/30/2022 5:31:18 AM Sign Date: 09/30/2022 5:35:58 AM Ordering Provider: [facility]01-26-2023 Note ORIGINAL EXAMINATION: ONE XRAY VIEW OF THE CHEST 09/30/2022 5:23 am COMPARISON: CTA TAVR 08/02/2022, chest radiograph 11/23/2019 HISTORY: ORDERING SYSTEM PROVIDED HISTORY: Reason for Exam: Chest Pain FINDINGS: Shallow inspiration and elevation of the right hemidiaphragm. Unchanged cardiac silhouette. TAVR. No vascular congestion or pneumothorax. No significant pleural fluid. IMPRESSION: Hypoventilatory changes. Preliminary Report was Dictated by a Resident Interpreted by: Jovanni Montoya MD Preliminary Report By: Bella Daley Electronically signed By Jovanni Montoya MD Dictated Date: 09/30/2022 5:28:32 AM Prelim Date: 09/30/2022 5:31:18 AM Sign Date: 09/30/2022 5:35:58 AM Ordering Provider: [facility]01-26-2023 History and physical note Date of Service 09/30/2022 Chief Complaint Palpitations and skipping beats for last 1 week History of Present Illness 87-year-old with past medical history of severe aortic stenosis s/p TAVR 09/21/2022, coronary artery disease (04/07/2022- LCX 50%, LAD 70%-stented), hypertension, hyperlipidemia, RBBB and 1st degree AVblock presented today due to complaints of palpitations and skipping beats for last 1 week. Patientreported that he has been noting that suddenly his heart starts to race and sometimes it is followed by missed beat. He also felt dizzy and lightheaded on 2-3 occasions. He had a similar episode lastnight when he was moving and suddenly felt his heart was racing followed by thumping sensation and he felt dizzy. Once he sat down he felt better. He feels better while laying in the bed or sitting when these episodes happen but while he is moving he feels worse. He denied any chest pain or shortness of breath. He denied any nausea, vomiting, fever, constipation or diarrhea. He denied any recent travel or sick contacts. Patient underwent TAVR about 10 days ago. Social history-patient lives with the , denied smoking, denies alcohol intake, denied illicit drug use, able to take care of himself 08/18/2022 [facility] Procedures performed: Percutaneous intervention on the 90% stenosis in the mid LAD. Balloon angioplasty. Stent placement. SUMMARY: 1. 1st lesion: Stent placement was performed. A 2.5 mm (D) x 23 mm (L), Xience Skypoint stent was used. The stent was advanced across the lesion and deployed with two inflations and a maximum pressure of 12 flo. 2. LAD: Mid-vessel lesion: The diagnostic study demonstrated a tubular, 20 mm (L), 90% stenosis. The distal vessel supplies a large vascular territory. The lesion is a likely culprit for the patient's anginal symptoms and clinical presentation. The lesion presents an ACC/AHA type B2 "moderate risk" lesion for intervention, with 2 or more adverse characteristics. Stent placement was performed, with balloon angioplasty, resulting in an excellentangiographic appearance (see 1st lesion). Following intervention, there is a residual 0% stenosis with ANDRES grade 3 flow (brisk flow). IMPRESSIONS: 1. Acute coronary syndrome. Reperfusion was successfully achieved. 2. successful ptca/re meghann of midlad with xience stent w/o complication effiient sheath out later today. no complications. ECHO 09/22/2022 Summary: 1. Left ventricle: The cavity size is normal. Wall thickness is mildly increased. Systolic functionis at the lower limits of normal. The estimated ejection fraction is 50-55%. Unable to assess diastolic function. 2. Aortic valve: A transcatheter valve is present. 3. Left atrium: The atrium is dilated. Review of Systems Reviewed and negative except mentioned in the HPI Physical Exam Vitals and Measurements T: 37.3 C (Oral) HR: 80(Monitored) RR: 20 BP: 157/75 SpO2: 94% HT: 167.6 cm WT: 83.5 kg BMI: 29.73 Weight Dosing Weight: 83.5 kg (09/29/22) General Appearance: Comfortable, not in acute distress HEENT:Bilateral normal eye movements, normal oral cavity Neck: No JVD noted Cardiac: S1, S2, murmur appreciated at aortic area, Lungs: No wheezes, normal chest expansion. Abdomen: No tenderness, no distention, normal bowel sounds. Musculoskeletal: No signs of acute synovitis. Neurological: Alert and oriented x3, no focal neurological deficits grossly. Extremities: no lower extremity edema Psychiatric: Appropriate, normal mood. Lab Results No 36 Hour Lab Data EKG EKG done showed second-degree Mobitz type I block with PVCs The EKG from [facility] showed more like a complete heart block Assessment/Plan 87-year-old with past medical history of severe aortic stenosis s/p TAVR 09/21/2022, coronary artery disease (04/07/2022- LCX 50%, LAD 70%-stented), hypertension, hyperlipidemia, RBBB and 1st degree AVblock presented today due to complaints of palpitations and skipping beats for last 1 week. ASSESSMENT # Complete Heart block high degree # Dizziness # Sinus pause on telemetry (Duration 2 seconds to 4 seconds) # History of right bundle branch block and first-degree AV block # History of aortic stenosis s/p TAVR 09/21/2022 # History of coronary artery disease s/p PCI # Hypertension # Dyslipidemia Plan Admit the patient observe overnight - We will keep the patient n.p.o. after midnight for possible pacemaker placement - We will consult EP - Will hold on beta-kamaljit at this time - Resume home dose of Effient - Will resume home medications - Optimize blood pressure - Follow-up with the BMP, CBC, lactic acid - DVT prophylaxis Plan discussed with the patient Problem List/Past Medical History Ongoing Aortic stenosis Arthritis Bruises easily CAD IN [place] ARTERY Cataract Difficult intravenous access Diverticulosis of colon First degree AV block Glasses Hard of hearing Hearing aid HTN (hypertension) Irregular heart beat PVC RBBB S/P TAVR (transcatheter aortic valve replacement) 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 Heart attack Multiple trauma Pneumonia Skin cancer Vertigo Procedure/Surgical History PTCA - Percutaneous transluminal coronary angioplasty: 08/18/22 PRECIOUS procedure: 06/30/22 Cardiac catheterization: 04/07/22 PTCA - Percutaneous transluminal coronary angioplasty: 2015 Cardiac catheterization: 01/02/16 PTCA - Percutaneous transluminal coronary angioplasty: 2013 PTCA - Percutaneous transluminal coronary angioplasty: 2003 Colonoscopy Endoscopy Medications Home Medications (8) Active carvedilol 3.125 mg oral tablet 3.125 mg = 1 tab(s), Oral, qHS Centrum Silver oral tablet 1 tab(s), Oral, qDay Effient 10 mg oral tablet 10 mg = 1 tab(s), Oral, Daily enalapril 5 mg oral tablet 5 mg = 1 tab(s), Oral, qHS Tylenol 325 mg oral capsule 650 mg = 2 cap(s), PRN, Oral, q4h Vitamin B12 1000 mcg oral tablet 1,000 mcg = 1 tab(s), Oral, qDay Vitamin C 500 mg oral tablet 500 mg = 1 tab(s), Oral, qDay Vitamin D3 5000 intl units oral capsule 5,000 unit(s) = 1 cap(s), Oral, qDay Allergies aspirin (Difficulty breathing at rest) Plavix (difficulty breathing) contrast media (iodine-based) (hives/ shortness of breath) niacin (flushing/itching) pravastatin (muscle aches) sulfa drug (rash) Social History Smoking Status - 02/05/2016 Never smoker Alcohol - No Risk, 09/08/2022 Use: Past., 11/21/2019 Home/Environment Domestic Concerns: None. Living situation: Home/Independent. Current Home Treatments None. Professional Skilled Services or Special Community Resources None. Marital Status: ., 09/08/2022 Nutrition/Health Type of diet: Regular. Appetite Fair. Eating Difficulties Swallowing., 04/07/2022 Substance Abuse - Denies Substance Abuse, 09/08/2022 Use: Never., 09/23/2020 Tobacco - High Risk, 09/08/2022 Nicotine Use: chew tobacco 1-2x a week. Type: Oral (Snuff, Chew). Smokeless Tobacco Use: quit a couple of weeks ago., 09/21/2022 Family History Abdominal aortic aneurysm: Father. Aortic valve disorder: Sister. Cancer: Sister and Brother. Cardiac pacemaker: Sister. Heart attack: Father and Brother. Liver failure: Father. Malignant neoplasm: Sister. Multiple myeloma: Brother. Immunizations SARS-CoV-2 (COVID-19) mRNA-1273 vaccine: 0.5 unknown unit (10/30/20) SARS-CoV-2 (COVID-19) mRNA-1273 vaccine: 0.5 unknown unit (10/02/20) Code Status No qualifying data available. Digitally Signed by AUTUMN ARELLANO MD on 09/30/2022 09:14 AM [id number] Discharge instructions Patient Education 08/19/2022 08:08:26 3- Heart Cath/PCI groin (06/2018)(CUSTOM) HEART CATHETERIZATION/PCI (groin) Discharge Instructions DIET INSTRUCTIONS Drink plenty of fluids for the next 48 hours to help your kidneys flush the heart cath dye out of your system ACTIVITIES May go up and down stairs CAREFULLY Do not drive car FOR 24 HOURS No heavy lifting GREATER THAN 10 POUNDS or pushing or straining FOR 2 DAYS Someone must stay with you at home after the procedure until the morning. BATHING/SHOWERING May tub bathe in 1 week May shower tomorrow WOUND CARE You will go home with a dressing over cath site on groin. Remove today 08/19 at 4:00PM and then leave open to air. Some degree of bruising and tenderness is normal around the heart cath site. It will take a while for any bruising to completely resolve. Keep your site clean and dry. You need to report the following to your metal mold dresser: Any draining or oozing from the site Any swelling at the site Any increased pain or tenderness at the site Any numbness in your leg where the procedure was done Any signs of infection IMPORTANT! CALL 911 FOR ANY BLEEDING OR SWELLING AT THE PROCEDURE SITE If there is any large amount of bleeding, you or someone else need to apply direct pressure to the site (just like the nurse did in the heart lab after your procedure). It is very important that you hold constant pressure. Do not release the pressure to check if the bleeding has stopped. You then need to be transported to the nearest emergency room. WATCH FOR SIGNS OF INFECTION (Usually appears 36-48 hours after surgery) A temperature above 100.5 Redness or swelling Increased pain Foul odor or drainage If you have any questions, please call your doctor at the number listed on your follow up instructions. Follow all instructions given to you by your physician Document Released: 08/22/2006 Document Revised: 08/08/2013 Document Reviewed: 08/23/2014 ExitCare Patient Information 2015 [employer]. This information is not intended to replace advicegiven to you by your health care provider. Make sure you discuss any questions you have with your health care provider. Follow Up Care 08/16/2022 08:53:06 With:Cardiac Rehab- [facility] Address: [facility] [address] [address]- When: Unknown Comments:The Cardiac Rehab department will call you to schedule you for phase 2. We left you a brochure withinformation about cardiac rehab. If you have any questions please call [phone]. With:Renuka GARCIA Address: [address] [place] [address]- [facility] (1) When: Unknown With:LAUREN MOFFETT MD Address: [address] [place] [address] [address] [place] [address]- [phone] When:09/29/2022 09:45:00 [facility] 12-15-2022 Summary of episode note Discharge Instructions Thank you for allowing [facility] to assist you with your healthcare needs. The following is importantdischarge information regarding your hospital visit. 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 Outpatient Consult 08/24/2022 03:00 PM REGINA RUVALCABA MD [facility] Cardiothoracic Surgery CV OV 09/29/2022 09:45 AM [facility] Follow Up Appointments Follow Up with LAUREN MOFFETT MD When 09/29/2022 09:45 AM EST Where: [address] [facility] [place] [address]- [phone] Follow Up with Cardiac Rehab- [facility] When Why: The Cardiac Rehab department will call you to schedule you for phase 2. We left you a brochurewith information about cardiac rehab. If you have any questions please call [phone]. Where: [facility] [employer] [address] [place] [address]- Follow Up with Renuka GARCIA When In 0 days Where: [address] [place] [address]- Business (1) The Following Activity and Diet Have Been Ordered for You Discharge Activity - Ordered -- Lifting Restricted less than 10 pounds, 08/19/22 8:49:00 EST Discharge Diet - Ordered -- Type of Diet: Regular, 08/19/22 8:49:00 EST Allergies aspirin (Difficulty breathing at rest) Plavix (difficulty breathing) contrast media (iodine-based) (hives/ shortness of breath) niacin (flushing/itching) pravastatin (muscle aches) sulfa drug (rash) Medications Please ask your primary doctor or pharmacist before taking any other medication not listed, including over the counter drugs, herbal medications, vitamins and or supplements as they may interact withyour home medications. What How Much When Instructions Last Dose Unchanged acetaminophen (Tylenol 325 mg oral capsule) 2 cap by mouth Every 4 hours as needed for for pain None given Unchanged ascorbic acid (Vitamin C 500 mg oral tablet) 1 tab(s) by mouth Once a day None given Unchanged carvedilol (carvedilol 3.125 mg oral tablet) 1 tab(s) by mouth Two (2) times a day Today 08/19/22 at 08:44AM Unchanged cholecalciferol (Vitamin D3 5000 intl units oral capsule) 1 cap by mouth Once a day None given Unchanged diphenhydrAMINE (Benadryl 25 mg oral capsule) 2 cap by mouth Once as needed for for allergy symptoms None given Unchanged enalapril (enalapril 5 mg oral tablet) 0.5 tab(s) by mouth Daily at bedtime Yesterday 08/18/22 at 8:15PM Unchanged multivitamin (Vitamin B Complex oral tablet) 1 tab(s) by mouth Every day None given Unchanged multivitamin with minerals (Centrum Silver Men's oral tablet) 1 tab(s) by mouth Once a day None given Unchanged prasugrel (Effient 10 mg oral tablet) 1 tab(s) by mouth Every day Today 08/19/22 at 08:44AM Unchanged predniSONE (predniSONE 50 mg oral tablet) by mouth Once None given Please take this list to your next doctor s visit. Bring all medications you take, including over the counter medications, herbals and other supplements with you to your doctor s visit. Patients and families are reminded to discard old lists and to update any records with all medication providers or retail pharmacies. Education Materials HEART CATHETERIZATION/PCI (groin) Discharge Instructions DIET INSTRUCTIONS Drink plenty of fluids for the next 48 hours to help your kidneys flush the heart cath dye out of your system ACTIVITIES May go up and down stairs CAREFULLY Do not drive car FOR 24 HOURS No heavy lifting GREATER THAN 10 POUNDS or pushing or straining FOR 2 DAYS Someone must stay with you at home after the procedure until the morning. BATHING/SHOWERING May tub bathe in 1 week May shower tomorrow WOUND CARE You will go home with a dressing over cath site on groin. Remove today 08/19 at 4:00PM and then leave open to air. Some degree of bruising and tenderness is normal around the heart cath site. It will take a while for any bruising to completely resolve. Keep your site clean and dry. You need to report the following to your metal mold dresser: Any draining or oozing from the site Any swelling at the site Any increased pain or tenderness at the site Any numbness in your leg where the procedure was done Any signs of infection IMPORTANT! CALL 911 FOR ANY BLEEDING OR SWELLING AT THE PROCEDURE SITE If there is any large amount of bleeding, you or someone else need to apply direct pressure to the site (just like the nurse did in the heart lab after your procedure). It is very important that you hold constant pressure. Do not release the pressure to check if the bleeding has stopped. You then need to be transported to the nearest emergency room. WATCH FOR SIGNS OF INFECTION (Usually appears 36-48 hours after surgery) A temperature above 100.5 Redness or swelling Increased pain Foul odor or drainage If you have any questions, please call your doctor at the number listed on your follow up instructions. Follow all instructions given to you by your physician Document Released: 08/22/2006 Document Revised: 08/08/2013 Document Reviewed: 08/23/2014 ExitCare Patient Information 2015 [employer]. This information is not intended to replace advicegiven to you by your health care provider. Make sure you discuss any questions you have with your health care provider. Additional Information VACCINATE! IT SAVES LIVES! Members of the community who have not yet received the COVID-19 vaccine and would like to receive it can visit one of [facility] [facility] vaccine clinics. There are many vaccine clinic locations within the [facility]. For locations and available times, please visit [email or web address] It is important to note that some COVID mobile vaccine clinics are held outdoors and may be canceled in rainy or stormy conditions. To learn more about pediatric vaccinations (ages 5-11), we invite you to visit the [facility] webpage. [email or web address]/pages/[email or web address]-Nkyfa-Wwuvzfezzah-Okwdnuktek-Qujsr-Qqk stions.htmlTo learn more about the COVID-19 vaccine, we invite you to visit the [facility] website for a list of frequently asked questions. [email or web address] _[email or web address].pdf [facility] Patient Portal Access Instructions: Stay connected with your healthcare team and access your personal medical information anytime with the [facility] Patient Portal.If you would like a full copy of your medical records, please contact the [facility] Medical Records Department, Tuesday through Tuesday between 8a.m. and 4:30p.m. Please follow the directions below to access the portal: 1.Access the email account you provided upon registration to the [facility].2.Look for an invitation email from [facility].3.Open the email and access the invitation link: Accept Invitation to [facility]4.Fill in the required marquez to create your account. Sign into [email or web address] with your username and password that you created in the above steps to stay up to date. You can then view a summary of results, a summary of your visits, and the ability to download your summaries to your computer or send the information securely to a physician. Remember that your healthcare information is confidential, so carefully consider who you will allow to register on the [facility] Patient Portal for access to your information. You can also access the [facility] Patient Portal on the Spir[employer] matthew. Simply click on "Health Records" under "VBOXDasMedio" and then click on the Future[employer]et logo. HOW TO SAFELY DISPOSE OF PRESCRIPTION MEDICATIONS Please use one of the following methods to safely dispose of your unused medications. 1.Use a drug disposal kit: the drug disposal pouch allows you to safely discard your old and unuseddrugs. Ask your nurse to give you one when you are discharged.2.Visit a local take-back location: Many local pharmacies and police departments have programs that collect old and unwanted prescriptiondrugs. Call your local pharmacy or go to http://Spotlime.Zhongjia MRO/0G9Nz8l to find one close to you.3.Make use of household items: Use cat litter or old coffee grounds to dispose medications if other options arenot available. Mix your drugs with these household products, seal them in an airtight container andthrow it into the garbage. Call [facility]: [phone] to be sure your drugs can be disposed of in this way. Some medicines may require a different approach.4.Never flush your medications down the toilet. IF YOU HAVE BEEN PRESCRIBED AN OPIOID FOR PAIN If you have been prescribed an opioid (such as hydrocodone, oxycodone or morphine), it is critical to understand the possible side effects and risks of opioid pain medications. Even when taken as directed, opioids can have several side effects including: Tolerance, meaning you might need to take more of a medication for the same pain relief. Nausea, vomiting and/or constipation. Sleepiness, dizziness, dry mouth, confusion, depression or itching. Physical dependence, meaning you have withdrawal symptoms when a medication is stopped, can develop within a few days. KNOW YOUR RESPONSIBILITIES It is important to know exactly how much and how often to take the opioid pain medications you are prescribed. Never take opioids in higher amounts or more often than prescribed. Do not combine opioids with alcohol or other drugs that cause drowsiness, such as benzodiazepines, also known as benzos, including diazepam and alprazolam, muscle relaxants or sleep aids. Never sell or share prescription opioids. This is illegal. Store opioids in a secure place and out of reach of others (including children, family, friends and visitors). The last page of this document has been signed and retained as a CHART COPY. Signatures Patient Education Materials 3- Heart Cath/PCI groin (06/2018)(CUSTOM) Medication Leaflets My discharge plan and instructions have been reviewed and explained to me and I,ZELALEM DEVENDRA understand my current condition and have read and understand these discharge instructions. I have received a written copy of the plan/instructions. If I have questions, I am aware that I should contact my doctor. Patient/Operations Technician Signature: Date/Time: Relationship to Patient: Witness Name/Signature: [id number] History and physical note DATE OF ADMISSION: 08/18/2022 CHIEF COMPLAINT: Chest pain, abnormal stress test. HISTORY OF PRESENT ILLNESS: The patient is an 87-year-old white gentleman who was initially evaluated in the office secondary to progressive exertional shortness of breath. Secondary to that, underwent an outpatient cardiac catheterization and was found to have a high-grade in-stent restenosis in the mid portion of the anterior descending artery, but also was found to have severe aortic stenosis.Secondary to that, the patient was sent for TAVR evaluation and evaluated by Dr. Nash. At that point in time, it was felt best to go ahead and proceed with coronary intervention of the mid LAD priorto proceeding with the TAVR procedure. No orthopnea, PND. Does have some lightheadedness and near sy ncope. No increasing leg edema. PAST MEDICAL HISTORY: Significant for coronary atherosclerotic heart disease, previous stents in left anterior descending artery, hypertension and hyperlipidemia. Negative for rheumatic fever, scarlet fever, tuberculosis, liver disease, kidney disease, bleeding dyscrasias. MEDICATIONS: Include Effient 10 mg daily, enalapril ____ mg at bedtime, carvedilol 3.125 mg twice aday. ALLERGIES: HAS A SEVERE ALLERGY TO ASPIRIN AND PLAVIX. FAMILY HISTORY: Noncontributory for coronary atherosclerotic heart disease. SOCIAL HISTORY: The patient is . Denies tobacco or alcohol use. REVIEW OF SYSTEMS: A 10-point review of systems discussed in detail with the patient, all negative other than noted above. PHYSICAL EXAMINATION: VITAL SIGNS: Blood pressure 140/80, heart rate 82 and regular, respirations are 16. HEENT: Head is normocephalic, atraumatic. Eyes: PERRLA, nonicteric, not injected. NECK: Supple. Normal range of motion. Normal contours. No bruits. CARDIAC: Quiet precordium. PMI nondisplaced. Regular rhythm. Normal S1, soft and no S2. A 3/6 crescendo-decrescendo systolic murmur heard best at the aortic area with radiation to carotids bilaterally down the left sternal border. No gallops appreciated. LUNGS: Clear without wheeze or rhonchi. ABDOMEN: Positive bowel sounds, soft, nontender throughout. No abdominal mass appreciated. PERIPHERAL VASCULAR SYSTEM: Shows no cyanosis, clubbing, or edema. Pulse palpable throughout. NEUROLOGIC: Intact. No focal deficits. Alert and oriented x3. SKIN: Warm, dry, normal turgor. IMPRESSION: 1. Unstable angina with high-grade stenosis, left anterior descending artery. 2. Severe aortic stenosis. 3. Hyperlipidemia. 4. Hypertension. PLAN: Proceed with coronary intervention of left anterior descending artery prior to TAVR procedure. Risks, benefits and options explained in great detail. The patient understands all the risks, benefits and wants to proceed. DANIEL MATA MD JP/TANGELA JOB#: [id number] DICTATION ID#: [id number] Digitally Signed by DANIEL MATA MD on 08/19/2022 09:50 AM [id number] Discharge instructions Patient Education 08/02/2022 13:26:05 [facility] Discharge Instructions Template (06/2018) [facility] DISCHARGE INSTRUCTIONS PLEASE FOLLOW THE INSTRUCTIONS BELOW MARKED WITH AN X: __X_ Regular Diet ___ Drink extra fluids. ___ Special Diet Instructions: ___ ACTIVITY: _X__ May resume regular activity as tolerated. ___ Restrict activity as follows: ___ ___ Walk Only ___ ___ Do not go up and down stairs. ___ Do not ride in car until ___ ___ Do not drive car. ___ Do not have sexual intercourse. ___ No heavy lifting, pushing or straining. ___ Other: ___ BATHING/SHOWERING: ___ Sponge bathe until office visit. ___ Sitting in tub of warm water may relieve discomfort. _x__ May tub bathe _x__ May shower ___ On day after surgery sit in tub of warm water to soak off dressing. DRESSING: _X__ monitor IV site for signs of infection, call primary doctor if questioning infectionat site. WATCH FOR SIGNS OF INFECTION: (Usually appears 36-48 hours after surgery) Increased temperature (101 degrees Fahrenheit or higher) Redness or swelling Increased pain Foul odor or drainage. If you have any questions, please call your doctor at the number listed on your follow up instructions. Follow all instructions given to you by your physician. Please complete and return the survey you will be receiving in the mail to help us better serve our patients. Form: [id number]) R: 12/12 Follow Up Care 07/13/2022 08:27:23 With:HORTENSIA NASH MD Address: [address] [place] [address] [address] [facility] [place] [address]- [phone] When: Unknown Comments:Follow-up as scheduled [facility] 11-28-2022 Summary of episode note Discharge Instructions Thank you for allowing [facility] to assist you with your healthcare needs. The following is importantdischarge information regarding your hospital visit. Your Care Team Renuka GARCIA MD What to do next Scheduled Follow-Up Appointments Appointment Type When Where Contact InformationCV OV 09/29/2022 09:45 AM EST [facility] Follow Up Appointments Follow Up with HORTENSIA NASH MD When Why: Follow-up as scheduled Where: [address] [place] [address] [phone] Allergies aspirin (Difficulty breathing at rest) Plavix (difficulty breathing) contrast media (iodine-based) (hives/ shortness of breath) niacin (flushing/itching) pravastatin (muscle aches) sulfa drug (rash) Medications Please ask your primary doctor or pharmacist before taking any other medication not listed, including over the counter drugs, herbal medications, vitamins and or supplements as they may interact withyour home medications. What How Much When Instructions Last Dose Unchanged acetaminophen (Tylenol 325 mg oral capsule) 2 cap by mouth Every 4 hours as needed for for pain Unchanged ascorbic acid (Vitamin C 500 mg oral tablet) 1 tab(s) by mouth Once a day Unchanged carvedilol (carvedilol 3.125 mg oral tablet) 1 tab(s) by mouth Two (2) times a day Unchanged cholecalciferol (Vitamin D3 5000 intl units oral capsule) 1 cap by mouth Once a day Unchanged diphenhydrAMINE (Benadryl 25 mg oral capsule) 2 cap by mouth Once as needed for for allergy symptoms Unchanged enalapril (enalapril 5 mg oral tablet) 0.5 tab(s) by mouth Daily at bedtime Unchanged multivitamin (Vitamin B Complex oral tablet) 1 tab(s) by mouth Every day Unchanged multivitamin with minerals (Centrum Silver Men's oral tablet) 1 tab(s) by mouth Once a day Unchanged prasugrel (Effient 10 mg oral tablet) 1 tab(s) by mouth Every day Unchanged predniSONE (predniSONE 50 mg oral tablet) by mouth Once Please take this list to your next doctor s visit. Bring all medications you take, including over the counter medications, herbals and other supplements with you to your doctor s visit. Patients and families are reminded to discard old lists and to update any records with all medication providers or retail pharmacies. Education Materials [facility] DISCHARGE INSTRUCTIONS PLEASE FOLLOW THE INSTRUCTIONS BELOW MARKED WITH AN X: __X_ Regular Diet ___ Drink extra fluids. ___ Special Diet Instructions: ___ ACTIVITY: _X__ May resume regular activity as tolerated. ___ Restrict activity as follows: ___ ___ Walk Only ___ ___ Do not go up and down stairs. ___ Do not ride in car until ___ ___ Do not drive car. ___ Do not have sexual intercourse. ___ No heavy lifting, pushing or straining. ___ Other: ___ BATHING/SHOWERING: ___ Sponge bathe until office visit. ___ Sitting in tub of warm water may relieve discomfort. _x__ May tub bathe _x__ May shower ___ On day after surgery sit in tub of warm water to soak off dressing. DRESSING: _X__ monitor IV site for signs of infection, call primary doctor if questioning infectionat site. WATCH FOR SIGNS OF INFECTION: (Usually appears 36-48 hours after surgery) Increased temperature (101 degrees Fahrenheit or higher) Redness or swelling Increased pain Foul odor or drainage. If you have any questions, please call your doctor at the number listed on your follow up instructions. Follow all instructions given to you by your physician. Please complete and return the survey you will be receiving in the mail to help us better serve our patients. Form: [id number] ([id number]) R: 12/12 Additional Information VACCINATE! IT SAVES LIVES! Members of the community who have not yet received the COVID-19 vaccine and would like to receive it can visit one of [facility] vaccine clinics. There are many vaccine clinic locations within the [facility]. For locations and available times, please visit [email or web address] It is important to note that some COVID mobile vaccine clinics are held outdoors and may be canceled in rainy or stormy conditions. To learn more about pediatric vaccinations (ages 5-11), we invite you to visit the [facility] webpage. [email or web address]/[email or web address]-[email or web address]-Mda [email or web address].htmlTo learn more about the COVID-19 vaccine, we invite you to visit the [facility] website for a list of frequently asked questions. [email or web address]/[email or web address] _Asked-Questions.pdf [facility] Patient Portal Access Instructions: Stay connected with your healthcare team and access your personal medical information anytime with the [facility] Patient Portal.If you would like a full copy of your medical records, please contact the [facility] Medical Records Department, Tuesday through Tuesday between 8a.m. and 4:30p.m. Please follow the directions below to access the portal: 1.Access the email account you provided upon registration to the [facility].2.Look for an invitation email from [facility].3.Open the email and access the invitation link: Accept Invitation to [facility]4.Fill in the required marquez to create your account. Sign into [email or web address] with your username and password that you created in the above steps to stay up to date. You can then view a summary of results, a summary of your visits, and the ability to download your summaries to your computer or send the information securely to a physician. Remember that your healthcare information is confidential, so carefully consider who you will allow to register on the [facility] Patient Portal for access to your information. You can also access the [facility] Patient Portal on the Spiracur matthew. Simply click on "Health Records" under "HealthData" and then click on the [facility] logo. HOW TO SAFELY DISPOSE OF PRESCRIPTION MEDICATIONS Please use one of the following methods to safely dispose of your unused medications. 1.Use a drug disposal kit: the drug disposal pouch allows you to safely discard your old and unuseddrugs. Ask your nurse to give you one when you are discharged.2.Visit a local take-back location: Many local pharmacies and police departments have programs that collect old and unwanted prescriptiondrugs. Call your local pharmacy or go to http://bit.ly/2E2Hq3a to find one close to you.3.Make use of household items: Use cat litter or old coffee grounds to dispose medications if other options arenot available. Mix your drugs with these household products, seal them in an airtight container andthrow it into the garbage. Call [facility]: [phone] to be sure your drugs can be disposed of in this way. Some medicines may require a different approach.4.Never flush your medications down the toilet. IF YOU HAVE BEEN PRESCRIBED AN OPIOID FOR PAIN If you have been prescribed an opioid (such as hydrocodone, oxycodone or morphine), it is critical to understand the possible side effects and risks of opioid pain medications. Even when taken as directed, opioids can have several side effects including: Tolerance, meaning you might need to take more of a medication for the same pain relief. Nausea, vomiting and/or constipation. Sleepiness, dizziness, dry mouth, confusion, depression or itching. Physical dependence, meaning you have withdrawal symptoms when a medication is stopped, can develop within a few days. KNOW YOUR RESPONSIBILITIES It is important to know exactly how much and how often to take the opioid pain medications you are prescribed. Never take opioids in higher amounts or more often than prescribed. Do not combine opioids with alcohol or other drugs that cause drowsiness, such as benzodiazepines, also known as benzos, including diazepam and alprazolam, muscle relaxants or sleep aids. Never sell or share prescription opioids. This is illegal. Store opioids in a secure place and out of reach of others (including children, family, friends and visitors). The last page of this document has been signed and retained as a CHART COPY. Signatures Patient Education Materials 1-SDS Discharge Instructions Template (06/2018) Medication Leaflets My discharge plan and instructions have been reviewed and explained to me and IZELALEM JOHN M understand my current condition and have read and understand these discharge instructions. I have received a written copy of the plan/instructions. If I have questions, I am aware that I should contact my doctor. 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 Angiography demonstrated moderate to severe aortic valve stenosis, mid LAD lesion 70%, mid circumflex 50% lesion, 40% distal ramus disease. LV gram d emonstrated LVEF 40-45%. No clear culprit identified for symptoms above. We will check complete thyroid studies while here and have close follow-up as an outpatient. Allergies aspirin (Difficulty breathing at rest) Plavix (difficulty breathing) contrast media (iodine-based) (hives/ shortness of breath) niacin (flushing/itching) pravastatin (muscle aches) sulfa drug (rash) Procedures left and right heart catheterization Consults No qualifying data available. Physical Exam Vitals and Measurements T: 36.6 C (Oral) HR: 70 RR: 18 BP: 146/68(Left Arm) SpO2: 100% HT: 167.6 cm WT: 84.2 kg BMI: 29.98 BMI: 29.98 Weight Dosing Weight: 84.2 kg (04/07/22) Constitutional: no distress, appears stated age ENT: No thyroid masses Respiratory: Clear to auscultation, no adventitious sounds Cardiovascular: RRR, S1 and S2, systolic murmur 2/6 in RUSB, JVP 8-10 cm H2O, no pedal edema GI: Soft, nondistended, bowel sounds present Musculoskeletal: no deformity Skin: Warm to touch, dry Neurological: Alert and oriented Code Status No qualifying data available. Admission Date 04/07/22 Discharge Date 04/07/22 Medications Unchanged acetaminophen (Tylenol 325 mg oral capsule)2 cap by mouth every 4 hours as needed for pain. ascorbic acid (Vitamin C 500 mg oral tablet)1 tab(s) by mouth once a day. carvedilol (carvedilol 3.125 mg oral tablet)1 tab(s) by mouth two (2) times a day. cholecalciferol (Vitamin D3 5000 intl units oral capsule)1 cap by mouth once a day. enalapril (enalapril 5 mg oral tablet)0.5 tab(s) by mouth daily at bedtime. multivitamin (Vitamin B Complex oral tablet)1 tab(s) by mouth every day. multivitamin with minerals (Centrum Silver Men's oral tablet)1 tab(s) by mouth once a day. prasugrel (Effient 10 mg oral tablet)1 tab(s) by mouth every day. Refills: 3. Follow Up Follow Up with DANIEL MATA MD When 05/17/2022 11:00 AM EDT Where: [address] [facility] [place] [address]- Follow Up Appointments No qualifying data available. Follow Up Labs/Studies Discharge Labs No Follow-up Labs Discharge Studies No Follow-up Studies Discharge Diet Discharge Diet - Ordered -- Type of Diet: Cardiac, 04/07/22 10:29:00 EDT Discharge Activity Discharge Activity - Ordered -- Lifting Restricted less than 10 pounds, for 1 week, 04/07/22 10:29:00 EDT Condition on Discharge stable Discharge Disposition home Digitally Signed by BRIGID KAISER MD on 04/07/2022 10:52 AM [id number] Discharge instructions Patient Education 04/07/2022 11:51:20 3- Heart Cath/PCI groin (06/2018) (CUSTOM) HEART CATHETERIZATION (groin) Discharge Instructions DIET INSTRUCTIONS Drink plenty of fluids for the next 48 hours to help your kidneys flush the heart cath dye out of your system ACTIVITIES May go up and down stairs CAREFULLY Do not drive car FOR 5 days No heavy lifting GREATER THAN 10 POUNDS or pushing or straining FOR 5 DAYS Someone must stay with you at home after the procedure until the morning. BATHING/SHOWERING May tub bathe in 1 week May shower tomorrow WOUND CARE You will go home with gauze over your heart cath site. Keep the dressing on for the next 24 hours and then apply bandaid for the next 3 to 4 days. Change bandaid daily and if it gts wet or dirty, then leave open to air. Some degree of bruising and tenderness is normal around the heart cath site. It will take a while for any bruising to completely resolve. Keep your site clean and dry. You need to report the following to your metal mold dresser: Any draining or oozing from the site Any swelling at the site Any increased pain or tenderness at the site Any numbness in your leg where the procedure was done Any signs of infection IMPORTANT! CALL 911 FOR ANY BLEEDING OR SWELLING AT THE PROCEDURE SITE If there is any large amount of bleeding, you or someone else need to apply direct pressure to the site (just like the nurse did in the heart lab after your procedure). It is very important that you hold constant pressure. Do not release the pressure to check if the bleeding has stopped. You then need to be transported to the nearest emergency room. WATCH FOR SIGNS OF INFECTION (Usually appears 36-48 hours after surgery) A temperature above 100.5 Redness or swelling Increased pain Foul odor or drainage If you have any questions, please call your doctor at the number listed on your follow up instructions. Follow all instructions given to you by your physician Document Released: 08/22/2006 Document Revised: 08/08/2013 Document Reviewed: 08/23/2014 [facility] Patient Information 2015 [employer]. This information is not intended to replace advicegiven to you by your health care provider. Make sure you discuss any questions you have with your health care provider. 04/07/2022 10:50:44 Moderate Conscious Sedation, Adult, Care After Moderate Conscious Sedation, Adult, Care After These instructions provide you with information about caring for yourself after your procedure. Your health care provider may also give you more specific instructions. Your treatment has been plannedaccording to current medical practices, but problems sometimes occur. Call your health care provider if you have any problems or questions after your procedure. What can I expect after the procedure? After your procedure, it is common: To feel sleepy for several hours. To feel clumsy and have poor balance for several hours. To have poor judgment for several hours. To vomit if you eat too soon. Follow these instructions at home: For at least 24 hours after the procedure: Do not: ?Participate in activities where you could fall or become injured. ?Drive. ?Use heavy machinery. ?Drink alcohol. ?Take sleeping pills or medicines that cause drowsiness. ?Make important decisions or sign legal documents. ?Take care of children on your own. Rest. Eating and drinking Follow the diet recommended by your health care provider. If you vomit: ?Drink water, juice, or soup when you can drink without vomiting. ?Make sure you have little or no nausea before eating solid foods. General instructions Have a responsible adult stay with you until you are awake and alert. Take zmtj-huo-iyjomse and prescription medicines only as told by your health care provider. If you smoke, do not smoke without supervision. Keep all follow-up visits as told by your health care provider. This is important. Contact a health care provider if: You keep feeling nauseous or you keep vomiting. You feel light-headed. You develop a rash. You have a fever. Get help right away if: You have trouble breathing. This information is not intended to replace advice given to you by your health care provider. Make sure you discuss any questions you have with your health care provider. Document Released: 06/12/2014 Document Revised: 08/04/2018 Document Reviewed: 12/11/2016 VSS Monitoring Patient Education 2020 [employer]. Follow Up Care 03/30/2022 16:15:12 With:DANIEL MATA MD Address: [address] [facility] [address] [place], [place] [id number]- When:05/17/2022 11:00:00 [facility] 08-03-2022 Summary of episode note Discharge Instructions Thank you for allowing [facility] to assist you with your healthcare needs. The following is importantdischarge information regarding your hospital visit. Your Care Team Renuka GARCIA MD What to do next Scheduled Follow-Up Appointments Appointment Type When Where Contact InformationCV OV 05/17/2022 11:00 AM EDT [facility] Follow Up Appointments Follow Up with DANIEL MATA MD When 05/17/2022 11:00 AM EDT Where: [address] [facility] [address] [place] [address]- The Following Activity and Diet Have Been Ordered for You Discharge Activity - Ordered -- Lifting Restricted less than 10 pounds, for 1 week, 04/07/22 10:29:00 EDT Discharge Driving Restrictions - Ordered -- No driving for 1 week, 04/07/22 10:29:00 EDT Discharge Diet - Ordered -- Type of Diet: Cardiac, 04/07/22 10:29:00 EDT Allergies aspirin (Difficulty breathing at rest) Plavix (difficulty breathing) contrast media (iodine-based) (hives/ shortness of breath) niacin (flushing/itching) pravastatin (muscle aches) sulfa drug (rash) Medications Please ask your primary doctor or pharmacist before taking any other medication not listed, including over the counter drugs, herbal medications, vitamins and or supplements as they may interact withyour home medications. What How Much When Instructions Last Dose Unchanged acetaminophen (Tylenol 325 mg oral capsule) 2 cap by mouth Every 4 hours as needed for for pain Unchanged ascorbic acid (Vitamin C 500 mg oral tablet) 1 tab(s) by mouth Once a day Unchanged carvedilol (carvedilol 3.125 mg oral tablet) 1 tab(s) by mouth Two (2) times a day Unchanged cholecalciferol (Vitamin D3 5000 intl units oral capsule) 1 cap by mouth Once a day Unchanged enalapril (enalapril 5 mg oral tablet) 0.5 tab(s) by mouth Daily at bedtime Unchanged multivitamin (Vitamin B Complex oral tablet) 1 tab(s) by mouth Every day Unchanged multivitamin with minerals (Centrum Silver Men's oral tablet) 1 tab(s) by mouth Once a day Unchanged prasugrel (Effient 10 mg oral tablet) 1 tab(s) by mouth Every day Please take this list to your next doctor s visit. Bring all medications you take, including over the counter medications, herbals and other supplements with you to your doctor s visit. Patients and families are reminded to discard old lists and to update any records with all medication providers or retail pharmacies. Education Materials HEART CATHETERIZATION (groin) Discharge Instructions DIET INSTRUCTIONS Drink plenty of fluids for the next 48 hours to help your kidneys flush the heart cath dye out of your system ACTIVITIES May go up and down stairs CAREFULLY Do not drive car FOR 5 days No heavy lifting GREATER THAN 10 POUNDS or pushing or straining FOR 5 DAYS Someone must stay with you at home after the procedure until the morning. BATHING/SHOWERING May tub bathe in 1 week May shower tomorrow WOUND CARE You will go home with gauze over your heart cath site. Keep the dressing on for the next 24 hours and then apply bandaid for the next 3 to 4 days. Change bandaid daily and if it gts wet or dirty, then leave open to air. Some degree of bruising and tenderness is normal around the heart cath site. It will take a while for any bruising to completely resolve. Keep your site clean and dry. You need to report the following to your metal mold dresser: Any draining or oozing from the site Any swelling at the site Any increased pain or tenderness at the site Any numbness in your leg where the procedure was done Any signs of infection IMPORTANT! CALL 911 FOR ANY BLEEDING OR SWELLING AT THE PROCEDURE SITE If there is any large amount of bleeding, you or someone else need to apply direct pressure to the site (just like the nurse did in the heart lab after your procedure). It is very important that you hold constant pressure. Do not release the pressure to check if the bleeding has stopped. You then need to be transported to the nearest emergency room. WATCH FOR SIGNS OF INFECTION (Usually appears 36-48 hours after surgery) A temperature above 100.5 Redness or swelling Increased pain Foul odor or drainage If you have any questions, please call your doctor at the number listed on your follow up instructions. Follow all instructions given to you by your physician Document Released: 08/22/2006 Document Revised: 08/08/2013 Document Reviewed: 08/23/2014 ExitCare Patient Information 2015 [employer]. This information is not intended to replace advicegiven to you by your health care provider. Make sure you discuss any questions you have with your health care provider. Moderate Conscious Sedation, Adult, Care After These instructions provide you with information about caring for yourself after your procedure. Your health care provider may also give you more specific instructions. Your treatment has been plannedaccording to current medical practices, but problems sometimes occur. Call your health care provider if you have any problems or questions after your procedure. What can I expect after the procedure? After your procedure, it is common: To feel sleepy for several hours. To feel clumsy and have poor balance for several hours. To have poor judgment for several hours. To vomit if you eat too soon. Follow these instructions at home: For at least 24 hours after the procedure: Do not: ? Participate in activities where you could fall or become injured. ? Drive. ? Use heavy machinery. ? Drink alcohol. ? Take sleeping pills or medicines that cause drowsiness. ? Make important decisions or sign legal documents. ? Take care of children on your own. Rest. Eating and drinking Follow the diet recommended by your health care provider. If you vomit: ? Drink water, juice, or soup when you can drink without vomiting. ? Make sure you have little or no nausea before eating solid foods. General instructions Have a responsible adult stay with you until you are awake and alert. Take jeom-rlb-hanpgdi and prescription medicines only as told by your health care provider. If you smoke, do not smoke without supervision. Keep all follow-up visits as told by your health care provider. This is important. Contact a health care provider if: You keep feeling nauseous or you keep vomiting. You feel light-headed. You develop a rash. You have a fever. Get help right away if: You have trouble breathing. This information is not intended to replace advice given to you by your health care provider. Make sure you discuss any questions you have with your health care provider. Document Released: 06/12/2014 Document Revised: 08/04/2018 Document Reviewed: 12/11/2016 VSS Monitoring Patient Education 2020 [employer]. Additional Information VACCINATE! IT SAVES LIVES! Members of the community who have not yet received the COVID-19 vaccine and would like to receive it can visit one of [facility] vaccine clinics. There are many vaccine clinic locations within the [facility]. For locations and available times, please visit [email or web address] It is important to note that some COVID mobile vaccine clinics are held outdoors and may be canceled in rainy or stormy conditions. To learn more about pediatric vaccinations (ages 5-11), we invite you to visit the [facility] webpage. [email or web address] learn more about the COVID-19 vaccine, we invite you to visit the [employer] website for a list of frequently asked questions. [email or web address] [facility] Patient Portal Access Instructions: Stay connected with your healthcare team and access your personal medical information anytime with the [facility] Patient Portal.If you would like a full copy of your medical records, please contact the [facility] Medical Records Department, Tuesday through Tuesday between 8a.m. and 4:30p.m. Please follow the directions below to access the portal: 1.Access the email account you provided upon registration to the [facility].2.Look for an invitation email from [facility].3.Open the email and access the invitation link: Accept Invitation to [facility] [employer]4.Fill in the required marquez to create your account. Sign into [email or web address] with your username and password that you created in the above steps to stay up to date. You can then view a summary of results, a summary of your visits, and the ability to download your summaries to your computer or send the information securely to a physician. Remember that your healthcare information is confidential, so carefully consider who you will allow to register on the [employer] Patient Portal for access to your information. You can also access the [employer] Patient Portal on the [employer] matthew. Simply click on "Health Records" under "HealthData" and then click on the [employer] logo. HOW TO SAFELY DISPOSE OF PRESCRIPTION MEDICATIONS Please use one of the following methods to safely dispose of your unused medications. 1.Use a drug disposal kit: the drug disposal pouch allows you to safely discard your old and unuseddrugs. Ask your nurse to give you one when you are discharged.2.Visit a local take-back location: Many local pharmacies and police departments have programs that collect old and unwanted prescriptiondrugs. Call your local pharmacy or go to http://Spotlime.Zhongjia MRO/8V4Nl4f to find one close to you.3.Make use of household items: Use cat litter or old coffee grounds to dispose medications if other options arenot available. Mix your drugs with these household products, seal them in an airtight container andthrow it into the garbage. Call [facility]: [phone] to be sure your drugs can be disposed of in this way. Some medicines may require a different approach.4.Never flush your medications down the toilet. IF YOU HAVE BEEN PRESCRIBED AN OPIOID FOR PAIN If you have been prescribed an opioid (such as hydrocodone, oxycodone or morphine), it is critical to understand the possible side effects and risks of opioid pain medications. Even when taken as directed, opioids can have several side effects including: Tolerance, meaning you might need to take more of a medication for the same pain relief. Nausea, vomiting and/or constipation. Sleepiness, dizziness, dry mouth, confusion, depression or itching. Physical dependence, meaning you have withdrawal symptoms when a medication is stopped, can develop within a few days. KNOW YOUR RESPONSIBILITIES It is important to know exactly how much and how often to take the opioid pain medications you are prescribed. Never take opioids in higher amounts or more often than prescribed. Do not combine opioids with alcohol or other drugs that cause drowsiness, such as benzodiazepines, also known as benzos, including diazepam and alprazolam, muscle relaxants or sleep aids. Never sell or share prescription opioids. This is illegal. Store opioids in a secure place and out of reach of others (including children, family, friends and visitors). The last page of this document has been signed and retained as a CHART COPY. Signatures Patient Education Materials 3- Heart Cath/PCI groin (06/2018) (CUSTOM) Moderate Conscious Sedation, Adult, Care After Medication Leaflets My discharge plan and instructions have been reviewed and explained to me and I,DANIEL MASTERSON M understand my current condition and have read and understand these discharge instructions. I have received a written copy of the plan/instructions. If I have questions, I am aware that I should contact my doctor. 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 Angiography demonstrated moderate to severe aortic valve stenosis, mid LAD lesion 70%, mid circumflex 50% lesion, 40% distal ramus disease. LV gram d emonstrated LVEF 40-45%. No clear culprit identified for symptoms above. We will check complete thyroid studies while here and have close follow-up as an outpatient. Allergies aspirin (Difficulty breathing at rest) Plavix (difficulty breathing) contrast media (iodine-based) (hives/ shortness of breath) niacin (flushing/itching) pravastatin (muscle aches) sulfa drug (rash) Procedures left and right heart catheterization Consults No qualifying data available. Physical Exam Vitals and Measurements T: 36.6 C (Oral) HR: 70 RR: 18 BP: 146/68(Left Arm) SpO2: 100% HT: 167.6 cm WT: 84.2 kg BMI: 29.98 BMI: 29.98 Weight Dosing Weight: 84.2 kg (04/07/22) Constitutional: no distress, appears stated age ENT: No thyroid masses Respiratory: Clear to auscultation, no adventitious sounds Cardiovascular: RRR, S1 and S2, systolic murmur 2/6 in RUSB, JVP 8-10 cm H2O, no pedal edema GI: Soft, nondistended, bowel sounds present Musculoskeletal: no deformity Skin: Warm to touch, dry Neurological: Alert and oriented Code Status No qualifying data available. Admission Date 04/07/22 Discharge Date 04/07/22 Medications Unchanged acetaminophen (Tylenol 325 mg oral capsule)2 cap by mouth every 4 hours as needed for pain. ascorbic acid (Vitamin C 500 mg oral tablet)1 tab(s) by mouth once a day. carvedilol (carvedilol 3.125 mg oral tablet)1 tab(s) by mouth two (2) times a day. cholecalciferol (Vitamin D3 5000 intl units oral capsule)1 cap by mouth once a day. enalapril (enalapril 5 mg oral tablet)0.5 tab(s) by mouth daily at bedtime. multivitamin (Vitamin B Complex oral tablet)1 tab(s) by mouth every day. multivitamin with minerals (Centrum Silver Men's oral tablet)1 tab(s) by mouth once a day. prasugrel (Effient 10 mg oral tablet)1 tab(s) by mouth every day. Refills: 3. Follow Up Follow Up with DANIEL MATA MD When 05/17/2022 11:00 AM EDT Where: [address] [facility] [place] [address]- Follow Up Appointments No qualifying data available. Follow Up Labs/Studies Discharge Labs No Follow-up Labs Discharge Studies No Follow-up Studies Discharge Diet Discharge Diet - Ordered -- Type of Diet: Cardiac, 04/07/22 10:29:00 EDT Discharge Activity Discharge Activity - Ordered -- Lifting Restricted less than 10 pounds, for 1 week, 04/07/22 10:29:00 EDT Condition on Discharge stable Discharge Disposition home Digitally Signed by BRIGID KAISER MD on 04/07/2022 10:52 AM [facility]ments Appointment Date:09/28/2021 11:45:00 AM Scheduled Provider: Location:[facility] Appointment Type:CV OV [facility] Evaluation + Plan note Future Appointments Appointment Date:03/30/2022 02:30:00 PM Scheduled Provider: Location:[facility] Appointment Type:CV OV Future Scheduled Tests Laboratory* Lipid Profile 10/29/21 [facility] Evaluation + Plan note Future Appointments Appointment Date:05/17/2022 11:00:00 AM Scheduled Provider: Location:[facility] Appointment Type:CV OV Future Scheduled Tests Laboratory* Basic Metabolic Panel 03/30/22 * Complete Blood Count 03/30/22 * Lipid Profile 10/29/21 * Prothrombin Time - Panel 03/30/22 [facility] Evaluation + Plan note Future Appointments Appointment Date:07/08/2022 09:30:00 AM Scheduled Provider: Location:[facility] Appointment Type:CV OV Appointment Date:07/09/2022 02:45:00 PM Scheduled Provider: Location:[facility] Appointment Type:CV OV Structural Heart Future Scheduled Tests Laboratory* Basic Metabolic Panel 03/30/22 * Complete Blood Count 03/30/22 * Lipid Profile 10/29/21 * Prothrombin Time - Panel 03/30/22 [facility] evaluation + Plan note Future Appointments Appointment Date:09/29/2022 09:45:00 AM Scheduled Provider: Location:[facility] Appointment Type:CV OV Future Scheduled Tests Laboratory* Basic Metabolic Panel 03/30/22 * Complete Blood Count 03/30/22 * Lipid Profile 10/29/21 * Prothrombin Time - Panel 03/30/22 [facility] evGLGation + Plan note Future Appointments Appointment Date:09/29/2022 09:45:00 AM Scheduled Provider: Location:[facility] Appointment Type:CV OV Future Scheduled Tests Laboratory* Basic Metabolic Panel 03/30/22 * Complete Blood Count 03/30/22 * Lipid Profile 10/29/21 * Prothrombin Time - Panel 03/30/22 Radiology* CT Angiography TAVR Planning 08/02/22 [facility] evGLGation + Plan note Future Appointments Appointment Date:08/24/2022 03:00:00 PM Scheduled Provider:REGINA REINA MD Location:CTS CAN 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 Outpatient Consult Appointment Date:09/29/2022 09:45:00 AM Scheduled Provider: Location:[facility] Appointment Type:CV OV Future Scheduled Tests Laboratory* Basic Metabolic Panel 03/30/22 * Complete Blood Count 03/30/22 * Lipid Profile 10/29/21 * Prothrombin Time - Panel 03/30/22 Radiology* CT Angiography TAVR Planning 08/02/22 [facility] evaluation + Plan note Future Appointments Appointment Date:09/21/2022 09:30:00 AM Scheduled Provider: Location:Hybrid OR Appointment Type:CV Procedure - Heart Lab/Hybrid OR Appointment Date:10/14/2022 02:00:00 PM Scheduled Provider: Location:[facility] Appointment Type:CV OV Future Scheduled Tests Laboratory* Basic Metabolic Panel 03/30/22 * Complete Blood Count 03/30/22 * Lipid Profile 10/29/21 * Prothrombin Time - Panel 03/30/22 Radiology* CT Angiography TAVR Planning 08/02/22 [facility] evGLGation + Plan note Future Appointments Appointment Date:11/10/2022 02:30:00 PM Scheduled Provider: Location:[facility] Appointment Type:CV OV Structural Heart Appointment Date:12/29/2022 10:45:00 AM Scheduled Provider: Location:[facility] Appointment Type:CV Office Procedure PPM Appointment Date:12/29/2022 11:15:00 AM Scheduled Provider: Location:[facility] Appointment Type:CV OV Appointment Date:03/31/2023 10:00:00 AM Scheduled Provider: Location:[facility] Appointment Type:CV Remote Procedure HM Appointment Date:04/14/2023 02:30:00 PM Scheduled Provider: Location:[facility] Appointment Type:CV OV Future Scheduled Tests Laboratory* Basic Metabolic Panel 03/30/22 * Basic Metabolic Panel 09/21/22 * Basic Metabolic Panel 09/09/22 * Complete Blood Count 03/30/22 * Complete Blood Count 09/21/22 * Prothrombin Time - Panel 03/30/22 Radiology* CT Angiography TAVR Planning 08/02/22 [facility] evaluation + Plan note Future Appointments Appointment Date:07/26/2023 10:15:00 AM Scheduled Provider: Location:[facility] Appointment Type:CV Remote Procedure HM Appointment Date:09/12/2023 11:00:00 AM Scheduled Provider: Location:[facility] Appointment Type:CV Procedure - Echo (Adult) Appointment Date:09/28/2023 01:30:00 PM Scheduled Provider: Location:[facility] Appointment Type:CV OV Structural Heart Appointment Date:12/26/2023 10:00:00 AM Scheduled Provider: Location:[facility] Appointment Type:CV Procedure - Echo (Adult) Appointment Date:12/30/2023 09:15:00 AM Scheduled Provider: Location:[facility] Appointment Type:CV OV Appointment Date:01/26/2024 10:00:00 AM Scheduled Provider: Location:[facility] Appointment Type:CV OV Future Scheduled Tests Laboratory* Basic Metabolic Panel 09/21/22 * Basic Metabolic Panel 09/09/22 * Basic Metabolic Panel 09/12/23 * Complete Blood Count 09/21/22 * Complete Blood Count 09/12/23 Radiology* CT Angiography TAVR Planning 08/02/22 [facility] evaluation + Plan note Future Appointments Appointment Date:09/14/2023 01:00:00 PM Scheduled Provider: Location:[facility] Appointment Type:CV OV Structural Heart Appointment Date:11/08/2023 09:45:00 AM Scheduled Provider: Location:[facility] Appointment Type:CV Remote Procedure HM Appointment Date:12/26/2023 10:00:00 AM Scheduled Provider: Location:[facility] Appointment Type:CV Procedure - Echo (Adult) Appointment Date:12/30/2023 09:15:00 AM Scheduled Provider: Location:[facility] Appointment Type:CV OV Appointment Date:01/26/2024 10:00:00 AM Scheduled Provider: Location:[facility] Appointment Type:CV OV Future Scheduled Tests Laboratory* Basic Metabolic Panel 09/21/22 * Basic Metabolic Panel 09/12/23 * Complete Blood Count 09/21/22 * Complete Blood Count 09/12/23 [facility] evaluation + Plan note Future Appointments Appointment Date:01/13/2024 10:00:00 AM Scheduled Provider: Location:[facility] Appointment Type:CV OV Appointment Date:01/26/2024 10:00:00 AM Scheduled Provider: Location:[facility] Appointment Type:CV OV Appointment Date:02/14/2024 01:30:00 PM Scheduled Provider: Location:[facility] Appointment Type:CV Office Procedure PPM Appointment Date:05/16/2024 08:15:00 AM Scheduled Provider: Location:[facility] Appointment Type:CV Remote Procedure HM Future Scheduled Tests Laboratory* Basic Metabolic Panel 09/12/23 * Complete Blood Count 09/12/23 [facility] evaluation + Plan note Future Appointments Appointment Date:10/04/2024 10:00:00 AM Scheduled Provider:ASHWINI MATA Location:[facility] Appointment Type:CV OV Appointment Date:11/27/2024 11:15:00 AM Scheduled Provider: Location:[facility] Appointment Type:CV Remote Procedure HM Appointment Date:01/14/2025 09:45:00 AM Scheduled Provider:ASHWINI ROONEY Location:[facility] Appointment Type:CV OV Future Scheduled Tests Laboratory* Basic Metabolic Panel 1/8/24 * Complete Blood Count 09/12/23 Radiology* XR Esophogram W/Barium Tablet 03/14/24 [facility] Evaluation noteNo assessment information available [facility] Work Phone: Hospital course Narrative No data available for this section [facility] Discharge instructions No data available for this section [facility] Note* SYSTEM: SIGN SYSTEM: SIGN, MODIFY SYSTEM: MODIFY, VERIFY Event Display: Cardiac Catheterization -CV Authored Date: [facility] Notf* SYSTEM: SIGN SYSTEM: SIGN, MODIFY SYSTEM: MODIFY, VERIFY Event Display: Percut Transluminal Coronary Angioplasty [facility] Progress note No data available for this section [facility] Chief Complaint and Reason for Visit Chief Complaint AAA REPAIR Family History No Family History Records Found Brother (s) Status:Active Comments:5. one of cancer Father Status:Active Comments: d. Chronic Ischemic Heart Disease. at age 87 of liver failure secondary to medication or possibly poisoned by his .Had CABG in 70's. Mother Status:Active Comments:Postmen opausal Osteoporosis. . after hip fracture at about 80 years old. Sister (s) Status:Active Comments:5. one of cancer Summary Purpose Advance Directives No Advanced Directives Records FoundNo Advanced Directives Records FoundNo Advanced Directives Records FoundNo Advanced Directives Records Found Additional Source Comments Care Team (unrecognized sect ion and content) Personnel Name: Renuka GARCIA MD Address: Address: [address] [place] [phone]- [place] Care Team Personnel Name: Renuka GARCIA MD Med Service: Family Practice Member Role: Primary Care Physician Address: Address: [address] [place] [phone]- [place] Name: DANIEL MATA MD Position: P4 Physician - Cardiology Med Service: Active Provider Member Role: Sap Administrator Address: Address: [address] [place] [address] [address] [place] [address]- [place] Care Team Related Persons Name: SILVIANOLA VILLARREAL Address: Home [address] [place], [place] [phone] [place] Name: CHANCE CAMPOS Address: Home [address] [place], [place] [phone] Care Team Personnel Name: Renuka GARCIA MD Member Role: Primary Care Physician Address: Address: [address] [place] [address]- [place] Name: DANIEL MATA MD Position: P4 Physician - Cardiology Member Role: Sap Administrator Address: Address: [address] [place] [address]- Care Team Related Persons Name: NOLA MASTERSON Address: Home [address] [place] [phone] [place] Name: GIOVANNA CAMPOSMY Address: Home [address] [phone] Care Team Personnel Name: Renuka GARCIA MD Member Role: Primary Care Physician Address: Address: [address] [place] [phone]- [place] Name: DANIEL MATA MD Position: P4 Physician - Cardiology Member Role: Sap Administrator Address: Address: [address] [place] [address]- Care Team Related Persons Name: NOLA MASTERSON Address: Home [address] [place], [place] [phone] [place] Name: CAMPOSCHANCE Address: Home [address] [facility] [place] [phone] Care Team Personnel Name: Renuka GARCIA MD Member Role: Primary Care Physician Address: Address: [address] [place] [phone]- [place] Name: DANIEL MATA MD Position: P4 Physician - Cardiology Member Role: Sap Administrator Address: Address: [address] [place] [address]- [place] Care Team Related Persons Name: NOLA MASTERSON Address: Home [address] [facility] [address] [place], [place] [phone] [place] Name: CHANCE CAMPOS Address: Home [address] [phone] Care Team Personnel Name: Renuka GARCIA MD Member Role: Primary Care Physician Address: Address: [address] [place] [phone]- Name: DANIEL MATA MD Position: P4 Physician - Cardiology Member Role: Sap Administrator Address: Address: [address] [facility] [address] [place] [address]- [place] Name: HORTENSIA NASH MD Position: P4 Physician - Cardiology Member Role: Sap Administrator Address: Address: [address] [place] [address] [address] [place] [address]- [place] Care Team Related Persons Name: NOLA MASTERSON Address: Home [address] [facility] [address] [place], [place] [phone] [place] Name: GIOVANNA CAMPOSMY Address: Home [address] [place] [phone] Care Team Personnel Name: Renuka GARCIA MD Member Role: Primary Care Physician Address: Address: [address] [place] [phone]- Name: DANIEL MATA MD Position: P4 Physician - Cardiology Member Role: Sap Administrator Address: Address: [address] [place] [address] [address] [place] [phone]- Name: HORTENSIA NASH MD Position: P4 Physician - Cardiology Member Role: Sap Administrator Address: Address: [address] [place] [address] [address] [place] [address]- [place] Care Team Related Persons Name: NOLA MASTERSON Address: Home [address] [facility] [address] [place], [place] [phone] [place] Name: CHANCE CAMPOS Address: Home [address] [facility] [address] [place] [phone] Care Team Personnel Name: Renuka GARCIA MD Member Role: Primary Care Physician Address: Address: [address] [place] [phone]- [place] Name: DANIEL MATA MD Position: P4 Physician - Cardiology Member Role: Sap Administrator Address: Address: [facility] [address] [place] [phone]- Name: HORTENSIA NASH MD Position: P4 Physician - Cardiology Member Role: Sap Administrator Address: Address: [address] [place] [address] [address]- Care Team Related Persons Name: NOLA MASTERSON Address: [address] [phone] [place] Name: CHANCE CAMPOS Address: [address] [phone] Care Team Personnel Name: FIONA DELANEY MD Member Role: Primary Care Physician Address: Address: [address] [place] [address]- Name: DANIEL MATA MD Position: P4 Physician - Cardiology Member Role: Sap Administrator Address: Address: [address] [place], [place] [phone]- Name: HORTENSIA NASH MD Position: P4 Physician - Cardiology Member Role: Sap Administrator Address: Address: [address] [place] [address]- Care Team Related Persons Name: NOLA MASTERSON Address: [address] [phone] [place] Name: CHANCE CAMPOS Address: [address] [phone] Care Teams (unrecognized sec tion and content) Team Status: Active Member Role Status Dates Dr. Tio Garcia MD Family Provider Active Dr. Fiona Delaney MD Primary Care Provider Active Team Status: Inactive Member Role Status Dates Dr. Brigid Lau MD Attending Provider, Referring Provider Active Dr. Fiona Delaney MD Primary Care Provider Active Goals (unrecognized section and content) Goals may be documented in a n alternate section (unrecognized sect ion and content) No Status Records FoundNo Status Records FoundNo Status Records FoundNo Status Records Found INFORMATION SOURCE (unrecogn ized section and content) DATE CREATED AUTHOR 01/27/2024 [facility] DATE CREATED AUTHOR AUTHOR'S ORGANIZ ATION 04/05/2024 [facility] [place] [facility] DATE CREATED AUTHOR AUTHOR'S ORGANIZ ATION 05/30/2024 [facility] DATE CREATED AUTHOR AUTHOR'S ORGANIZ ATION 09/19/2024 [facility] FOR RECORDS PERTAINING TO PATIENTS WHO ARE OR HAVE BEEN ENROLLED IN A CHEMICAL DEPENDENCY/SUBSTANCEABUSE PROGRAM, SOME INFORMATION MAY BE OMITTED. This clinical summary was aggregated from multiple sources. Caution should be exercised in using it in the provision of clinical care. This summary normalizes information from multiple sources, and as a consequence, information in this document may materially change the coding, format and clinical context of patient data. In addition, data may be omitted in some cases. CLINICAL DECISIONS SHOULD BE BASED ON THE PRIMARY CLINICAL RECORDS. [employer] [facility]. provides no warranty or guarantee of the accuracy or completeness of information in this document.
== END | disposition home or self-care (01) ==
LOC: CVS 07:31
PROVIDERS: PCP Family Medicine; Referring Provider Surgery Vascular Surgery; Visit Provider Surgery Vascular Surgery
DX: I73.9 Peripheral vascular disease, unspecified (principal); Z95.828 Presence of other vascular implants and grafts
CPT/HCPCS: 93922; 93978